=== PATIENT | female | born 1950 | race Native Hawaiian/Other Pacific Islander ===

== ENCOUNTER 2017-08-14 18:45 | Inpatient (IN) | payer MEDICARE, MEDICAID ==
[~2017-08-14] VITALS: Ht 162.6 cm; Wt 75.7 kg
[2017-08-14] MEDS ORDERED: LACTATED RINGERS 1,000 ML IV ONE (19:02)
[2017-08-14] MEDS ORDERED: NS IV 1000 ML 1,000 ML IV ONE ×2 (19:02→20:00)
[2017-08-14] MEDS ORDERED: RT-ALBUTEROL/IPRATROPIUM 3 ML (DUONEB) VIAL ONE (19:04)
[2017-08-14 19:12] LABS: ABG BASE EXCESS -3.1 MMOL/L (-2.5-2.5); ABG OXYGEN SATURATION 57 % (94-100); ABG PCO2 39 MMHG (35-45); ABG PH 7.36 (7.37-7.43)
[2017-08-14 19:13] LABS: ABG PO2 31 MMHG (79-93); ALLENS TEST POSITIVE; BASOPHILS % (AUTO) 0 % (0-10); EOSINOPHILS % (AUTO) 0 % (0-10); HEMATOCRIT 38 % (35-52); HEMOGLOBIN 12.5 G/DL (11.5-16.0); INSPIRED O2 6 L; LYMPHOCYTES # (AUTO) 1.7 X 10^3 (1.0-4.0); LYMPHOCYTES % (AUTO) 32 % (12-44); MEAN CORPUSCULAR HEMOGLOBIN 31 PG (25-34); MEAN CORPUSCULAR HGB CONC 33 G/DL (32-36); MEAN CORPUSCULAR VOLUME 94 FL (80-99); MONOCYTES # (AUTO) 0.8 X 10^3 (0.0-1.0); MONOCYTES % (AUTO) 14 % (0-12); NEUTROPHILS # (AUTO) 2.9 X 10^3 (1.8-7.8); NEUTROPHILS % (AUTO) 53 % (42-75); PATIENT TEMP 96.8; PLATELET COUNT 199 10^3/uL (130-400); RED BLOOD COUNT 4.03 10^6/uL (4.35-5.85); RED CELL DISTRIBUTION WIDTH 12.9 % (10.0-14.5); VENTILATOR NO; WHITE BLOOD COUNT 5.4 10^3/uL (4.3-11.0)
[2017-08-14] MEDS ORDERED: RT-ALBUTEROL/IPRATROPIUM 3 ML (DUONEB) VIAL INH ONE (19:15)
[2017-08-14] MEDS ORDERED: ONDANSETRON 4 MG/2 ML (SDV) Z0FRAN IVP PRN (19:15)
[2017-08-14] MEDS ORDERED: CEFEPIME INJECTION 2,000 MG in D5W 50 ML IVPB SOLUTION 50 ML IV ONE (19:15)
[2017-08-14 19:28] LABS: BILIRUBIN,URINE NEGATIVE (NEGATIVE); CLARITY,URINE CLEAR; COLOR,URINE YELLOW; GLUCOSE, URINE (UA) 2+ (NEGATIVE); KETONES,URINE NEGATIVE (NEGATIVE); LEUKOCYTE ESTERASE ,URINE NEGATIVE (NEGATIVE); NITRITE,URINE NEGATIVE (NEGATIVE); PH,URINE 5 (5-9); PROTEIN,URINE 1+ (NEGATIVE); UROBILINOGEN,URINE NORMAL (NORMAL)
[2017-08-14 19:34] LABS: ALBUMIN 4.3 GM/DL (3.2-4.5); BILIRUBIN,TOTAL 0.3 MG/DL (0.1-1.0); CALCIUM 9.3 MG/DL (8.5-10.1); CREATININE SERUM 2.76 MG/DL (0.60-1.30); MAGNESIUM 2.2 MG/DL (1.8-2.4); POTASSIUM 5.6 MMOL/L (3.6-5.0); TOTAL PROTEIN 8.3 GM/DL (6.4-8.2)
[2017-08-14 19:40] LABS: PROTHROMBIN TIME PATIENT 12.8 SEC (12.2-14.7)
[2017-08-14 19:41] LABS: BACTERIA,URINE NEGATIVE /HPF; SQUAMOUS EPITHELIAL CELL,UR 0-2 /HPF; WBC,URINE RARE /HPF
--- NOTE | 2017-08-14 20:12 | Diagnostic Imaging Report ---
INDICATION: Central line placement. Portable chest 7:53 p.m. FINDINGS: Right jugular central line tip projects over the SVC. Heart size and pulmonary vascularity are normal. Lungs are clear. There are no effusions or pneumothoraces. IMPRESSION: No acute abnormalities in the chest. Dictated by: Dictated on workstation # [id number]
--- NOTE | 2017-08-14 20:46 | ED General ---
General Chief Complaint: Unresponsive Stated Complaint: LETHARIC,AMS Nursing Triage Note: PT ARRIVED PER EMS, MD STATES HAS BEEN LETHARGIC ALL DAY BUT HAS BECOME MORE LETHARGIC PAST HOUR. HAS POOR RESPONSE TO PAINFUL STIMULI. Nursing Sepsis Screen: No Definite Risk Source of Information: Patient, EMS, Intermediate Records History of Present Illness Date Seen by Provider: Aug 14, 2017 Time Seen by Provider: 18:45 Initial Comments Patient presents to ER by EMS with chief complaint that she was at [facility] and rehabilitation nurse reported that she has been unresponsive since about 6:00 this morning. Patient is on Tamiflu day 2 for influenza. Blood pressure per [facility] records was 110 but EMS reports when they got there blood pressure was 106/58. Patient saturations were in the mid 80s on room air and on arrival blood pressure was in the high 90s systolic. Patient unable to give any meaningful history and initial GCS was 8 Allergies and Home Medications Allergies Coded Allergies: No Known Drug Allergies (Unverified , 08/14/17) Constitutional: see HPI (patient unable to give a meaningful review of systems secondary her to her clinical condition and decreased level of consciousness.) Past Tzzzpaq-Auvncx-Gkzrds Hx Patient Social History Alcohol Use: Denies Use Recreational Drug Use: No Smoking Status: Unknown if Ever Smoked Recent Foreign Travel: No Contact w/Someone Who Travel: No Recent Infectious Disease Expo: No Physical Exam-Suspected Sepsis Physical Exam Vital Signs Vital Sign - Last 12Hours 08/14/17 08/14/17 18:45 22:10 Temp 98.6 Pulse 99 Resp 20 B/P (MAP) 71/47 (55) Pulse Ox 74 O2 Delivery OxyMask O2 Flow Rate 5.00 FiO2 40 Capillary Refill : Less Than 3 Seconds Blood Pressure Mean: 55 General Appearance: WD/WN, Moderate Distress Eyes: Bilateral Eye Normal Inspection, Bilateral Eye PERRL (2mm), Bilateral Eye EOMI HEENT: PERRL/EOMI, TMs Normal, Normal ENT Inspection, Pharynx Normal Neck: Full Range of Motion, Normal Inspection, Non Tender, Supple Respiratory: Decreased Breath Sounds, Respiratory Distress (mild), Wheezing Cardiovascular: Regular Rate, Rhythm, No Murmur, Normal Peripheral Pulses Gastrointestinal: Normal Bowel Sounds, Soft Extremity: Normal Capillary Refill, Normal Inspection, No Pedal Edema Neurologic/Psychiatric: Other (GCS 8 initially) Skin: normal color, warm/dry Lymphatic: No Adenopathy Focused Exam Evaluation Lactate Level Laboratory Tests 08/14/17 19:03: Lactic Acid Level 1.60 Time of Focused Exam: 20:56 Respiratory: Chest Non Tender, Lungs Clear, Normal Breath Sounds, No Accessory Muscle Use, No Respiratory Distress, Other (BiPAP in place 11/26) Cardiovascular: Regular Rate, Rhythm, No Edema, Normal Peripheral Pulses, Other (blood pressure is 119/79) Capillary Refill: Less Than 3 Seconds Peripheral Pulses: 2+ Dorsalis Pedis (R), 2+ Left Dors-Pedis (L) Skin: normal color, warm/dry Lactic Acid Level Progress/Results/Core Measures Suspected Sepsis Recent Fever Within 48 Hours: No Infection Criteria Present: None New/Unexplained Altered Menta: No Sepsis Screen: No Definite Risk Sepsis Diagnosis: SIRS Temperature:98.6 Pulse: 99 Respiratory Rate: 20 Laboratory Tests 08/14/17 19:03: White Blood Count 5.4 08/15/17 03:10: White Blood Count 4.4 Blood Pressure 71 /47 Mean: 55 Laboratory Tests 08/14/17 19:03: Lactic Acid Level 1.60 Laboratory Tests 08/14/17 19:03: Creatinine 2.76H, INR Comment 1.0, Platelet Count 199, Total Bilirubin 0.3 08/15/17 03:10: Creatinine 1.46H, Platelet Count 144 Results/Orders Lab Results Laboratory Tests Test 08/14/17 18:54 08/14/17 19:03 08/14/17 19:17 08/14/17 20:28 Range/Units Glucometer 130 H 70-110 MG/DL White Blood Count 5.4 4.3-11.0 10^3/uL Red Blood Count 4.03 L 4.35-5.85 10^6/uL Hemoglobin 12.5 11.5-16.0 G/DL Hematocrit 38 35-52 % Mean Corpuscular Volume 94 80-99 FL Mean Corpuscular Hemoglobin 31 25-34 PG Mean Corpuscular Hemoglobin Concent 33 32-36 G/DL Red Cell Distribution Width 12.9 10.0-14.5 % Platelet Count 199 130-400 10^3/uL Mean Platelet Volume 11.0 H 7.4-10.4 FL Neutrophils (%) (Auto) 53 42-75 % Lymphocytes (%) (Auto) 32 12-44 % Monocytes (%) (Auto) 14 H 0-12 % Eosinophils (%) (Auto) 0 0-10 % Basophils (%) (Auto) 0 0-10 % Neutrophils # (Auto) 2.9 1.8-7.8 X 10^3 Lymphocytes # (Auto) 1.7 1.0-4.0 X 10^3 Monocytes # (Auto) 0.8 0.0-1.0 X 10^3 Eosinophils # (Auto) 0.0 0.0-0.3 10^3/uL Basophils # (Auto) 0.0 0.0-0.1 10^3/uL Prothrombin Time 12.8 12.2-14.7 SEC INR Comment 1.0 0.8-1.4 Activated Partial Thromboplast Time 35 24-35 SEC Blood Gas Puncture Site RIGHT WRIST RIGHT RADIAL Blood Gas Patient Temperature 96.8 97.0 Arterial Blood pH 7.36 L 7.31 *L 7.37-7.43 Arterial Blood Partial Pressure CO2 39 38 35-45 MMHG Arterial Blood Partial Pressure O2 31 *L 166 H 79-93 MMHG Arterial Blood HCO3 22 L 19 L 23-27 MMOL/L Arterial Blood Total CO2 23.0 20.1 L 21.0-31.0 MMOL/L Arterial Blood Oxygen Saturation 57 L 99 94-100 % Arterial Blood Base Excess -3.1 L -6.3 L -2.5-2.5 MMOL/L Darnell Test POSITIVE YES-POS Blood Gas Ventilator Setting NO NO Blood Gas Inspired Oxygen 6 L 60% Sodium Level 141 135-145 MMOL/L Potassium Level 5.6 H 3.6-5.0 MMOL/L Chloride Level 107 98-107 MMOL/L Carbon Dioxide Level 18 L 21-32 MMOL/L Anion Gap 16 H 5-14 MMOL/L Blood Urea Nitrogen 50 H 7-18 MG/DL Creatinine 2.76 H 0.60-1.30 MG/DL Estimat Glomerular Filtration Rate 17 BUN/Creatinine Ratio 18 Glucose Level 134 H 70-105 MG/DL Lactic Acid Level 1.60 0.50-2.00 MMOL/L Calcium Level 9.3 8.5-10.1 MG/DL Phosphorus Level 6.0 H 2.3-4.7 MG/DL Magnesium Level 2.2 1.8-2.4 MG/DL Total Bilirubin 0.3 0.1-1.0 MG/DL Aspartate Amino Transf (AST/SGOT) 44 H 5-34 U/L Alanine Aminotransferase (ALT/SGPT) 47 0-55 U/L Alkaline Phosphatase 87 40-136 U/L Troponin I < 0.30 <0.30 NG/ML Total Protein 8.3 H 6.4-8.2 GM/DL Albumin 4.3 3.2-4.5 GM/DL Urine Color YELLOW Urine Clarity CLEAR Urine pH 5 5-9 Urine Specific Colbert 1.020 1.016-1.022 Urine Protein 1+ H NEGATIVE Urine Glucose (UA) 2+ H NEGATIVE Urine Ketones NEGATIVE NEGATIVE Urine Nitrite NEGATIVE NEGATIVE Urine Bilirubin NEGATIVE NEGATIVE Urine Urobilinogen NORMAL NORMAL MG/DL Urine Leukocyte Esterase NEGATIVE NEGATIVE Urine RBC (Auto) NEGATIVE NEGATIVE Urine RBC NONE /HPF Urine WBC RARE /HPF Urine Squamous Epithelial Cells 0-2 /HPF Urine Crystals NONE /LPF Urine Bacteria NEGATIVE /HPF Urine Casts PRESENT /LPF Urine Hyaline Casts 2-5 H /LPF Urine Mucus SMALL H /LPF Urine Culture Indicated NO Test 08/15/17 03:10 08/15/17 04:35 Range/Units White Blood Count 4.4 4.3-11.0 10^3/uL Red Blood Count 3.10 L 4.35-5.85 10^6/uL Hemoglobin 9.5 #L 11.5-16.0 G/DL Hematocrit 30 L 35-52 % Mean Corpuscular Volume 96 80-99 FL Mean Corpuscular Hemoglobin 31 25-34 PG Mean Corpuscular Hemoglobin Concent 32 32-36 G/DL Red Cell Distribution Width 12.7 10.0-14.5 % Platelet Count 144 130-400 10^3/uL Mean Platelet Volume 10.4 7.4-10.4 FL Neutrophils (%) (Auto) 64 42-75 % Lymphocytes (%) (Auto) 26 12-44 % Monocytes (%) (Auto) 9 0-12 % Eosinophils (%) (Auto) 1 0-10 % Basophils (%) (Auto) 0 0-10 % Neutrophils # (Auto) 2.9 1.8-7.8 X 10^3 Lymphocytes # (Auto) 1.2 1.0-4.0 X 10^3 Monocytes # (Auto) 0.4 0.0-1.0 X 10^3 Eosinophils # (Auto) 0.0 0.0-0.3 10^3/uL Basophils # (Auto) 0.0 0.0-0.1 10^3/uL Sodium Level 140 135-145 MMOL/L Potassium Level 4.5 3.6-5.0 MMOL/L Chloride Level 113 H 98-107 MMOL/L Carbon Dioxide Level 17 L 21-32 MMOL/L Anion Gap 10 5-14 MMOL/L Blood Urea Nitrogen 36 H 7-18 MG/DL Creatinine 1.46 H 0.60-1.30 MG/DL Estimat Glomerular Filtration Rate 36 BUN/Creatinine Ratio 25 Glucose Level 128 H 70-105 MG/DL Calcium Level 7.3 L 8.5-10.1 MG/DL Phosphorus Level 3.1 2.3-4.7 MG/DL Magnesium Level 1.5 L 1.8-2.4 MG/DL Blood Gas Puncture Site LEFT RADIAL Blood Gas Patient Temperature 98.5 Arterial Blood pH 7.31 *L 7.37-7.43 Arterial Blood Partial Pressure CO2 36 35-45 MMHG Arterial Blood Partial Pressure O2 101 H 79-93 MMHG Arterial Blood HCO3 18 L 23-27 MMOL/L Arterial Blood Total CO2 19.0 L 21.0-31.0 MMOL/L Arterial Blood Oxygen Saturation 98 94-100 % Arterial Blood Base Excess -7.2 L -2.5-2.5 MMOL/L Darnell Test YES-POS Blood Gas Ventilator Setting NO Blood Gas Inspired Oxygen 30% Micro Results Microbiology 08/14/17 Influenza Types A,B Antigen (VITA) - Final, Complete My Orders Orders - LOGAN THACKER Albuterol/Ipra Inhalation Soln (Duoneb I (08/14/17 19:04) Troponin I (08/14/17 19:02) Chest 1 View, Ap/Pa Only (08/14/17 19:02) Ekg Tracing (08/14/17 19:02) Saline Lock/Iv-Start (08/14/17 19:02) Monitor-Rhythm Ecg Trace Only (08/14/17 19:02) Albuterol/Ipra Inhalation Soln (Duoneb I (08/14/17 19:15) Rt Request For Service (08/14/17 19:02) Saline Lock/Iv-Start (08/14/17 19:02) Ns Iv 1000 Ml (Sodium Chloride 0.9%) (08/14/17 19:02) Lactated Ringers (Lr 1000 Ml Iv Solution (08/14/17 19:02) Cbc With Automated Diff (08/14/17 19:02) Comprehensive Metabolic Panel (08/14/17 19:02) Lactic Acid Analyzer (08/14/17 19:02) Blood Culture (08/14/17 19:02) Sputum Culture (08/14/17 19:02) Ua Culture If Indicated (08/14/17 19:02) Protime With Inr (08/14/17 19:02) Partial Thromboplastin Time (08/14/17 19:02) O2 (08/14/17 19:02) Ondansetron Injection (Zofran Injectio (08/14/17 19:15) Saline Lock/Iv-Start (08/14/17 19:02) Saline Lock/Iv-Start (08/14/17 19:02) Cefepime Injection (Maxipime Injection) (08/14/17 19:15) Vital Signs Adult Sepsis Patie Q1H (08/14/17 19:02) Remove Rings In Anticipation O (08/14/17 19:02) Influenza A And B Antigens (08/14/17 19:02) Magnesium (08/14/17 19:02) Phosphorus (08/14/17 19:02) Bipap Rt-Rfs (08/14/17 19:02) Svn Sm Volume Nebulizer Rt-Rfs (08/14/17 19:02) Arterial Blood Gas (08/14/17 19:02) Ns Iv 1000 Ml (Sodium Chloride 0.9%) (08/14/17 20:00) Arterial Blood Gas (08/14/17 20:42) Medications Given in ED Current Medications Medications Dose Ordered Sig/Rhoda Route Start Time Stop Time Status Last Admin Dose Admin Albuterol/ Ipratropium 3 ml STK-MED ONCE .ROUTE 08/14/17 19:04 08/14/17 19:06 DC 08/14/17 19:09 3 ML Cefepime HCl 2000 mg/Dextrose/Water 50 ml @ 100 mls/hr ONCE ONCE IV 08/14/17 19:15 08/14/17 19:44 DC 08/14/17 20:09 100 MLS/HR Lactated Ringer's 1,000 ml @ 0 mls/hr Q0M ONCE IV 08/14/17 19:02 08/14/17 19:09 DC 08/14/17 19:05 1,000 MLS/HR Sodium Chloride 1,000 ml @ 0 mls/hr Q0M ONCE IV 08/14/17 19:02 08/14/17 19:09 DC 08/14/17 19:05 1,000 MLS/HR Sodium Chloride 1,000 ml @ 0 mls/hr Q0M ONCE IV 08/14/17 20:00 08/14/17 20:01 DC 08/14/17 20:10 0 MLS/HR Vital Signs/I&O Vital Sign - Last 12Hours 08/14/17 08/14/17 08/14/17 08/14/17 19:09 20:40 21:45 21:50 Temp 98.2 Pulse 99 99 80 Resp 20 22 16 B/P (MAP) 120/61 (80) Pulse Ox 100 99 98 O2 Delivery Nasal Cannula Nasal Cannula O2 Flow Rate 100.00 60.00 3.00 3.00 08/14/17 08/14/17 08/14/17 08/14/17 21:55 22:00 22:05 22:10 Pulse 76 80 85 Resp 13 15 B/P (MAP) 85/53 (64) Pulse Ox 97 97 99 O2 Delivery Nasal Cannula NIV Bilevel O2 Flow Rate 3.00 35.00 40.00 08/14/17 08/14/17 08/14/17 08/15/17 22:10 23:00 23:58 00:00 Temp 98.4 Pulse 85 79 77 Resp 17 15 B/P (MAP) 107/69 (82) Pulse Ox 99 100 100 O2 Delivery NIV Bilevel NIV Bilevel O2 Flow Rate 35.00 35.00 FiO2 40 08/15/17 08/15/17 08/15/17 08/15/17 00:00 01:00 01:00 02:00 Pulse 79 81 80 87 Resp 25 14 11 B/P (MAP) 119/79 (92) 108/92 (97) 104/60 (75) Pulse Ox 95 100 97 O2 Delivery NIV Bilevel NIV Bilevel NIV Bilevel O2 Flow Rate 35.00 35.00 30.00 08/15/17 08/15/17 08/15/17 08/15/17 02:00 03:00 04:00 04:00 Temp 98.4 Pulse 84 79 78 Resp 14 14 11 B/P (MAP) 99/64 (76) 102/65 (77) Pulse Ox 97 96 96 97 O2 Delivery NIV Bilevel NIV Bilevel NIV Bilevel O2 Flow Rate 30.00 30.00 30.00 FiO2 30 08/15/17 08/15/17 08/15/17 08/15/17 04:30 05:00 06:00 06:20 Pulse 79 79 80 75 Resp 15 13 12 15 B/P (MAP) 106/68 (81) 93/60 (71) Pulse Ox 97 98 97 100 O2 Delivery NIV Bilevel NIV Bilevel O2 Flow Rate 30.00 30.00 30.00 30.00 Intake and Output 08/15/17 00:00 Intake Total 2050 ml Balance 2050 ml Capillary Refill : Less Than 3 Seconds Blood Pressure Mean: 55 Progress Note : Time: 20:56 Progress Note Patient spontaneously was opening eyes is restarted doing or examination and interventions and her GCS improved where she may get a few 1 word answers saying she sick and feeling as whether it hurt or not. She's responding well to the oxygen and BiPAP so I don't think she'll need intubated at this time as she is protecting her airway and coughing at times. He started a central line to give her extra fluids and so far her blood pressure has been responsive to this. Spoke with daughter at 2100. Answered all questions. She is going to call the ICU in the morning to get an update. She will call other family members. Critical Care Note Critical Care Start Time: 18:45 Stop Time: 19:45 Total Time (minutes) 60 m Progress Patient's GCS was initially 8 although after some interventions lids she did start to wake up respond one or 2 word answers. She was protecting her airway. Her pupils became 4 mm bilateral reactive to light and accommodation. We initiated BiPAP because her sats were in the mid 80s on room air. We initially put an external jugular IV and 2 small 24-gauge in the hands that all but one hand blue nearly immediately so it was decided to put a central line and because she was hypotensive. Put IJ in the right neck. The patient tolerated procedure well. After 2-1/2 L were and her blood pressure was then above 110 systolic. Pressors were not needed. Departure Communication (Admissions) Time/Spoke to Admitting Phy: 20:[address] Moncada we spoke about the case lab imaging findings she agrees with antibiotics choice and wants the patient in ICU. Impression Impression: Primary Impression: Influenza A Additional Impressions: Septic shock Acute kidney injury Hyperkalemia Acute respiratory distress Disposition: ADMITTED INPATIENT Condition: Critical Admissions Decision to Admit Reason: Admit from ER (General) Decision to Admit/Date: Aug 14, 2017 Time/Decision to Admit Time: 20:43 Departure-Patient Inst. Referrals: LANETTE WILCOX DO (PCP/Family) Primary Care Physician Copy Copies To 1: LANETTE WILCOX TITUS J Aug 14, 2017 20:46
[2017-08-14 20:47] LABS: ABG BASE EXCESS -6.3 MMOL/L (-2.5-2.5); ABG OXYGEN SATURATION 99 % (94-100); ABG PCO2 38 MMHG (35-45); ABG PO2 166 MMHG (79-93); ABG TCO2 20.1 MMOL/L (21.0-31.0)
[2017-08-14 20:48] LABS: ABG PH 7.31 (7.37-7.43); ALLENS TEST YES-POS; INSPIRED O2 60%; VENTILATOR NO
[2017-08-14 21:50] VITALS: BP 120/61
[2017-08-14 22:00] VITALS: BP 85/53
[2017-08-14 22:10] VITALS: BP 85/53
[2017-08-14] MEDS: 1/2 NS IV SOLUTION 1,000 ML IV SCH (22:16)
[2017-08-14] MEDS ORDERED: VASOPRESSIN IV SCH (22:26)
[2017-08-14] MEDS ORDERED: NOREPINEPHRINE 4 MG in NS (IVPB) 250 ML IV SCH (22:26)
[2017-08-14] MEDS ORDERED: D5W IV SCH (22:26)
[2017-08-14] MEDS ORDERED: VANCOMYCIN 2000 MG/NS 500 ML IVPB IV ONE ×2 (22:30)
[2017-08-14] MEDS ORDERED: ONDANSETRON 4 MG/2 ML (SDV) Z0FRAN IV PRN (22:30)
[2017-08-14] MEDS ORDERED: NS IV 1000 ML 2,449.41 ML IV PRN (22:30)
[2017-08-14] MEDS ORDERED: NS (IVPB) 250 ML ONE ×2 (22:49)
[2017-08-14] MEDS ORDERED: VANCOMYCIN 1000 MG/VIAL ONE ×2 (22:49)
[2017-08-14] MEDS: NS IV 1000 ML 1,000 ML IV SCH (22:53)
[2017-08-14 23:00] VITALS: BP 107/69
[2017-08-14] MEDS ORDERED: RT-ALBUTEROL/IPRATROPIUM 3 ML (DUONEB) VIAL INH PRN (23:00)
[2017-08-14 23:58] VITALS: BP 132/68
[2017-08-15] VITALS (16 sets, daily range): BP systolic 93–137; BP diastolic 51–92
[2017-08-15] MEDS: RT-ALBUTEROL/IPRATROPIUM 3 ML (DUONEB) VIAL INH SCH ×6 (01:59→22:00)
[2017-08-15] MEDS: 1/2 NS IV SOLUTION 1,000 ML IV SCH (03:13)
[2017-08-15] MEDS: NS IV 1000 ML 1,000 ML IV SCH ×4 (03:13→18:04)
[2017-08-15 03:21] LABS: BASOPHILS % (AUTO) 0 % (0-10); EOSINOPHILS % (AUTO) 1 % (0-10); HEMATOCRIT 30 % (35-52); HEMOGLOBIN 9.5 G/DL (11.5-16.0); LYMPHOCYTES # (AUTO) 1.2 X 10^3 (1.0-4.0); LYMPHOCYTES % (AUTO) 26 % (12-44); MEAN CORPUSCULAR HEMOGLOBIN 31 PG (25-34); MEAN CORPUSCULAR HGB CONC 32 G/DL (32-36); MEAN CORPUSCULAR VOLUME 96 FL (80-99); MEAN PLATELET VOLUME 10.4 FL (7.4-10.4); MONOCYTES # (AUTO) 0.4 X 10^3 (0.0-1.0); MONOCYTES % (AUTO) 9 % (0-12); NEUTROPHILS # (AUTO) 2.9 X 10^3 (1.8-7.8); NEUTROPHILS % (AUTO) 64 % (42-75); PLATELET COUNT 144 10^3/uL (130-400); RED CELL DISTRIBUTION WIDTH 12.7 % (10.0-14.5); WHITE BLOOD COUNT 4.4 10^3/uL (4.3-11.0)
[2017-08-15 03:39] LABS: CALCIUM 7.3 MG/DL (8.5-10.1); CREATININE SERUM 1.46 MG/DL (0.60-1.30); MAGNESIUM 1.5 MG/DL (1.8-2.4); PHOSPHORUS 3.1 MG/DL (2.3-4.7); POTASSIUM 4.5 MMOL/L (3.6-5.0)
[2017-08-15 04:43] LABS: ABG BASE EXCESS -7.2 MMOL/L (-2.5-2.5); ABG OXYGEN SATURATION 98 % (94-100); ABG PCO2 36 MMHG (35-45); ABG PO2 101 MMHG (79-93)
[2017-08-15 04:47] LABS: ABG PH 7.31 (7.37-7.43); ALLENS TEST YES-POS; INSPIRED O2 30%; PATIENT TEMP 98.5; VENTILATOR NO
[2017-08-15] MEDS ORDERED: MAGNESIUM 1 GM/100 ML IVPB 100 ML IV SCH (06:00)
[2017-08-15] MEDS ORDERED: POTASSIUM CL 10MEQ/50ML IVPB 50 ML IV SCH (06:00)
[2017-08-15] MEDS ORDERED: KCL 20 MEQ TAB (K-DUR) PO SCH (06:00)
--- NOTE | 2017-08-15 06:26 | Pulmonary Consultation ---
History of Present Illness History of Present Illness Date of Consultation 08/15/17 06:19 Time Seen by Provider: 06:19 Date of Admission History of Present Illness 67yo presented to ED via EMS from [facility] secondary to being found unresponsive. Pt has been treated with Tamiflu for the last 2 days for documented influenza. Pt was also found to be hypoxic with Sp02 in the 80's. Pt was admitted to ICU for hypotension and influenza. I am consulted for ICU management. Unable to obtain ROS. Allergies and Home Medications Allergies Coded Allergies: No Known Drug Allergies (Unverified , 08/14/17) Past Qisaqbt-Hbbjju-Wwosab Hx Patient Social History Alcohol Use: Denies Use Recreational Drug Use: No Smoking Status: Unknown if Ever Smoked Recent Foreign Travel: No Contact w/Someone Who Travel: No Recent Infectious Disease Expo: No Recent Hopitalizations: No Immunizations Up To Date PED Vaccines UTD: No Date of Pneumonia Vaccine: Apr 24, 2016 Seasonal Allergies Seasonal Allergies: No Surgeries History of Surgeries: No Respiratory History of Respiratory Disorde: Yes Respiratory Disorders: Sleep Apnea Cardiovascular History of Cardiac Disorders: Yes Neurological History of Neurological Disord: Yes Genitourinary History of Genitourinary Disor: No Gastrointestinal History of Gastrointestinal Di: Yes Gastrointestinal Disorders: Hemorrhoids Musculoskeletal History of Musculoskeletal Dis: Yes Musculoskeletal Disorders: Chronic Back Pain Endocrine History of Endocrine Disorders: No HEENT History of HEENT Disorders: Yes Hearing Impairment: Hard of Hearing Cancer History of Cancer: No Psychosocial History of Psychiatric Problem: Yes (MAJOR DEPRESSIVE DISORDER, DELUSIONS) Behavioral Health Disorders: Personality Disorder, Depression Integumentary History of Skin or Integumenta: No Blood Transfusions History of Blood Disorders: No Review of Systems Time Seen by Provider: 06:45 Exam Exam Vital Signs Date Time Temp Pulse Resp B/P (MAP) Pulse Ox O2 Delivery O2 Flow Rate FiO2 08/15/17 04:30 79 15 97 30.00 08/15/17 04:00 97 NIV Bilevel 30 08/15/17 04:00 98.4 78 11 102/65 (77) 96 NIV Bilevel 30.00 08/15/17 03:00 79 14 99/64 (76) 96 NIV Bilevel 30.00 08/15/17 02:00 84 14 97 30.00 08/15/17 02:00 87 11 104/60 (75) 97 NIV Bilevel 30.00 08/15/17 01:00 80 14 108/92 (97) 100 NIV Bilevel 35.00 08/15/17 01:00 81 08/15/17 00:00 79 25 119/79 (92) 95 NIV Bilevel 35.00 08/15/17 00:00 98.4 NIV Bilevel 08/14/17 23:58 77 15 100 35.00 08/14/17 23:00 79 17 107/69 (82) 100 NIV Bilevel 35.00 08/14/17 22:10 85 99 40 08/14/17 22:10 85 15 99 40.00 08/14/17 22:05 80 08/14/17 22:00 76 13 85/53 (64) 97 NIV Bilevel 35.00 08/14/17 21:55 97 Nasal Cannula 3.00 08/14/17 21:50 98.2 80 16 120/61 (80) 98 Nasal Cannula 3.00 08/14/17 21:45 Nasal Cannula 3.00 08/14/17 20:40 99 22 99 60.00 08/14/17 19:09 99 20 100 100.00 08/14/17 18:45 98.6 99 20 71/47 (55) 74 Room Air 08/14/17 18:45 74 OxyMask 5.00 I & O 08/15/17 07:00 Intake Total 3550 ml Output Total 1075 ml Balance 2475 ml General Appearance: No Apparent Distress HEENT: TMs Normal, Normal ENT Inspection Neck: Supple Respiratory: Chest Non Tender, Lungs Clear, Normal Breath Sounds, No Accessory Muscle Use, No Respiratory Distress, Other (BiPAP in place /10) Cardiovascular: Regular Rate, Rhythm, No Edema, Normal Peripheral Pulses, Other (blood pressure is 119/79) Capillary Refill: Less Than 3 Seconds Peripheral Pulses: 2+ Dorsalis Pedis (R), 2+ Left Dors-Pedis (L) Gastrointestinal: normal bowel sounds, non tender, soft Extremity: Normal Capillary Refill, Normal Inspection Neurologic/Psychiatric: Alert, Oriented x3 Skin: Normal Color, Warm/Dry Lymphatic: No Adenopathy Results Lab Laboratory Tests 08/14/17 19:03 08/15/17 03:10 Assessment/Plan Assessment/Plan Influenza A - without sepsis - No leukocytosis, no fever, HR <90, RR <12 Dehydration with Hypotension -IVF NS at 150 -Pt has had 6 liters ROSIO -IVF Hypomag -replace 255 Clinical Quality Measures DVT/VTE Risk/Contraindication: Risk Factor Score Per Nursin RFS Level Per Nursing on Admit: 4+=Very High ASHLEE ANDREA DO Aug 15, 2017 06:26
[2017-08-15] MEDS ORDERED: FAMOTIDINE 20 MG (PEPCID) TABLET PO PRN (06:45)
[2017-08-15] MEDS: ENOXAPARIN 40 MG/0.4 ML (LOVENOX) SYR SC SCH (06:56)
[2017-08-15] MEDS: MAGNESIUM 1 GM/100 ML IVPB 100 ML IV SCH ×2 (06:56→08:01)
--- NOTE | 2017-08-15 08:14 | Diagnostic Imaging Report ---
INDICATION: Pneumonia COMPARISON: 08/14/2017 FINDINGS: Single view of the chest demonstrates stable minimal basilar atelectasis. The heart is prominent without pulmonary edema. There is no pneumothorax or effusion. The central venous catheter on the right is stable. IMPRESSION: Minimal basilar atelectasis. Dictated by: Dictated on workstation # [id number]
[2017-08-15] MEDS ORDERED: INFLUENZA TRIvalent 2017-2018 0.5 ML/45 MCG SYR IM ONE (08:30)
[2017-08-15] MEDS ORDERED: OSELTAMIVIR 75 MG (TAMIFLU) BOX OF 10 PO SCH (09:00)
[2017-08-15] MEDS: OSELTAMIVIR 30 MG (TAMIFLU) BOX OF 10 PO SCH ×3 (09:30→21:09)
--- NOTE | 2017-08-15 10:57 | History & Physical-Hospitalist ---
HPI History of Present Illness: HPI/Chief Complaint CC: Altered mental status HPI: This is a 67-year-old white female halfway patient of Dr. Miller'elham with history of severe dementia that presented to the ER after found unresponsive. She had documented influenza 2 days prior to admission and she was found to have hypotension due to dehydration without evidence of sepsis. Chest x-ray did not reveal pneumonia. Patient has such severe dementia no history is obtainable. Source: patient Exam Limitations: other (dementia) Date Seen 08/15/17 Time Seen by Provider: 11:00 Attending Physician Patricia Moncada DO PCP Rik Miller DO Referring Physician Date of Admission Aug 14, 2017 at 20:50 Home Medications & Allergies Home Medications Reviewed patient Home Medication Reconciliation Form Allergies Allergies Coded Allergies No Known Drug Allergies (Unverified08/14/17) Past Fmriajf-Nwedko-Fabrye Hx Patient Social History Marrital Status: single Alcohol Use: Denies Use Recreational Drug Use: No Smoking Status: Unknown if Ever Smoked Physical Abuse Screen: No Sexual Abuse: No Recent Foreign Travel: No Contact w/other who traveled: No Recent Hopitalizations: No Recent Infectious Disease Expo: No Immunizations Up To Date Pediatric: No Date of Pneumonia Vaccine: Apr 24, 2016 Seasonal Allergies Seasonal Allergies: No Surgeries No Respiratory Yes Cardiovascular Yes Hypertension Neurological Yes Dementia Genitourinary No Gastrointestinal Yes Hemorrhoids Musculoskeletal Yes Chronic Back Pain Endocrine History of Endocrine Disorders: No HEENT History of HEENT Disorders: Yes Hearing Impairment: Hard of Hearing Cancer No Psychosocial History of Psychiatric Problem: Yes (MAJOR DEPRESSIVE DISORDER, DELUSIONS) Behavioral Health Disorders: Personality Disorder, Depression Integumentary History of Skin or Integumenta: No Blood Transfusions History of Blood Disorders: No Review of Systems ROS-Unable to Obtain: unable to ascertain due to dementia Constitutional: see HPI Physical Exam Physical Exam Vital Signs Vital Sign - Last 12Hours 08/14/17 08/14/17 18:45 22:10 Temp 98.6 Pulse 99 Resp 20 B/P (MAP) 71/47 (55) Pulse Ox 74 O2 Delivery OxyMask O2 Flow Rate 5.00 FiO2 40 Capillary Refill : Less Than 3 Seconds General Appearance: No Apparent Distress, WD/WN, Chronically ill, Obese Eyes: Bilateral Eye Normal Inspection, Bilateral Eye PERRL HEENT: PERRL/EOMI, Normal ENT Inspection, Pharynx Normal Neck: Full Range of Motion, Normal Inspection, Non Tender, Supple, Carotid Bruit Respiratory: Chest Non Tender, Lungs Clear, Normal Breath Sounds, No Accessory Muscle Use, No Respiratory Distress Cardiovascular: Regular Rate, Rhythm, No Edema, No Gallop, No JVD, No Murmur, Normal Peripheral Pulses Gastrointestinal: Normal Bowel Sounds, No Organomegaly, No Pulsatile Mass, Non Tender, Soft Back: Normal Inspection, No CVA Tenderness, No Vertebral Tenderness Extremity: Normal Capillary Refill, Normal Inspection, Normal Range of Motion, Non Tender, No Calf Tenderness, No Pedal Edema Neurologic/Psychiatric: Alert, No Motor/Sensory Deficits, Normal Mood/Affect, Disoriented x3 Skin: Normal Color, Warm/Dry Lymphatic: No Adenopathy Results Results/Procedures Lab Laboratory Tests 08/14/17 19:03 08/15/17 03:10 Assessment/Plan Admission Diagnosis Assessment: Altered mental status Recent diagnosis of influenza Dehydration with hypotension Severe dementia Assessment and Plan Plan: Reconcile home meds when available Transfer to fourth floor Severe dementia precludes any details Clinical Quality Measures DVT/VTE Risk/Contraindication: Risk Factor Score Per Nursin RFS Level Per Nursing on Admit: 4+=Very High PATRICIA MONCADA DO Aug 15, 2017 10:57
[2017-08-15] MEDS ORDERED: ATOR10TA PO (15:25)
[2017-08-15] MEDS ORDERED: OSLT75C PO (15:25)
[2017-08-15] MEDS ORDERED: LISI-552 PO (15:25)
[2017-08-15] MEDS ORDERED: DONE10TA12 PO (15:25)
[2017-08-15] MEDS ORDERED: SENN-140 PO (15:25)
[2017-08-15] MEDS ORDERED: METF500T4 PO (15:25)
[2017-08-15] MEDS ORDERED: MAG30ORA2 PO (15:25)
[2017-08-15] MEDS ORDERED: AMLO10TA4 PO (15:25)
[2017-08-15] MEDS ORDERED: MULT-974 PO (15:25)
[2017-08-15] MEDS ORDERED: LACT10SO PO (15:25)
[2017-08-15] MEDS ORDERED: MEMA10TA2 PO (15:25)
[2017-08-15] MEDS ORDERED: MIRT15TA6 PO (15:25)
[2017-08-15] MEDS ORDERED: GABA-490 PO (15:25)
[2017-08-15] MEDS ORDERED: DULO60CA58 PO (15:25)
[2017-08-15] MEDS ORDERED: DOCU-143 PO (15:25)
[2017-08-15] MEDS ORDERED: TRIA1CAP4 PO (15:25)
[2017-08-15] MEDS ORDERED: DIPH1TAB PO (15:25)
[2017-08-15] MEDS ORDERED: ACET325T49 PO (15:25)
[2017-08-15] MEDS ORDERED: QUET100T PO (15:25)
[2017-08-15] MEDS ORDERED: MUPI15CR TP (15:25)
[2017-08-15] MEDS ORDERED: QUET300T2 PO (15:25)
[2017-08-15] MEDS ORDERED: MOUT240M PO (15:34)
[2017-08-15] MEDS ORDERED: LIDOCAINE GEL 2% TOP (15:34)
[2017-08-15] MEDS ORDERED: CEFEPIME 2 GM/D5W 50 ML IVPB IV SCH ×2 (19:00)
[2017-08-15] MEDS ORDERED: VANCOMYCIN 1250 MG/NS 250 ML IVPB IV SCH ×2 (22:45)
[2017-08-16] MEDS: RT-ALBUTEROL/IPRATROPIUM 3 ML (DUONEB) VIAL INH SCH ×6 (01:53→21:41)
[2017-08-16 02:32] VITALS: BP 149/75
[2017-08-16] MEDS: NS IV 1000 ML 1,000 ML IV SCH ×2 (03:17→08:15)
[2017-08-16 04:35] LABS: BASOPHILS % (AUTO) 0 % (0-10); EOSINOPHILS # (AUTO) 0.1 10^3/uL (0.0-0.3); EOSINOPHILS % (AUTO) 1 % (0-10); HEMATOCRIT 32 % (35-52); HEMOGLOBIN 10.6 G/DL (11.5-16.0); LYMPHOCYTES % (AUTO) 19 % (12-44); MEAN CORPUSCULAR HEMOGLOBIN 31 PG (25-34); MEAN CORPUSCULAR HGB CONC 34 G/DL (32-36); MEAN CORPUSCULAR VOLUME 93 FL (80-99); MONOCYTES # (AUTO) 0.4 X 10^3 (0.0-1.0); MONOCYTES % (AUTO) 8 % (0-12); NEUTROPHILS # (AUTO) 3.7 X 10^3 (1.8-7.8); NEUTROPHILS % (AUTO) 72 % (42-75); PLATELET COUNT 167 10^3/uL (130-400); RED CELL DISTRIBUTION WIDTH 12.2 % (10.0-14.5); WHITE BLOOD COUNT 5.2 10^3/uL (4.3-11.0)
[2017-08-16 04:51] LABS: BUN/CREATININE RATIO 18; CALCIUM 7.8 MG/DL (8.5-10.1); CARBON DIOXIDE 15 MMOL/L (21-32); CHLORIDE 112 MMOL/L (98-107); CREATININE SERUM 0.76 MG/DL (0.60-1.30); GFR ESTIMATED > 60; GLUCOSE 110 MG/DL (70-105); MAGNESIUM 1.7 MG/DL (1.8-2.4); PHOSPHORUS 1.3 MG/DL (2.3-4.7); POTASSIUM 4.3 MMOL/L (3.6-5.0); SODIUM 138 MMOL/L (135-145)
[2017-08-16] MEDS: ENOXAPARIN 40 MG/0.4 ML (LOVENOX) SYR SC SCH (06:02)
[2017-08-16] MEDS: OSELTAMIVIR 30 MG (TAMIFLU) BOX OF 10 PO SCH ×3 (08:16→20:44)
[2017-08-16 08:46] VITALS: BP 150/100
--- NOTE | 2017-08-16 09:21 | Diagnostic Imaging Report ---
CLINICAL INDICATION: Patient with pneumonia. EXAM: Portable chest x-ray upright view. COMPARISON: Portable chest x-ray dated 08/15/2017. FINDINGS: There is interval increase airspace opacification involving the right midlung field and both lung bases concerning for progression of pneumonia and/or superimposed infiltrate. Again seen mild cardiomegaly. There is no significant pulmonary vascular congestion. There is no gross pleural effusion or pneumothorax. The previously seen right IJ central line has been removed. The remainder of this exam shows no significant interval change compared to the prior study of comparison. IMPRESSION: 1: Interval progression of bilateral lung infiltrates and/or atelectasis. 2: There is interval removal of the right IJ central line. There is no pneumothorax. Dictated by: Dictated on workstation # [id number]
--- OUTSIDE RECORDS SUMMARY | 2017-08-16 09:29 | XMS REPORT | Continuity of Care Document ---
Author Author [facility] Organization [facility] Address Unknown Phone Unavailable Allergies There is no data. Medications There is no data. Problems Date Dx Coded Attending Type Code Diagnosis Diagnosed By 02/03/2017 MISHEL HERNANDEZ MD E11.9 Type 2 diabetes mellitus without complications 02/03/2017 MISHEL HERNANDEZ MD F01.50 Vascular dementia without behavioral disturbance 02/03/2017 MISHEL HERNANDEZ MD F33.3 Major depressv disorder, recurrent, severe w psych symptoms 02/03/2017 MISHEL HERNANDEZ MD I10 Essential (primary) hypertension 02/03/2017 MISHEL HERNANDEZ MD K12.0 Recurrent oral aphthae 02/03/2017 MISHEL HERNANDEZ MD K59.00 Constipation, unspecified 02/03/2017 MISHEL HERNANDEZ MD K62.89 Other specified diseases of anus and rectum 02/03/2017 MISHEL HERNANDEZ MD N28.9 Disorder of kidney and ureter, unspecified 02/03/2017 MISHEL HERNANDEZ MD R19.7 Diarrhea, unspecified Procedures There is no data. Results There is no data. Encounters ACCT No. Visit Date/Time Discharge Status Pt. Type Provider Facility Loc./Unit Complaint [id number] 01/09/2017 17:30:00 02/03/2017 19:23:00 DIS Inpatient MISHEL HERNANDEZ MD [facility]
--- OUTSIDE RECORDS SUMMARY | 2017-08-16 09:29 | XMS REPORT ---
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 Problem list No authorized problems tracked for continuity of care are available for this visit. Encounters No authorized problems tracked for encounter diagnoses are available for this visit. Medications No medications recorded for this patient visit Allergies, adverse reactions, alerts No allergy information is available for this patient. Immunizations No immunizations recorded for this patient visit Relevant diagnostic tests and/or laboratory data No authorized results are available for this patient visit History of procedures No procedures recorded for this patient visit. Functional status No functional or cognitive status observations are available for this visit. Vital signs No authorized vital signs are available for this visit. Social history No Social History or smoking status observations were recorded for this visit. ( Unknown if ever smoked.) Treatment Plan No treatment plan text is available for this visit. Hospital discharge instructions No discharge instruction text is available for this visit.
--- OUTSIDE RECORDS SUMMARY | 2017-08-16 09:29 | XMS REPORT ---
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
--- OUTSIDE RECORDS SUMMARY | 2017-08-16 09:32 | XMS REPORT | Continuity of Care Document ---
Author Author [facility] Organization [facility] Address Unknown Phone Unavailable Allergies There [...] Status Pt. Type Provider Facility Loc./Unit Complaint [id number] 01/09/2017 17:30:00 02/03/2017 19:23:00 DIS Inpatient MISHEL HERNANDEZ MD [facility]
--- NOTE | 2017-08-16 11:25 | Progress Note-Hospitalist ---
Progress Note HPI/CC on Admission CC: Altered mental status HPI: This is a 67-year-old white female [facility] patient of Dr. Bloom with history of severe dementia that presented to the ER after found unresponsive. She had documented influenza 2 days prior to admission and she was found to have hypotension due to dehydration without evidence of sepsis. Chest x-ray did not reveal pneumonia. Patient has such severe dementia no history is obtainable. Progress Notes/Assess & Plan Date Seen 08/16/17 Time Seen by Provider: 10:30 Admission Dx/Process Assessment: Altered mental status Recent diagnosis of influenza Dehydration with hypotension Severe dementia Diagonsis/Assessment & Plan Patient unwilling to have exam today she just pushes my hands away Patient not taking her meds either Reconcile all home meds including antihypertensive medicine Will discontinue catheter Overall poor prognosis due to severe dementia No fever, blood pressure more elevated today Patient refused to allow me to examine her heart and lungs Laboratory Tests 08/16/17 04:28 Assessment: Altered mental status w/h/o severe dementia Recent diagnosis of influenza maintained on Tamiflu Dehydration with hypotension resolved now with mild fluid overload will give one dose of Lasix HTN HLP Anemia of acute illness Plan: Reconciled home meds but refusing all pills so will try to encourage her to take the meds NHP tomorrow per PCP Severe dementia precludes any details KORY ARENAS DO Aug 16, 2017 11:25
[2017-08-16] MEDS ORDERED: HALOPERIDOL 5 MG/ML (HALDOL) AMP IM PRN (11:30)
[2017-08-16] MEDS ORDERED: ANTACID SUSP 30 ML UDC (MYLANTA) PO PRN (11:30)
[2017-08-16] MEDS ORDERED: LACTULOSE SYRUP 10GM/15ML (ENULOSE) 30ML UDC PO PRN (11:30)
[2017-08-16] MEDS ORDERED: SENNOSIDES 8.6 MG (SENOKOT) TAB PO PRN (11:30)
[2017-08-16 12:00] VITALS: BP 171/91
[2017-08-16] MEDS ORDERED: FUROSEMIDE 40 MG/4 ML INJ (LASIX) IVP NR (12:21)
[2017-08-16] MEDS: GABAPENTIN 400 MG (NEURONTIN) CAP PO SCH ×2 (13:43→20:43)
[2017-08-16] MEDS: ACETAMINOPHEN 325 MG TABLET/CAPLET (TYLENOL) PO SCH ×2 (13:44→20:44)
[2017-08-16] MEDS: DULoxetine 30 MG (CYMBALTA) CAP PO SCH (13:44)
[2017-08-16 14:16] VITALS: BP 146/69
[2017-08-16 15:55] VITALS: BP 127/86
[2017-08-16 20:00] VITALS: BP 143/87
[2017-08-16] MEDS: MEMANTINE 10 MG (NAMENDA) TABLET PO SCH (20:43)
[2017-08-16] MEDS: CEFDINIR 300 MG (OMNICEF) CAP PO SCH (20:43)
[2017-08-16] MEDS: DOCUSATE SODIUM 100 MG (COLACE) CAP PO SCH (20:43)
[2017-08-16] MEDS: QUEtiapine 100 MG (SEROquel) TAB IMMEDIATE RELEASE PO SCH (20:44)
[2017-08-16] MEDS ORDERED: TROUGH ORDER-PHARMACY XX NR (21:00)
[2017-08-16] MEDS ORDERED: QUEtiapine 200 MG (SEROquel) TAB IMMEDIATE RELEASE PO SCH (21:00)
[2017-08-16] MEDS ORDERED: DONEPEZIL 10 MG (ARICEPT) TAB PO SCH (21:00)
[2017-08-16] MEDS ORDERED: MIRTAZAPINE 15 MG (REMERON) TAB PO SCH (21:00)
[2017-08-17] VITALS: BP 127/65
[2017-08-17] MEDS: RT-ALBUTEROL/IPRATROPIUM 3 ML (DUONEB) VIAL INH SCH ×2 (01:30→11:12)
[2017-08-17] MEDS: ENOXAPARIN 40 MG/0.4 ML (LOVENOX) SYR SC SCH (06:18)
[2017-08-17 06:51] LABS: BASOPHILS % (AUTO) 1 % (0-10); EOSINOPHILS % (AUTO) 0 % (0-10); HEMATOCRIT 34 % (35-52); HEMOGLOBIN 11.5 G/DL (11.5-16.0); LYMPHOCYTES % (AUTO) 16 % (12-44); MEAN CORPUSCULAR HEMOGLOBIN 31 PG (25-34); MEAN CORPUSCULAR HGB CONC 34 G/DL (32-36); MEAN CORPUSCULAR VOLUME 91 FL (80-99); MEAN PLATELET VOLUME 10.6 FL (7.4-10.4); MONOCYTES # (AUTO) 0.6 X 10^3 (0.0-1.0); MONOCYTES % (AUTO) 8 % (0-12); NEUTROPHILS # (AUTO) 4.9 X 10^3 (1.8-7.8); NEUTROPHILS % (AUTO) 75 % (42-75); PLATELET COUNT 191 10^3/uL (130-400); RED BLOOD COUNT 3.71 10^6/uL (4.35-5.85); RED CELL DISTRIBUTION WIDTH 11.9 % (10.0-14.5); WHITE BLOOD COUNT 6.5 10^3/uL (4.3-11.0)
[2017-08-17 07:08] LABS: BUN/CREATININE RATIO 16; CALCIUM 8.5 MG/DL (8.5-10.1); CARBON DIOXIDE 17 MMOL/L (21-32); CHLORIDE 110 MMOL/L (98-107); CREATININE SERUM 0.73 MG/DL (0.60-1.30); GFR ESTIMATED > 60; GLUCOSE 125 MG/DL (70-105); MAGNESIUM 1.6 MG/DL (1.8-2.4); PHOSPHORUS 1.6 MG/DL (2.3-4.7); SODIUM 141 MMOL/L (135-145)
--- NOTE | 2017-08-17 07:14 | Pulmonary Progress Note ---
Subjective Time Seen by Provider: 07:13 Subjective/Events-last exam NO complications noted. Exam Exam Vital Signs Date Time Temp Pulse Resp B/P (MAP) Pulse Ox O2 Delivery O2 Flow Rate FiO2 08/17/17 00:00 97.4 82 22 127/65 (85) 96 Room Air 08/16/17 20:45 Room Air 08/16/17 20:00 98.3 76 24 143/87 (105) 95 Room Air 08/16/17 15:55 96.7 88 24 127/86 (100) 96 Room Air 08/16/17 14:16 96.9 76 20 146/69 (94) 94 Room Air 08/16/17 12:00 96.4 91 18 171/91 (117) 95 Room Air 08/16/17 10:22 92 Room Air 08/16/17 08:46 82 16 150/100 (117) 94 08/16/17 08:22 97.4 Room Air 08/16/17 08:20 Room Air I & O 08/17/17 07:00 Intake Total 0 ml Output Total 750 ml Balance -750 ml General Appearance: No Apparent Distress, WD/WN, Chronically ill, Obese HEENT: PERRL/EOMI, Normal ENT Inspection, Pharynx Normal Neck: Full Range of Motion, Normal Inspection, Non Tender, Supple, Carotid Bruit Respiratory: Chest Non Tender, Lungs Clear, Normal Breath Sounds, No Accessory Muscle Use, No Respiratory Distress Cardiovascular: Regular Rate, Rhythm, No Edema, No Gallop, No JVD, No Murmur, Normal Peripheral Pulses Capillary Refill: Less Than 3 Seconds Peripheral Pulses: 2+ Dorsalis Pedis (R), 2+ Left Dors-Pedis (L) Gastrointestinal: normal bowel sounds, non tender, soft Extremity: Normal Capillary Refill, Normal Inspection, Normal Range of Motion, Non Tender, No Calf Tenderness, No Pedal Edema Neurologic/Psychiatric: Alert, No Motor/Sensory Deficits, Normal Mood/Affect, Disoriented x3 Skin: Normal Color, Warm/Dry Lymphatic: No Adenopathy Results Lab Laboratory Tests 08/16/17 04:28 08/17/17 06:40 Assessment/Plan Assessment/Plan Influenza A - without sepsis - No leukocytosis, no fever, HR <90, RR <12 -D/C abx S/p dehydration - resolved HX of severe MR Pt is doing much better. she is not requiring 02. Pt is ok for discharge from pulmonary standpoint. I am going to sign off please call with any questions. 232 Clinical Quality Measures DVT/VTE Risk/Contraindication: Risk Factor Score Per Nursin RFS Level Per Nursing on Admit: 4+=Very High ASHLEE ANDREA DO Aug 17, 2017 07:14
[2017-08-17 07:15] VITALS: BP 162/74
--- NOTE | 2017-08-17 07:48 | Progress Note (SOAP) ---
Subjective Time Seen by Provider: 07:45 Subjective/Events-last exam patient is alert today. Patient told me to turn off the lights. Patient breathing good. Influenza a. Dehydration with hypotension. Severe dementia. Patient doing as good as can be expected Spoke to pulmonology and okay with him to be discharged today Objective Exam Vital Signs Date Time Temp Pulse Resp B/P (MAP) Pulse Ox O2 Delivery O2 Flow Rate FiO2 08/17/17 07:15 97.1 74 22 162/74 (103) 97 Room Air 08/17/17 00:00 97.4 82 22 127/65 (85) 96 Room Air 08/16/17 20:45 Room Air 08/16/17 20:00 98.3 76 24 143/87 (105) 95 Room Air 08/16/17 15:55 96.7 88 24 127/86 (100) 96 Room Air 08/16/17 14:16 96.9 76 20 146/69 (94) 94 Room Air 08/16/17 12:00 96.4 91 18 171/91 (117) 95 Room Air 08/16/17 10:22 92 Room Air 08/16/17 08:46 82 16 150/100 (117) 94 08/16/17 08:22 97.4 Room Air 08/16/17 08:20 Room Air I & O 08/17/17 07:00 Intake Total 0 ml Output Total 750 ml Balance -750 ml Capillary Refill : Less Than 3 Seconds General Appearance: No Apparent Distress, WD/WN HEENT: Normal ENT Inspection Neck: Full Range of Motion, Normal Inspection Respiratory: Lungs Clear, No Accessory Muscle Use, No Respiratory Distress Cardiovascular: No Murmur Gastrointestinal: non tender, soft Results Lab Laboratory Tests 08/17/17 06:40: White Blood Count 6.5, Red Blood Count 3.71L, Hemoglobin 11.5, Hematocrit 34L, Mean Corpuscular Volume 91, Mean Corpuscular Hemoglobin 31, Mean Corpuscular Hemoglobin Concent 34, Red Cell Distribution Width 11.9, Platelet Count 191, Mean Platelet Volume 10.6H, Neutrophils (%) (Auto) 75, Lymphocytes (%) (Auto) 16 , Monocytes (%) (Auto) 8, Eosinophils (%) (Auto) 0, Basophils (%) (Auto) 1, Neutrophils # (Auto) 4.9, Lymphocytes # (Auto) 1.0, Monocytes # (Auto) 0.6, Eosinophils # (Auto) 0.0, Basophils # (Auto) 0.0, Sodium Level 141, Potassium Level 4.0, Chloride Level 110H, Carbon Dioxide Level 17L, Anion Gap 14, Blood Urea Nitrogen 12, Creatinine 0.73, Estimat Glomerular Filtration Rate > 60, BUN/ Creatinine Ratio 16, Glucose Level 125H, Calcium Level 8.5, Phosphorus Level 1.6L, Magnesium Level 1.6L Microbiology 08/14/17 Blood Culture - Preliminary, Resulted No growth 08/14/17 Influenza Types A,B Antigen (VITA) - Final, Complete Assessment/Plan Assessment/Plan Assess & Plan/Chief Complaint influenza A. Dehydration with hypotension. Severe dementia. Patient alert today and await. He should not taking her medicine and grinding her teeth today Clinical Quality Measures DVT/VTE Risk/Contraindication: Risk Factor Score Per Nursin RFS Level Per Nursing on Admit: 4+=Very High LANETTE WILCOX DO Aug 17, 2017 07:48
--- NOTE | 2017-08-17 08:16 | Diagnostic Imaging Report ---
INDICATION: Cough. COMPARISON: 08/16/2017. FINDINGS: Right perihilar and retrocardiac opacities are unchanged. No pleural effusion or pneumothorax. Stable cardiomegaly. IMPRESSION: No change in right perihilar and left basilar opacities which could relate to pneumonia as per the provided patient history. Dictated by: Dictated on workstation # [id number]
[2017-08-17] MEDS ORDERED: MULTIVIT W/MINERALS TAB (THERAGRAN M) PO SCH (09:00)
[2017-08-17] MEDS ORDERED: amLODIPine 10 MG (NORVASC) TAB PO SCH (09:00)
[2017-08-17] MEDS: DULoxetine 30 MG (CYMBALTA) CAP PO SCH (09:53)
[2017-08-17] MEDS: ACETAMINOPHEN 325 MG TABLET/CAPLET (TYLENOL) PO SCH ×3 (09:54→13:28)
[2017-08-17] MEDS: GABAPENTIN 400 MG (NEURONTIN) CAP PO SCH ×3 (09:54→13:28)
[2017-08-17] MEDS: MEMANTINE 10 MG (NAMENDA) TABLET PO SCH ×2 (09:55→10:07)
[2017-08-17] MEDS: CEFDINIR 300 MG (OMNICEF) CAP PO SCH ×2 (09:55→10:07)
[2017-08-17] MEDS: QUEtiapine 100 MG (SEROquel) TAB IMMEDIATE RELEASE PO SCH ×2 (09:55→10:08)
[2017-08-17] MEDS: OSELTAMIVIR 30 MG (TAMIFLU) BOX OF 10 PO SCH (09:55)
[2017-08-17] MEDS: DOCUSATE SODIUM 100 MG (COLACE) CAP PO SCH (09:55)
[2017-08-17 11:12] VITALS: BP 162/74
[2017-08-17] MEDS ORDERED: CEFD300C3 PO (12:13)
[2017-08-17 16:22] VITALS: BP 155/78
[2017-08-17] MEDS ORDERED: RT-ALBUTEROL/IPRATROPIUM 3 ML (DUONEB) VIAL INH SCH (21:00)
--- NOTE | 2017-08-18 08:23 | Discharge Summary ---
Diagnosis/Chief Complaint Date of Admission Aug 14, 2017 at 20:50 Date of Discharge Aug 17, 2017 at 19:31 Discharge Time: 08:20 Discharge Diagnosis acute mental status change. lethargic Influenza A. Hypotension with dehydration. Dementia. Atelectasis acute kidney failure. Anemia. Hypertension history hyperlipidemia. hypomagnesemia Discharge Summary Consultations pulmonology Discharge Physical Examination Allergies: Coded Allergies: No Known Drug Allergies (Unverified , 08/14/17) Vitals & I&Os Vital Signs Date Time Temp Pulse Resp B/P (MAP) Pulse Ox O2 Delivery O2 Flow Rate FiO2 08/17/17 16:22 97.7 69 20 155/78 (103) 96 Room Air 08/16/17 01:53 4.00 08/15/17 04:00 30 Hospital Course kidney failure resolved. Patient awake. patient response Labs (last 24 hrs) Laboratory Tests 08/14/17 18:54: Glucometer 130H 08/14/17 19:03: White Blood Count 5.4, Red Blood Count 4.03L, Hemoglobin 12.5, Hematocrit 38, Mean Corpuscular Volume 94, Mean Corpuscular Hemoglobin 31, Mean Corpuscular Hemoglobin Concent 33, Red Cell Distribution Width 12.9, Platelet Count 199, Mean Platelet Volume 11.0H, Neutrophils (%) (Auto) 53, Lymphocytes (%) (Auto) 32 , Monocytes (%) (Auto) 14H, Eosinophils (%) (Auto) 0, Basophils (%) (Auto) 0, Neutrophils # (Auto) 2.9, Lymphocytes # (Auto) 1.7, Monocytes # (Auto) 0.8, Eosinophils # (Auto) 0.0, Basophils # (Auto) 0.0, Prothrombin Time 12.8, INR Comment 1.0, Activated Partial Thromboplast Time 35, Blood Gas Puncture Site RIGHT WRIST, Blood Gas Patient Temperature 96.8, Arterial Blood pH 7.36L, Arterial Blood Partial Pressure CO2 39, Arterial Blood Partial Pressure O2 31*L , Arterial Blood HCO3 22L, Arterial Blood Total CO2 23.0, Arterial Blood Oxygen Saturation 57L, Arterial Blood Base Excess -3.1L, Darnell Test POSITIVE, Blood Gas Ventilator Setting NO, Blood Gas Inspired Oxygen 6 L, Sodium Level 141, Potassium Level 5.6H, Chloride Level 107, Carbon Dioxide Level 18L, Anion Gap 16H, Blood Urea Nitrogen 50H, Creatinine 2.76H, Estimat Glomerular Filtration Rate 17, BUN/Creatinine Ratio 18, Glucose Level 134H, Lactic Acid Level 1.60, Calcium Level 9.3, Phosphorus Level 6.0H, Magnesium Level 2.2, Total Bilirubin 0.3, Aspartate Amino Transf (AST/SGOT) 44H, Alanine Aminotransferase (ALT/SGPT) 47, Alkaline Phosphatase 87, Troponin I < 0.30, Total Protein 8.3H, Albumin 4.3 08/14/17 19:17: Urine Color YELLOW, Urine Clarity CLEAR, Urine pH 5, Urine Specific [place] 1.020, Urine Protein 1+H, Urine Glucose (UA) 2+H, Urine Ketones NEGATIVE, Urine Nitrite NEGATIVE, Urine Bilirubin NEGATIVE, Urine Urobilinogen NORMAL, Urine Leukocyte Esterase NEGATIVE, Urine RBC (Auto) NEGATIVE, Urine RBC NONE, Urine WBC RARE, Urine Squamous Epithelial Cells 0-2, Urine Crystals NONE, Urine Bacteria NEGATIVE, Urine Casts PRESENT, Urine Hyaline Casts 2-5H, Urine Mucus SMALLH, Urine Culture Indicated NO 08/14/17 20:28: Blood Gas Puncture Site RIGHT RADIAL, Blood Gas Patient Temperature 97.0, Arterial Blood pH 7.31*L, Arterial Blood Partial Pressure CO2 38, Arterial Blood Partial Pressure O2 166H, Arterial Blood HCO3 19L, Arterial Blood Total CO2 20.1L, Arterial Blood Oxygen Saturation 99, Arterial Blood Base Excess -6.3L , Darnell Test YES-POS, Blood Gas Ventilator Setting NO, Blood Gas Inspired Oxygen 60% 08/15/17 03:10: White Blood Count 4.4, Red Blood Count 3.10L, Hemoglobin 9.5#L, Hematocrit 30L, Mean Corpuscular Volume 96, Mean Corpuscular Hemoglobin 31, Mean Corpuscular Hemoglobin Concent 32, Red Cell Distribution Width 12.7, Platelet Count 144, Mean Platelet Volume 10.4, Neutrophils (%) (Auto) 64, Lymphocytes (%) (Auto) 26 , Monocytes (%) (Auto) 9, Eosinophils (%) (Auto) 1, Basophils (%) (Auto) 0, Neutrophils # (Auto) 2.9, Lymphocytes # (Auto) 1.2, Monocytes # (Auto) 0.4, Eosinophils # (Auto) 0.0, Basophils # (Auto) 0.0, Sodium Level 140, Potassium Level 4.5, Chloride Level 113H, Carbon Dioxide Level 17L, Anion Gap 10, Blood Urea Nitrogen 36H, Creatinine 1.46H, Estimat Glomerular Filtration Rate 36, BUN/ Creatinine Ratio 25, Glucose Level 128H, Calcium Level 7.3L, Phosphorus Level 3.1, Magnesium Level 1.5L 08/15/17 04:35: Blood Gas Puncture Site LEFT RADIAL, Blood Gas Patient Temperature 98.5, Arterial Blood pH 7.31*L, Arterial Blood Partial Pressure CO2 36, Arterial Blood Partial Pressure O2 101H, Arterial Blood HCO3 18L, Arterial Blood Total CO2 19.0L, Arterial Blood Oxygen Saturation 98, Arterial Blood Base Excess -7.2L , Darnell Test YES-POS, Blood Gas Ventilator Setting NO, Blood Gas Inspired Oxygen 30% 08/16/17 04:28: White Blood Count 5.2, Red Blood Count 3.40L, Hemoglobin 10.6L, Hematocrit 32L, Mean Corpuscular Volume 93, Mean Corpuscular Hemoglobin 31, Mean Corpuscular Hemoglobin Concent 34, Red Cell Distribution Width 12.2, Platelet Count 167, Mean Platelet Volume 11.0H, Neutrophils (%) (Auto) 72, Lymphocytes (%) (Auto) 19 , Monocytes (%) (Auto) 8, Eosinophils (%) (Auto) 1, Basophils (%) (Auto) 0, Neutrophils # (Auto) 3.7, Lymphocytes # (Auto) 1.0, Monocytes # (Auto) 0.4, Eosinophils # (Auto) 0.1, Basophils # (Auto) 0.0, Sodium Level 138, Potassium Level 4.3, Chloride Level 112H, Carbon Dioxide Level 15L, Anion Gap 11, Blood Urea Nitrogen 14, Creatinine 0.76, Estimat Glomerular Filtration Rate > 60, BUN/ Creatinine Ratio 18, Glucose Level 110H, Calcium Level 7.8L, Phosphorus Level 1.3L, Magnesium Level 1.7L 08/17/17 06:40: White Blood Count 6.5, Red Blood Count 3.71L, Hemoglobin 11.5, Hematocrit 34L, Mean Corpuscular Volume 91, Mean Corpuscular Hemoglobin 31, Mean Corpuscular Hemoglobin Concent 34, Red Cell Distribution Width 11.9, Platelet Count 191, Mean Platelet Volume 10.6H, Neutrophils (%) (Auto) 75, Lymphocytes (%) (Auto) 16 , Monocytes (%) (Auto) 8, Eosinophils (%) (Auto) 0, Basophils (%) (Auto) 1, Neutrophils # (Auto) 4.9, Lymphocytes # (Auto) 1.0, Monocytes # (Auto) 0.6, Eosinophils # (Auto) 0.0, Basophils # (Auto) 0.0, Sodium Level 141, Potassium Level 4.0, Chloride Level 110H, Carbon Dioxide Level 17L, Anion Gap 14, Blood Urea Nitrogen 12, Creatinine 0.73, Estimat Glomerular Filtration Rate > 60, BUN/ Creatinine Ratio 16, Glucose Level 125H, Calcium Level 8.5, Phosphorus Level 1.6L, Magnesium Level 1.6L Microbiology 08/14/17 Blood Culture - Preliminary, Resulted No growth 08/14/17 Influenza Types A,B Antigen (VITA) - Final, Complete Laboratory Tests 08/14/17 19:03 08/15/17 03:10 08/16/17 04:28 08/17/17 06:40 Pending Labs Microbiology Date/Time Source Procedure Growth Status 08/14/17 19:45 Peripheral Jugular Blood Culture - Preliminary No growth Resulted 08/14/17 19:03 Peripheral Iv/Heplock Blood Culture - Preliminary No growth Resulted 08/14/17 19:05 Nasopharynx Influenza Types A,B Antigen (VITA) - Final Complete Laboratory Tests 08/14/17 18:54: Glucometer 130 08/14/17 19:03: White Blood Count 5.4, Red Blood Count 4.03, Hemoglobin 12.5, Hematocrit 38, Mean Corpuscular Volume 94, Mean Corpuscular Hemoglobin 31, Mean Corpuscular Hemoglobin Concent 33, Red Cell Distribution Width 12.9, Platelet Count 199, Mean Platelet Volume 11.0, Neutrophils (%) (Auto) 53, Lymphocytes (%) (Auto) 32 , Monocytes (%) (Auto) 14, Eosinophils (%) (Auto) 0, Basophils (%) (Auto) 0, Neutrophils # (Auto) 2.9, Lymphocytes # (Auto) 1.7, Monocytes # (Auto) 0.8, Eosinophils # (Auto) 0.0, Basophils # (Auto) 0.0, Prothrombin Time 12.8, INR Comment 1.0, Activated Partial Thromboplast Time 35, Blood Gas Puncture Site RIGHT WRIST, Blood Gas Patient Temperature 96.8, Arterial Blood pH 7.36, Arterial Blood Partial Pressure CO2 39, Arterial Blood Partial Pressure O2 31, Arterial Blood HCO3 22, Arterial Blood Total CO2 23.0, Arterial Blood Oxygen Saturation 57, Arterial Blood Base Excess -3.1, Darnell Test POSITIVE, Blood Gas Ventilator Setting NO, Blood Gas Inspired Oxygen 6 L, Sodium Level 141, Potassium Level 5.6, Chloride Level 107, Carbon Dioxide Level 18, Anion Gap 16, Blood Urea Nitrogen 50, Creatinine 2.76, Estimat Glomerular Filtration Rate 17, BUN/Creatinine Ratio 18, Glucose Level 134, Lactic Acid Level 1.60, Calcium Level 9.3, Phosphorus Level 6.0, Magnesium Level 2.2, Total Bilirubin 0.3, Aspartate Amino Transf (AST/SGOT) 44, Alanine Aminotransferase (ALT/SGPT) 47, Alkaline Phosphatase 87, Troponin I < 0.30, Total Protein 8.3, Albumin 4.3 08/14/17 19:17: Urine Color YELLOW, Urine Clarity CLEAR, Urine pH 5, Urine Specific [place] 1.020, Urine Protein 1+, Urine Glucose (UA) 2+, Urine Ketones NEGATIVE, Urine Nitrite NEGATIVE, Urine Bilirubin NEGATIVE, Urine Urobilinogen NORMAL, Urine Leukocyte Esterase NEGATIVE, Urine RBC (Auto) NEGATIVE, Urine RBC NONE, Urine WBC RARE, Urine Squamous Epithelial Cells 0-2, Urine Crystals NONE, Urine Bacteria NEGATIVE, Urine Casts PRESENT, Urine Hyaline Casts 2-5, Urine Mucus SMALL, Urine Culture Indicated NO 08/14/17 20:28: Blood Gas Puncture Site RIGHT RADIAL, Blood Gas Patient Temperature 97.0, Arterial Blood pH 7.31, Arterial Blood Partial Pressure CO2 38, Arterial Blood Partial Pressure O2 166, Arterial Blood HCO3 19, Arterial Blood Total CO2 20.1, Arterial Blood Oxygen Saturation 99, Arterial Blood Base Excess -6.3, Darnell Test YES-POS, Blood Gas Ventilator Setting NO, Blood Gas Inspired Oxygen 60% 08/15/17 03:10: White Blood Count 4.4, Red Blood Count 3.10, Hemoglobin 9.5, Hematocrit 30, Mean Corpuscular Volume 96, Mean Corpuscular Hemoglobin 31, Mean Corpuscular Hemoglobin Concent 32, Red Cell Distribution Width 12.7, Platelet Count 144, Mean Platelet Volume 10.4, Neutrophils (%) (Auto) 64, Lymphocytes (%) (Auto) 26 , Monocytes (%) (Auto) 9, Eosinophils (%) (Auto) 1, Basophils (%) (Auto) 0, Neutrophils # (Auto) 2.9, Lymphocytes # (Auto) 1.2, Monocytes # (Auto) 0.4, Eosinophils # (Auto) 0.0, Basophils # (Auto) 0.0, Sodium Level 140, Potassium Level 4.5, Chloride Level 113, Carbon Dioxide Level 17, Anion Gap 10, Blood Urea Nitrogen 36, Creatinine 1.46, Estimat Glomerular Filtration Rate 36, BUN/ Creatinine Ratio 25, Glucose Level 128, Calcium Level 7.3, Phosphorus Level 3.1 , Magnesium Level 1.5 08/15/17 04:35: Blood Gas Puncture Site LEFT RADIAL, Blood Gas Patient Temperature 98.5, Arterial Blood pH 7.31, Arterial Blood Partial Pressure CO2 36, Arterial Blood Partial Pressure O2 101, Arterial Blood HCO3 18, Arterial Blood Total CO2 19.0, Arterial Blood Oxygen Saturation 98, Arterial Blood Base Excess -7.2, Darnell Test YES-POS, Blood Gas Ventilator Setting NO, Blood Gas Inspired Oxygen 30% 08/16/17 04:28: White Blood Count 5.2, Red Blood Count 3.40, Hemoglobin 10.6, Hematocrit 32, Mean Corpuscular Volume 93, Mean Corpuscular Hemoglobin 31, Mean Corpuscular Hemoglobin Concent 34, Red Cell Distribution Width 12.2, Platelet Count 167, Mean Platelet Volume 11.0, Neutrophils (%) (Auto) 72, Lymphocytes (%) (Auto) 19 , Monocytes (%) (Auto) 8, Eosinophils (%) (Auto) 1, Basophils (%) (Auto) 0, Neutrophils # (Auto) 3.7, Lymphocytes # (Auto) 1.0, Monocytes # (Auto) 0.4, Eosinophils # (Auto) 0.1, Basophils # (Auto) 0.0, Sodium Level 138, Potassium Level 4.3, Chloride Level 112, Carbon Dioxide Level 15, Anion Gap 11, Blood Urea Nitrogen 14, Creatinine 0.76, Estimat Glomerular Filtration Rate > 60, BUN/ Creatinine Ratio 18, Glucose Level 110, Calcium Level 7.8, Phosphorus Level 1.3 , Magnesium Level 1.7 08/17/17 06:40: White Blood Count 6.5, Red Blood Count 3.71, Hemoglobin 11.5, Hematocrit 34, Mean Corpuscular Volume 91, Mean Corpuscular Hemoglobin 31, Mean Corpuscular Hemoglobin Concent 34, Red Cell Distribution Width 11.9, Platelet Count 191, Mean Platelet Volume 10.6, Neutrophils (%) (Auto) 75, Lymphocytes (%) (Auto) 16 , Monocytes (%) (Auto) 8, Eosinophils (%) (Auto) 0, Basophils (%) (Auto) 1, Neutrophils # (Auto) 4.9, Lymphocytes # (Auto) 1.0, Monocytes # (Auto) 0.6, Eosinophils # (Auto) 0.0, Basophils # (Auto) 0.0, Sodium Level 141, Potassium Level 4.0, Chloride Level 110, Carbon Dioxide Level 17, Anion Gap 14, Blood Urea Nitrogen 12, Creatinine 0.73, Estimat Glomerular Filtration Rate > 60, BUN/ Creatinine Ratio 16, Glucose Level 125, Calcium Level 8.5, Phosphorus Level 1.6 , Magnesium Level 1.6 Radiology Reviewed chest x-ray no acute abnormality. Second chest x-ray minimal bilateral atelectasis. Her chest x-ray bilateral atelectasis versus pneumonia Discharge Home Medications: Active Scripts Active Cefdinir 300 Mg Capsule 300 Mg PO BID 5 Days Reported Mouthwash-Om (Mouthwash Compounding Base 227) 240 Ml Mouthwash 5 Ml PO DAILY PRN [Lidocaine Gel 2%] 1 Applic TOP UD APPLY TO AREA OF PAIN TOPICALLY Q 6 HRS NEEDED FOR PAIN R/T OTHER CHRONIC PAIN Gabapentin 400 Mg Capsule 800 Mg PO TID TAKES 2 (400 MG) TABLETS Duloxetine HCl 60 Mg Capsule.dr 60 Mg PO DAILY Lomotil 2.5-0.025 mg Tablet (Diphenoxylate HCl/Atropine) 1 Each Tablet 2 Tab PO Q6H PRN Colace (Docusate Sodium) 100 Mg Capsule 100 Mg PO BID Bactroban (Mupirocin Calcium) 15 Gm Cream..g. TP BID APPLY TO FEET BLISTERS BID FOR 1 WEEK. STARTED 08/14/17 Aricept (Donepezil HCl) 10 Mg Tablet 10 Mg PO HS Acetaminophen 325 Mg Tablet 650 Mg PO TID TAKES 2 (325 MG) TABLETS Lisinopril 20 Mg Tablet 20 Mg PO DAILY Triamterene-Hctz 37.5-25 mg Cp (Triamterene/Hydrochlorothiazid) 1 Each Capsule 1 Tab PO DAILY HOLD FOR BP <100/60 AND PULSE <60 Seroquel (Quetiapine Fumarate) 300 Mg Tablet 300 Mg PO HS Seroquel (Quetiapine Fumarate) 100 Mg Tablet 100 Mg PO 0900,1400 Senna (Sennosides) 8.6 Mg Tablet 2 Tab PO HS Norvasc (Amlodipine Besylate) 10 Mg Tablet 10 Mg PO DAILY HOLD FOR BP <100/60 AND PULSE < 60 Namenda (Memantine HCl) 10 Mg Tablet 10 Mg PO BID Mylanta Suspension (Al Hydrox/Mg Hydrox/Simethicone) 30 Ml Oral.susp 30 Ml PO Q6H PRN Multi-Vitamin Daily (Multivitamin) 1 Each Tablet 1 Tab PO DAILY Mirtazapine 15 Mg Tablet 30 Mg PO HS TAKES 2 (15 MG) TABLETS Metformin HCl 500 Mg Tablet 1,000 Mg PO BID TAKES 2 (500 MG) TABLETS Lipitor (Atorvastatin Calcium) 10 Mg Tablet 10 Mg PO HS Instructions to patient/family Please see electronic discharge instructions given to patient. Clinical Quality Measures DVT/VTE Risk/Contraindication: Risk Factor Score Per Nursin RFS Level Per Nursing on Admit: 4+=Very High LANETTE WILCOX DO Aug 18, 2017 08:23
[2017-08-18] MEDS ORDERED: FUROSEMIDE 40 MG (LASIX) TAB PO SCH (09:00)
== END 2017-08-17 19:31 | DRG 194 ==
LOC: ER 18:51 → ICU 20:50 → 4TH 08-15 11:15
PROVIDERS: ADMIT Internal Medicine; ATTEND Internal Medicine
PROC: 02HV33Z Insertion of Infusion Device into Superior Vena Cava, Percutaneous Approach (ICD-10-PCS; principal; 2017-08-14)
DX: J10.1 Influenza due to other identified influenza virus with other respiratory manifestations (principal); R06.03 Acute respiratory distress; J10.89 Influenza due to other identified influenza virus with other manifestations; N17.9 Acute kidney failure, unspecified; E86.0 Dehydration; I95.89 Other hypotension; I10 Essential (primary) hypertension; E78.5 Hyperlipidemia, unspecified; E87.5 Hyperkalemia; E87.70 Fluid overload, unspecified; F03.90 Unspecified dementia, unspecified severity, without behavioral disturbance, psychotic disturbance, mood disturbance, and anxiety; D64.9 Anemia, unspecified; G47.30 Sleep apnea, unspecified; M54.9 Dorsalgia, unspecified; E83.42 Hypomagnesemia; F60.9 Personality disorder, unspecified; F32.9 Major depressive disorder, single episode, unspecified; H91.90 Unspecified hearing loss, unspecified ear; E66.9 Obesity, unspecified; Z68.28 Body mass index [BMI] 28.0-28.9, adult
CPT/HCPCS: 36415; 71045; 80048; 80053; 81000; 82805; 82962; 83605; 83735; 84100; 84484; 85025; 85610; 85730; 87040; 87804; 93005; 93041; 94640; 94660; 94760

== ENCOUNTER → 2017-08-21 | Outpatient (CLI) | payer MEDICARE, MEDICAID ==
[~2017-08-21] MED LIST: ACET325T49 PO; AMLO10TA4 PO; ATOR10TA PO; CEFD300C3 PO; DIPH1TAB PO; DOCU-143 PO; DONE10TA12 PO; DULO60CA58 PO; GABA-490 PO; LACT10SO PO; LIDOCAINE GEL 2% TOP; LISI-552 PO; MAG30ORA2 PO; MEMA10TA2 PO; METF500T4 PO; MIRT15TA6 PO; MOUT240M PO; MULT-974 PO; MUPI15CR TP; OSLT75C PO; QUET100T PO; QUET300T2 PO; SENN-140 PO; TRIA1CAP4 PO
--- NOTE | 2017-08-21 12:09 | Diagnostic Imaging Report ---
PROCEDURE: CT head without contrast. TECHNIQUE: Multiple contiguous axial images were obtained through the brain without the use of intravenous contrast. INDICATION: Altered mental status. COMPARISON: No prior studies are available for comparison. FINDINGS: The ventricles and sulci are appropriate for the patient's age. There is moderate periventricular hypodensity noted consistent with chronic microvascular ischemia. No sulcal effacement is identified. There is no midline shift. No acute intra-axial or extra-axial hemorrhage is detected. Cisterns are patent. Visualized paranasal sinuses demonstrate some fluid in the sphenoid sinus. IMPRESSION: 1. Changes of chronic microvascular ischemia. No acute intracranial process is detected. 2. Sphenoid sinus mucosal disease and fluid. Dictated by: Dictated on workstation # [id number]
== END ==
LOC: RAD 11:40
PROVIDERS: ATTEND Family Medicine
DX: I67.82 Cerebral ischemia (principal); J32.3 Chronic sphenoidal sinusitis
CPT/HCPCS: 70450

== ENCOUNTER 2018-05-15 09:37 | Emergency (ER) | payer MEDICARE, MEDICAID ==
[~2018-05-15] VITALS: Ht 162.6 cm; Wt 77.1 kg
[~2018-05-15 09:37] MED LIST changes: +ASPI-983 PO; +METF-397 PO; -METF500T4 PO; +MULT-166 PO
--- OUTSIDE RECORDS SUMMARY | 2018-05-15 09:43 | XMS REPORT | Continuity of Care Document ---
Author Author [facility] Address Unknown Phone Unavailable Allergies Active Description Code Type Severity Reaction Onset Reported/Identified Relationship to Patient Clinical Status Yes NKA NKA Drug Allergy N/A N/A Confirmed or Verified Yes No Known Drug Allergies [id number] Drug Allergy Unknown N/A 08/14/2017 Medications There is no data. Problems Date Dx Coded Attending Type Code Diagnosis Diagnosed By 09/29/2016 Brayan Cohn K62.5 Hemorrhage Of Anus And Rectum 02/03/2017 MISHEL HERNANDEZ MD E11.9 Type 2 [...] 02/03/2017 MISHEL HERNANDEZ MD R19.7 Diarrhea, unspecified 08/17/2017 ARENAS DO, KORY Ot D64.9 ANEMIA, UNSPECIFIED 08/17/2017 ARENAS DO, KORY Ot E66.9 OBESITY, UNSPECIFIED 08/17/2017 ARENAS DO, KORY Ot E78.5 HYPERLIPIDEMIA, UNSPECIFIED 08/17/2017 ARENAS DO, KORY Ot E83.42 HYPOMAGNESEMIA 08/17/2017 ARENAS DO, KORY Ot E86.0 DEHYDRATION 08/17/2017 ARENAS DO, KORY Ot E87.5 HYPERKALEMIA 08/17/2017 ARENAS , KORY Ot E87.70 FLUID OVERLOAD, UNSPECIFIED 08/17/2017 ARENAS DO, KORY Ot F03.90 UNSPECIFIED DEMENTIA WITHOUT BEHAVIORAL 08/17/2017 ARENAS DO KORY Ot F32.9 MAJOR DEPRESSIVE DISORDER, SINGLE EPISOD 08/17/2017 ARENAS , KORY Ot F60.9 PERSONALITY DISORDER, UNSPECIFIED 08/17/2017 ARNEAS DO, KORY Ot G47.30 SLEEP APNEA, UNSPECIFIED 08/17/2017 ARENAS DO, KORY Ot H91.90 UNSPECIFIED HEARING LOSS, UNSPECIFIED EA 08/17/2017 ARENAS DO, KORY Ot I10 ESSENTIAL (PRIMARY) HYPERTENSION 08/17/2017 ARENAS , KORY Ot I95.89 OTHER HYPOTENSION 08/17/2017 ARENASKEY LIANG KORY Ot J10.1 FLU DUE TO OTH IDENT INFLUENZA VIRUS W O 08/17/2017 ARENAS DO, KORY Ot J10.89 INFLUENZA DUE TO OTH IDENT INFLUENZA VIR 08/17/2017 DEEPA LIANG KORY Ot M54.9 DORSALGIA, UNSPECIFIED 08/17/2017 ARENAS DO KORY Ot N17.9 ACUTE KIDNEY FAILURE, UNSPECIFIED 08/17/2017 ARENAS DO, KORY Ot R06.03 ACUTE RESPIRATORY DISTRESS 08/17/2017 ARENAS , KORY Ot Z68.28 BODY MASS INDEX (BMI) 28.0-28.9, ADULT 09/01/2017 GELLENDER DO, LANETTE Johns Ot A41.9 SEPSIS, UNSPECIFIED ORGANISM 09/01/2017 GELLENDER DO, LANETTE Johns Ot D64.9 ANEMIA, UNSPECIFIED 09/01/2017 GELLENDER DO, LANETTE Johns Ot E11.9 TYPE 2 DIABETES MELLITUS WITHOUT COMPLIC 09/01/2017 GELLENDER DO, LANETTE Johns Ot E78.00 PURE HYPERCHOLESTEROLEMIA, UNSPECIFIED 09/01/2017 GELLENDER DO, LANETTE Johns Ot E83.42 HYPOMAGNESEMIA 09/01/2017 GELLENDER DO, LANETTE Johns Ot E87.5 HYPERKALEMIA 09/01/2017 GELLENDER DO, LANETTE Johns Ot F03.90 UNSPECIFIED DEMENTIA WITHOUT BEHAVIORAL 09/01/2017 GELLENDER DO, LANETTE Johns Ot F22 DELUSIONAL DISORDERS 09/01/2017 GELLENDER DO, LANETTE Johns Ot F32.9 MAJOR DEPRESSIVE DISORDER, SINGLE EPISOD 09/01/2017 GELLENDER DO, LANETTE Johns Ot F60.9 PERSONALITY DISORDER, UNSPECIFIED 09/01/2017 GELLENDER DO, LANETTE Johns Ot G47.30 SLEEP APNEA, UNSPECIFIED 09/01/2017 GELLENDER DO, LANETTE Nat Ot H91.90 UNSPECIFIED HEARING LOSS, UNSPECIFIED EA 09/01/2017 GELLENDER DO, LANETTE Johns Ot I10 ESSENTIAL (PRIMARY) HYPERTENSION 09/01/2017 GELLENDER DO, LANETTE Johns Ot K59.09 OTHER CONSTIPATION 09/01/2017 GELLENDER DO, LANETTE Johns Ot K64.9 UNSPECIFIED HEMORRHOIDS 09/01/2017 GELLENDER DO, LANETTE Johns Ot M54.9 DORSALGIA, UNSPECIFIED 09/01/2017 GELLENDER DO, LANETTE Johns Ot N17.9 ACUTE KIDNEY FAILURE, UNSPECIFIED 09/01/2017 GELLENDER DO, LANETTE Johns Ot R65.20 SEVERE SEPSIS WITHOUT SEPTIC SHOCK 09/01/2017 GELLENDER DO, LANETTE Johns Ot 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 09/01/2017 GELLENDER DO, LANETTE Johns Ot Z87.09 PERSONAL HISTORY OF OTHER DISEASES OF TH 09/02/2017 GELLENDER DO, LANETTE Johns Ot A41.9 SEPSIS, UNSPECIFIED ORGANISM 09/02/2017 GELLENDER DO, LANETTE Johns Ot D64.9 ANEMIA, UNSPECIFIED 09/02/2017 GELLENDER DO, LANETTE Johns Ot E11.9 TYPE 2 DIABETES MELLITUS WITHOUT COMPLIC 09/02/2017 GELLENDER DO, LANETTE Johns Ot E78.00 PURE HYPERCHOLESTEROLEMIA, UNSPECIFIED 09/02/2017 GELLENDER DO, LANETTE Johns Ot E83.42 HYPOMAGNESEMIA 09/02/2017 GELLENDER DO, LANETTE Johns Ot E87.5 HYPERKALEMIA 09/02/2017 GELLENDER DO, LANETTE Nat Ot F03.90 UNSPECIFIED DEMENTIA WITHOUT BEHAVIORAL 09/02/2017 GELLENDER DO, LANETTE Johns Ot F22 DELUSIONAL DISORDERS 09/02/2017 GELLENDER DO, LANETTE Johns Ot F32.9 MAJOR DEPRESSIVE DISORDER, SINGLE EPISOD 09/02/2017 GELLENDER DO, LANETTE Johns Ot F60.9 PERSONALITY DISORDER, UNSPECIFIED 09/02/2017 GELLENDER DO, LANETTE Johns Ot G47.30 SLEEP APNEA, UNSPECIFIED 09/02/2017 GELLENDER DO, LANETTE Johns Ot H91.90 UNSPECIFIED HEARING LOSS, UNSPECIFIED EA 09/02/2017 GELLENDER DO, LANETTE Johns Ot I10 ESSENTIAL (PRIMARY) HYPERTENSION 09/02/2017 GELLENDER DO, LANETTE Johns Ot K59.09 OTHER CONSTIPATION 09/02/2017 GELLENDER DO, LANETTE Johns Ot K64.9 UNSPECIFIED HEMORRHOIDS 09/02/2017 GELLENDER DO, LANETTE Johns Ot M54.9 DORSALGIA, UNSPECIFIED 09/02/2017 GELLENDER DO, LANETTE Johns Ot N17.9 ACUTE KIDNEY FAILURE, UNSPECIFIED 09/02/2017 GELLENDER DO, LANETTE Johns Ot R65.20 SEVERE SEPSIS WITHOUT SEPTIC SHOCK 09/02/2017 GELLENDER DO, LANETTE Johns Ot 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 09/02/2017 GELLENDER DO, LANETTE Johns Ot Z87.09 PERSONAL HISTORY OF OTHER DISEASES OF TH 09/02/2017 GELLENDER DO, LANETTE Johns Ot A41.9 SEPSIS, UNSPECIFIED ORGANISM 09/02/2017 GELLENDER DO, LANETTE Johns Ot D64.9 ANEMIA, UNSPECIFIED 09/02/2017 GELLENDER DO, LANETTE Johns Ot E11.9 TYPE 2 DIABETES MELLITUS WITHOUT COMPLIC 09/02/2017 GELLENDER DO, LANETTE Johns Ot E78.00 PURE HYPERCHOLESTEROLEMIA, UNSPECIFIED 09/02/2017 GELLENDER DO, LANETTE Johns Ot E83.42 HYPOMAGNESEMIA 09/02/2017 GELLENDER DO, LANETTE Johns Ot E87.5 HYPERKALEMIA 09/02/2017 GELLENDER DO, LANETTE Johns Ot F03.90 UNSPECIFIED DEMENTIA WITHOUT BEHAVIORAL 09/02/2017 GELLENDER DO, LANETTE Johns Ot F22 DELUSIONAL DISORDERS 09/02/2017 GELLENDER DO, LANETTE Johns Ot F32.9 MAJOR DEPRESSIVE DISORDER, SINGLE EPISOD 09/02/2017 GELLENDER DO, LANETTE Johns Ot F60.9 PERSONALITY DISORDER, UNSPECIFIED 09/02/2017 GELLENDER DO, LANETTE Johns Ot G47.30 SLEEP APNEA, UNSPECIFIED 09/02/2017 GELLENDER DO, LANETTE Johns Ot H91.90 UNSPECIFIED HEARING LOSS, UNSPECIFIED EA 09/02/2017 GELLENDER DO, LANETTE Johns Ot I10 ESSENTIAL (PRIMARY) HYPERTENSION 09/02/2017 GELLENDER DO, LANETTE Johns Ot K59.09 OTHER CONSTIPATION 09/02/2017 TUNDEDER , LANETTE Johns Ot K64.9 UNSPECIFIED HEMORRHOIDS 09/02/2017 MARYLENDER , LANETTE Johns Ot M54.9 DORSALGIA, UNSPECIFIED 09/02/2017 MARYLENDER LANETTE LIANG Ot N17.9 ACUTE KIDNEY FAILURE, UNSPECIFIED 09/02/2017 MARYLENDER LANETTE LIANG Ot R65.20 SEVERE SEPSIS WITHOUT SEPTIC SHOCK 09/02/2017 LANETTE WILCOX DO Ot Z79.84 RETIREMENT (CURRENT) USE OF ORAL HYPOGLYC 09/02/2017 JERI LIANG, LANETTE Johns Ot Z87.09 PERSONAL HISTORY OF OTHER DISEASES OF TH 09/11/2017 LANETTE WILCOX DO Ot I67.82 CEREBRAL ISCHEMIA 09/11/2017 LANETTE WILCOX DO Ot J32.3 CHRONIC SPHENOIDAL SINUSITIS 09/21/2017 LANETTE WILCOX DO Ot I67.82 CEREBRAL ISCHEMIA 09/21/2017 LANETTE WILCOX DO Ot J32.3 CHRONIC SPHENOIDAL SINUSITIS Procedures Code Description Performed By Performed On [id number] INSERTION OF INFUSION DEV INTO SUP VENA 08/14/2017 Results Test Result Range Capillary blood glucose measurement by glucometer (mass/volume) - 08/14/17 18: 54 Capillary blood glucose measurement by glucometer (mass/volume) 130 mg/dL 70-110 Arterial blood gas measurement - 08/14/17 19:03 Blood pCO2 39 mm[Hg] 35-45 Blood pO2 31 mm[Hg] 79-93 Arterial blood bicarbonate measurement (moles/volume) 22 mmol/L 23-27 Arterial blood base excess by calculation -3.1 mmol/L - 2.5-2.5 Arterial blood oxygen saturation measurement 57 % 94-100 * Inhaled oxygen flow rate 6 L NRG Arterial blood pH measurement with patient temperature correction 7.36 7.37-7.43 Arterial blood carbon dioxide, total measurement (moles/volume) 23.0 mmol/L 21.0-31.0 Body site RIGHT WRIST NRG Assessment of wrist artery patency prior to arterial puncture POSITIVE NRG Setting of ventilation mode NO NRG Measurement of body temperature 96.8 NRG Complete blood count (CBC) with automated white blood cell (WBC) differential - 08/14/17 19:03 Blood leukocytes automated count (number/volume) 5.4 10*3/uL 4.3-11.0 Blood erythrocytes automated count (number/volume) 4.03 10*6/uL 4.35-5.85 Venous blood hemoglobin measurement (mass/volume) 12.5 g/dL 11.5-16.0 Blood hematocrit (volume fraction) 38 % 35-52 Automated erythrocyte mean corpuscular volume 94 [foz_us] 80-99 Automated erythrocyte mean corpuscular hemoglobin (mass per erythrocyte) 31 pg 25-34 Automated erythrocyte mean corpuscular hemoglobin concentration measurement ( mass/volume) 33 g/dL 32-36 Automated erythrocyte distribution width ratio 12.9 % 10.0-14.5 Automated blood platelet count (count/volume) 199 10*3/uL 130-400 Automated blood platelet mean volume measurement 11.0 [foz_us] 7.4-10.4 Automated blood neutrophils/100 leukocytes 53 % 42-75 Automated blood lymphocytes/100 leukocytes 32 % 12-44 Blood monocytes/100 leukocytes 14 % 0-12 Automated blood eosinophils/100 leukocytes 0 % 0-10 Automated blood basophils/100 leukocytes 0 % 0-10 Blood neutrophils automated count (number/volume) 2.9 10*3 1.8-7.8 Blood lymphocytes automated count (number/volume) 1.7 10*3 1.0-4.0 Blood monocytes automated count (number/volume) 0.8 10*3 0.0-1.0 Automated eosinophil count 0.0 10*3/uL 0.0-0.3 Automated blood basophil count (count/volume) 0.0 10*3/uL 0.0-0.1 Blood lactic acid measurement (moles/volume) - 08/14/17 19:03 Blood lactic acid measurement (moles/volume) 1.60 mmol/L 0.50-2.00 Comprehensive metabolic panel - 08/14/17 19:03 Serum or plasma sodium measurement (moles/volume) 141 mmol/L 135-145 Serum or plasma potassium measurement (moles/volume) 5.6 mmol/L 3.6-5.0 Serum or plasma chloride measurement (moles/volume) 107 mmol/L 98-107 Carbon dioxide 18 mmol/L 21-32 Serum or plasma anion gap determination (moles/volume) 16 mmol/L 5-14 Serum or plasma urea nitrogen measurement (mass/volume) 50 mg/dL 7-18 Serum or plasma creatinine measurement (mass/volume) 2.76 mg/dL 0.60-1.30 Serum or plasma urea nitrogen/creatinine mass ratio 18 NRG Serum or plasma creatinine measurement with calculation of estimated glomerular filtration rate 17 NRG Serum or plasma glucose measurement (mass/volume) 134 mg/dL 70-105 Serum or plasma calcium measurement (mass/volume) 9.3 mg/dL 8.5-10.1 Serum or plasma total bilirubin measurement (mass/volume) 0.3 mg/dL 0.1-1.0 Serum or plasma alkaline phosphatase measurement (enzymatic activity/volume) 87 U/L 40-136 Serum or plasma aspartate aminotransferase measurement (enzymatic activity/ volume) 44 U/L 5-34 Serum or plasma alanine aminotransferase measurement (enzymatic activity/volume ) 47 U/L 0-55 Serum or plasma protein measurement (mass/volume) 8.3 g/dL 6.4-8.2 Serum or plasma albumin measurement (mass/volume) 4.3 g/dL 3.2-4.5 Serum or plasma phosphate measurement (mass/volume) - 08/14/17 19:03 Serum or plasma phosphate measurement (mass/volume) 6.0 mg/dL 2.3-4.7 Magnesium - 08/14/17 19:03 Magnesium 2.2 mg/dL 1.8-2.4 PT panel in platelet poor plasma by coagulation assay - 08/14/17 19:03 Prothrombin time (PT) in platelet poor plasma by coagulation assay 12.8 s 12.2-14.7 INR in platelet poor plasma or blood by coagulation assay 1.0 0.8-1.4 Activated partial thromboplastin time (aPTT) in platelet poor plasma bycoagulation assay - 08/14/17 19:03 Activated partial thromboplastin time (aPTT) in platelet poor plasma bycoagulation assay 35 s 24-35 Serum or plasma troponin i.cardiac measurement (mass/volume) - 08/14/17 19:03 Serum or plasma troponin i.cardiac measurement (mass/volume) < ng/ mL <0.30 Bacterial blood culture - 08/14/17 19:03 Bacterial blood culture NG [facility] Influenza virus A and B antigen detection - 08/14/17 19:05 CALL POSITIVES (F1 HELP) CALLED TO [facility] IN ED AT [address] [facility] FLU RESULT POSITIVE FOR INFLUENZA A ANTIGEN, NEG FOR B ANTIGEN, BY IA NRG Complete urinalysis with reflex to culture - 08/14/17 19:17 Urine color determination YELLOW NRG Urine clarity determination CLEAR NRG Urine pH measurement by test strip 5 5-9 Specific gravity of urine by test strip 1.020 1.016- 1.022 Urine protein assay by test strip, semi-quantitative 1+ NEGATIVE Urine glucose detection by automated test strip 2+ NEGATIVE Erythrocytes detection in urine sediment by light microscopy NEGATIVE NEGATIVE Urine ketones detection by automated test strip NEGATIVE NEGATIVE Urine nitrite detection by test strip NEGATIVE NEGATIVE Urine total bilirubin detection by test strip NEGATIVE NEGATIVE Urine urobilinogen measurement by automated test strip (mass/volume) NORMAL NORMAL Urine leukocyte esterase detection by dipstick NEGATIVE NEGATIVE Automated urine sediment erythrocyte count by microscopy (number/high power field) NONE NRG Automated urine sediment leukocyte count by microscopy (number/high power field ) RARE NRG Bacteria detection in urine sediment by light microscopy NEGATIVE NRG Squamous epithelial cells detection in urine sediment by light microscopy 0-2 NRG Crystals detection in urine sediment by light microscopy NONE NRG Casts detection in urine sediment by light microscopy PRESENT NRG Mucus detection in urine sediment by light microscopy SMALL NRG Complete urinalysis with reflex to culture NO NRG Hyaline casts detection in urine sediment by light microscopy 2-5 NRG Bacterial blood culture - 08/14/17 19:45 QUANTITY OF GROWTH . NRG Bacterial blood culture SEE COMMEN NRG Arterial blood gas measurement - 08/14/17 20:28 Blood pCO2 38 mm[Hg] 35-45 Blood pO2 166 mm[Hg] 79-93 Arterial blood bicarbonate measurement (moles/volume) 19 mmol/L 23-27 Arterial blood base excess by calculation -6.3 mmol/L - 2.5-2.5 Arterial blood oxygen saturation measurement 99 % 94-100 * Inhaled oxygen flow rate 60% NRG Arterial blood pH measurement with patient temperature correction 7.31 7.37-7.43 Arterial blood carbon dioxide, total measurement (moles/volume) 20.1 mmol/L 21.0-31.0 Body site RIGHT RADIAL NRG Assessment of wrist artery patency prior to arterial puncture YES- POS NRG Setting of ventilation mode NO NRG Measurement of body temperature 97.0 NRG Complete blood count (CBC) with automated white blood cell (WBC) differential - 08/15/17 03:10 Blood leukocytes automated count (number/volume) 4.4 10*3/uL 4.3-11.0 Blood erythrocytes automated count (number/volume) 3.10 10*6/uL 4.35-5.85 Venous blood hemoglobin measurement (mass/volume) 9.5 g/dL 11.5-16.0 Blood hematocrit (volume fraction) 30 % 35-52 Automated erythrocyte mean corpuscular volume 96 [foz_us] 80-99 Automated erythrocyte mean corpuscular hemoglobin (mass per erythrocyte) 31 pg 25-34 Automated erythrocyte mean corpuscular hemoglobin concentration measurement ( mass/volume) 32 g/dL 32-36 Automated erythrocyte distribution width ratio 12.7 % 10.0-14.5 Automated blood platelet count (count/volume) 144 10*3/uL 130-400 Automated blood platelet mean volume measurement 10.4 [foz_us] 7.4-10.4 Automated blood neutrophils/100 leukocytes 64 % 42-75 Automated blood lymphocytes/100 leukocytes 26 % 12-44 Blood monocytes/100 leukocytes 9 % 0-12 Automated blood eosinophils/100 leukocytes 1 % 0-10 Automated blood basophils/100 leukocytes 0 % 0-10 Blood neutrophils automated count (number/volume) 2.9 10*3 1.8-7.8 Blood lymphocytes automated count (number/volume) 1.2 10*3 1.0-4.0 Blood monocytes automated count (number/volume) 0.4 10*3 0.0-1.0 Automated eosinophil count 0.0 10*3/uL 0.0-0.3 Automated blood basophil count (count/volume) 0.0 10*3/uL 0.0-0.1 Whole blood basic metabolic panel - 08/15/17 03:10 Serum or plasma sodium measurement (moles/volume) 140 mmol/L 135-145 Serum or plasma potassium measurement (moles/volume) 4.5 mmol/L 3.6-5.0 Serum or plasma chloride measurement (moles/volume) 113 mmol/L 98-107 Carbon dioxide 17 mmol/L 21-32 Serum or plasma anion gap determination (moles/volume) 10 mmol/L 5-14 Serum or plasma urea nitrogen measurement (mass/volume) 36 mg/dL 7-18 Serum or plasma creatinine measurement (mass/volume) 1.46 mg/dL 0.60-1.30 Serum or plasma urea nitrogen/creatinine mass ratio 25 NRG Serum or plasma creatinine measurement with calculation of estimated glomerular filtration rate 36 NRG Serum or plasma glucose measurement (mass/volume) 128 mg/dL 70-105 Serum or plasma calcium measurement (mass/volume) 7.3 mg/dL 8.5-10.1 Serum or plasma phosphate measurement (mass/volume) - 08/15/17 03:10 Serum or plasma phosphate measurement (mass/volume) 3.1 mg/dL 2.3-4.7 Magnesium - 08/15/17 03:10 Magnesium 1.5 mg/dL 1.8-2.4 Arterial blood gas measurement - 08/15/17 04:35 Blood pCO2 36 mm[Hg] 35-45 Blood pO2 101 mm[Hg] 79-93 Arterial blood bicarbonate measurement (moles/volume) 18 mmol/L 23-27 Arterial blood base excess by calculation -7.2 mmol/L - 2.5-2.5 Arterial blood oxygen saturation measurement 98 % 94-100 * Inhaled oxygen flow rate 30% NRG Arterial blood pH measurement with patient temperature correction 7.31 7.37-7.43 Arterial blood carbon dioxide, total measurement (moles/volume) 19.0 mmol/L 21.0-31.0 Body site LEFT RADIAL NRG Assessment of wrist artery patency prior to arterial puncture YES- POS NRG Setting of ventilation mode NO NRG Measurement of body temperature 98.5 NRG Complete blood count (CBC) with automated white blood cell (WBC) differential - 08/16/17 04:28 Blood leukocytes automated count (number/volume) 5.2 10*3/uL 4.3-11.0 Blood erythrocytes automated count (number/volume) 3.40 10*6/uL 4.35-5.85 Venous blood hemoglobin measurement (mass/volume) 10.6 g/dL 11.5-16.0 Blood hematocrit (volume fraction) 32 % 35-52 Automated erythrocyte mean corpuscular volume 93 [foz_us] 80-99 Automated erythrocyte mean corpuscular hemoglobin (mass per erythrocyte) 31 pg 25-34 Automated erythrocyte mean corpuscular hemoglobin concentration measurement ( mass/volume) 34 g/dL 32-36 Automated erythrocyte distribution width ratio 12.2 % 10.0-14.5 Automated blood platelet count (count/volume) 167 10*3/uL 130-400 Automated blood platelet mean volume measurement 11.0 [foz_us] 7.4-10.4 Automated blood neutrophils/100 leukocytes 72 % 42-75 Automated blood lymphocytes/100 leukocytes 19 % 12-44 Blood monocytes/100 leukocytes 8 % 0-12 Automated blood eosinophils/100 leukocytes 1 % 0-10 Automated blood basophils/100 leukocytes 0 % 0-10 Blood neutrophils automated count (number/volume) 3.7 10*3 1.8-7.8 Blood lymphocytes automated count (number/volume) 1.0 10*3 1.0-4.0 Blood monocytes automated count (number/volume) 0.4 10*3 0.0-1.0 Automated eosinophil count 0.1 10*3/uL 0.0-0.3 Automated blood basophil count (count/volume) 0.0 10*3/uL 0.0-0.1 Whole blood basic metabolic panel - 08/16/17 04:28 Serum or plasma sodium measurement (moles/volume) 138 mmol/L 135-145 Serum or plasma potassium measurement (moles/volume) 4.3 mmol/L 3.6-5.0 Serum or plasma chloride measurement (moles/volume) 112 mmol/L 98-107 Carbon dioxide 15 mmol/L 21-32 Serum or plasma anion gap determination (moles/volume) 11 mmol/L 5-14 Serum or plasma urea nitrogen measurement (mass/volume) 14 mg/dL 7-18 Serum or plasma creatinine measurement (mass/volume) 0.76 mg/dL 0.60-1.30 Serum or plasma urea nitrogen/creatinine mass ratio 18 NRG Serum or plasma creatinine measurement with calculation of estimated glomerular filtration rate > NRG Serum or plasma glucose measurement (mass/volume) 110 mg/dL 70-105 Serum or plasma calcium measurement (mass/volume) 7.8 mg/dL 8.5-10.1 Serum or plasma phosphate measurement (mass/volume) - 08/16/17 04:28 Serum or plasma phosphate measurement (mass/volume) 1.3 mg/dL 2.3-4.7 Magnesium - 08/16/17 04:28 Magnesium 1.7 mg/dL 1.8-2.4 Complete blood count (CBC) with automated white blood cell (WBC) differential - 08/17/17 06:40 Blood leukocytes automated count (number/volume) 6.5 10*3/uL 4.3-11.0 Blood erythrocytes automated count (number/volume) 3.71 10*6/uL 4.35-5.85 Venous blood hemoglobin measurement (mass/volume) 11.5 g/dL 11.5-16.0 Blood hematocrit (volume fraction) 34 % 35-52 Automated erythrocyte mean corpuscular volume 91 [foz_us] 80-99 Automated erythrocyte mean corpuscular hemoglobin (mass per erythrocyte) 31 pg 25-34 Automated erythrocyte mean corpuscular hemoglobin concentration measurement ( mass/volume) 34 g/dL 32-36 Automated erythrocyte distribution width ratio 11.9 % 10.0-14.5 Automated blood platelet count (count/volume) 191 10*3/uL 130-400 Automated blood platelet mean volume measurement 10.6 [foz_us] 7.4-10.4 Automated blood neutrophils/100 leukocytes 75 % 42-75 Automated blood lymphocytes/100 leukocytes 16 % 12-44 Blood monocytes/100 leukocytes 8 % 0-12 Automated blood eosinophils/100 leukocytes 0 % 0-10 Automated blood basophils/100 leukocytes 1 % 0-10 Blood neutrophils automated count (number/volume) 4.9 10*3 1.8-7.8 Blood lymphocytes automated count (number/volume) 1.0 10*3 1.0-4.0 Blood monocytes automated count (number/volume) 0.6 10*3 0.0-1.0 Automated eosinophil count 0.0 10*3/uL 0.0-0.3 Automated blood basophil count (count/volume) 0.0 10*3/uL 0.0-0.1 Whole blood basic metabolic panel - 08/17/17 06:40 Serum or plasma sodium measurement (moles/volume) 141 mmol/L 135-145 Serum or plasma potassium measurement (moles/volume) 4.0 mmol/L 3.6-5.0 Serum or plasma chloride measurement (moles/volume) 110 mmol/L 98-107 Carbon dioxide 17 mmol/L 21-32 Serum or plasma anion gap determination (moles/volume) 14 mmol/L 5-14 Serum or plasma urea nitrogen measurement (mass/volume) 12 mg/dL 7-18 Serum or plasma creatinine measurement (mass/volume) 0.73 mg/dL 0.60-1.30 Serum or plasma urea nitrogen/creatinine mass ratio 16 NRG Serum or plasma creatinine measurement with calculation of estimated glomerular filtration rate > NRG Serum or plasma glucose measurement (mass/volume) 125 mg/dL 70-105 Serum or plasma calcium measurement (mass/volume) 8.5 mg/dL 8.5-10.1 Serum or plasma phosphate measurement (mass/volume) - 08/17/17 06:40 Serum or plasma phosphate measurement (mass/volume) 1.6 mg/dL 2.3-4.7 Magnesium - 08/17/17 06:40 Magnesium 1.6 mg/dL 1.8-2.4 Complete urinalysis with reflex to culture - 08/30/17 20:01 Urine color determination YELLOW NRG Urine clarity determination SLIGHTLY CLOUDY NRG Urine pH measurement by test strip 6 5-9 Specific gravity of urine by test strip 1.015 1.016- 1.022 Urine protein assay by test strip, semi-quantitative 1+ NEGATIVE Urine glucose detection by automated test strip NEGATIVE NEGATIVE Erythrocytes detection in urine sediment by light microscopy NEGATIVE NEGATIVE Urine ketones detection by automated test strip NEGATIVE NEGATIVE Urine nitrite detection by test strip NEGATIVE NEGATIVE Urine total bilirubin detection by test strip NEGATIVE NEGATIVE Urine urobilinogen measurement by automated test strip (mass/volume) NORMAL NORMAL Urine leukocyte esterase detection by dipstick NEGATIVE NEGATIVE Automated urine sediment erythrocyte count by microscopy (number/high power field) RARE NRG Automated urine sediment leukocyte count by microscopy (number/high power field ) RARE NRG Bacteria detection in urine sediment by light microscopy TRACE NRG Squamous epithelial cells detection in urine sediment by light microscopy 5-10 NRG Crystals detection in urine sediment by light microscopy NONE NRG Casts detection in urine sediment by light microscopy NONE NRG Mucus detection in urine sediment by light microscopy NEGATIVE NRG Complete urinalysis with reflex to culture NO NRG Urine drug screening test - 08/30/17 20:01 Urine phencyclidine detection by screening method NEGATIVE NEGATIVE Urine benzodiazepines detection by screening method NEGATIVE NEGATIVE Urine cocaine detection NEGATIVE NEGATIVE Urine amphetamines detection by screening method NEGATIVE NEGATIVE Urine methamphetamine detection by screening method NEGATIVE NEGATIVE Urine cannabinoids detection by screening method NEGATIVE NEGATIVE Urine opiates detection by screening method NEGATIVE NEGATIVE Urine barbiturates detection NEGATIVE NEGATIVE Screening urine tricyclic antidepressants detection POSITIVE NEGATIVE Urine methadone detection by screening method NEGATIVE NEGATIVE Urine oxycodone detection NEGATIVE NEGATIVE Urine propoxyphene detection NEGATIVE NEGATIVE Arterial blood gas measurement - 08/30/17 20:15 Blood pCO2 37 mm[Hg] 35-45 Blood pO2 74 mm[Hg] 79-93 Arterial blood bicarbonate measurement (moles/volume) 19 mmol/L 23-27 Arterial blood base excess by calculation -6.3 mmol/L - 2.5-2.5 Arterial blood oxygen saturation measurement 97 % 94-100 * Inhaled oxygen flow rate 3L NRG Arterial blood pH measurement with patient temperature correction 7.32 7.37-7.43 Arterial blood carbon dioxide, total measurement (moles/volume) 20.1 mmol/L 21.0-31.0 Body site RIGHT RADIAL NRG Assessment of wrist artery patency prior to arterial puncture YES- POS NRG Setting of ventilation mode NO NRG Measurement of body temperature 96.1 NRG Comprehensive metabolic panel - 08/30/17 20:25 Serum or plasma sodium measurement (moles/volume) 135 mmol/L 135-145 Serum or plasma potassium measurement (moles/volume) 5.5 mmol/L 3.6-5.0 Serum or plasma chloride measurement (moles/volume) 104 mmol/L 98-107 Carbon dioxide 17 mmol/L 21-32 Serum or plasma anion gap determination (moles/volume) 14 mmol/L 5-14 Serum or plasma urea nitrogen measurement (mass/volume) 51 mg/dL 7-18 Serum or plasma creatinine measurement (mass/volume) 1.81 mg/dL 0.60-1.30 Serum or plasma urea nitrogen/creatinine mass ratio 28 NRG Serum or plasma creatinine measurement with calculation of estimated glomerular filtration rate 28 NRG Serum or plasma glucose measurement (mass/volume) 161 mg/dL 70-105 Serum or plasma calcium measurement (mass/volume) 8.9 mg/dL 8.5-10.1 Serum or plasma total bilirubin measurement (mass/volume) 0.4 mg/dL 0.1-1.0 Serum or plasma alkaline phosphatase measurement (enzymatic activity/volume) 66 U/L 40-136 Serum or plasma aspartate aminotransferase measurement (enzymatic activity/ volume) 14 U/L 5-34 Serum or plasma alanine aminotransferase measurement (enzymatic activity/volume ) 23 U/L 0-55 Serum or plasma protein measurement (mass/volume) 6.4 g/dL 6.4-8.2 Serum or plasma albumin measurement (mass/volume) 3.5 g/dL 3.2-4.5 Magnesium - 08/30/17 20:25 Magnesium 1.6 mg/dL 1.8-2.4 Blood lactic acid measurement (moles/volume) - 08/30/17 20:25 Blood lactic acid measurement (moles/volume) 3.12 mmol/L 0.50-2.00 Serum or plasma thyroxine (T4) free measurement (mass/volume) - 08/30/17 20:25 Serum or plasma thyroxine (T4) free measurement (mass/volume) 0.87 ng/dL 0.70-1.48 Serum or plasma thyrotropin measurement by detection limit <=0.05 miu/l (units/ volume) - 08/30/17 20:25 Serum or plasma thyrotropin measurement by detection limit <=0.05 miu/l (units/ volume) 0.31 u[iU]/mL 0.35-4.94 Bacterial blood culture - 08/30/17 20:25 Bacterial blood culture [facility] Influenza virus A and B antigen detection - 08/30/17 20:27 FLU RESULT NEGATIVE FOR INFLUENZA A AND B ANTIGENS BY [facility] Complete blood count (CBC) with automated white blood cell (WBC) differential - 08/30/17 20:32 Blood leukocytes automated count (number/volume) 5.8 10*3/uL 4.3-11.0 Blood erythrocytes automated count (number/volume) 3.60 10*6/uL 4.35-5.85 Venous blood hemoglobin measurement (mass/volume) 10.8 g/dL 11.5-16.0 Blood hematocrit (volume fraction) 34 % 35-52 Automated erythrocyte mean corpuscular volume 93 [foz_us] 80-99 Automated erythrocyte mean corpuscular hemoglobin (mass per erythrocyte) 30 pg 25-34 Automated erythrocyte mean corpuscular hemoglobin concentration measurement ( mass/volume) 32 g/dL 32-36 Automated erythrocyte distribution width ratio 12.4 % 10.0-14.5 Automated blood platelet count (count/volume) 227 10*3/uL 130-400 Automated blood platelet mean volume measurement 10.9 [foz_us] 7.4-10.4 Automated blood neutrophils/100 leukocytes 66 % 42-75 Automated blood lymphocytes/100 leukocytes 22 % 12-44 Blood monocytes/100 leukocytes 9 % 0-12 Automated blood eosinophils/100 leukocytes 2 % 0-10 Automated blood basophils/100 leukocytes 1 % 0-10 Blood neutrophils automated count (number/volume) 3.9 10*3 1.8-7.8 Blood lymphocytes automated count (number/volume) 1.3 10*3 1.0-4.0 Blood monocytes automated count (number/volume) 0.5 10*3 0.0-1.0 Automated eosinophil count 0.1 10*3/uL 0.0-0.3 Automated blood basophil count (count/volume) 0.0 10*3/uL 0.0-0.1 Bacterial blood culture - 08/30/17 20:32 Bacterial blood culture NG NRG Methicillin resistant Staphylococcus aureus (MRSA) screening culture - 23:45 Methicillin resistant Staphylococcus aureus (MRSA) screening culture NEG NRG Serum or plasma lactate measurement (moles/volume) - 08/30/17 23:50 Serum or plasma lactate measurement (moles/volume) 4.18 mmol/L 0.50-2.00 Complete blood count (CBC) with automated white blood cell (WBC) differential - 08/31/17 02:00 Blood leukocytes automated count (number/volume) 8.2 10*3/uL 4.3-11.0 Blood erythrocytes automated count (number/volume) 3.42 10*6/uL 4.35-5.85 Venous blood hemoglobin measurement (mass/volume) 10.5 g/dL 11.5-16.0 Blood hematocrit (volume fraction) 32 % 35-52 Automated erythrocyte mean corpuscular volume 93 [foz_us] 80-99 Automated erythrocyte mean corpuscular hemoglobin (mass per erythrocyte) 31 pg 25-34 Automated erythrocyte mean corpuscular hemoglobin concentration measurement ( mass/volume) 33 g/dL 32-36 Automated erythrocyte distribution width ratio 12.5 % 10.0-14.5 Automated blood platelet count (count/volume) 239 10*3/uL 130-400 Automated blood platelet mean volume measurement 11.0 [foz_us] 7.4-10.4 Automated blood neutrophils/100 leukocytes 70 % 42-75 Automated blood lymphocytes/100 leukocytes 19 % 12-44 Blood monocytes/100 leukocytes 10 % 0-12 Automated blood eosinophils/100 leukocytes 1 % 0-10 Automated blood basophils/100 leukocytes 0 % 0-10 Blood neutrophils automated count (number/volume) 5.7 10*3 1.8-7.8 Blood lymphocytes automated count (number/volume) 1.6 10*3 1.0-4.0 Blood monocytes automated count (number/volume) 0.8 10*3 0.0-1.0 Automated eosinophil count 0.1 10*3/uL 0.0-0.3 Automated blood basophil count (count/volume) 0.0 10*3/uL 0.0-0.1 Blood lactic acid measurement (moles/volume) - 08/31/17 02:00 Blood lactic acid measurement (moles/volume) 2.68 mmol/L 0.50-2.00 Comprehensive metabolic panel - 08/31/17 02:00 Serum or plasma sodium measurement (moles/volume) 136 mmol/L 135-145 Serum or plasma potassium measurement (moles/volume) 5.8 mmol/L 3.6-5.0 Serum or plasma chloride measurement (moles/volume) 109 mmol/L 98-107 Carbon dioxide 17 mmol/L 21-32 Serum or plasma anion gap determination (moles/volume) 10 mmol/L 5-14 Serum or plasma urea nitrogen measurement (mass/volume) 41 mg/dL 7-18 Serum or plasma creatinine measurement (mass/volume) 1.56 mg/dL 0.60-1.30 Serum or plasma urea nitrogen/creatinine mass ratio 26 NRG Serum or plasma creatinine measurement with calculation of estimated glomerular filtration rate 33 NRG Serum or plasma glucose measurement (mass/volume) 214 mg/dL 70-105 Serum or plasma calcium measurement (mass/volume) 8.6 mg/dL 8.5-10.1 Serum or plasma total bilirubin measurement (mass/volume) 0.4 mg/dL 0.1-1.0 Serum or plasma alkaline phosphatase measurement (enzymatic activity/volume) 65 U/L 40-136 Serum or plasma aspartate aminotransferase measurement (enzymatic activity/ volume) 14 U/L 5-34 Serum or plasma alanine aminotransferase measurement (enzymatic activity/volume ) 23 U/L 0-55 Serum or plasma protein measurement (mass/volume) 6.2 g/dL 6.4-8.2 Serum or plasma albumin measurement (mass/volume) 3.5 g/dL 3.2-4.5 Serum or plasma lactate measurement (moles/volume) - 08/31/17 04:05 Serum or plasma lactate measurement (moles/volume) 1.89 mmol/L 0.50-2.00 Capillary blood glucose measurement by glucometer (mass/volume) - 02/12/18 05: 05 Capillary blood glucose measurement by glucometer (mass/volume) 211 mg/dL 70-110 Capillary blood glucose measurement by glucometer (mass/volume) - 08/31/17 11: 10 Capillary blood glucose measurement by glucometer (mass/volume) 85 mg/dL 70-110 Capillary blood glucose measurement by glucometer (mass/volume) - 08/31/17 15: 59 Capillary blood glucose measurement by glucometer (mass/volume) 157 mg/dL 70-110 Capillary blood glucose measurement by glucometer (mass/volume) - 08/31/17 21: 17 Capillary blood glucose measurement by glucometer (mass/volume) 128 mg/dL 70-110 Capillary blood glucose measurement by glucometer (mass/volume) - 09/01/17 05: 25 Capillary blood glucose measurement by glucometer (mass/volume) 107 mg/dL 70-110 Complete blood count (CBC) with automated white blood cell (WBC) differential - 09/01/17 05:55 Blood leukocytes automated count (number/volume) 5.2 10*3/uL 4.3-11.0 Blood erythrocytes automated count (number/volume) 3.51 10*6/uL 4.35-5.85 Venous blood hemoglobin measurement (mass/volume) 10.7 g/dL 11.5-16.0 Blood hematocrit (volume fraction) 33 % 35-52 Automated erythrocyte mean corpuscular volume 93 [foz_us] 80-99 Automated erythrocyte mean corpuscular hemoglobin (mass per erythrocyte) 31 pg 25-34 Automated erythrocyte mean corpuscular hemoglobin concentration measurement ( mass/volume) 33 g/dL 32-36 Automated erythrocyte distribution width ratio 12.5 % 10.0-14.5 Automated blood platelet count (count/volume) 211 10*3/uL 130-400 Automated blood platelet mean volume measurement 11.1 [foz_us] 7.4-10.4 Automated blood neutrophils/100 leukocytes 61 % 42-75 Automated blood lymphocytes/100 leukocytes 25 % 12-44 Blood monocytes/100 leukocytes 11 % 0-12 Automated blood eosinophils/100 leukocytes 2 % 0-10 Automated blood basophils/100 leukocytes 1 % 0-10 Blood neutrophils automated count (number/volume) 3.2 10*3 1.8-7.8 Blood lymphocytes automated count (number/volume) 1.3 10*3 1.0-4.0 Blood monocytes automated count (number/volume) 0.6 10*3 0.0-1.0 Automated eosinophil count 0.1 10*3/uL 0.0-0.3 Automated blood basophil count (count/volume) 0.0 10*3/uL 0.0-0.1 Comprehensive metabolic panel - 09/01/17 05:55 Serum or plasma sodium measurement (moles/volume) 141 mmol/L 135-145 Serum or plasma potassium measurement (moles/volume) 4.6 mmol/L 3.6-5.0 Serum or plasma chloride measurement (moles/volume) 114 mmol/L 98-107 Carbon dioxide 17 mmol/L 21-32 Serum or plasma anion gap determination (moles/volume) 10 mmol/L 5-14 Serum or plasma urea nitrogen measurement (mass/volume) 15 mg/dL 7-18 Serum or plasma creatinine measurement (mass/volume) 0.89 mg/dL 0.60-1.30 Serum or plasma urea nitrogen/creatinine mass ratio 17 NRG Serum or plasma creatinine measurement with calculation of estimated glomerular filtration rate > NRG Serum or plasma glucose measurement (mass/volume) 113 mg/dL 70-105 Serum or plasma calcium measurement (mass/volume) 8.3 mg/dL 8.5-10.1 Serum or plasma total bilirubin measurement (mass/volume) 0.4 mg/dL 0.1-1.0 Serum or plasma alkaline phosphatase measurement (enzymatic activity/volume) 66 U/L 40-136 Serum or plasma aspartate aminotransferase measurement (enzymatic activity/ volume) 14 U/L 5-34 Serum or plasma alanine aminotransferase measurement (enzymatic activity/volume ) 19 U/L 0-55 Serum or plasma protein measurement (mass/volume) 6.5 g/dL 6.4-8.2 Serum or plasma albumin measurement (mass/volume) 3.4 g/dL 3.2-4.5 Capillary blood glucose measurement by glucometer (mass/volume) - 09/01/17 10: 44 Capillary blood glucose measurement by glucometer (mass/volume) 114 mg/dL 70-110 Vancomycin trough - 09/01/17 12:14 Vancomycin trough 8.3 ug/mL 10.0-20.0 Capillary blood glucose measurement by glucometer (mass/volume) - 09/01/17 15: 51 Capillary blood glucose measurement by glucometer (mass/volume) 169 mg/dL 70-110 Capillary blood glucose measurement by glucometer (mass/volume) - 09/01/17 20: 30 Capillary blood glucose measurement by glucometer (mass/volume) 152 mg/dL 70-110 Complete blood count (CBC) with automated white blood cell (WBC) differential - 09/02/17 05:55 Blood leukocytes automated count (number/volume) 5.5 10*3/uL 4.3-11.0 Blood erythrocytes automated count (number/volume) 3.36 10*6/uL 4.35-5.85 Venous blood hemoglobin measurement (mass/volume) 10.2 g/dL 11.5-16.0 Blood hematocrit (volume fraction) 31 % 35-52 Automated erythrocyte mean corpuscular volume 93 [foz_us] 80-99 Automated erythrocyte mean corpuscular hemoglobin (mass per erythrocyte) 30 pg 25-34 Automated erythrocyte mean corpuscular hemoglobin concentration measurement ( mass/volume) 33 g/dL 32-36 Automated erythrocyte distribution width ratio 12.5 % 10.0-14.5 Automated blood platelet count (count/volume) 187 10*3/uL 130-400 Automated blood platelet mean volume measurement 11.0 [foz_us] 7.4-10.4 Automated blood neutrophils/100 leukocytes 67 % 42-75 Automated blood lymphocytes/100 leukocytes 22 % 12-44 Blood monocytes/100 leukocytes 9 % 0-12 Automated blood eosinophils/100 leukocytes 2 % 0-10 Automated blood basophils/100 leukocytes 1 % 0-10 Blood neutrophils automated count (number/volume) 3.7 10*3 1.8-7.8 Blood lymphocytes automated count (number/volume) 1.2 10*3 1.0-4.0 Blood monocytes automated count (number/volume) 0.5 10*3 0.0-1.0 Automated eosinophil count 0.1 10*3/uL 0.0-0.3 Automated blood basophil count (count/volume) 0.0 10*3/uL 0.0-0.1 Comprehensive metabolic panel - 09/02/17 05:55 Serum or plasma sodium measurement (moles/volume) 139 mmol/L 135-145 Serum or plasma potassium measurement (moles/volume) 4.4 mmol/L 3.6-5.0 Serum or plasma chloride measurement (moles/volume) 114 mmol/L 98-107 Carbon dioxide 18 mmol/L 21-32 Serum or plasma anion gap determination (moles/volume) 7 mmol/L 5-14 Serum or plasma urea nitrogen measurement (mass/volume) 15 mg/dL 7-18 Serum or plasma creatinine measurement (mass/volume) 0.94 mg/dL 0.60-1.30 Serum or plasma urea nitrogen/creatinine mass ratio 16 NRG Serum or plasma creatinine measurement with calculation of estimated glomerular filtration rate 60 NRG Serum or plasma glucose measurement (mass/volume) 126 mg/dL 70-105 Serum or plasma calcium measurement (mass/volume) 8.6 mg/dL 8.5-10.1 Serum or plasma total bilirubin measurement (mass/volume) 0.3 mg/dL 0.1-1.0 Serum or plasma alkaline phosphatase measurement (enzymatic activity/volume) 59 U/L 40-136 Serum or plasma aspartate aminotransferase measurement (enzymatic activity/ volume) 11 U/L 5-34 Serum or plasma alanine aminotransferase measurement (enzymatic activity/volume ) 17 U/L 0-55 Serum or plasma protein measurement (mass/volume) 6.3 g/dL 6.4-8.2 Serum or plasma albumin measurement (mass/volume) 3.4 g/dL 3.2-4.5 Capillary blood glucose measurement by glucometer (mass/volume) - 09/02/17 06: 02 Capillary blood glucose measurement by glucometer (mass/volume) 129 mg/dL 70-110 Capillary blood glucose measurement by glucometer (mass/volume) - 09/02/17 10: 57 Capillary blood glucose measurement by glucometer (mass/volume) 121 mg/dL 70-110 Encounters ACCT No. Visit Date/Time Discharge Status Pt. Type Provider Facility Loc./Unit Complaint [id number] 01/09/2017 17:30:00 02/03/2017 19:23:00 DIS Inpatient MARY GUIDO, MISHEL Pires [facility] [id number] 09/15/2016 09:49:00 09/15/2016 23:59:00 DIS Outpatient Brayan Cohn [facility] undefined CT [id number] 08/30/2017 22:05:00 09/02/2017 13:15:00 DIS Inpatient LANETTE WILCOX DO [facility] 4TH SEVERE SEPSIS; HYPOTENSION;DEHYDRATION;[facility] [id number] 08/21/2017 11:40:00 08/21/2017 23:59:59 CLS Outpatient LANETTE WILCOX DO [facility] RAD ACUTE MENTAL STATUS CHANGE [id number] 08/14/2017 20:50:00 08/17/2017 19:31:00 DIS Inpatient KORY ARENAS DO [facility] 4TH INFLUENZA PNA,SEPTIC SHOCK,ELEVATED K,ROSIO,RESP DIS
--- NOTE | 2018-05-15 10:06 | ED General ---
General Chief Complaint: General Problems/Pain Stated Complaint: L HIP PAIN Nursing Triage Note: pt brought in by ems from [facility] with complaint of left hip pain. per ems, the [facility] stated that pt was found sitting on floor 05/06. Nursing Sepsis Screen: No Definite Risk Source of Information: Patient, EMS Exam Limitations: Other (dementia) History of Present Illness Date Seen by Provider: May 15, 2018 Time Seen by Provider: 10:05 Initial Comments This 68-year-old female presents to the emergency department from the rehabilitation Center with complaint of left hip pain. There is been no clear history of trauma or fall. The patient complained to the rehabilitation center personnel of left hip pain this morning while she was standing and walking on the left hip. The patient denies any recent injury although she suffers from dementia. The patient denies any other area of pain. Patient is unable to cooperate on exam easily. There is been no associated history of fever, headache or stiff neck, cough, vomiting, diarrhea, or dysuria. Allergies and Home Medications Allergies Coded Allergies: No Known Drug Allergies (Unverified , 08/14/17) Home Medications Acetaminophen 325 Mg Tablet, 650 MG PO TID, (Reported) TAKES 2 (325 MG) TABLETS Amlodipine Besylate 10 Mg Tablet, 10 MG PO DAILY, (Reported) HOLD FOR BP <100/60 AND PULSE < 60 Aspirin 81 Mg Tablet.dr, 81 MG PO DAILY, (Reported) Atorvastatin Calcium 10 Mg Tablet, 10 MG PO HS, (Reported) Cefdinir 300 Mg Capsule, 300 MG PO BID Prescribed by: MARIA A BANEGAS on 09/02/17 0739 Diphenoxylate HCl/Atropine 1 Each Tablet, 2 TAB PO Q6H PRN for DIARRHEA, ( Reported) Docusate Sodium 100 Mg Capsule, 100 MG PO BID, (Reported) Donepezil HCl 10 Mg Tablet, 10 MG PO HS, (Reported) Duloxetine HCl 60 Mg Capsule.dr, 60 MG PO DAILY, (Reported) Gabapentin 400 Mg Capsule, 800 MG PO TID, (Reported) TAKES 2 (400 MG) CAPSULES Lactulose 10 Gm/15 Ml Solution, 30 ML PO Q12H PRN for CONSTIPATION-3RD LINE, ( Reported) Lisinopril 20 Mg Tablet, 20 MG PO DAILY, (Reported) Mag Hydrox/Al Hydrox/Simeth 30 Ml Oral.susp, 30 ML PO Q6H PRN for HEARTBURN, ( Reported) Memantine HCl 10 Mg Tablet, 10 MG PO BID, (Reported) Metformin HCl 500 Mg Tablet, 1,000 MG PO BID, (Reported) TAKES 2 (500 MG) TABLETS Mirtazapine 15 Mg Tablet, 22.5 MG PO HS, (Reported) TAKES 1 & 1/2 (15 MG) TABLETS Multivitamin with Minerals 1 Each Tablet, 1 TAB PO DAILY, (Reported) Quetiapine Fumarate 100 Mg Tablet, 100 MG PO 0900,1400, (Reported) Quetiapine Fumarate 300 Mg Tablet, 300 MG PO HS, (Reported) Sennosides 8.6 Mg Tablet, 17.2 MG PO HS, (Reported) Triamterene/Hydrochlorothiazid 1 Each Capsule, 1 CAP PO DAILY, (Reported) HOLD FOR BP <100/60 AND PULSE <60 [Lidocaine Gel 2%] , TOP Q6H PRN for PAIN, (Reported) APPLY TO AREA OF PAIN TOPICALLY Patient Home Medication List Home Medication List Reviewed: Yes Review of Systems Review of Systems Constitutional: No chills EENTM: No ear pain Respiratory: No cough Cardiovascular: No chest pain Gastrointestinal: No abdominal pain, No nausea, No vomiting Genitourinary: no symptoms reported : No Musculoskeletal: see HPI, joint pain Skin: No change in color (left hip), No rash Psychiatric/Neurological: No Symptoms Reported Hematologic/Lymphatic: No Symptoms Reported Past Oqfyikd-[id number]-Mkllje Hx Past Med/Social Hx: Reviewed Nursing Past Med/Soc Hx Patient Social History Alcohol Use: Denies Use Recreational Drug Use: No Smoking Status: Unknown if Ever Smoked Recent Foreign Travel: No Contact w/Someone Who Travel: No Recent Infectious Disease Expo: No Recent Hopitalizations: Yes Immunizations Up To Date Tetanus Booster (TDap): Unknown PED Vaccines UTD: No Date of Pneumonia Vaccine: Apr 24, 2016 Date of Influenza Vaccine: Apr 30, 2017 Seasonal Allergies Seasonal Allergies: No Past Medical History Surgeries: No (UNKNOWN) Respiratory: Yes Sleep Apnea Cardiac: Yes High Cholesterol, Hypertension Neurological: Yes Dementia Genitourinary: Yes Renal Failure Gastrointestinal: Yes Chronic Constipation, Hemorrhoids Musculoskeletal: Yes Chronic Back Pain Endocrine: Yes Diabetes, Non-Insulin dep HEENT: Yes Hearing Impairment: Hard of Hearing Cancer: No Psychosocial: Yes (MAJOR DEPRESSIVE DISORDER, DELUSIONS) Personality Disorder, Depression Integumentary: No Blood Disorders: No Family Medical History Patient reports no known family medical history. Physical Exam Vital Signs Vital Signs - First Documented 05/15/18 09:38 Temp 98.2 Pulse 91 Resp 11 B/P (MAP) 150/72 (98) Pulse Ox 98 O2 Delivery Room Air Capillary Refill : Less Than 3 Seconds Height, Weight, BMI Height: 5'4.00" Weight: 170lbs. 1.0oz. [id number]; 28.2 BMI Method:Estimated General Appearance: No Apparent Distress Eyes: Bilateral Eye Normal Inspection HEENT: Normal ENT Inspection Neck: Normal Inspection Respiratory: Lungs Clear, Normal Breath Sounds Cardiovascular: Regular Rate, Rhythm Gastrointestinal: Normal Bowel Sounds, Non Tender Back: Normal Inspection Extremity: Non Tender Neurologic/Psychiatric: Alert, No Motor/Sensory Deficits Skin: Normal Color Progress/Results/Core Measures Suspected Sepsis Recent Fever Within 48 Hours: No Infection Criteria Present: None New/Unexplained Altered Menta: No Sepsis Screen: No Definite Risk SIRS Temperature:98.2 Pulse: 91 Respiratory Rate: 11 Laboratory Tests 05/15/18 10:41: White Blood Count 6.9 Blood Pressure 150 /72 Mean: 98 Laboratory Tests 05/15/18 10:41: Creatinine 0.99, Platelet Count 205, Total Bilirubin 0.4 Results/Orders Lab Results Laboratory Tests Test 05/15/18 10:41 05/15/18 11:05 Range/Units White Blood Count 6.9 4.3-11.0 10^3/uL Red Blood Count 4.23 L 4.35-5.85 10^6/uL Hemoglobin 12.4 11.5-16.0 G/DL Hematocrit 39 35-52 % Mean Corpuscular Volume 93 80-99 FL Mean Corpuscular Hemoglobin 29 25-34 PG Mean Corpuscular Hemoglobin Concent 32 32-36 G/DL Red Cell Distribution Width 13.3 10.0-14.5 % Platelet Count 205 130-400 10^3/uL Mean Platelet Volume 11.1 H 7.4-10.4 FL Neutrophils (%) (Auto) 64 42-75 % Lymphocytes (%) (Auto) 21 12-44 % Monocytes (%) (Auto) 8 0-12 % Eosinophils (%) (Auto) 6 0-10 % Basophils (%) (Auto) 1 0-10 % Neutrophils # (Auto) 4.4 1.8-7.8 X 10^3 Lymphocytes # (Auto) 1.5 1.0-4.0 X 10^3 Monocytes # (Auto) 0.6 0.0-1.0 X 10^3 Eosinophils # (Auto) 0.4 H 0.0-0.3 10^3/uL Basophils # (Auto) 0.1 0.0-0.1 10^3/uL Sodium Level 136 135-145 MMOL/L Potassium Level 5.3 H 3.6-5.0 MMOL/L Chloride Level 106 98-107 MMOL/L Carbon Dioxide Level 15 L 21-32 MMOL/L Anion Gap 15 H 5-14 MMOL/L Blood Urea Nitrogen 33 H 7-18 MG/DL Creatinine 0.99 0.60-1.30 MG/DL Estimat Glomerular Filtration Rate 56 BUN/Creatinine Ratio 33 Glucose Level 143 H 70-105 MG/DL Calcium Level 9.9 8.5-10.1 MG/DL Corrected Calcium 8.5-10.1 MG/DL Total Bilirubin 0.4 0.1-1.0 MG/DL Aspartate Amino Transf (AST/SGOT) 38 H 5-34 U/L Alanine Aminotransferase (ALT/SGPT) 55 0-55 U/L Alkaline Phosphatase 94 40-136 U/L Total Protein 8.2 6.4-8.2 GM/DL Albumin 4.6 H 3.2-4.5 GM/DL My Orders Orders - DIGNA ALBARADO MD Cbc With Automated Diff (05/15/18 09:53) Comprehensive Metabolic Panel (05/15/18 09:53) Ua Culture If Indicated (05/15/18 09:53) Pelvis/Bladimir Hips 2 Views (05/15/18 09:53) Vital Signs/I&O 05/15/18 09:38 Temp 98.2 Pulse 91 Resp 11 B/P (MAP) 150/72 (98) Pulse Ox 98 O2 Delivery Room Air Capillary Refill : Less Than 3 Seconds Blood Pressure Mean: 98 Progress Note : Time: 11:15 Progress Note The patient's pelvis including bilateral hips failed to demonstrate evidence of fracture dislocation. The patient's laboratory evaluation was unremarkable. Patient was able to weight-bear in the emergency department with assistance from the staff without evidence of discomfort. ECG Initial ECG Impression Date: May 15, 2018 Departure Impression Primary Impression: General medical exam Disposition: 01 HOME, SELF-CARE Condition: Unchanged Departure-Patient Inst. Decision time for Depature: 11:16 Referrals: LANETTE WILCOX DO (PCP/Family) Primary Care Physician Patient Instructions: Preventing Falls in the Older Adult Add. Discharge Instructions: Return to emergency department if any further problems or questions. Close follow-up with Dr. Wilcox next week. All discharge instructions reviewed with patient and/or family. Voiced understanding. DIGNA ALBARADO MD May 15, 2018 10:06
--- NOTE | 2018-05-15 10:18 | Diagnostic Imaging Report ---
INDICATION: Left hip pain, suspicion for fall FINDINGS: AP pelvis and two-view bilateral hip show no fracture, dislocation or acute appearing articular incongruity. Obturator rings, symphysis and SI joints degenerated but intact. IMPRESSION: No acute appearing abnormality. No fracture demonstrated. Dictated by: Dictated on workstation # [id number]
[2018-05-15 10:48] LABS: BASOPHILS # (AUTO) 0.1 10^3/uL (0.0-0.1); BASOPHILS % (AUTO) 1 % (0-10); EOSINOPHILS # (AUTO) 0.4 10^3/uL (0.0-0.3); EOSINOPHILS % (AUTO) 6 % (0-10); HEMATOCRIT 39 % (35-52); HEMOGLOBIN 12.4 G/DL (11.5-16.0); LYMPHOCYTES # (AUTO) 1.5 X 10^3 (1.0-4.0); LYMPHOCYTES % (AUTO) 21 % (12-44); MEAN CORPUSCULAR HEMOGLOBIN 29 PG (25-34); MEAN CORPUSCULAR HGB CONC 32 G/DL (32-36); MEAN CORPUSCULAR VOLUME 93 FL (80-99); MEAN PLATELET VOLUME 11.1 FL (7.4-10.4); MONOCYTES # (AUTO) 0.6 X 10^3 (0.0-1.0); MONOCYTES % (AUTO) 8 % (0-12); NEUTROPHILS # (AUTO) 4.4 X 10^3 (1.8-7.8); NEUTROPHILS % (AUTO) 64 % (42-75); PLATELET COUNT 205 10^3/uL (130-400); RED BLOOD COUNT 4.23 10^6/uL (4.35-5.85); RED CELL DISTRIBUTION WIDTH 13.3 % (10.0-14.5); WHITE BLOOD COUNT 6.9 10^3/uL (4.3-11.0)
[2018-05-15 11:06] LABS: ALANINE AMINOTRANSFERASE 55 U/L (0-55); ALBUMIN 4.6 GM/DL (3.2-4.5); ALKALINE PHOSPHATASE 94 U/L (40-136); BILIRUBIN,TOTAL 0.4 MG/DL (0.1-1.0); BUN/CREATININE RATIO 33; CALCIUM 9.9 MG/DL (8.5-10.1); CARBON DIOXIDE 15 MMOL/L (21-32); CHLORIDE 106 MMOL/L (98-107); CREATININE SERUM 0.99 MG/DL (0.60-1.30); GFR ESTIMATED 56; GLUCOSE 143 MG/DL (70-105); POTASSIUM 5.3 MMOL/L (3.6-5.0); SODIUM 136 MMOL/L (135-145); TOTAL PROTEIN 8.2 GM/DL (6.4-8.2)
[2018-05-15 11:10] LABS: BILIRUBIN,URINE NEGATIVE (NEGATIVE); CLARITY,URINE CLEAR; COLOR,URINE YELLOW; GLUCOSE, URINE (UA) 2+ (NEGATIVE); KETONES,URINE NEGATIVE (NEGATIVE); LEUKOCYTE ESTERASE ,URINE NEGATIVE (NEGATIVE); NITRITE,URINE NEGATIVE (NEGATIVE); PH,URINE 6 (5-9); PROTEIN,URINE 1+ (NEGATIVE); UROBILINOGEN,URINE NORMAL (NORMAL)
[2018-05-15 11:22] LABS: BACTERIA,URINE NEGATIVE /HPF
[2018-05-15 12:03] VITALS: BP 150/72
[2018-05-15] MEDS ORDERED: HYDROmorphone 2 MG/ML VIAL (DILAUDID) IV ONE (12:15)
== END 2018-05-15 12:03 | disposition home or self-care (01) ==
LOC: EDUNIT# 09:37 → ER 09:38
DX: M25.552 Pain in left hip (principal); F03.90 Unspecified dementia, unspecified severity, without behavioral disturbance, psychotic disturbance, mood disturbance, and anxiety; G47.30 Sleep apnea, unspecified; E78.00 Pure hypercholesterolemia, unspecified; I10 Essential (primary) hypertension; E11.9 Type 2 diabetes mellitus without complications; F32.9 Major depressive disorder, single episode, unspecified; F22 Delusional disorders; Z87.19 Personal history of other diseases of the digestive system; Z79.82 Long term (current) use of aspirin; Z79.84 Long term (current) use of oral hypoglycemic drugs
CPT/HCPCS: 36415; 73521; 80053; 81000; 85025

== ENCOUNTER → 2019-03-16 | Outpatient (CLI) | payer MEDICARE, MEDICAID ==
[~2019-03-16] MED LIST changes: -DULO60CA58 PO; +DULO60CA59 PO; +HOLD METFORMIN - RECEIVED CONTRAST 20 ML VIAL IV SCH; +IOHEXOL 350 MG/ML 100 ML (OMNIPAQUE 350) VIAL IV ONE; +NS 100 ML (IVPB) BAG IV ONE; -SENN-140 PO; +SENN-141 PO
--- NOTE | 2019-03-16 15:33 | Diagnostic Imaging Report ---
PROCEDURE: CT abdomen and pelvis without contrast. TECHNIQUE: Multiple contiguous axial images were obtained through the abdomen and pelvis without the use of intravenous contrast. Auto Exposure Controls were utilized during the CT exam to meet ALARA standards for radiation dose reduction. INDICATION: Left-sided abdominal pain. COMPARISON: No comparison available. FINDINGS: Limited views of the lower thorax show moderate coronary artery calcifications. Liver is normal. No focal liver lesions are seen. Gallbladder is normal. No biliary ductal dilation. Pancreas, spleen and adrenal glands are normal. Kidneys are normal without focal lesions or hydronephrosis. Urinary bladder is normal. Calcified uterine fibroids are present. No adnexal mass. There are no dilated loops of large or small bowel. No bowel obstruction or inflammation. The appendix is normal. No free fluid or air. No abdominal or pelvic lymphadenopathy. Abdominal aorta is normal in caliber without aneurysm. It is extensively calcified. There are no suspicious osseous lesions. IMPRESSION: No acute abnormality in the abdomen or pelvis. Dictated by: Dictated on workstation # [id number]
== END ==
LOC: RAD 14:12
PROVIDERS: ATTEND Family Medicine
DX: R10.32 Left lower quadrant pain (principal)
CPT/HCPCS: 74176

== ENCOUNTER → 2019-04-13 | Outpatient (CLI) | payer MEDICARE, MEDICAID ==
[~2019-04-13] MED LIST changes: -HOLD METFORMIN - RECEIVED CONTRAST 20 ML VIAL IV SCH; -IOHEXOL 350 MG/ML 100 ML (OMNIPAQUE 350) VIAL IV ONE; -NS 100 ML (IVPB) BAG IV ONE
== END ==
LOC: LAB 15:07
PROVIDERS: ATTEND Family Medicine
DX: B86 Scabies (principal)
CPT/HCPCS: 87220

== ENCOUNTER 2019-05-06 23:47 | Inpatient (IN) | payer MEDICARE, MEDICAID ==
[~2019-05-06] VITALS: Ht 152.4 cm; Wt 65.6 kg
[2019-05-06] MEDS ORDERED: methylPREDNISolone 125 MG (Solu-MEDROL) VIAL ONE (23:56)
[2019-05-06] MEDS ORDERED: LORazepam INJ 2 MG/ML (ATIVAN) VIAL ONE (23:57)
[2019-05-06] MEDS ORDERED: methylPREDNISolone 125 MG (Solu-MEDROL) VIAL IV STA (23:59)
[2019-05-06] MEDS ORDERED: RT-ALBUTEROL SULF 2.5 MG/3 ML PRE-MIX VIAL INH STA (23:59)
[2019-05-07] VITALS (24 sets, daily range): BP systolic 106–149; BP diastolic 47–103
[2019-05-07] MEDS ORDERED: RT-ALBUTEROL SULF 2.5 MG/3 ML PRE-MIX VIAL ONE
[2019-05-07] MEDS ORDERED: AZITHROMYCIN INJECTION 500 MG in NS (IVPB) 250 ML IV ONE ×2
[2019-05-07] MEDS ORDERED: DEXAMETHASONE 4 MG/ML SDV (DECADRON) IH ONE
[2019-05-07] MEDS ORDERED: RT-ALBUTEROL/IPRATROPIUM 3 ML (DUONEB) VIAL ONE
[2019-05-07] MEDS ORDERED: RT-ALBUTEROL/IPRATROPIUM 3 ML (DUONEB) VIAL INH ONE
[2019-05-07] MEDS ORDERED: DEXAMETHASONE 4 MG/ML SDV (DECADRON) ONE
[2019-05-07] MEDS ORDERED: cefTRIAXone FOR IV USE 1,000 MG in WATER (STERILE) FOR INJECTION 10 ML IV ONE ×2
[2019-05-07 00:05] LABS: ABG BASE EXCESS -7.8 MMOL/L (-2.5-2.5); ABG OXYGEN SATURATION 95 % (94-100); ABG PCO2 41 MMHG (35-45); ABG PO2 91 MMHG (79-93)
[2019-05-07 00:07] LABS: ABG PH 7.27 (7.37-7.43); ALLENS TEST YES-POS; INSPIRED O2 50%; PATIENT TEMP 37.4; VENTILATOR NO
[2019-05-07] MEDS ORDERED: LORazepam INJ 2 MG/ML (ATIVAN) VIAL IVP ONE (00:15)
[2019-05-07 00:20] LABS: BASOPHILS # (AUTO) 0.1 10^3/uL (0.0-0.1); BASOPHILS % (AUTO) 0 % (0-10); EOSINOPHILS # (AUTO) 0.5 10^3/uL (0.0-0.3); EOSINOPHILS % (AUTO) 3 % (0-10); HEMATOCRIT 47 % (35-52); HEMOGLOBIN 14.6 G/DL (11.5-16.0); LYMPHOCYTES # (AUTO) 2.8 X 10^3 (1.0-4.0); LYMPHOCYTES % (AUTO) 17 % (12-44); MEAN CORPUSCULAR HEMOGLOBIN 28 PG (25-34); MEAN CORPUSCULAR HGB CONC 31 G/DL (32-36); MEAN CORPUSCULAR VOLUME 91 FL (80-99); MEAN PLATELET VOLUME 11.5 FL (7.4-10.4); MONOCYTES # (AUTO) 0.8 X 10^3 (0.0-1.0); MONOCYTES % (AUTO) 5 % (0-12); NEUTROPHILS # (AUTO) 11.7 X 10^3 (1.8-7.8); NEUTROPHILS % (AUTO) 74 % (42-75); PLATELET COUNT 300 10^3/uL (130-400); RED CELL DISTRIBUTION WIDTH 14.9 % (10.0-14.5); WHITE BLOOD COUNT 15.8 10^3/uL (4.3-11.0)
[2019-05-07 00:24] LABS: PROTHROMBIN TIME PATIENT 13.4 SEC (12.2-14.7)
[2019-05-07 00:34] LABS: ALANINE AMINOTRANSFERASE 27 U/L (0-55); ALBUMIN 4.5 GM/DL (3.2-4.5); ALKALINE PHOSPHATASE 142 U/L (40-136); BILIRUBIN,TOTAL 0.5 MG/DL (0.1-1.0); BUN/CREATININE RATIO 15; CALCIUM 9.3 MG/DL (8.5-10.1); CARBON DIOXIDE 15 MMOL/L (21-32); CHLORIDE 107 MMOL/L (98-107); CREATINE KINASE 61 U/L (29-168); CREATININE SERUM 1.22 MG/DL (0.60-1.30); GFR ESTIMATED 44; GLUCOSE 287 MG/DL (70-105); POTASSIUM 4.6 MMOL/L (3.6-5.0); SODIUM 141 MMOL/L (135-145); TOTAL PROTEIN 8.8 GM/DL (6.4-8.2)
[2019-05-07 00:39] LABS: BAND NEUTROPHILS 6 %; LYMPHOCYTES % (MANUAL) 12 %; MONOCYTES % (MANUAL) 8 %; NEUTROPHILS % (MANUAL) 74 %; RBC MORPH NORMAL
[2019-05-07 00:53] LABS: CREATINE KINASE MB 1.5 NG/ML (<6.6); TSH (THYROID ANALYZER) 1.11 UIU/ML (0.35-4.94)
[2019-05-07] MEDS ORDERED: inSUlin (REGULAR) HUMAN 1 UNIT/0.01 ML (CHARGE PER UNIT) IV ONE (01:15)
[2019-05-07] MEDS ORDERED: FUROSEMIDE 40 MG/4 ML INJ (LASIX) IVP ONE (01:15)
[2019-05-07] MEDS ORDERED: NS IV 1000 ML 1,000 ML ONE ×2 (01:21→04:52)
[2019-05-07 01:22] LABS: BILIRUBIN,URINE NEGATIVE (NEGATIVE); CLARITY,URINE SLIGHTLY CLOUDY; COLOR,URINE YELLOW; GLUCOSE, URINE (UA) 4+ (NEGATIVE); KETONES,URINE NEGATIVE (NEGATIVE); LEUKOCYTE ESTERASE ,URINE NEGATIVE (NEGATIVE); NITRITE,URINE NEGATIVE (NEGATIVE); PH,URINE 5 (5-9); PROTEIN,URINE 4+ (NEGATIVE)
[2019-05-07] MEDS ORDERED: NS IV 1000 ML 1,000 ML IV SCH ×2 (01:27→05:29)
[2019-05-07 01:30] LABS: AMORPHOUS SEDIMENT,UR LARGE AMOR URATES /LPF; BACTERIA,URINE TRACE /HPF
[2019-05-07] MEDS ORDERED: ENOXAPARIN 80 MG/0.8 ML (LOVENOX) SYR SC ONE (01:45)
[2019-05-07] MEDS ORDERED: NS IV ONE (05:30)
[2019-05-07] MEDS ORDERED: EPINEPHrine 1 MG INJECTION 2 MG in NS (IVPB) 250 ML IV SCH (05:30)
[2019-05-07] MEDS: NOREPINEPHRINE 4 MG in NS (IVPB) 250 ML IV SCH ×3 (05:36→23:28)
[2019-05-07] MEDS: VASOPRESSIN INJECTION 20 UNIT in NORMAL SALINE 100 ML IV SCH ×3 (05:36→22:19)
[2019-05-07] MEDS: MAGNESIUM 1 GM/100 ML IVPB 100 ML IV SCH (05:43)
[2019-05-07] MEDS: KCL 20 MEQ TAB (K-DUR) PO SCH (05:43)
[2019-05-07] MEDS: POTASSIUM CL 10MEQ/50ML IVPB 50 ML IV SCH (05:43)
[2019-05-07] MEDS: inSUlin ASPART (NovoLOG) 1 UNIT/0.01 ML (CHARGE PER UNIT) SC SCH ×4 (05:56→21:11)
[2019-05-07] MEDS ORDERED: methylPREDNISolone 125 MG (Solu-MEDROL) VIAL IVP SCH (06:00)
[2019-05-07] MEDS ORDERED: FUROSEMIDE 40 MG/4 ML INJ (LASIX) IV ONE (06:00)
--- NOTE | 2019-05-07 07:19 | Diagnostic Imaging Report ---
INDICATION: Respiratory distress. TECHNIQUE: Single view chest 4:51 AM. CORRELATION STUDY: 08/31/2017 FINDINGS: Heart size enlarged, present pulmonary vascular congestion and edema. Findings have adversely changed from prior study. Scattered pulmonary parenchymal densities are noted, may be reflective of infiltrate versus asymmetric edema. IMPRESSION: 1. Findings consistent with congestive heart failure with pulmonary vascular congestion and perihilar edema. Underlying pulmonary edema versus infiltrates. Dictated by: Dictated on workstation # [id number]
--- NOTE | 2019-05-07 08:15 | ED Respiratory ---
General Chief Complaint: Respiratory Problems Stated Complaint: SEPSIS;ACUTE RESP.FAILURE;PNA;CHF;HYPERGLYCEMIA/ Nursing Triage Note: Pt to room #1 via [facility] ems cart from [facility] with c/o hypoxia. Ems advise initial dispatch d/t anxiety and report upon arrival to facility, initial O2 sat of 83% via RA. In transit to facility ems accessed 20g IV to lt hand and adm brtx. Ems report pt speaks minimal kiswahili and is being treated for scabies. Upon arrival pt noted to be anxious, thrashing, and grinding teeth. RT in room and initated BI-PAP. Multiple superficial abrasions in various stages of healing noted to extremities and abd. Source: EMS, residential records (ALL PMH IS FROM RESIDENTIAL RECORD) Exam Limitations: other (PT WITH DEMENTIA AND CANNOT GIVE ANY INFORMATION. THIS IS PT'S NORMAL BASELINE OF CONFUSION, PER STAFF MEMBER ) History of Present Illness Date Seen by Provider: May 06, 2019 Time Seen by Provider: 23:47 Initial Comments PT ARRIVES VIA EMS FROM [facility] EMS WAS CALLED FOR PT "HAVING AN ANXIETY ATTACK" PT WAS NOTED TO BE HYPOXIC WITH SAT OF 83% ON ROOM AIR BY EMS, AND DYSPNEIC EMS WAS TOLD THAT PT SPEAKS MINIMAL FAROESE, IN ADDITION TO HAVING DEMENTIA NO OTHER INFORMATION IS OBTAINABLE AT THIS TIME PT IS FULL CODE PER RESIDENTIAL RECORDS PCP: DR. WILCOX Allergies and Home Medications Allergies Coded Allergies: No Known Drug Allergies (Unverified , 08/14/17) Home Medications Acetaminophen 325 Mg Tablet, 650 MG PO TID, (Reported) TAKES 2 (325 MG) TABLETS Amlodipine Besylate 10 Mg Tablet, 10 MG PO DAILY, (Reported) HOLD FOR BP <100/60 AND PULSE < 60 Aspirin 81 Mg Tablet., 81 MG PO DAILY, (Reported) Atorvastatin Calcium 10 Mg Tablet, 10 MG PO HS, (Reported) Cefdinir 300 Mg Capsule, 300 MG PO BID Prescribed by: MARIA A BANEGAS on 09/02/17 0739 Diphenoxylate HCl/Atropine 1 Each Tablet, 2 TAB PO Q6H PRN for DIARRHEA, (Reported) Docusate Sodium 100 Mg Capsule, 100 MG PO BID, (Reported) Donepezil HCl 10 Mg Tablet, 10 MG PO HS, (Reported) Duloxetine HCl 60 Mg Capsule., 60 MG PO DAILY, (Reported) Gabapentin 400 Mg Capsule, 800 MG PO TID, (Reported) TAKES 2 (400 MG) CAPSULES Lactulose 10 Gm/15 Ml Solution, 30 ML PO Q12H PRN for CONSTIPATION-3RD LINE, (Reported) Lisinopril 20 Mg Tablet, 20 MG PO DAILY, (Reported) Mag Hydrox/Al Hydrox/Simeth 30 Ml Oral.susp, 30 ML PO Q6H PRN for HEARTBURN, ( Reported) Memantine HCl 10 Mg Tablet, 10 MG PO BID, (Reported) Metformin HCl 500 Mg Tablet, 1,000 MG PO BID, (Reported) TAKES 2 (500 MG) TABLETS Mirtazapine 15 Mg Tablet, 22.5 MG PO HS, (Reported) TAKES 1 & 1/2 (15 MG) TABLETS Multivitamin with Minerals 1 Each Tablet, 1 TAB PO DAILY, (Reported) Quetiapine Fumarate 100 Mg Tablet, 100 MG PO 0900,1400, (Reported) Quetiapine Fumarate 300 Mg Tablet, 300 MG PO HS, (Reported) Sennosides 8.6 Mg Tablet, 17.2 MG PO HS, (Reported) Triamterene/Hydrochlorothiazid 1 Each Capsule, 1 CAP PO DAILY, (Reported) HOLD FOR BP <100/60 AND PULSE <60 [Lidocaine Gel 2%] , TOP Q6H PRN for PAIN, (Reported) APPLY TO AREA OF PAIN TOPICALLY Patient Home Medication List Home Medication List Reviewed: Yes Review of Systems Review of Systems Constitutional: fever (99.3 BY EMS), other (PT UNABLE TO ANSWER ANY QUESTIONS) Respiratory: short of breath Skin: other (PT IS CURRENTLY BEING TREATED FOR SCABIES, ARE MULTIPLE OTHER RESIDENTS IN THAT FACILITY) Psychiatric/Neurological: See HPI Past Vigztoc-Btvlyg-Kjdjny Hx Patient Social History Smoking Status: Unknown if Ever Smoked Recent Foreign Travel: No Contact w/Someone Who Travel: No Recent Infectious Disease Expo: No Recent Hopitalizations: Yes Immunizations Up To Date Tetanus Booster (TDap): Unknown PED Vaccines UTD: No Date of Pneumonia Vaccine: Apr 24, 2016 Date of Influenza Vaccine: Apr 30, 2017 Seasonal Allergies Seasonal Allergies: No Past Medical History Surgeries: No (UNKNOWN) Respiratory: Yes Sleep Apnea Cardiac: Yes High Cholesterol, Hypertension Neurological: Yes (DEMENTIA WITH BEHAVIORAL DISTURBANCE) Dementia Genitourinary: Yes Renal Failure Gastrointestinal: Yes Chronic Constipation, Hemorrhoids Musculoskeletal: Yes Chronic Back Pain Endocrine: Yes Diabetes, Non-Insulin dep HEENT: Yes Hearing Impairment: Hard of Hearing Cancer: No Psychosocial: Yes (MAJOR DEPRESSIVE DISORDER, DELUSIONS; DEMENTIA) Personality Disorder, Depression Integumentary: Yes (Scabies ) Recent Skin Changes Blood Disorders: Yes Family Medical History Patient reports no known family medical history. Physical Exam Vital Signs - First Documented 05/06/19 05/07/19 23:47 00:14 Temp 37.4 Pulse 134 Resp 25 B/P (MAP) 178/118 (138) Pulse Ox 95 O2 Delivery NIV Bilevel O2 Flow Rate 60.00 Capillary Refill : Less Than 3 Seconds Height: 5'4.00" Weight: 170lbs. 1.0oz. 77.519412bb; 191.38 BMI Method:Estimated General Appearance: other (PT IS SCREAMING LOUDLY, WAILING, MOANING WIHT EACH BREATH; HYPERVENTILATING; EXTREMELY ANXIOUS; GRIDING TEETH VERY LOUDLY) HEENT: PERRL/EOMI Respiratory: respiratory distress, decreased breath sounds, accessory muscle use, wheezing, expiration, other (DYSPNEIC, HYPERVENTILATING, TACHYPNEIC. EXPIRATORY WHEEZING BILATERALLY. ) Cardiovascular: no JVD, no murmur, tachycardia, irregularly irregular Gastrointestinal: soft Extremities: normal inspection, no pedal edema, normal capillary refill Neurologic/Psychiatric: no motor/sensory deficits (GROSSLY INTACT. PT NOT ABLE TO ANSWER QUESTIONS OR FOLLOW COMMANDS, BUT DOES STATE "TAKE THAT OFF ME" CLEARLY--IN REFERENCE TO O2, MONITORING DEVICES, ETC. AND TRYING TO REMOVE EVERYTHING. ) Skin: normal color, warm/dry, other (PT WITH EXTENSIVE SCRATCH BENTLEY OF VARIOUS AGES ON ARMS, LEGS, TRUNK, DOES APPEAR TO POSSIBLY HAVE AN UNDERLYING ERYTHEMATOUS PAPULAR RASH, BUT DIFFICULT TO DETERMINE DUE TO MACERATION OF SKIN. ) Focused Exam Lactate Level 05/07/19 00:33: Lactic Acid Level 4.31*H Lactic Acid Level Laboratory Tests Test 05/07/19 00:33 Lactic Acid Level 4.31 MMOL/L (0.50-2.00) *H Progress/Results/Core Measures Suspected Sepsis Recent Fever Within 48 Hours: No Infection Criteria Present: Suspected New Infection New/Unexplained Altered Menta: No Sepsis Screen: No Definite Risk SIRS Temperature: Pulse: 92 Respiratory Rate: 14 Laboratory Tests 05/07/19 00:00: White Blood Count 15.8H Blood Pressure 126 /87 Mean: 100 05/07/19 00:33: Lactic Acid Level 4.31*H Laboratory Tests 05/07/19 00:00: Creatinine 1.22, INR Comment 1.0, Platelet Count 300, Total Bilirubin 0.5 Results/Orders Lab Results Laboratory Tests Test 05/07/19 00:00 05/07/19 00:01 05/07/19 00:33 05/07/19 01:04 Range/Units White Blood Count 15.8 H 4.3-11.0 10^3/uL Red Blood Count 5.21 4.35-5.85 10^6/uL Hemoglobin 14.6 11.5-16.0 G/DL Hematocrit 47 35-52 % Mean Corpuscular Volume 91 80-99 FL Mean Corpuscular Hemoglobin 28 25-34 PG Mean Corpuscular Hemoglobin Concent 31 L 32-36 G/DL Red Cell Distribution Width 14.9 H 10.0-14.5 % Platelet Count 300 130-400 10^3/uL Mean Platelet Volume 11.5 H 7.4-10.4 FL Neutrophils (%) (Auto) 74 42-75 % Lymphocytes (%) (Auto) 17 12-44 % Monocytes (%) (Auto) 5 0-12 % Eosinophils (%) (Auto) 3 0-10 % Basophils (%) (Auto) 0 0-10 % Neutrophils # (Auto) 11.7 H 1.8-7.8 X 10^3 Lymphocytes # (Auto) 2.8 1.0-4.0 X 10^3 Monocytes # (Auto) 0.8 0.0-1.0 X 10^3 Eosinophils # (Auto) 0.5 H 0.0-0.3 10^3/uL Basophils # (Auto) 0.1 0.0-0.1 10^3/uL Neutrophils % (Manual) 74 % Lymphocytes % (Manual) 12 % Monocytes % (Manual) 8 % Band Neutrophils 6 % Blood Morphology Comment NORMAL Prothrombin Time 13.4 12.2-14.7 SEC INR Comment 1.0 0.8-1.4 Activated Partial Thromboplast Time 30 24-35 SEC Sodium Level 141 135-145 MMOL/L Potassium Level 4.6 3.6-5.0 MMOL/L Chloride Level 107 98-107 MMOL/L Carbon Dioxide Level 15 L 21-32 MMOL/L Anion Gap 19 H 5-14 MMOL/L Blood Urea Nitrogen 18 7-18 MG/DL Creatinine 1.22 0.60-1.30 MG/DL Estimat Glomerular Filtration Rate 44 BUN/Creatinine Ratio 15 Glucose Level 287 H 70-105 MG/DL Calcium Level 9.3 8.5-10.1 MG/DL Corrected Calcium 8.9 8.5-10.1 MG/DL Magnesium Level 2.0 1.6-2.4 MG/DL Total Bilirubin 0.5 0.1-1.0 MG/DL Aspartate Amino Transf (AST/SGOT) 31 5-34 U/L Alanine Aminotransferase (ALT/SGPT) 27 0-55 U/L Alkaline Phosphatase 142 H 40-136 U/L Total Creatine Kinase 61 29-168 U/L Creatine Kinase MB 1.5 <6.6 NG/ML Myoglobin 51.3 10.0-92.0 NG/ML Troponin I < 0.028 <0.028 NG/ML B-Type Natriuretic Peptide 416.8 H <100.0 PG/ML Total Protein 8.8 H 6.4-8.2 GM/DL Albumin 4.5 3.2-4.5 GM/DL TSH [place] Testing 1.11 0.35-4.94 UIU/ML Blood Gas Puncture Site RIGHT RADIAL Blood Gas Patient Temperature 37.4 Arterial Blood pH 7.27 *L 7.37-7.43 Arterial Blood Partial Pressure CO2 41 35-45 MMHG Arterial Blood Partial Pressure O2 91 79-93 MMHG Arterial Blood HCO3 18 L 23-27 MMOL/L Arterial Blood Total CO2 19.0 L 21.0-31.0 MMOL/L Arterial Blood Oxygen Saturation 95 94-100 % Arterial Blood Base Excess -7.8 L -2.5-2.5 MMOL/L Darnell Test YES-POS Blood Gas Ventilator Setting NO Blood Gas Inspired Oxygen 50% Lactic Acid Level 4.31 *H 0.50-2.00 MMOL/L Urine Color YELLOW Urine Clarity SLIGHTLY CLOUDY Urine pH 5 5-9 Urine Specific [place] 1.020 1.016-1.022 Urine Protein 4+ NEGATIVE Urine Glucose (UA) 4+ H NEGATIVE Urine Ketones NEGATIVE NEGATIVE Urine Nitrite NEGATIVE NEGATIVE Urine Bilirubin NEGATIVE NEGATIVE Urine Urobilinogen NORMAL NORMAL MG/DL Urine Leukocyte Esterase NEGATIVE NEGATIVE Urine RBC (Auto) 1+ H NEGATIVE Urine RBC 2-5 H /HPF Urine WBC NONE /HPF Urine Squamous Epithelial Cells 2-5 /HPF Urine Crystals PRESENT H /LPF Urine Amorphous Sediment LARGE ABHIJIT URATES H /LPF Urine Bacteria TRACE /HPF Urine Casts NONE /LPF Urine Mucus NEGATIVE /LPF Urine Culture Indicated NO Micro Results Microbiology 05/07/19 Influenza Types A,B Antigen (VITA) - Final, Complete My Orders Orders - CONSTANTIN CHILDRESS DO Methylprednisolone Sod Succ (Solu-Medrol (05/06/19 23:56) Lorazepam Injection (Ativan Injection) (05/06/19 23:57) Dexamethasone Injection (Decadron Inject (05/07/19 00:00) Albuterol Pre-Mix Nebs (Rt) (Proventil (05/07/19 00:00) Albuterol/Ipra Inhalation Soln (Duoneb I (05/07/19 00:00) Arterial Blood Gas (05/07/19 00:01) Ed Iv/Invasive Line Start (05/06/19 23:59) Catheter(Urinary) Insert & Ass 03,15 (05/06/19 23:59) O2 (05/06/19 23:59) Monitor-Rhythm Ecg Trace Only (05/06/19 23:59) Arterial Blood Gas (05/06/19 23:59) BNP (05/06/19 23:59) Cbc With Automated Diff (05/06/19 23:59) Comprehensive Metabolic Panel (05/06/19 23:59) Creatine Kinase (05/06/19 23:59) Creatine Kinase Mb (05/06/19 23:59) Lactic Acid Analyzer (05/06/19 23:59) Magnesium (05/06/19 23:59) Protime With Inr (05/06/19 23:59) Partial Thromboplastin Time (05/06/19 23:59) Thyroid Analyzer (05/06/19 23:59) Ua Culture If Indicated (05/06/19 23:59) Blood Culture (05/06/19 23:59) Influenza A And B Antigens (05/06/19 23:59) Myoglobin Serum (05/06/19 23:59) Troponin I (05/06/19 23:59) Albuterol Pre-Mix Nebs (Rt) (Proventil (05/06/19 23:59) Albuterol/Ipra Inhalation Soln (Duoneb I (05/07/19 00:00) Dexamethasone Injection (Decadron Inject (05/07/19 00:00) Rt Request For Service (05/06/19 23:59) Methylprednisolone Sod Succ (Solu-Medrol (05/06/19 23:59) Sputum Culture (05/06/19 23:59) Urine Culture (05/06/19 23:59) Ed Iv/Invasive Line Start (05/06/19 23:59) Ed Iv/Invasive Line Start (05/06/19 23:59) Vital Signs Adult Sepsis Patie Q15M (05/06/19 23:59) O2 (05/06/19 23:59) Remove Rings In Anticipation O (05/06/19 23:59) Ceftriaxone For Iv Use (Rocephin For I (05/07/19 00:00) Azithromycin Injection (Zithromax Inject (05/07/19 00:00) Svn Small Volume Nebulizer (05/06/19 23:59) Svn Small Volume Nebulizer (05/06/19 23:59) Lorazepam Injection (Ativan Injection) (05/07/19 00:15) Chest 1 View, Ap/Pa Only (05/07/19 00:01) Manual Differential (05/07/19 00:00) Furosemide Injection (Lasix Injection) (05/07/19 01:15) Insulin (Regular) Human (Humulin R (Per (05/07/19 01:15) Medications Given in ED Current Medications Medications Dose Ordered Sig/Rhoda Route Start Time Stop Time Status Last Admin Dose Admin Albuterol/ Ipratropium 3 ml ONCE ONCE INH 05/07/19 00:00 05/07/19 00:06 DC 05/07/19 00:13 3 ML Azithromycin 500 mg/Sodium Chloride 250 ml @ 250 mls/hr ONCE ONCE IV 05/07/19 00:00 05/07/19 00:59 DC 05/07/19 01:05 250 MLS/HR Ceftriaxone Sodium 1000 mg/ Sterile Water 10 ml @ 200 mls/hr ONCE ONCE IV 05/07/19 00:00 05/07/19 00:06 DC 05/07/19 00:56 200 MLS/HR Dexamethasone Sodium Phosphate 20 mg ONCE ONCE IH 05/07/19 00:00 05/07/19 00:06 DC 05/07/19 00:13 20 MG Furosemide 40 mg ONCE ONCE IVP 05/07/19 01:15 05/07/19 02:18 DC 05/07/19 02:17 40 MG Insulin Human Regular 15 unit ONCE ONCE IV 05/07/19 01:15 05/07/19 02:18 DC 05/07/19 02:18 15 UNIT Lorazepam 1 mg ONCE ONCE IVP 05/07/19 00:15 05/07/19 00:16 DC 05/07/19 00:03 1 MG Vital Signs/I&O 05/06/19 05/07/19 23:47 00:14 Temp 37.4 Pulse 134 117 Resp 25 28 B/P (MAP) 178/118 (138) Pulse Ox 95 93 O2 Delivery NIV Bilevel O2 Flow Rate 60.00 Capillary Refill : Less Than 3 Seconds Blood Pressure Mean: 100 Progress Note : Progress Note PT PLACED ON BIPAP AND GIVEN ATIVAN, AND PT IS NOW CALM AND COOPERATIVE, AND BREATHING MUCH EASIER, AND NO LONGER TRYING TO PULL OFF MASK OR EQUIPMENT, MON ITORING DEVICES, ETC. O2 SATS UP TO 100%, RESPIRATORY RATE AND HEART RATE COMING DOWN. 0127--PT DID HAVE DROP IN BP INTO 80'S SYSTOLIC, GIVEN A FLUID BOLUS OF 1 LITER, WITH WITH BP UP TO 110'S SYSTOLIC NO FURTHER DETERIORATION IN PT'S CONDITION GIVEN SOLU-MEDROL, LASIX, LOVENOX, NEB TREATMENTS, AND ANTIBIOTICS. ECG Initial ECG Impression Date: May 07, 2019 Initial ECG Impression Time: 01:40 Initial ECG Rate: 103 Initial ECG Rhythm: Normal Sinus (WITH PVC'S/ TRIGEMINY) Initial ECG Impression: Nonspecific Changes EKG : EKG Time: 01:46 Rate: 101 Rhythm: S.Tach (PVC'S) ECG Comparisson: Unchanged Diagnostic Imaging Comments CXR--DIFFUSE BILATERAL INFILTRATES--RIGHT > LEFT, POSSIBLE VASCULAR CONGESTION WELL, PENDING RADIOLOGIST REVIEW Reviewed: Reviewed by Me Departure Communication (Admissions) 0115--SPOKE WITH DR. BANSAL, HOSPITALIST, ACCEPTS PT FOR ADMIT Impression Primary Impression: Acute respiratory failure Additional Impressions: Pneumonia CHF (congestive heart failure) UNCONTROLLED NIDDM HTN (hypertension) Severe sepsis Lactic acidosis Dementia Scabies Disposition: ADMITTED INPATIENT Condition: Improved Admissions Decision to Admit Reason: Admit from ER (General) Decision to Admit/Date: May 07, 2019 Time/Decision to Admit Time: 01:15 Departure-Patient Inst. Referrals: LANETTE WILCOX DO (PCP) Primary Care Physician CONSTANTIN CHILDRESS DO May 07, 2019 08:15
--- NOTE | 2019-05-07 08:45 | NUR ---
RN respond to pt bed alarm at this time. Pt found to be standing naked, out of bed with all monitoring equipment, IVs and gown removed. Staff x 2 assisted pt back to bed at this time and reconnected pt to monitor. Pt is current chewing on O2 saturation monitor cords. Repetitively reoriented pt at bedside. RN currently unable to leave pt room at this time.
[2019-05-07 09:10] LABS: CALCIUM 9.1 MG/DL (8.5-10.1); CREATININE SERUM 1.24 MG/DL (0.60-1.30); MAGNESIUM 1.8 MG/DL (1.6-2.4); POTASSIUM 4.4 MMOL/L (3.6-5.0)
[2019-05-07] MEDS ORDERED: HALOPERIDOL 5 MG/ML (HALDOL) AMP ONE ×2 (09:29→09:59)
[2019-05-07] MEDS: HALOPERIDOL 5 MG/ML (HALDOL) AMP IM PRN ×5 (09:30→22:08)
[2019-05-07] MEDS: AZITHROMYCIN 250 MG TAB (ZITHROMAX) PO SCH (10:20)
[2019-05-07] MEDS: NS IV 1000 ML 1,000 ML IV SCH ×4 (10:21→21:33)
[2019-05-07] MEDS: QUEtiapine 100 MG (SEROquel) TAB IMMEDIATE RELEASE PO SCH ×2 (11:09→20:06)
--- NOTE | 2019-05-07 21:39 | History & Physical-Hospitalist ---
History of Present Illness HPI/Chief Complaint Venita Stein is a 69-year-old female with past medical history of dementia who presented with hypoxia. Due to her underlying dementia, obtaining a history is not possible. Upon her arrival she was tachycardic and tachypnea. Further evaluation found a pneumonia on x-ray. She was started on the sepsis protocol and with a significantly elevated lactic acid was deemed to have severe sepsis. Source: patient Exam Limitations: no limitations Date Seen 05/07/19 Time Seen by a Provider: 08:45 Attending Physician Aris Bansal MD PCP Rki Miller DO Referring Physician Date of Admission May 07, 2019 at 01:15 Home Medications & Allergies Home Medications Reviewed patient Home Medication Reconciliation performed by pharmacy medication reconciliations wildlife technician and/or nursing. Patients Allergies have been reviewed. Allergies Allergies Coded Allergies No Known Drug Allergies (Unverified08/14/17) Past Ehlafpm-Mlxica-Xcsqlc Hx Past Med/Social Hx: Reviewed Nursing Past Med/Soc Hx Patient Social History Smoking Status: Unknown if Ever Smoked Recent Foreign Travel: No Contact w/other who traveled: No Recent Hopitalizations: Yes Recent Infectious Disease Expo: No Immunizations Up To Date Tetanus Booster (TDap): Unknown Pediatric: No Date of Pneumonia Vaccine: Apr 24, 2016 Date of Influenza Vaccine: Apr 30, 2017 Seasonal Allergies Seasonal Allergies: No Past Medical History Cardiac: High Cholesterol, Hypertension Neurological: Dementia Genitourinary: Renal Failure Gastrointestinal: Chronic Constipation, Hemorrhoids Musculoskeletal: Chronic Back Pain Endocrine: Diabetes, Non-Insulin dep Hearing Impairment: Hard of Hearing Psychosocial: Personality Disorder, Depression Skin/Integumentary: Recent Skin Changes History of Blood Disorders: Yes Family History Patient reports no known family medical history. Review of Systems Constitutional: see HPI Physical Exam Physical Exam Vital Signs Vital Signs - First Documented 05/06/19 05/07/19 05/07/19 23:47 00:14 05:27 Temp 37.4 Pulse 134 Resp 25 B/P (MAP) 178/118 (138) Pulse Ox 95 O2 Delivery NIV Bilevel O2 Flow Rate 60.00 FiO2 60 Capillary Refill : Less Than 3 Seconds Height, Weight, BMI Height: 5'4.00" Weight: 170lbs. 1.0oz. 77.905991sb; 191.38 BMI Method:Estimated General Appearance: WD/WN, Anxious (grinding teeth) HEENT: Moist Mucous Membranes, Other (abnormal dentition) Neck: Normal Inspection, Supple Respiratory: Decreased Breath Sounds, Respiratory Distress (tachypnea) Cardiovascular: Tachycardia (regular rhythm) Gastrointestinal: Normal Bowel Sounds, Non Tender, Soft Extremity: Normal Inspection, Non Tender, No Pedal Edema Neurologic/Psychiatric: Alert, Disoriented, Other (uncooperative) Skin: Other (diffuse abrasions and scratch fermin) Lymphatic: No Adenopathy Results Results/Procedures Labs Laboratory Tests 05/07/19 00:00 05/07/19 08:44 Patient resulted labs reviewed. Imaging: Reviewed Imaging Films, Reviewed Imaging Report Assessment/Plan Admission Diagnosis Severe sepsis due to pneumonia Admission Status: Inpatient Order (span 2 midnights) Reason for Inpatient Admission: severe sepsis due to pneumonia with underlying dementia requiring aggressive fluid resuscitation, IV antibiotics, and intensive nursing care Assessment and Plan Severe sepsis due to pneumonia Acute respiratory failure with hypoxia SIRS+ with tachycardia and tachypnea X-ray revealed pneumonia Blood cultures drawn Started on ceftriaxone and azithromycin Started on IV fluids Also given IV Lasix, discontinue Lactic acidosis High anion gap metabolic acidosis Lactic acid greater than 4 on admission Improved with IV fluid resuscitation Worsened with IV Lasix Discontinue Lasix Continue IV fluid resuscitation Dementia with behavioral disturbance Haldol as needed Continue Seroquel Scabies Permethrin DVT prophylaxis: Lovenox Diagnosis/Problems Diagnosis/Problems (1) Severe sepsis Status: Acute (2) Pneumonia Status: Acute (3) Dementia Status: Chronic Qualifiers: Dementia behavioral disturbance: with behavioral disturbance (4) Scabies Status: Acute (5) Lactic acidosis Status: Acute (6) Acute respiratory failure Status: Acute Qualifiers: Respiratory failure complication: hypoxia Qualified Codes: J96.01 - Acute respiratory failure with hypoxia Clinical Quality Measures DVT/VTE Risk/Contraindication: Risk Factor Score Per Nursin RFS Level Per Nursing on Admit: 4+=Very High ARIS BANSAL MD May 07, 2019 21:39
[2019-05-07] MEDS ORDERED: ENOXAPARIN 40 MG/0.4 ML (LOVENOX) SYR SC SCH (21:45)
[2019-05-07] MEDS ORDERED: PERMETHRIN (ELIMITE) 5% CR 60 GM TUBE TOP ONE (22:00)
[2019-05-07] MEDS ORDERED: ENOXAPARIN 30 MG/0.3 ML (LOVENOX) SYR SC SCH (23:00)
[2019-05-07] MEDS: ENOXAPARIN 40 MG/0.4 ML (LOVENOX) SYR SC SCH (23:28)
[2019-05-07] MEDS: cefTRIAXone FOR IV USE 1,000 MG in WATER (STERILE) FOR INJECTION 10 ML IV SCH (23:34)
[2019-05-08] VITALS (24 sets, daily range): BP systolic 12–157; BP diastolic 42–103
[2019-05-08] MEDS ORDERED: AZITHROMYCIN INJECTION 500 MG in NS (IVPB) 250 ML IV SCH ×2
[2019-05-08] MEDS: NS IV 1000 ML 1,000 ML IV SCH ×6 (00:31→21:41)
[2019-05-08] MEDS: HALOPERIDOL 5 MG/ML (HALDOL) AMP IM PRN ×2 (00:46→17:39)
[2019-05-08] MEDS ORDERED: NS (IVPB) 50 ML ONE (02:24)
[2019-05-08] MEDS ORDERED: DEXMEDETOMIDINE INJECTION 200 MCG in NS (IVPB) 50 ML IV SCH (02:45)
[2019-05-08] MEDS: POTASSIUM CL 10MEQ/50ML IVPB 50 ML IV SCH (05:55)
[2019-05-08] MEDS: MAGNESIUM 1 GM/100 ML IVPB 100 ML IV SCH (05:55)
[2019-05-08] MEDS: KCL 20 MEQ TAB (K-DUR) PO SCH (05:56)
[2019-05-08] MEDS: inSUlin ASPART (NovoLOG) 1 UNIT/0.01 ML (CHARGE PER UNIT) SC SCH ×4 (06:14→21:37)
[2019-05-08] MEDS: VASOPRESSIN INJECTION 20 UNIT in NORMAL SALINE 100 ML IV SCH ×3 (06:32→23:33)
[2019-05-08] MEDS: DEXMEDETOMIDINE 1,000 MCG/NS 250 ML IV SCH ×4 (07:23→23:00)
[2019-05-08] MEDS: NOREPINEPHRINE 4 MG in NS (IVPB) 250 ML IV SCH ×2 (07:29→16:39)
[2019-05-08] MEDS ORDERED: ZIPRASIDONE 20 MG INJ (GEODON) VIAL IM ONE ×2 (09:45→09:57)
[2019-05-08] MEDS: QUEtiapine 100 MG (SEROquel) TAB IMMEDIATE RELEASE PO SCH ×2 (10:00→21:37)
[2019-05-08] MEDS: AZITHROMYCIN 250 MG TAB (ZITHROMAX) PO SCH (10:00)
[2019-05-08 11:36] LABS: BASOPHILS % (AUTO) 0 % (0-10); EOSINOPHILS % (AUTO) 0 % (0-10); HEMATOCRIT 39 % (35-52); HEMOGLOBIN 12.2 G/DL (11.5-16.0); LYMPHOCYTES # (AUTO) 1.3 X 10^3 (1.0-4.0); LYMPHOCYTES % (AUTO) 9 % (12-44); MEAN CORPUSCULAR HEMOGLOBIN 28 PG (25-34); MEAN CORPUSCULAR HGB CONC 31 G/DL (32-36); MEAN CORPUSCULAR VOLUME 90 FL (80-99); MEAN PLATELET VOLUME 10.8 FL (7.4-10.4); MONOCYTES # (AUTO) 0.7 X 10^3 (0.0-1.0); MONOCYTES % (AUTO) 5 % (0-12); NEUTROPHILS # (AUTO) 13.4 X 10^3 (1.8-7.8); NEUTROPHILS % (AUTO) 87 % (42-75); PLATELET COUNT 232 10^3/uL (130-400); RED CELL DISTRIBUTION WIDTH 14.9 % (10.0-14.5); WHITE BLOOD COUNT 15.5 10^3/uL (4.3-11.0)
[2019-05-08 11:56] LABS: ALANINE AMINOTRANSFERASE 66 U/L (0-55); ALBUMIN 3.6 GM/DL (3.2-4.5); ALKALINE PHOSPHATASE 109 U/L (40-136); BILIRUBIN,TOTAL 0.6 MG/DL (0.1-1.0); BUN/CREATININE RATIO 20; CALCIUM 7.8 MG/DL (8.5-10.1); CARBON DIOXIDE 17 MMOL/L (21-32); CHLORIDE 109 MMOL/L (98-107); CREATININE SERUM 0.85 MG/DL (0.60-1.30); GFR ESTIMATED > 60; GLUCOSE 242 MG/DL (70-105); POTASSIUM 3.6 MMOL/L (3.6-5.0); SODIUM 139 MMOL/L (135-145); TOTAL PROTEIN 6.6 GM/DL (6.4-8.2)
--- NOTE | 2019-05-08 15:40 | Progress Note - Hospitalist ---
Subjective HPI/CC On Admission Date Seen by Provider: May 08, 2019 Time Seen by Provider: 09:15 hypoxia Subjective/Events-last exam She is much more awake and alert today. She is able answer some questions. She denies being in any pain. She says she is not having trouble breathing. Focused Exam Lactate Level 05/07/19 11:20: Lactic Acid Level 2.57*H 05/08/19 11:25: Lactic Acid Level 2.45*H 05/08/19 13:30: Lactic Acid Level 1.66 Lactic Acid Level Laboratory Tests Test 05/08/19 13:30 Lactic Acid Level 1.66 MMOL/L (0.50-2.00) Objective Exam Vital Signs Vital Signs Date Time Temp Pulse Resp B/P (MAP) Pulse Ox O2 Delivery O2 Flow Rate FiO2 05/08/19 15:00 36.1 60 21 120/81 (94) 97 Nasal Cannula 3.00 05/07/19 05:27 60 Capillary Refill : Less Than 3 Seconds General Appearance: No Apparent Distress, WD/WN, Anxious HEENT: PERRL/EOMI, Pharynx Normal Neck: Normal Inspection, Supple Respiratory: Lungs Clear, Normal Breath Sounds, No Respiratory Distress Cardiovascular: Regular Rate, Rhythm, No Edema, No Murmur Gastrointestinal: Normal Bowel Sounds, Non Tender, Soft Extremity: Normal Inspection, Non Tender, No Pedal Edema Neurologic/Psychiatric: Alert, Disoriented Skin: Other (Diffuse abrasions and scratches) Results/Procedures Lab Laboratory Tests 05/08/19 11:25 Patient resulted labs reviewed. Assessment/Plan Assessment and Plan Assess & Plan/Chief Complaint Severe sepsis due to pneumonia Acute respiratory failure with hypoxia Continue ceftriaxone and azithromycin Continue IV fluids at decreased rate Lactic acidosis, resolved High anion gap metabolic acidosis, resolved Lactic acid greater than 4 on admission Resolved today with IV fluid resuscitation Dementia with behavioral disturbance Started on Precedex overnight Giving a dose of Geodon so IV access can be reestablished Scabies Permethrin DVT prophylaxis: Lovenox Diagnosis/Problems Diagnosis/Problems (1) Severe sepsis Status: Acute (2) Pneumonia Status: Acute (3) Dementia Status: Chronic Qualifiers: Dementia behavioral disturbance: with behavioral disturbance (4) Scabies Status: Acute (5) Lactic acidosis Status: Resolved Resolution Date/Time: 05/08/19 @ 15:43 (6) Acute respiratory failure Status: Acute Qualifiers: Respiratory failure complication: hypoxia Qualified Codes: J96.01 - Acute respiratory failure with hypoxia Clinical Quality Measures DVT/VTE Risk/Contraindication: Risk Factor Score Per Nursin RFS Level Per Nursing on Admit: 4+=Very High ARIS BANSAL MD May 08, 2019 15:40
[2019-05-08] MEDS: ACETAMINOPHEN 500 MG TAB (TYLENOL) PO PRN (16:41)
[2019-05-08] MEDS: RT-ALBUTEROL SULF 2.5 MG/3 ML PRE-MIX VIAL INH SCH (19:03)
[2019-05-08] MEDS: ENOXAPARIN 40 MG/0.4 ML (LOVENOX) SYR SC SCH (23:33)
[2019-05-09] VITALS (25 sets, daily range): BP systolic 66–191; BP diastolic 57–129
[2019-05-09] MEDS: cefTRIAXone FOR IV USE 1,000 MG in WATER (STERILE) FOR INJECTION 10 ML IV SCH (00:15)
[2019-05-09] MEDS: HALOPERIDOL 5 MG/ML (HALDOL) AMP IM PRN ×4 (00:19→15:51)
[2019-05-09] MEDS: RT-ALBUTEROL SULF 2.5 MG/3 ML PRE-MIX VIAL INH PRN (00:34)
[2019-05-09] MEDS: NOREPINEPHRINE 4 MG in NS (IVPB) 250 ML IV SCH ×3 (00:56→18:26)
[2019-05-09 03:22] LABS: BASOPHILS % (AUTO) 0 % (0-10); EOSINOPHILS % (AUTO) 0 % (0-10); HEMATOCRIT 41 % (35-52); HEMOGLOBIN 12.8 G/DL (11.5-16.0); LYMPHOCYTES # (AUTO) 2.3 X 10^3 (1.0-4.0); LYMPHOCYTES % (AUTO) 24 % (12-44); MEAN CORPUSCULAR HEMOGLOBIN 29 PG (25-34); MEAN CORPUSCULAR HGB CONC 31 G/DL (32-36); MEAN CORPUSCULAR VOLUME 91 FL (80-99); MEAN PLATELET VOLUME 11.5 FL (7.4-10.4); MONOCYTES # (AUTO) 0.7 X 10^3 (0.0-1.0); MONOCYTES % (AUTO) 7 % (0-12); NEUTROPHILS # (AUTO) 6.6 X 10^3 (1.8-7.8); NEUTROPHILS % (AUTO) 69 % (42-75); PLATELET COUNT 209 10^3/uL (130-400); RED CELL DISTRIBUTION WIDTH 15.1 % (10.0-14.5); WHITE BLOOD COUNT 9.7 10^3/uL (4.3-11.0)
[2019-05-09] MEDS: NS IV 1000 ML 1,000 ML IV SCH ×5 (03:41→21:45)
[2019-05-09 03:46] LABS: BUN/CREATININE RATIO 21; CALCIUM 7.8 MG/DL (8.5-10.1); CREATININE SERUM 0.85 MG/DL (0.60-1.30); GFR ESTIMATED > 60; GLUCOSE 158 MG/DL (70-105); MAGNESIUM 2.1 MG/DL (1.6-2.4); PHOSPHORUS 3.3 MG/DL (2.3-4.7); SODIUM 137 MMOL/L (135-145)
[2019-05-09 04:14] LABS: CARBON DIOXIDE 14 MMOL/L (21-32); CHLORIDE 111 MMOL/L (98-107); POTASSIUM 4.6 MMOL/L (3.6-5.0)
[2019-05-09] MEDS: KCL 20 MEQ TAB (K-DUR) PO SCH (04:32)
[2019-05-09] MEDS: POTASSIUM CL 10MEQ/50ML IVPB 50 ML IV SCH (04:32)
[2019-05-09] MEDS: MAGNESIUM 1 GM/100 ML IVPB 100 ML IV SCH (04:32)
[2019-05-09] MEDS: inSUlin ASPART (NovoLOG) 1 UNIT/0.01 ML (CHARGE PER UNIT) SC SCH ×4 (06:06→20:21)
[2019-05-09] MEDS: RT-ALBUTEROL SULF 2.5 MG/3 ML PRE-MIX VIAL INH SCH ×4 (07:27→19:40)
--- NOTE | 2019-05-09 08:01 | Progress Note ---
Subjective Time Seen by a Provider: 07:58 Subjective/Events-last exam Patient resting not communicating. Patient has dementia. Kidney function better. Lactic acid better. Chest x-ray ordered today. Patient not eating much Focused Exam Lactate Level 05/07/19 11:20: Lactic Acid Level 2.57*H 05/08/19 11:25: Lactic Acid Level 2.45*H 05/08/19 13:30: Lactic Acid Level 1.66 Objective Exam Vital Signs Date Time Temp Pulse Resp B/P (MAP) Pulse Ox O2 Delivery O2 Flow Rate FiO2 05/09/19 07:36 Nasal Cannula 1.50 05/09/19 07:27 97 Nasal Cannula 3.00 05/09/19 07:00 84 22 115/88 (97) 96 Nasal Cannula 1.50 05/09/19 06:00 86 24 93/84 (87) 100 Room Air 05/09/19 05:00 66 29 106/75 (85) 100 Room Air 05/09/19 04:00 55 24 115/77 (90) 96 Room Air 05/09/19 04:00 95 High Flow N/C 2.00 05/09/19 03:00 82 17 107/75 (86) 98 Room Air 05/09/19 02:05 84 12 109/88 (95) 90 Room Air 05/09/19 01:00 61 23 119/78 (92) 97 Room Air 05/09/19 01:00 61 05/09/19 00:34 95 High Flow N/C 3.00 05/09/19 00:23 121 32 149/116 (127) 98 Room Air 05/09/19 00:00 95 High Flow N/C 2.00 05/08/19 23:10 36.0 87 32 142/103 (116) 91 Room Air 05/08/19 22:00 36.0 87 17 143/84 (103) 90 Room Air 05/08/19 21:00 36.0 93 16 122/95 (104) 94 Room Air 05/08/19 20:00 95 High Flow N/C 2.00 05/08/19 20:00 35.8 88 32 120/92 (101) 97 Room Air 05/08/19 19:03 97 Room Air 05/08/19 19:00 35.9 101 23 115/89 (98) 96 Nasal Cannula 3.00 05/08/19 19:00 95 05/08/19 18:00 36.2 92 22 119/76 (90) 91 Nasal Cannula 3.00 05/08/19 17:00 36.6 124 32 157/42 (80) 94 Room Air 05/08/19 16:00 36.0 89 16 12/92 (66) 96 Nasal Cannula 3.00 05/08/19 16:00 95 High Flow N/C 2.00 05/08/19 15:00 36.1 60 21 120/81 (94) 97 Nasal Cannula 3.00 05/08/19 14:00 36.2 83 21 135/103 (114) 91 Room Air 05/08/19 13:00 36.3 84 20 128/78 (95) 95 Room Air 05/08/19 12:50 101 05/08/19 12:00 95 High Flow N/C 2.00 05/08/19 12:00 36.2 87 22 115/73 (87) 94 Nasal Cannula 3.00 05/08/19 11:00 36.4 101 23 120/87 (98) 94 Nasal Cannula 3.00 05/08/19 10:00 35.4 134 25 104/87 (93) 100 Nasal Cannula 3.00 05/08/19 09:00 70 134/88 (103) 95 Room Air 05/08/19 08:54 36.3 88 134/88 (103) 92 Room Air 05/08/19 08:00 36.3 81 122/87 (99) 94 Room Air I & O 05/09/19 07:00 Intake Total 2927 ml Output Total 1870 ml Balance 1057 ml Capillary Refill : Less Than 3 Seconds General Appearance: No Apparent Distress, WD/WN HEENT: Normal ENT Inspection Neck: Normal Inspection, Non Tender Respiratory: No Respiratory Distress, Decreased Breath Sounds Cardiovascular: Regular Rate, Rhythm, No Murmur Gastrointestinal: non tender, soft Results Lab Laboratory Tests 05/08/19 11:25 05/09/19 03:05 Laboratory Tests 05/08/19 11:25: White Blood Count 15.5H, Red Blood Count 4.38, Hemoglobin 12.2, Hematocrit 39, Mean Corpuscular Volume 90, Mean Corpuscular Hemoglobin 28, Mean Corpuscular Hemoglobin Concent 31L, Red Cell Distribution Width 14.9H, Platelet Count 232, Mean Platelet Volume 10.8H, Neutrophils (%) (Auto) 87H, Lymphocytes (%) (Auto) 9L, Monocytes (%) (Auto) 5, Eosinophils (%) (Auto) 0, Basophils (%) (Auto) 0, Neutrophils # (Auto) 13.4H, Lymphocytes # (Auto) 1.3, Monocytes # (Auto) 0.7, Eosinophils # (Auto) 0.0, Basophils # (Auto) 0.0, Sodium Level 139, Potassium Level 3.6, Chloride Level 109H, Carbon Dioxide Level 17L, Anion Gap 13, Blood Urea Nitrogen 17, Creatinine 0.85, Estimat Glomerular Filtration Rate > 60, BUN/Creatinine Ratio 20, Glucose Level 242H, Lactic Acid Level 2.45*H, Calcium Level 7.8L, Corrected Calcium 8.1L, Total Bilirubin 0.6, Aspartate Amino Transf (AST/SGOT) 57H, Alanine Aminotransferase (ALT/SGPT) 66H, Alkaline Phosphatase 109, Total Protein 6.6, Albumin 3.6 05/08/19 13:30: Lactic Acid Level 1.66 05/09/19 03:05: White Blood Count 9.7, Red Blood Count 4.47, Hemoglobin 12.8, Hematocrit 41, Mean Corpuscular Volume 91, Mean Corpuscular Hemoglobin 29, Mean Corpuscular Hemoglobin Concent 31L, Red Cell Distribution Width 15.1H, Platelet Count 209, Mean Platelet Volume 11.5H, Neutrophils (%) (Auto) 69, Lymphocytes (%) (Auto) 24, Monocytes (%) (Auto) 7, Eosinophils (%) (Auto) 0, Basophils (%) (Auto) 0, Neutrophils # (Auto) 6.6, Lymphocytes # (Auto) 2.3, Monocytes # (Auto) 0.7, Eosinophils # (Auto) 0.0, Basophils # (Auto) 0.0, Sodium Level 137, Potassium Level 4.6, Chloride Level 111H, Carbon Dioxide Level 14L, Anion Gap 11, Blood Urea Nitrogen 18, Creatinine 0.85, Estimat Glomerular Filtration Rate > 60, BUN/Creatinine Ratio 21, Glucose Level 158H, Calcium Level 7.8L, Phosphorus Level 3.3, Magnesium Level 2.1 Microbiology 05/07/19 Blood Culture - Preliminary, Resulted No growth 05/07/19 Influenza Types A,B Antigen (VITA) - Final, Complete 05/07/19 Urine Culture - Final, Complete NO GROWTH Assessment/Plan Assessment/Plan Assess & Plan/Chief Complaint Sepsis. Acute respiratory failure. Pneumonia. Congestive heart failure. Dementia. History of scabies. Clinical Quality Measures DVT/VTE Risk/Contraindication: Risk Factor Score Per Nursin RFS Level Per Nursing on Admit: 4+=Very High LANETTE WILCOX DO May 09, 2019 08:01
[2019-05-09] MEDS: QUEtiapine 100 MG (SEROquel) TAB IMMEDIATE RELEASE PO SCH ×2 (08:24→20:20)
[2019-05-09] MEDS: AZITHROMYCIN 250 MG TAB (ZITHROMAX) PO SCH (08:24)
[2019-05-09] MEDS: VASOPRESSIN INJECTION 20 UNIT in NORMAL SALINE 100 ML IV SCH ×2 (08:25→15:52)
--- NOTE | 2019-05-09 10:22 | NUR ---
CM/SS responded to consult for SS. Spoke with patient's Daughter (Prema, ) and Son (Adolph) they expressed concerns of care for the patient at her current SNF [facility]. They discussed that she was moved there from a facility in [facility] as she needed a locked facility due to wandering tendencies. Family would like the patient to return to the facility in [place]. This write then spoke with [facility] in [facility] (ph:[phone]) with Michelle in SS, she stated that the patient has not been in their facility for two years, discharged from there in 2017 to [facility] for the locked facility. The two facilities are sister facilities. Michelle had not spoken to the patient's family in sometime about moving back to there. [facility] will speak with the patient's family and have a team meeting in regards to the patient and if they can meet her needs.
--- NOTE | 2019-05-09 11:00 | NUR ---
Pastoral care visit, pt asleep, sitter by bed
[2019-05-09] MEDS ORDERED: IVER3TAB2 PO (12:02)
[2019-05-09] MEDS ORDERED: POLY17PO6 PO (12:02)
[2019-05-09] MEDS ORDERED: METF-399 PO (12:02)
[2019-05-09] MEDS ORDERED: BISA10SU8 RC (12:02)
[2019-05-09] MEDS ORDERED: EMPA25TA PO (12:02)
[2019-05-09] MEDS ORDERED: DULO30CA49 PO (12:02)
[2019-05-09] MEDS ORDERED: QUET100T69 PO (12:02)
[2019-05-09] MEDS ORDERED: LACT10SO33 PO (12:02)
--- NOTE | 2019-05-09 12:06 | NUR ---
UPDATED MED REC WITH ORDER SUMMARY REPORT FROM [facility].
[2019-05-09] MEDS: DEXMEDETOMIDINE 1,000 MCG/NS 250 ML IV SCH ×2 (13:28)
[2019-05-09] MEDS ORDERED: FUROSEMIDE 40 MG/4 ML INJ (LASIX) IVP SCH (15:00)
--- NOTE | 2019-05-09 15:00 | Diagnostic Imaging Report ---
Indication: Congestive heart failure Portable chest 2:30 PM There is cardiomegaly with vascular congestion. There is a small right-sided pleural effusion. IMPRESSION: Congestive heart failure. There is slightly less pulmonary vascular congestion compared to 05/07/2019. Dictated by: Dictated on workstation # [id number]
--- NOTE | 2019-05-09 16:22 | NUR ---
"RD ASSESSMENT PMHx: Dementia; DM; renal failure; HTN; hypercholesterolemia; chronic constipation PT INTERACTION: Note pt has dementia, per chart review. Per sitter, pt has been eating poorly. Note 25% of meals consumed, per chart review. Note unable to determine recent wt hx, per chart review. ABNORMAL NUTRITION-RELATED LAB VALUES: Cl 111 (H); glu 158 (H); Ca 7.8 (L) Est. kcal needs: 5210-1477 kcal (20-25 kcal/kg) Est. Pro needs: 69-83 g Pro (1.0-1.2 g Pro/kg) PES STATEMENT: Inadequate oral intake (NI-2.1) related to altered mental status | loss of appetite as evidenced by 25% of meals consumed INTERVENTION: Continue with current diet order of CHO 45g/m 1snack diet. Add Ensure HP (vary) to meals BID. Provides 160 kcal and 16 g Pro per serving. MONITOR/EVALUATE: PO Intake; Supplement Tolerance; Plan of Care; Hydration Status; Weight Status; Lab Values Evens Lino, MS, RD, LD Ext. 133"
[2019-05-10] VITALS (26 sets, daily range): BP systolic 81–169; BP diastolic 55–127
[2019-05-10] MEDS: ENOXAPARIN 40 MG/0.4 ML (LOVENOX) SYR SC SCH ×2 (00:07→23:33)
[2019-05-10] MEDS: VASOPRESSIN INJECTION 20 UNIT in NORMAL SALINE 100 ML IV SCH ×3 (00:07→17:21)
[2019-05-10] MEDS: cefTRIAXone FOR IV USE 1,000 MG in WATER (STERILE) FOR INJECTION 10 ML IV SCH ×2 (00:07→23:32)
[2019-05-10 03:43] LABS: BASOPHILS % (AUTO) 0 % (0-10); EOSINOPHILS # (AUTO) 0.1 10^3/uL (0.0-0.3); EOSINOPHILS % (AUTO) 1 % (0-10); HEMATOCRIT 42 % (35-52); HEMOGLOBIN 13.4 G/DL (11.5-16.0); LYMPHOCYTES # (AUTO) 2.5 X 10^3 (1.0-4.0); LYMPHOCYTES % (AUTO) 26 % (12-44); MEAN CORPUSCULAR HEMOGLOBIN 28 PG (25-34); MEAN CORPUSCULAR HGB CONC 32 G/DL (32-36); MEAN CORPUSCULAR VOLUME 88 FL (80-99); MONOCYTES # (AUTO) 0.8 X 10^3 (0.0-1.0); MONOCYTES % (AUTO) 8 % (0-12); NEUTROPHILS # (AUTO) 6.3 X 10^3 (1.8-7.8); NEUTROPHILS % (AUTO) 65 % (42-75); PLATELET COUNT 254 10^3/uL (130-400); RED CELL DISTRIBUTION WIDTH 15.1 % (10.0-14.5); WHITE BLOOD COUNT 9.8 10^3/uL (4.3-11.0)
[2019-05-10 03:59] LABS: BUN/CREATININE RATIO 21; CALCIUM 8.5 MG/DL (8.5-10.1); CARBON DIOXIDE 17 MMOL/L (21-32); CHLORIDE 110 MMOL/L (98-107); GFR ESTIMATED > 60; GLUCOSE 121 MG/DL (70-105); MAGNESIUM 1.8 MG/DL (1.6-2.4); PHOSPHORUS 2.6 MG/DL (2.3-4.7); SODIUM 142 MMOL/L (135-145)
[2019-05-10] MEDS: NOREPINEPHRINE 4 MG in NS (IVPB) 250 ML IV SCH ×4 (04:15→18:17)
[2019-05-10] MEDS: KCL 20 MEQ TAB (K-DUR) PO SCH (04:35)
[2019-05-10] MEDS: MAGNESIUM 1 GM/100 ML IVPB 100 ML IV SCH ×3 (04:35→16:51)
[2019-05-10] MEDS: inSUlin ASPART (NovoLOG) 1 UNIT/0.01 ML (CHARGE PER UNIT) SC SCH ×4 (04:35→23:33)
[2019-05-10] MEDS: POTASSIUM CL 10MEQ/50ML IVPB 50 ML IV SCH ×5 (04:35→09:55)
[2019-05-10] MEDS: HALOPERIDOL 5 MG/ML (HALDOL) AMP IM PRN (04:54)
[2019-05-10] MEDS ORDERED: POTASSIUM CL 10MEQ/50ML IVPB 50 ML IV ONE (06:00)
--- NOTE | 2019-05-10 07:44 | Progress Note ---
Subjective Time Seen by a Provider: 07:42 Subjective/Events-last exam Patient doing better this morning. Patient open her eyes. BNP elevated to 1400. Consult cardiology. Dementia. Pneumonia. Sepsis Focused Exam Lactate Level 05/07/19 11:20: Lactic Acid Level 2.57*H 05/08/19 11:25: Lactic Acid Level 2.45*H 05/08/19 13:30: Lactic Acid Level 1.66 Objective Exam Vital Signs Date Time Temp Pulse Resp B/P (MAP) Pulse Ox O2 Delivery O2 Flow Rate FiO2 05/10/19 06:00 78 135/104 (114) Nasal Cannula 1.00 05/10/19 05:00 63 145/90 (108) Nasal Cannula 1.00 05/10/19 04:00 95 Nasal Cannula 2.00 05/10/19 04:00 79 121/80 (94) 94 Nasal Cannula 1.00 05/10/19 03:00 60 100/85 (90) Nasal Cannula 1.00 05/10/19 02:00 66 130/104 (113) 100 Nasal Cannula 1.00 05/10/19 01:00 92 05/10/19 01:00 92 32 136/100 (112) 95 Nasal Cannula 1.00 05/10/19 00:47 82 24 98 Nasal Cannula 1.00 05/10/19 00:00 49 31 126/91 (103) 97 Nasal Cannula 2.00 05/10/19 00:00 100 Nasal Cannula 2.00 05/09/19 23:00 57 9 139/112 (121) 98 Nasal Cannula 2.00 05/09/19 22:03 64 22 120/106 (111) 92 Nasal Cannula 2.00 05/09/19 21:00 69 128/101 (110) 95 Nasal Cannula 2.00 05/09/19 20:00 67 15 141/110 (120) 97 Nasal Cannula 2.00 05/09/19 20:00 Room Air 05/09/19 19:40 97 Room Air 05/09/19 19:00 98 05/09/19 19:00 98 21 120/98 (105) 93 Nasal Cannula 2.00 05/09/19 18:00 48 11 124/91 (102) 96 Nasal Cannula 2.00 05/09/19 17:00 77 27 110/81 (91) 97 Nasal Cannula 2.00 05/09/19 16:01 Nasal Cannula 2.00 05/09/19 16:00 110 25 131/111 (118) 90 Room Air 05/09/19 16:00 92 Nasal Cannula 2.00 05/09/19 15:00 58 18 66/57 (60) 92 Room Air 05/09/19 14:21 Room Air 05/09/19 14:14 98 Nasal Cannula 1.50 05/09/19 14:00 92 30 115/98 (104) 96 Nasal Cannula 1.50 05/09/19 13:04 80 05/09/19 13:00 77 19 107/73 (84) 95 Nasal Cannula 1.50 05/09/19 12:00 36.7 05/09/19 12:00 95 High Flow N/C 2.00 05/09/19 12:00 94 12 109/80 (90) 96 Nasal Cannula 1.50 05/09/19 11:00 82 17 114/70 (85) 92 Nasal Cannula 1.50 05/09/19 10:38 95 Nasal Cannula 1.50 05/09/19 10:00 110 24 127/92 (104) 95 Nasal Cannula 1.50 05/09/19 09:00 85 21 123/92 (102) 98 Nasal Cannula 1.50 05/09/19 08:00 77 22 121/83 (96) 97 Nasal Cannula 1.50 05/09/19 08:00 95 High Flow N/C 2.00 05/09/19 08:00 36.5 I & O 05/10/19 06:59 Intake Total 2665 ml Output Total 6400 ml Balance -3735 ml Capillary Refill : Less Than 3 Seconds General Appearance: No Apparent Distress, WD/WN HEENT: Normal ENT Inspection Neck: Normal Inspection Respiratory: No Accessory Muscle Use, No Respiratory Distress, Decreased Breath Sounds Cardiovascular: Regular Rate, Rhythm Gastrointestinal: non tender, soft Results Lab Laboratory Tests 05/10/19 03:08 Laboratory Tests 05/09/19 15:54: Glucometer 215H 05/09/19 19:54: Glucometer 137H 05/10/19 03:08: White Blood Count 9.8, Red Blood Count 4.83, Hemoglobin 13.4, Hematocrit 42, Mean Corpuscular Volume 88, Mean Corpuscular Hemoglobin 28, Mean Corpuscular Hemoglobin Concent 32, Red Cell Distribution Width 15.1H, Platelet Count 254, Mean Platelet Volume 11.0H, Neutrophils (%) (Auto) 65, Lymphocytes (%) (Auto) 26, Monocytes (%) (Auto) 8, Eosinophils (%) (Auto) 1, Basophils (%) (Auto) 0, Neutrophils # (Auto) 6.3, Lymphocytes # (Auto) 2.5, Monocytes # (Auto) 0.8, Eosinophils # (Auto) 0.1, Basophils # (Auto) 0.0, Sodium Level 142, Potassium Level 3.0L, Chloride Level 110H, Carbon Dioxide Level 17L, Anion Gap 15H, Blood Urea Nitrogen 17, Creatinine 0.80, Estimat Glomerular Filtration Rate > 60, BUN/Creatinine Ratio 21, Glucose Level 121H, Calcium Level 8.5, Phosphorus Level 2.6, Magnesium Level 1.8, B-Type Natriuretic Peptide 1447.2H Microbiology 05/07/19 Blood Culture - Preliminary, Resulted No growth 05/07/19 Influenza Types A,B Antigen (VITA) - Final, Complete 05/07/19 Urine Culture - Final, Complete NO GROWTH Assessment/Plan Assessment/Plan Assess & Plan/Chief Complaint Sepsis. Acute respiratory failure. Pneumonia. Congestive heart failure. Dementia. History of scabies.. . 05/10/19. Sepsis better. Acute respiratory failure better. Pneumonia. Congestive heart failure BNP elevated morning. Dementia. History of scabies. Consult with cardiology Clinical Quality Measures DVT/VTE Risk/Contraindication: Risk Factor Score Per Nursin RFS Level Per Nursing on Admit: 4+=Very High LANETTE WILCOX DO May 10, 2019 07:44
[2019-05-10] MEDS: RT-ALBUTEROL SULF 2.5 MG/3 ML PRE-MIX VIAL INH SCH ×4 (08:02→18:40)
--- NOTE | 2019-05-10 08:21 | Consultation-Cardiology ---
HPI-Cardiology Cardiology Consultation Date of Consultation 05/10/19 Date of Admission Time Seen by Provider: 08:16 Indication: Congestive heart failure HPI 69-year-old lady with history of dementia, unable to provide any history, history was obtained by reviewing her records, it appear that she started to have increasing shortness of breath, admitted with acute respiratory failure and hypotensive shock, was treated for sepsis and respiratory failure, currently she is awake, not following commands, not responding appropriately Home Medications & Allergies Allergies: Coded Allergies: No Known Drug Allergies (Unverified , 08/14/17) Home Medication List Reviewed: Yes [id number] Hx Patient Social History Employed/Student: retired Smoking Status: Unknown if Ever Smoked Recent Foreign Travel: No Recent Infectious Disease Expo: No Recent Hopitalizations: Yes Immunizations Up To Date Tetanus Booster (TDap): Unknown Date of Pneumonia Vaccine: Apr 24, 2016 Date of Influenza Vaccine: May 05, 2019 Past Medical History Discussed below Family Medical History Family Medical Hx Noncontributory Family History: Patient reports no known family medical history. Review of Systems-General Review of Systems Constitutional: see HPI, other (Unable to provide review of system due to current condition) Respiratory: short of breath Skin: other (PT IS CURRENTLY BEING TREATED FOR SCABIES, ARE MULTIPLE OTHER RESIDENTS IN THAT FACILITY) Psychiatric/Neurological: See HPI Reviewed Test Results Reviewed Test Results Lab Laboratory Tests Test 05/09/19 15:54 05/09/19 19:54 05/10/19 03:08 Range/Units Glucometer 215 H 137 H 70-110 MG/DL White Blood Count 9.8 4.3-11.0 10^3/uL Red Blood Count 4.83 4.35-5.85 10^6/uL Hemoglobin 13.4 11.5-16.0 G/DL Hematocrit 42 35-52 % Mean Corpuscular Volume 88 80-99 FL Mean Corpuscular Hemoglobin 28 25-34 PG Mean Corpuscular Hemoglobin Concent 32 32-36 G/DL Red Cell Distribution Width 15.1 H 10.0-14.5 % Platelet Count 254 130-400 10^3/uL Mean Platelet Volume 11.0 H 7.4-10.4 FL Neutrophils (%) (Auto) 65 42-75 % Lymphocytes (%) (Auto) 26 12-44 % Monocytes (%) (Auto) 8 0-12 % Eosinophils (%) (Auto) 1 0-10 % Basophils (%) (Auto) 0 0-10 % Neutrophils # (Auto) 6.3 1.8-7.8 X 10^3 Lymphocytes # (Auto) 2.5 1.0-4.0 X 10^3 Monocytes # (Auto) 0.8 0.0-1.0 X 10^3 Eosinophils # (Auto) 0.1 0.0-0.3 10^3/uL Basophils # (Auto) 0.0 0.0-0.1 10^3/uL Sodium Level 142 135-145 MMOL/L Potassium Level 3.0 L 3.6-5.0 MMOL/L Chloride Level 110 H 98-107 MMOL/L Carbon Dioxide Level 17 L 21-32 MMOL/L Anion Gap 15 H 5-14 MMOL/L Blood Urea Nitrogen 17 7-18 MG/DL Creatinine 0.80 0.60-1.30 MG/DL Estimat Glomerular Filtration Rate > 60 BUN/Creatinine Ratio 21 Glucose Level 121 H 70-105 MG/DL Calcium Level 8.5 8.5-10.1 MG/DL Phosphorus Level 2.6 2.3-4.7 MG/DL Magnesium Level 1.8 1.6-2.4 MG/DL B-Type Natriuretic Peptide 1447.2 H <100.0 PG/ML ECG Impression ECG Initial ECG Rhythm: Normal Sinus Physical Exam Physical Exam Vital Signs Vital Signs - First Documented 05/06/19 05/07/19 05/07/19 23:47 00:14 05:27 Temp 37.4 Pulse 134 Resp 25 B/P (MAP) 178/118 (138) Pulse Ox 95 O2 Delivery NIV Bilevel O2 Flow Rate 60.00 FiO2 60 Capillary Refill : Less Than 3 Seconds Height, Weight, BMI Height: 5'4.00" Weight: 170lbs. 1.0oz. 77.198073pa; 29.66 BMI Method:Estimated General Appearance: No Apparent Distress, WD/WN HEENT: Normal ENT Inspection Neck: Normal Inspection, Non Tender Respiratory: No Accessory Muscle Use, No Respiratory Distress, Decreased Breath Sounds Cardiovascular: Regular Rate, Rhythm, No Gallop, No Murmur, Systolic Murmur Gastrointestinal: Normal Bowel Sounds, Non Tender, Soft Extremity: Normal Inspection, Non Tender, No Pedal Edema Neurologic/Psychiatric: Alert, Disoriented Skin: Other (Diffuse abrasions and scratches) Lymphatic: No Adenopathy A/P-Cardiology Admission Diagnosis Sepsis Congestive heart failure, acute left ventricular systolic dysfunction Hypotension Metabolic acidosis Assessment/Plan Congestive heart failure, acute left ventricular systolic dysfunction, unknown etiology, troponin is negative, EKG did not show any acute changes, probably nonischemic cardiomyopathy, underlying coronary artery disease cannot be entirely excluded. Cannot tolerate beta blockers and or EDITA inhibitor due to hypotension. I will try low dose at this time and evaluate tolerance and response. Hypertensive shock, maintained on pressor, secondary to sepsis, improving. C ontinue to monitor blood pressure Acute respiratory failure, better at this time. Responded to antibiotic and diuretics. Metabolic acidosis, lactic acidosis, improving slowly, still acidotic at this time. Dementia, questionable history of CVA. CT of the head in the past reported microvascular ischemia and atrophy, recommend evaluating MRI if possible History of scabies, treated twice in the past. Maintained in isolation Clinical Quality Measures DVT/VTE Risk/Contraindication: Risk Factor Score Per Nursin RFS Level Per Nursing on Admit: 4+=Very High VANE SMITH MD May 10, 2019 08:21
--- NOTE | 2019-05-10 08:24 | Diagnostic Imaging Report ---
INDICATION: Elevated BNP value. TECHNIQUE: Single view chest 3:34 AM. CORRELATION STUDY: 05/09/2019 FINDINGS: Heart size is stable. There is presence of pulmonary vascular congestion and perihilar edema. However, it has improved and is less severe from one day earlier. Prominent interstitial markings do persist but overall improved as well. Some tenting of the right diaphragm. Likely small effusions. IMPRESSION: 1. Congestive heart failure does persist but overall is improved from one day earlier. Dictated by: Dictated on workstation # [id number]
[2019-05-10] MEDS: QUEtiapine 100 MG (SEROquel) TAB IMMEDIATE RELEASE PO SCH ×2 (08:51→21:15)
[2019-05-10] MEDS: meTOprolol TARTRATE 25 MG (LOPRESSOR) TABLET PO SCH ×2 (08:51→21:15)
[2019-05-10] MEDS: AZITHROMYCIN 250 MG TAB (ZITHROMAX) PO SCH (08:51)
[2019-05-10] MEDS: FUROSEMIDE 40 MG/4 ML INJ (LASIX) IVP SCH ×2 (08:51→18:00)
[2019-05-10] MEDS: ENALAPRIL 2.5 MG (VASOTEC) TAB PO SCH (08:52)
[2019-05-10] MEDS: DEXMEDETOMIDINE 1,000 MCG/NS 250 ML IV SCH ×2 (10:00)
--- NOTE | 2019-05-10 12:24 | NUR ---
CM/SS spoke with patient's daughter and son again this day. They had not yet spoken to the facility in [place], [place] where the patient had transitioned from 2yrs ago, they are still wanting to see about her transfer back there. Discussed with them that the facility in [place] is not a secure unit and he was moved from there to [facility] for the secured unit. They are continuing to explore options for secured units in this area until they are able to move her out to [place].
[2019-05-10 13:30] LABS: BUN/CREATININE RATIO 20; CARBON DIOXIDE 18 MMOL/L (21-32); CHLORIDE 107 MMOL/L (98-107); CREATININE SERUM 0.76 MG/DL (0.60-1.30); GFR ESTIMATED > 60; GLUCOSE 118 MG/DL (70-105); POTASSIUM 3.3 MMOL/L (3.6-5.0); SODIUM 143 MMOL/L (135-145)
--- NOTE | 2019-05-10 13:35 | NUR ---
Responded to code blue, no family present.
[2019-05-10] MEDS: PROPOFOL DRIP (ICU) 100 ML IV SCH ×2 (13:40→18:18)
[2019-05-10] MEDS ORDERED: PROPOFOL DRIP (ICU) 100 ML IV ONE (13:52)
[2019-05-10 13:57] LABS: ABG BASE EXCESS -4.5 MMOL/L (-2.5-2.5); ABG OXYGEN SATURATION 99 % (94-100); ABG PCO2 35 MMHG (35-45); ABG PH 7.37 (7.37-7.43); ABG PO2 203 MMHG (79-93); ABG TCO2 21.2 MMOL/L (21.0-31.0)
[2019-05-10 13:58] LABS: ALLENS TEST YES-POS; INSPIRED O2 100 L; VENTILATOR NO
[2019-05-10 14:00] LABS: MAGNESIUM 1.7 MG/DL (1.6-2.4); PHOSPHORUS 2.5 MG/DL (2.3-4.7)
--- NOTE | 2019-05-10 14:00 | Anesthesia-Procedure Note ---
Procedures/Interventions Procedure Start/Stop/Diagnosis Date of Procedure: May 10, 2019 Start Time: 13:40 Brief History Called to ICU re: active code blue overhead. Pt unresponsive on our arrival to room, code blue personnel at bedside. RT providing supplemental oxygen, pt spontaneously breathing but shallow. Sp02 99%. Proceed with intubation. No response to sternal rub. Precedex gtt infusing. Succinylcholine 100mg IV given. DL x 1, Ett placed with ease. + C02, bilateral breath sounds equal. Resulting Sp02 100%. Rt at bedside to connect to ventilator. Report off to code team. Stop Time: 13:45 Intubation RSI: Yes 100% pre-Ox, [id number]: Yes Intubation Method: orotracheal Buckley (size used 0-4): 2 Videoscope used: No Medications: Succinylcholine Mask Ventilation: positive Positive End Tide CO2: Yes Breath Sounds after Intubation: bilateral-equal ETT Securred @ (cm): 21 (7.5) Intubated with ease: Yes Intubation Complications: no complications DOUGIE IVEY CRNA May 10, 2019 14:00
--- NOTE | 2019-05-10 14:01 | Code Blue Response-Hospitalist ---
General Date Seen/Responded 05/10/19 Exam Limitations: clinical condition History of Present Illness Time seen by provider: 13:35 Initial Comments Presented to room due to overhead CODE BLUE called. On arrival to room high quality chest compressions in place and patient resisting CPR. When CPR paused she remained pulseless and was unresponsive so CPR resumed and attempt to place her on defibrillator. When she was moved for rhythm check and backboard placement she had regained ROSC. She remain unresponsive to sternal rub and a nesthesia was at the bedside to intubate. I called and updated Dr Hinojosa and Dr Miller regarding case. Reportedly prior to code she had a run on telemetry that resembled Torsades. I reviewed labs and Mag 1.7 so I will replace it. CXR and repeat labs are pending. Initial vent setting ordered at this time. Dr Miller reports he will return to see her this evening. Timing/Duration: just prior to arrival Severity: severe Allergies and Home Medications Allergies Coded Allergies: No Known Drug Allergies (Unverified , 08/14/17) Home Medications Acetaminophen 325 Mg Tablet, 650 MG PO TID, (Reported) TAKES 2 (325 MG) TABLETS Amlodipine Besylate 10 Mg Tablet, 10 MG PO DAILY, (Reported) HOLD FOR BP <100/60 AND PULSE < 60 Aspirin 81 Mg Tablet.dr, 81 MG PO DAILY, (Reported) Atorvastatin Calcium 10 Mg Tablet, 10 MG PO HS, (Reported) Bisacodyl 10 Mg Supp.rect, 10 MG RC DAILY PRN for CONSTIPATION-4TH LINE, (Reported) Docusate Sodium 100 Mg Capsule, 100 MG PO BID, (Reported) Donepezil HCl 10 Mg Tablet, 10 MG PO HS, (Reported) Duloxetine HCl 30 Mg Capsule.dr, 30 MG PO DAILY, (Reported) Empagliflozin 25 Mg Tablet, 25 MG PO DAILY, (Reported) Gabapentin 400 Mg Capsule, 400 MG PO TID, (Reported) Ivermectin 3 Mg Tablet, 15 MG PO UD, (Reported) GIVE 5 (3MG) TABLETS ONE TIME ONLY ON 05-13-19 Lactulose 10 Gm/15 Ml Solution, 30 ML PO Q12H PRN for CONSTIPATION-3RD LINE, (Reported) Mag Hydrox/Al Hydrox/Simeth 30 Ml Oral.susp, 30 ML PO Q6H PRN for HEARTBURN, (Reported) Memantine HCl 10 Mg Tablet, 10 MG PO BID, (Reported) Metformin HCl 1,000 Mg Tablet, 1,000 MG PO BID, (Reported) Multivitamin with Minerals 1 Each Tablet, 1 TAB PO DAILY, (Reported) Polyethylene Glycol 3350 17 Gm Powd.pack, 17 GM PO DAILY, (Reported) Quetiapine Fumarate 100 Mg Tablet, 100 MG PO 0900,1400, (Reported) Quetiapine Fumarate 100 Mg Tablet, 150 MG PO HS, (Reported) Sennosides 8.6 Mg Tablet, 17.2 MG PO HS, (Reported) TAKES 2 (8.6MG) TABLETS Patient Home Medication List Home Medication List Reviewed: No Physical Exam Vital Signs Vital Signs - First Documented 05/06/19 05/07/19 05/07/19 23:47 00:14 05:27 Temp 37.4 Pulse 134 Resp 25 B/P (MAP) 178/118 (138) Pulse Ox 95 O2 Delivery NIV Bilevel O2 Flow Rate 60.00 FiO2 60 Capillary Refill : Less Than 3 Seconds Height, Weight, BMI Height: 5'4.00" Weight: 170lbs. 1.0oz. [id number]; 29.66 BMI Method:Estimated General Appearance: severe distress Respiratory: other (being bagged) Critical Care Note Critical Care Total Time (minutes) 35 Progress/Results/Core Measures Results/Orders Lab Results Laboratory Tests Test 05/07/19 00:00 05/07/19 00:01 05/07/19 00:33 05/07/19 01:04 Range/Units White Blood Count 15.8 H 4.3-11.0 10^3/uL Red Blood Count 5.21 4.35-5.85 10^6/uL Hemoglobin 14.6 11.5-16.0 G/DL Hematocrit 47 35-52 % Mean Corpuscular Volume 91 80-99 FL Mean Corpuscular Hemoglobin 28 25-34 PG Mean Corpuscular Hemoglobin Concent 31 L 32-36 G/DL Red Cell Distribution Width 14.9 H 10.0-14.5 % Platelet Count 300 130-400 10^3/uL Mean Platelet Volume 11.5 H 7.4-10.4 FL Neutrophils (%) (Auto) 74 42-75 % Lymphocytes (%) (Auto) 17 12-44 % Monocytes (%) (Auto) 5 0-12 % Eosinophils (%) (Auto) 3 0-10 % Basophils (%) (Auto) 0 0-10 % Neutrophils # (Auto) 11.7 H 1.8-7.8 X 10^3 Lymphocytes # (Auto) 2.8 1.0-4.0 X 10^3 Monocytes # (Auto) 0.8 0.0-1.0 X 10^3 Eosinophils # (Auto) 0.5 H 0.0-0.3 10^3/uL Basophils # (Auto) 0.1 0.0-0.1 10^3/uL Neutrophils % (Manual) 74 % Lymphocytes % (Manual) 12 % Monocytes % (Manual) 8 % Band Neutrophils 6 % Blood Morphology Comment NORMAL Prothrombin Time 13.4 12.2-14.7 SEC INR Comment 1.0 0.8-1.4 Activated Partial Thromboplast Time 30 24-35 SEC Sodium Level 141 135-145 MMOL/L Potassium Level 4.6 3.6-5.0 MMOL/L Chloride Level 107 98-107 MMOL/L Carbon Dioxide Level 15 L 21-32 MMOL/L Anion Gap 19 H 5-14 MMOL/L Blood Urea Nitrogen 18 7-18 MG/DL Creatinine 1.22 0.60-1.30 MG/DL Estimat Glomerular Filtration Rate 44 BUN/Creatinine Ratio 15 Glucose Level 287 H 70-105 MG/DL Calcium Level 9.3 8.5-10.1 MG/DL Corrected Calcium 8.9 8.5-10.1 MG/DL Magnesium Level 2.0 1.6-2.4 MG/DL Total Bilirubin 0.5 0.1-1.0 MG/DL Aspartate Amino Transf (AST/SGOT) 31 5-34 U/L Alanine Aminotransferase (ALT/SGPT) 27 0-55 U/L Alkaline Phosphatase 142 H 40-136 U/L Total Creatine Kinase 61 29-168 U/L Creatine Kinase MB 1.5 <6.6 NG/ML Myoglobin 51.3 10.0-92.0 NG/ML Troponin I < 0.028 <0.028 NG/ML B-Type Natriuretic Peptide 416.8 H <100.0 PG/ML Total Protein 8.8 H 6.4-8.2 GM/DL Albumin 4.5 3.2-4.5 GM/DL TSH [place] Testing 1.11 0.35-4.94 UIU/ML Blood Gas Puncture Site RIGHT RADIAL Blood Gas Patient Temperature 37.4 Arterial Blood pH 7.27 *L 7.37-7.43 Arterial Blood Partial Pressure CO2 41 35-45 MMHG Arterial Blood Partial Pressure O2 91 79-93 MMHG Arterial Blood HCO3 18 L 23-27 MMOL/L Arterial Blood Total CO2 19.0 L 21.0-31.0 MMOL/L Arterial Blood Oxygen Saturation 95 94-100 % Arterial Blood Base Excess -7.8 L -2.5-2.5 MMOL/L Darnell Test YES-POS Blood Gas Ventilator Setting NO Blood Gas Inspired Oxygen 50% Lactic Acid Level 4.31 *H 0.50-2.00 MMOL/L Urine Color YELLOW Urine Clarity SLIGHTLY CLOUDY Urine pH 5 5-9 Urine Specific [place] 1.020 1.016-1.022 Urine Protein 4+ NEGATIVE Urine Glucose (UA) 4+ H NEGATIVE Urine Ketones NEGATIVE NEGATIVE Urine Nitrite NEGATIVE NEGATIVE Urine Bilirubin NEGATIVE NEGATIVE Urine Urobilinogen NORMAL NORMAL MG/DL Urine Leukocyte Esterase NEGATIVE NEGATIVE Urine RBC (Auto) 1+ H NEGATIVE Urine RBC 2-5 H /HPF Urine WBC NONE /HPF Urine Squamous Epithelial Cells 2-5 /HPF Urine Crystals PRESENT H /LPF Urine Amorphous Sediment LARGE ABHIJIT URATES H /LPF Urine Bacteria TRACE /HPF Urine Casts NONE /LPF Urine Mucus NEGATIVE /LPF Urine Culture Indicated NO Test 05/07/19 02:35 05/07/19 08:44 05/07/19 11:20 05/08/19 11:25 Range/Units Lactic Acid Level 3.30 *H 4.68 *H 2.57 *H 2.45 *H 0.50-2.00 MMOL/L Sodium Level 139 139 135-145 MMOL/L Potassium Level 4.4 3.6 3.6-5.0 MMOL/L Chloride Level 101 109 H 98-107 MMOL/L Carbon Dioxide Level 18 L 17 L 21-32 MMOL/L Anion Gap 20 H 13 5-14 MMOL/L Blood Urea Nitrogen 20 H 17 7-18 MG/DL Creatinine 1.24 0.85 0.60-1.30 MG/DL Estimat Glomerular Filtration Rate 43 > 60 BUN/Creatinine Ratio 16 20 Glucose Level 300 H 242 H 70-105 MG/DL Calcium Level 9.1 7.8 L 8.5-10.1 MG/DL Magnesium Level 1.8 1.6-2.4 MG/DL White Blood Count 15.5 H 4.3-11.0 10^3/uL Red Blood Count 4.38 4.35-5.85 10^6/uL Hemoglobin 12.2 11.5-16.0 G/DL Hematocrit 39 35-52 % Mean Corpuscular Volume 90 80-99 FL Mean Corpuscular Hemoglobin 28 25-34 PG Mean Corpuscular Hemoglobin Concent 31 L 32-36 G/DL Red Cell Distribution Width 14.9 H 10.0-14.5 % Platelet Count 232 130-400 10^3/uL Mean Platelet Volume 10.8 H 7.4-10.4 FL Neutrophils (%) (Auto) 87 H 42-75 % Lymphocytes (%) (Auto) 9 L 12-44 % Monocytes (%) (Auto) 5 0-12 % Eosinophils (%) (Auto) 0 0-10 % Basophils (%) (Auto) 0 0-10 % Neutrophils # (Auto) 13.4 H 1.8-7.8 X 10^3 Lymphocytes # (Auto) 1.3 1.0-4.0 X 10^3 Monocytes # (Auto) 0.7 0.0-1.0 X 10^3 Eosinophils # (Auto) 0.0 0.0-0.3 10^3/uL Basophils # (Auto) 0.0 0.0-0.1 10^3/uL Corrected Calcium 8.1 L 8.5-10.1 MG/DL Total Bilirubin 0.6 0.1-1.0 MG/DL Aspartate Amino Transf (AST/SGOT) 57 H 5-34 U/L Alanine Aminotransferase (ALT/SGPT) 66 H 0-55 U/L Alkaline Phosphatase 109 40-136 U/L Total Protein 6.6 6.4-8.2 GM/DL Albumin 3.6 3.2-4.5 GM/DL Test 05/08/19 13:30 05/08/19 16:26 05/08/19 21:17 05/09/19 03:05 Range/Units Lactic Acid Level 1.66 0.50-2.00 MMOL/L Glucometer 133 H 168 H 70-110 MG/DL White Blood Count 9.7 4.3-11.0 10^3/uL Red Blood Count 4.47 4.35-5.85 10^6/uL Hemoglobin 12.8 11.5-16.0 G/DL Hematocrit 41 35-52 % Mean Corpuscular Volume 91 80-99 FL Mean Corpuscular Hemoglobin 29 25-34 PG Mean Corpuscular Hemoglobin Concent 31 L 32-36 G/DL Red Cell Distribution Width 15.1 H 10.0-14.5 % Platelet Count 209 130-400 10^3/uL Mean Platelet Volume 11.5 H 7.4-10.4 FL Neutrophils (%) (Auto) 69 42-75 % Lymphocytes (%) (Auto) 24 12-44 % Monocytes (%) (Auto) 7 0-12 % Eosinophils (%) (Auto) 0 0-10 % Basophils (%) (Auto) 0 0-10 % Neutrophils # (Auto) 6.6 1.8-7.8 X 10^3 Lymphocytes # (Auto) 2.3 1.0-4.0 X 10^3 Monocytes # (Auto) 0.7 0.0-1.0 X 10^3 Eosinophils # (Auto) 0.0 0.0-0.3 10^3/uL Basophils # (Auto) 0.0 0.0-0.1 10^3/uL Sodium Level 137 135-145 MMOL/L Potassium Level 4.6 3.6-5.0 MMOL/L Chloride Level 111 H 98-107 MMOL/L Carbon Dioxide Level 14 L 21-32 MMOL/L Anion Gap 11 5-14 MMOL/L Blood Urea Nitrogen 18 7-18 MG/DL Creatinine 0.85 0.60-1.30 MG/DL Estimat Glomerular Filtration Rate > 60 BUN/Creatinine Ratio 21 Glucose Level 158 H 70-105 MG/DL Calcium Level 7.8 L 8.5-10.1 MG/DL Phosphorus Level 3.3 2.3-4.7 MG/DL Magnesium Level 2.1 1.6-2.4 MG/DL B-Type Natriuretic Peptide 943.5 H <100.0 PG/ML Test 05/09/19 15:54 05/09/19 19:54 05/10/19 03:08 05/10/19 13:05 Range/Units Glucometer 215 H 137 H 70-110 MG/DL White Blood Count 9.8 4.3-11.0 10^3/uL Red Blood Count 4.83 4.35-5.85 10^6/uL Hemoglobin 13.4 11.5-16.0 G/DL Hematocrit 42 35-52 % Mean Corpuscular Volume 88 80-99 FL Mean Corpuscular Hemoglobin 28 25-34 PG Mean Corpuscular Hemoglobin Concent 32 32-36 G/DL Red Cell Distribution Width 15.1 H 10.0-14.5 % Platelet Count 254 130-400 10^3/uL Mean Platelet Volume 11.0 H 7.4-10.4 FL Neutrophils (%) (Auto) 65 42-75 % Lymphocytes (%) (Auto) 26 12-44 % Monocytes (%) (Auto) 8 0-12 % Eosinophils (%) (Auto) 1 0-10 % Basophils (%) (Auto) 0 0-10 % Neutrophils # (Auto) 6.3 1.8-7.8 X 10^3 Lymphocytes # (Auto) 2.5 1.0-4.0 X 10^3 Monocytes # (Auto) 0.8 0.0-1.0 X 10^3 Eosinophils # (Auto) 0.1 0.0-0.3 10^3/uL Basophils # (Auto) 0.0 0.0-0.1 10^3/uL Sodium Level 142 143 135-145 MMOL/L Potassium Level 3.0 L 3.3 L 3.6-5.0 MMOL/L Chloride Level 110 H 107 98-107 MMOL/L Carbon Dioxide Level 17 L 18 L 21-32 MMOL/L Anion Gap 15 H 18 H 5-14 MMOL/L Blood Urea Nitrogen 17 15 7-18 MG/DL Creatinine 0.80 0.76 0.60-1.30 MG/DL Estimat Glomerular Filtration Rate > 60 > 60 BUN/Creatinine Ratio 21 20 Glucose Level 121 H 118 H 70-105 MG/DL Calcium Level 8.5 9.0 8.5-10.1 MG/DL Phosphorus Level 2.6 2.5 2.3-4.7 MG/DL Magnesium Level 1.8 1.7 1.6-2.4 MG/DL B-Type Natriuretic Peptide 1447.2 H <100.0 PG/ML Troponin I < 0.028 <0.028 NG/ML Test 05/10/19 13:49 05/10/19 13:55 Range/Units Blood Gas Puncture Site LT RAD Blood Gas Patient Temperature 36.0 Arterial Blood pH 7.37 7.37-7.43 Arterial Blood Partial Pressure CO2 35 35-45 MMHG Arterial Blood Partial Pressure O2 203 H 79-93 MMHG Arterial Blood HCO3 20 L 23-27 MMOL/L Arterial Blood Total CO2 21.2 21.0-31.0 MMOL/L Arterial Blood Oxygen Saturation 99 94-100 % Arterial Blood Base Excess -4.5 L -2.5-2.5 MMOL/L Darnell Test YES-POS Blood Gas Ventilator Setting NO Blood Gas Inspired Oxygen 100 L White Blood Count 12.7 H 4.3-11.0 10^3/uL Red Blood Count 5.34 4.35-5.85 10^6/uL Hemoglobin 14.9 11.5-16.0 G/DL Hematocrit 47 35-52 % Mean Corpuscular Volume 88 80-99 FL Mean Corpuscular Hemoglobin 28 25-34 PG Mean Corpuscular Hemoglobin Concent 32 32-36 G/DL Red Cell Distribution Width 15.1 H 10.0-14.5 % Platelet Count 298 130-400 10^3/uL Mean Platelet Volume 10.7 H 7.4-10.4 FL Neutrophils (%) (Auto) 64 42-75 % Lymphocytes (%) (Auto) 27 12-44 % Monocytes (%) (Auto) 7 0-12 % Eosinophils (%) (Auto) 2 0-10 % Basophils (%) (Auto) 0 0-10 % Neutrophils # (Auto) 8.1 H 1.8-7.8 X 10^3 Lymphocytes # (Auto) 3.5 1.0-4.0 X 10^3 Monocytes # (Auto) 0.9 0.0-1.0 X 10^3 Eosinophils # (Auto) 0.2 0.0-0.3 10^3/uL Basophils # (Auto) 0.1 0.0-0.1 10^3/uL Prothrombin Time 13.9 12.2-14.7 SEC INR Comment 1.0 0.8-1.4 Micro Results Microbiology 05/07/19 Blood Culture - Preliminary, Resulted No growth 05/07/19 Blood Culture - Preliminary, Resulted No growth 05/07/19 Influenza Types A,B Antigen (VITA) - Final, Complete 05/07/19 Urine Culture - Final, Complete NO GROWTH My Orders Orders - JANIE MALDONADO MD Magnesium (05/10/19 13:40) Phosphorus (05/10/19 13:40) Troponin I (05/10/19 13:40) Chest 1 View, Ap/Pa Only (05/10/19 13:48) Arterial Blood Gas (05/10/19 13:49) Arterial Blood Draw (05/10/19 13:49) Cbc With Automated Diff (05/10/19 13:54) Comprehensive Metabolic Panel (05/10/19 13:54) Protime With Inr (05/10/19 13:54) Echo W Doppler/Color Flow (05/10/19 13:54) Lactic Acid Analyzer (05/10/19 13:54) Ekg Tracing (05/10/19 13:59) Ekg Tracing (05/10/19 13:59) Magnesium 1 Gm/100 Ml Ivpb (Magnesium Giron (05/10/19 14:15) Arterial Blood Draw (05/10/19 13:49) Consult General Surgery (05/10/19 14:05) Anesthesia Consult (05/10/19 14:05) Medications Given in ED Current Medications Medications Dose Ordered Sig/Rhoda Route Start Time Stop Time Status Last Admin Dose Admin Potassium Chloride 50 ml @ 50 mls/hr ONCE ONCE IV 05/10/19 06:00 05/10/19 06:59 DC 05/10/19 06:30 50 MLS/HR Vital Signs/I&O 05/06/19 05/07/19 05/07/19 05/07/19 23:47 00:14 04:30 04:49 Temp 37.4 37.0 Pulse 134 117 89 96 Resp 25 28 22 B/P (MAP) 178/118 (138) 114/80 (138) Pulse Ox 95 93 98 O2 Delivery NIV Bilevel NIV Bilevel O2 Flow Rate 60.00 05/07/19 05/07/19 05/07/19 05/07/19 04:50 05:00 05:15 05:27 Temp 36.0 Pulse 90 89 88 Resp 26 20 14 B/P (MAP) 132/88 (103) 112/83 (93) Pulse Ox 95 100 99 100 O2 Delivery NIV Bilevel NIV Bilevel NIV Bilevel O2 Flow Rate 60.00 60.00 60.00 FiO2 60 05/07/19 05/07/19 05/07/19 05/07/19 05:30 05:45 06:00 06:40 Temp 36.0 Pulse 95 92 92 104 Resp 15 13 14 B/P (MAP) 116/87 (97) 112/80 (91) 126/87 (100) Pulse Ox 99 98 100 97 O2 Delivery NIV Bilevel NIV Bilevel NIV Bilevel O2 Flow Rate 60.00 60.00 60.00 05/07/19 05/07/19 05/07/19 05/07/19 06:40 07:00 07:00 08:00 Temp 37.1 Pulse 105 108 B/P (MAP) 145/99 (114) Pulse Ox 97 96 O2 Delivery Nasal Cannula High Flow N/C O2 Flow Rate 2.00 2.00 05/07/19 05/07/19 05/07/19 05/07/19 08:00 08:00 09:00 10:00 Pulse 76 111 73 B/P (MAP) 124/47 (72) 140/93 (109) 148/85 (106) Pulse Ox 98 97 98 100 O2 Delivery High Flow N/C High Flow N/C High Flow N/C High Flow N/C O2 Flow Rate 2.00 2.00 2.00 2.00 05/07/19 05/07/19 05/07/19 05/07/19 11:00 12:00 12:00 12:20 Temp 36.6 Pulse 101 94 B/P (MAP) 137/92 (107) 124/80 (95) Pulse Ox 100 99 100 O2 Delivery High Flow N/C High Flow N/C High Flow N/C O2 Flow Rate 2.00 2.00 2.00 05/07/19 05/07/19 05/07/19 05/07/19 13:00 13:00 14:00 15:00 Pulse 95 80 83 87 B/P (MAP) 114/76 (89) 116/72 (87) 109/73 (85) Pulse Ox 80 100 99 O2 Delivery High Flow N/C High Flow N/C High Flow N/C O2 Flow Rate 2.00 2.00 2.00 05/07/19 05/07/19 05/07/19 05/07/19 16:00 16:00 16:02 17:00 Temp 36.7 Pulse 90 82 B/P (MAP) 119/72 (88) 117/71 (86) Pulse Ox 99 100 100 O2 Delivery High Flow N/C High Flow N/C High Flow N/C O2 Flow Rate 2.00 2.00 2.00 05/07/19 05/07/19 05/07/19 05/07/19 18:00 19:00 19:00 20:00 Temp 36.6 Pulse 105 105 105 Resp 16 16 B/P (MAP) 139/94 (109) 129/103 (112) Pulse Ox 99 99 O2 Delivery High Flow N/C Room Air O2 Flow Rate 2.00 05/07/19 05/07/19 05/07/19 05/07/19 20:00 20:00 21:00 22:00 Pulse 94 105 109 Resp 15 12 B/P (MAP) 147/94 (111) 146/83 (104) Pulse Ox 100 100 94 100 O2 Delivery Room Air Room Air Room Air Room Air 05/07/19 05/07/19 05/08/19 05/08/19 23:00 23:46 00:00 01:00 Temp 36.4 Pulse 98 98 108 Resp 15 15 B/P (MAP) 149/91 (110) 149/91 (110) 146/97 (113) Pulse Ox 96 96 100 91 O2 Delivery Room Air Room Air Room Air Room Air 05/08/19 05/08/19 05/08/19 05/08/19 01:00 02:00 03:00 04:00 Pulse 108 108 93 B/P (MAP) 143/87 (105) 139/87 (104) Pulse Ox 94 94 100 O2 Delivery Room Air Room Air Room Air 05/08/19 05/08/19 05/08/19 05/08/19 04:00 05:00 06:00 07:00 Temp 36.4 Pulse 82 90 79 83 B/P (MAP) 114/65 (81) 111/87 (95) 120/74 (89) 130/46 (74) Pulse Ox 90 93 92 94 O2 Delivery Room Air Room Air Room Air Room Air 05/08/19 05/08/19 05/08/19 05/08/19 07:00 07:00 07:24 08:00 Temp 36.3 Pulse 79 90 81 B/P (MAP) 130/46 (74) 122/87 (99) Pulse Ox 92 95 94 O2 Delivery Room Air Room Air Room Air 05/08/19 05/08/19 05/08/19 05/08/19 08:54 09:00 10:00 11:00 Temp 36.3 35.4 36.4 Pulse 88 70 134 101 Resp 25 23 B/P (MAP) 134/88 (103) 134/88 (103) 104/87 (93) 120/87 (98) Pulse Ox 92 95 100 94 O2 Delivery Room Air Room Air Nasal Cannula Nasal Cannula O2 Flow Rate 3.00 3.00 05/08/19 05/08/19 05/08/19 05/08/19 12:00 12:00 12:50 13:00 Temp 36.2 36.3 Pulse 87 101 84 Resp 22 20 B/P (MAP) 115/73 (87) 128/78 (95) Pulse Ox 94 95 95 O2 Delivery Nasal Cannula High Flow N/C Room Air O2 Flow Rate 3.00 2.00 05/08/19 05/08/19 05/08/19 05/08/19 14:00 15:00 16:00 16:00 Temp 36.2 36.1 36.0 Pulse 83 60 89 Resp 21 21 16 B/P (MAP) 135/103 (114) 120/81 (94) 12/92 (66) Pulse Ox 91 97 95 96 O2 Delivery Room Air Nasal Cannula High Flow N/C Nasal Cannula O2 Flow Rate 3.00 2.00 3.00 05/08/19 05/08/19 05/08/19 05/08/19 17:00 18:00 19:00 19:00 Temp 36.6 36.2 35.9 Pulse 124 92 95 101 Resp 32 22 23 B/P (MAP) 157/42 (80) 119/76 (90) 115/89 (98) Pulse Ox 94 91 96 O2 Delivery Room Air Nasal Cannula Nasal Cannula O2 Flow Rate 3.00 3.00 05/08/19 05/08/19 05/08/19 05/08/19 19:03 20:00 20:00 21:00 Temp 35.8 36.0 Pulse 88 93 Resp 32 16 B/P (MAP) 120/92 (101) 122/95 (104) Pulse Ox 97 97 95 94 O2 Delivery Room Air Room Air High Flow N/C Room Air O2 Flow Rate 2.00 10/2005/08/19 05/09/19 05/09/19 22:00 23:10 00:00 00:23 Temp 36.0 36.0 Pulse 87 87 121 Resp 17 32 32 B/P (MAP) 143/84 (103) 142/103 (116) 149/116 (127) Pulse Ox 90 91 95 98 O2 Delivery Room Air Room Air High Flow N/C Room Air O2 Flow Rate 2.00 05/09/19 05/09/19 05/09/19 05/09/19 00:34 01:00 01:00 02:05 Pulse 61 61 84 Resp 23 12 B/P (MAP) 119/78 (92) 109/88 (95) Pulse Ox 95 97 90 O2 Delivery High Flow N/C Room Air Room Air O2 Flow Rate 3.00 05/09/19 05/09/19 05/09/19 05/09/19 03:00 04:00 04:00 05:00 Pulse 82 55 66 Resp 17 24 29 B/P (MAP) 107/75 (86) 115/77 (90) 106/75 (85) Pulse Ox 98 95 96 100 O2 Delivery Room Air High Flow N/C Room Air Room Air O2 Flow Rate 2.00 05/09/19 05/09/19 05/09/19 05/09/19 06:00 07:00 07:03 07:27 Pulse 86 84 88 Resp 24 22 B/P (MAP) 93/84 (87) 115/88 (97) Pulse Ox 100 96 97 O2 Delivery Room Air Nasal Cannula Nasal Cannula O2 Flow Rate 1.50 3.00 05/09/19 05/09/19 05/09/19 05/09/19 07:36 08:00 08:00 08:00 Temp 36.5 Pulse 77 Resp 22 B/P (MAP) 121/83 (96) Pulse Ox 95 97 O2 Delivery Nasal Cannula High Flow N/C Nasal Cannula O2 Flow Rate 1.50 2.00 1.50 05/09/19 05/09/19 05/09/19 05/09/19 09:00 10:00 10:38 11:00 Pulse 85 110 82 Resp 21 24 17 B/P (MAP) 123/92 (102) 127/92 (104) 114/70 (85) Pulse Ox 98 95 95 92 O2 Delivery Nasal Cannula Nasal Cannula Nasal Cannula Nasal Cannula O2 Flow Rate 1.50 1.50 1.50 1.50 05/09/19 05/09/19 05/09/19 05/09/19 12:00 12:00 12:00 13:00 Temp 36.7 Pulse 94 77 Resp 12 19 B/P (MAP) 109/80 (90) 107/73 (84) Pulse Ox 96 95 95 O2 Delivery Nasal Cannula High Flow N/C Nasal Cannula O2 Flow Rate 1.50 2.00 1.50 05/09/19 05/09/19 05/09/19 05/09/19 13:04 14:00 14:14 14:21 Pulse 80 92 Resp 30 B/P (MAP) 115/98 (104) Pulse Ox 96 98 O2 Delivery Nasal Cannula Nasal Cannula Room Air O2 Flow Rate 1.50 1.50 05/09/19 05/09/19 05/09/19 05/09/19 15:00 16:00 16:00 16:01 Pulse 58 110 Resp 18 25 B/P (MAP) 66/57 (60) 131/111 (118) Pulse Ox 92 92 90 O2 Delivery Room Air Nasal Cannula Room Air Nasal Cannula O2 Flow Rate 2.00 2.00 05/09/19 05/09/19 05/09/19 05/09/19 17:00 18:00 19:00 19:00 Pulse 77 48 98 98 Resp 27 11 21 B/P (MAP) 110/81 (91) 124/91 (102) 120/98 (105) Pulse Ox 97 96 93 O2 Delivery Nasal Cannula Nasal Cannula Nasal Cannula O2 Flow Rate 2.00 2.00 2.00 05/09/19 05/09/19 05/09/19 05/09/19 19:40 20:00 20:00 21:00 Pulse 67 69 Resp 15 B/P (MAP) 141/110 (120) 128/101 (110) Pulse Ox 97 97 95 O2 Delivery Room Air Room Air Nasal Cannula Nasal Cannula O2 Flow Rate 2.00 2.00 05/09/19 05/09/19 05/10/19 05/10/19 22:03 23:00 00:00 00:00 Pulse 64 57 49 Resp 22 9 31 B/P (MAP) 120/106 (111) 139/112 (121) 126/91 (103) Pulse Ox 92 98 100 97 O2 Delivery Nasal Cannula Nasal Cannula Nasal Cannula Nasal Cannula O2 Flow Rate 2.00 2.00 2.00 2.00 05/10/19 05/10/19 05/10/19 05/10/19 00:47 01:00 01:00 02:00 Pulse 82 92 92 66 Resp 24 32 B/P (MAP) 136/100 (112) 130/104 (113) Pulse Ox 98 95 100 O2 Delivery Nasal Cannula Nasal Cannula Nasal Cannula O2 Flow Rate 1.00 1.00 1.00 05/10/19 05/10/19 05/10/19 05/10/19 03:00 04:00 04:00 05:00 Pulse 60 79 63 B/P (MAP) 100/85 (90) 121/80 (94) 145/90 (108) Pulse Ox 94 95 O2 Delivery Nasal Cannula Nasal Cannula Nasal Cannula Nasal Cannula O2 Flow Rate 1.00 1.00 2.00 1.00 05/10/19 05/10/19 05/10/19 05/10/19 06:00 07:00 07:00 08:00 Pulse 78 94 110 72 B/P (MAP) 135/104 (114) 155/127 (136) 96/74 (81) Pulse Ox 94 O2 Delivery Nasal Cannula Nasal Cannula Nasal Cannula O2 Flow Rate 1.00 1.00 1.00 05/10/19 05/10/19 05/10/19 05/10/19 08:00 08:03 09:00 10:00 Pulse 98 78 B/P (MAP) 155/124 (134) 101/73 (82) Pulse Ox 97 93 O2 Delivery Room Air Room Air Nasal Cannula Nasal Cannula O2 Flow Rate 1.00 1.00 05/10/19 05/10/19 05/10/19 05/10/19 10:09 10:55 11:00 12:00 Temp 36.5 Pulse 66 58 Resp 22 B/P (MAP) 132/97 (109) 119/69 (86) Pulse Ox 94 100 93 O2 Delivery Vapotherm Nasal Cannula Room Air O2 Flow Rate 1.00 05/10/19 05/10/19 05/10/19 12:00 12:00 13:00 Pulse 57 56 B/P (MAP) 119/69 (86) Pulse Ox 97 100 O2 Delivery Room Air Nasal Cannula O2 Flow Rate 1.00 05/10/19 00:00 Intake Total 1390 ml Output Total 4400 ml Balance -3010 ml Blood Pressure Mean: 86 FSBG Bedside Testing Finger Stick Blood Glucose: 108 Blood Glucose Action Taken: wnl Diagnostic Imaging Reviewed: Reviewed by Me Clinical Quality Measures DVT/VTE Risk/Contraindication: Risk Factor Score Per Nursin RFS Level Per Nursing on Admit: 4+=Very High JANIE MALDONADO MD May 10, 2019 14:00
[2019-05-10 14:08] LABS: BASOPHILS # (AUTO) 0.1 10^3/uL (0.0-0.1); BASOPHILS % (AUTO) 0 % (0-10); EOSINOPHILS # (AUTO) 0.2 10^3/uL (0.0-0.3); EOSINOPHILS % (AUTO) 2 % (0-10); HEMATOCRIT 47 % (35-52); HEMOGLOBIN 14.9 G/DL (11.5-16.0); LYMPHOCYTES # (AUTO) 3.5 X 10^3 (1.0-4.0); LYMPHOCYTES % (AUTO) 27 % (12-44); MEAN CORPUSCULAR HEMOGLOBIN 28 PG (25-34); MEAN CORPUSCULAR HGB CONC 32 G/DL (32-36); MEAN CORPUSCULAR VOLUME 88 FL (80-99); MEAN PLATELET VOLUME 10.7 FL (7.4-10.4); MONOCYTES # (AUTO) 0.9 X 10^3 (0.0-1.0); MONOCYTES % (AUTO) 7 % (0-12); NEUTROPHILS # (AUTO) 8.1 X 10^3 (1.8-7.8); NEUTROPHILS % (AUTO) 64 % (42-75); PLATELET COUNT 298 10^3/uL (130-400); RED CELL DISTRIBUTION WIDTH 15.1 % (10.0-14.5); WHITE BLOOD COUNT 12.7 10^3/uL (4.3-11.0)
[2019-05-10 14:25] LABS: PROTHROMBIN TIME PATIENT 13.9 SEC (12.2-14.7)
--- NOTE | 2019-05-10 14:25 | NUR ---
THIS RN WAS CALLED TO PT ROOM REGARDING CODE BLUE. SEE CODE BLUE RECORD IN PT CHART.
--- NOTE | 2019-05-10 14:30 | NUR ---
THIS RN REACHED OUT TO TO PT FAMILY REGARDING CODE BLUE EVENT. NO ANSWER ON NUMBERS IN CHART. THIS RN LEFT MESSAGE. WILL ATTEMPT TO CONTACT AGAIN.
[2019-05-10 14:31] LABS: ALANINE AMINOTRANSFERASE 99 U/L (0-55); ALBUMIN 4.3 GM/DL (3.2-4.5); ALKALINE PHOSPHATASE 138 U/L (40-136); BILIRUBIN,TOTAL 0.8 MG/DL (0.1-1.0); BUN/CREATININE RATIO 18; CALCIUM 9.3 MG/DL (8.5-10.1); CARBON DIOXIDE 18 MMOL/L (21-32); CHLORIDE 106 MMOL/L (98-107); CREATININE SERUM 0.83 MG/DL (0.60-1.30); GFR ESTIMATED > 60; GLUCOSE 140 MG/DL (70-105); POTASSIUM 3.6 MMOL/L (3.6-5.0); SODIUM 141 MMOL/L (135-145); TOTAL PROTEIN 8.1 GM/DL (6.4-8.2)
--- NOTE | 2019-05-10 14:40 | Diagnostic Imaging Report ---
Patient History: Intubation. Post CODE BLUE. Technique: Single frontal view of the chest Comparison: Chest radiograph performed earlier the same day. FINDINGS: There has been interval intubation and placement of an enteric tube. These appear well-positioned and appropriate in configuration. There is redemonstration of cardiomegaly with central pulmonary vascular congestion and interstitial edema. No large pleural effusion or pneumothorax is seen. No focal consolidation. The osseous structures are unremarkable. IMPRESSION: 1. Cardiomegaly with central pulmonary vascular congestion and interstitial edema. This is similar to the prior exam. 2. Interval intubation and placement of an enteric tube. Dictated by: Dictated on workstation # [id number]
--- NOTE | 2019-05-10 15:20 | NUR ---
THIS RN ATTEMPTED AGAIN TO REACH PT FAMILY REGARDING CODE BLUE EVENT. NO ANSWER ON NUMBERS IN CHART. THIS RN LEFT MESSAGE. WILL ATTEMPT TO CONTACT AGAIN.
--- NOTE | 2019-05-10 15:45 | Anesthesia-Procedure Note ---
Procedures/Interventions Procedure Start/Stop/Diagnosis Date of Procedure: May 10, 2019 Start Time: 15:00 Brief History s/p cardiac arrest Stop Time: 15:35 Arterial Line Arterial Line Catheter: 20G (ultrasound guided) Type: Radial Location: Right Procedure: prepped, draped in sterile fashion, good wave-form was obtained, patient tolerated procedure well, no immediate complications, post procedure area cleaned, post procedure dressing applied DOUGIE IVEY CRNA May 10, 2019 15:45
[2019-05-10] MEDS ORDERED: MIDAZOLAM 5 MG/5 ML (VERSED) VIAL INJ ONE (16:13)
[2019-05-10] MEDS ORDERED: SUCCINYLCHOLINE INJ 100 MG/5 ML SYR INJ ONE (16:13)
--- NOTE | 2019-05-10 16:40 | Progress Note-Post Operative ---
Post-Operative Progess Note Surgeon (s)/Knife Operator (s) Surgeon KALPESH PAREDES DO Knife Operator: none Pre-Operative Diagnosis Venous Insufficiency, Hypotension Post-Operative Diagnosis Same Procedure & Operative Findings Date of Procedure 05/10/19 Procedure Performed/Findings Insertion triple lumen catheter, right IJ with US guidance Anesthesia Type local lidocaine Estimated Blood Loss Estimated blood loss (mL): scant Specimens/Packing Specimens Removed none KALPESH PAREDES DO May 10, 2019 16:40
--- NOTE | 2019-05-10 16:44 | Consultation - Surgery ---
History of Present Illness History of Present Illness Patient Consulted On(ena/time) 05/10/19 16:40 Time Seen by Provider: 14:58 Reason for Visit: Congestive heart failure History of Present Illness Surgery asked to consult regarding Venous Insufficiency, Hypotension and need for Vasopressors. HPI per IM: Venita Stein is a 69-year-old female with past medical history of dementia who presented with hypoxia. Due to her underlying dementia, obtaining a history is not possible. Upon her arrival she was tachycardic and tachypnea. Further evaluation found a pneumonia on x-ray. She was started on the sepsis protocol and with a significantly elevated lactic acid was deemed to have severe sepsis. When I saw pt she was already intubated and sedated, having just gone through code blue Allergies and Home Medications Allergies Coded Allergies: No Known Drug Allergies (Unverified , 08/14/17) Home Medications Acetaminophen 325 Mg Tablet, 650 MG PO TID, (Reported) TAKES 2 (325 MG) TABLETS Amlodipine Besylate 10 Mg Tablet, 10 MG PO DAILY, (Reported) HOLD FOR BP <100/60 AND PULSE < 60 Aspirin 81 Mg Tablet.dr, 81 MG PO DAILY, (Reported) Atorvastatin Calcium 10 Mg Tablet, 10 MG PO HS, (Reported) Bisacodyl 10 Mg Supp.rect, 10 MG RC DAILY PRN for CONSTIPATION-4TH LINE, (Reported) Docusate Sodium 100 Mg Capsule, 100 MG PO BID, (Reported) Donepezil HCl 10 Mg Tablet, 10 MG PO HS, (Reported) Duloxetine HCl 30 Mg Capsule.dr, 30 MG PO DAILY, (Reported) Empagliflozin 25 Mg Tablet, 25 MG PO DAILY, (Reported) Gabapentin 400 Mg Capsule, 400 MG PO TID, (Reported) Ivermectin 3 Mg Tablet, 15 MG PO UD, (Reported) GIVE 5 (3MG) TABLETS ONE TIME ONLY ON 05-13-19 Lactulose 10 Gm/15 Ml Solution, 30 ML PO Q12H PRN for CONSTIPATION-3RD LINE, (Reported) Mag Hydrox/Al Hydrox/Simeth 30 Ml Oral.susp, 30 ML PO Q6H PRN for HEARTBURN, (Reported) Memantine HCl 10 Mg Tablet, 10 MG PO BID, (Reported) Metformin HCl 1,000 Mg Tablet, 1,000 MG PO BID, (Reported) Multivitamin with Minerals 1 Each Tablet, 1 TAB PO DAILY, (Reported) Polyethylene Glycol 3350 17 Gm Powd.pack, 17 GM PO DAILY, (Reported) Quetiapine Fumarate 100 Mg Tablet, 100 MG PO 0900,1400, (Reported) Quetiapine Fumarate 100 Mg Tablet, 150 MG PO HS, (Reported) Sennosides 8.6 Mg Tablet, 17.2 MG PO HS, (Reported) TAKES 2 (8.6MG) TABLETS Patient Home Medication List Home Medication List Reviewed: Yes Past Xsqhjcx-Fowias-Fokand Hx Patient Social History Smoking Status: Unknown if Ever Smoked Recent Foreign Travel: No Contact w/Someone Who Travel: No Recent Infectious Disease Expo: No Recent Hopitalizations: Yes Immunizations Up To Date Tetanus Booster (TDap): Unknown PED Vaccines UTD: No Date of Pneumonia Vaccine: Apr 24, 2016 Date of Influenza Vaccine: May 05, 2019 Seasonal Allergies Seasonal Allergies: No Surgeries History of Surgeries: No (UNKNOWN) Respiratory History of Respiratory Disorde: Yes Respiratory Disorders: Sleep Apnea Cardiovascular History of Cardiac Disorders: Yes Cardiac Disorders: High Cholesterol, Hypertension Neurological History of Neurological Disord: Yes (DEMENTIA WITH BEHAVIORAL DISTURBANCE) Neurological Disorders: Dementia Genitourinary History of Genitourinary Disor: Yes Genitourinary Disorders: Renal Failure Gastrointestinal History of Gastrointestinal Di: Yes Gastrointestinal Disorders: Chronic Constipation, Hemorrhoids Musculoskeletal History of Musculoskeletal Dis: Yes Musculoskeletal Disorders: Chronic Back Pain Endocrine History of Endocrine Disorders: Yes Endocrine Disorders: Diabetes, Non-Insulin dep HEENT History of HEENT Disorders: Yes Hearing Impairment: Hard of Hearing Cancer History of Cancer: No Psychosocial History of Psychiatric Problem: Yes (MAJOR DEPRESSIVE DISORDER, DELUSIONS; DEMENTIA) Behavioral Health Disorders: Personality Disorder, Depression Integumentary History of Skin or Integumenta: Yes (Scabies ) Skin/Integumentary Disorders: Recent Skin Changes Blood Transfusions History of Blood Disorders: Yes Family Medical History Significant Family History: Other Conditions/Hx (Unable to ask further pt intubated.) Family Medial History: Patient reports no known family medical history. Review of Systems-General ROS-Unable to Obtain: Pt intubated and sedated, I did go over ROS from chart notes. Physical Exam-General Problems Physical Exam Vital Signs Vital Signs - First Documented 05/06/19 05/07/19 05/07/19 23:47 00:14 05:27 Temp 37.4 Pulse 134 Resp 25 B/P (MAP) 178/118 (138) Pulse Ox 95 O2 Delivery NIV Bilevel O2 Flow Rate 60.00 FiO2 60 Capillary Refill : Less Than 3 Seconds General Appearance: other (Intubated and sedated) Eyes: Bilateral Eye PERRL HEENT: pharynx normal; No scleral icterus (R), No scleral icterus (L), No pale conjunctivae (R), No pale conjunctivae (L) Neck: supple; No thyromegaly Respiratory: decreased breath sounds, accessory muscle use, crackles Cardiovascular: no murmur, tachycardia Gastrointestinal: normal bowel sounds, soft, no organomegaly, no pulsatile mass Back: other (unable to assess) Extremities: no pedal edema, normal capillary refill Neurologic/Psychiatric: other (unable to asses) Skin: normal color, cool Lymphatic: no adenopathy (neck, axilla or groin) Data Review Labs Laboratory Tests 05/09/19 19:54: Glucometer 137H 05/10/19 03:08: White Blood Count 9.8, Red Blood Count 4.83, Hemoglobin 13.4, Hematocrit 42, Mean Corpuscular Volume 88, Mean Corpuscular Hemoglobin 28, Mean Corpuscular Hemoglobin Concent 32, Red Cell Distribution Width 15.1H, Platelet Count 254, Mean Platelet Volume 11.0H, Neutrophils (%) (Auto) 65, Lymphocytes (%) (Auto) 26, Monocytes (%) (Auto) 8, Eosinophils (%) (Auto) 1, Basophils (%) (Auto) 0, Neutrophils # (Auto) 6.3, Lymphocytes # (Auto) 2.5, Monocytes # (Auto) 0.8, Eosinophils # (Auto) 0.1, Basophils # (Auto) 0.0, Sodium Level 142, Potassium Level 3.0L, Chloride Level 110H, Carbon Dioxide Level 17L, Anion Gap 15H, Blood Urea Nitrogen 17, Creatinine 0.80, Estimat Glomerular Filtration Rate > 60, BUN/Creatinine Ratio 21, Glucose Level 121H, Calcium Level 8.5, Phosphorus Level 2.6, Magnesium Level 1.8, B-Type Natriuretic Peptide 1447.2H 05/10/19 13:05: Sodium Level 143, Potassium Level 3.3L, Chloride Level 107, Carbon Dioxide Level 18L, Anion Gap 18H, Blood Urea Nitrogen 15, Creatinine 0.76, Estimat Glomerular Filtration Rate > 60, BUN/Creatinine Ratio 20, Glucose Level 118H, Calcium Level 9.0, Phosphorus Level 2.5, Magnesium Level 1.7, Troponin I < 0.028 05/10/19 13:49: Blood Gas Puncture Site LT RAD, Blood Gas Patient Temperature 36.0, Arterial Blood pH 7.37, Arterial Blood Partial Pressure CO2 35, Arterial Blood Partial Pressure O2 203H, Arterial Blood HCO3 20L, Arterial Blood Total CO2 21.2, Arterial Blood Oxygen Saturation 99, Arterial Blood Base Excess -4.5L, Darnell Test YES-POS, Blood Gas Ventilator Setting NO, Blood Gas Inspired Oxygen 100 L 05/10/19 13:55: White Blood Count 12.7H, Red Blood Count 5.34, Hemoglobin 14.9, Hematocrit 47, Mean Corpuscular Volume 88, Mean Corpuscular Hemoglobin 28, Mean Corpuscular Hemoglobin Concent 32, Red Cell Distribution Width 15.1H, Platelet Count 298, Mean Platelet Volume 10.7H, Neutrophils (%) (Auto) 64, Lymphocytes (%) (Auto) 27, Monocytes (%) (Auto) 7, Eosinophils (%) (Auto) 2, Basophils (%) (Auto) 0, Neutrophils # (Auto) 8.1H, Lymphocytes # (Auto) 3.5, Monocytes # (Auto) 0.9, Eosinophils # (Auto) 0.2, Basophils # (Auto) 0.1, Prothrombin Time 13.9, INR Comment 1.0, Sodium Level 141, Potassium Level 3.6, Chloride Level 106, Carbon Dioxide Level 18L, Anion Gap 17H, Blood Urea Nitrogen 15, Creatinine 0.83, Estimat Glomerular Filtration Rate > 60, BUN/Creatinine Ratio 18, Glucose Level 140H, Lactic Acid Level 2.16*H, Calcium Level 9.3, Corrected Calcium 9.1, Total Bilirubin 0.8, Aspartate Amino Transf (AST/SGOT) 67H, Alanine Aminotransferase (ALT/SGPT) 99H, Alkaline Phosphatase 138H, Total Protein 8.1, Albumin 4.3, Triglycerides Level 199H 05/10/19 16:00: Lactic Acid Level 1.35 Microbiology 05/07/19 Blood Culture - Preliminary, Resulted No growth 05/08/19 MRSA Screen - Final, Complete MRSA not isolated 05/07/19 Urine Culture - Final, Complete NO GROWTH Assessment/Plan Assessment/Plan Assessment/Plan Venous Insufficiency Sepsis/Hypotension Acute respiratory failure secondary to Pneumonia CHF, Dementia. Plan central line placement for Vasopressor support and IVF. This consult was necessary to assess pt, we had to then do 2 Doctor consent for procedure; deeming it a necessary emergency. Clinical Quality Measures DVT/VTE Risk/Contraindication: Risk Factor Score Per Nursin RFS Level Per Nursing on Admit: 4+=Very High KALPESH PAREDES DO May 10, 2019 16:44
--- NOTE | 2019-05-10 17:50 | NUR ---
WAS ABLE TO REACH PT SON REGARDING CODE BLUE THIS DAY. EXPLAINED TO PT SON EVENTS THAT OCCURRED AND CARE THAT HAS BEEN GIVEN SINCE EVENT. THIS RN SPOKE WITH PT SON REGARDING PT CODE STATUS. PT SON STATED HE WOULD SPEAK WITH HIS SISTER AND CALL BACK.
--- NOTE | 2019-05-10 18:53 | NUR ---
PT FAMILY CALLED AND REQUESTED MORE INFORMATION ABOUT PT CONDITION. EDUCATED FAMILY. FAMILY VERBALIZED UNDERSTANDING OF SITUATION. PT TO REMAIN FULL CODE AT THIS TIME.
[2019-05-10] MEDS: DOXYCYCLINE INJECTION 100 MG in NS (IVPB) 100 ML IV SCH (21:15)
[2019-05-10] MEDS: NS IV 1000 ML 1,000 ML IV SCH (23:32)
[2019-05-11] VITALS (28 sets, daily range): BP systolic 94–177; BP diastolic 37–125
[2019-05-11] MEDS: PROPOFOL DRIP (ICU) 100 ML IV SCH ×2 (01:35→07:48)
[2019-05-11] MEDS: VASOPRESSIN INJECTION 20 UNIT in NORMAL SALINE 100 ML IV SCH ×3 (01:55→17:40)
[2019-05-11 03:49] LABS: ABG BASE EXCESS -9.5 MMOL/L (-2.5-2.5); ABG OXYGEN SATURATION 93 % (94-100); ABG PCO2 25 MMHG (35-45); ABG PH 7.38 (7.37-7.43); ABG PO2 69 MMHG (79-93); ABG TCO2 15.5 MMOL/L (21.0-31.0); BASOPHILS % (AUTO) 0 % (0-10); EOSINOPHILS # (AUTO) 0.1 10^3/uL (0.0-0.3); EOSINOPHILS % (AUTO) 1 % (0-10); HEMATOCRIT 41 % (35-52); HEMOGLOBIN 13.2 G/DL (11.5-16.0); LYMPHOCYTES # (AUTO) 1.5 X 10^3 (1.0-4.0); LYMPHOCYTES % (AUTO) 13 % (12-44); MEAN CORPUSCULAR HEMOGLOBIN 28 PG (25-34); MEAN CORPUSCULAR HGB CONC 32 G/DL (32-36); MEAN CORPUSCULAR VOLUME 88 FL (80-99); MEAN PLATELET VOLUME 10.5 FL (7.4-10.4); MONOCYTES % (AUTO) 8 % (0-12); NEUTROPHILS # (AUTO) 9.3 X 10^3 (1.8-7.8); NEUTROPHILS % (AUTO) 78 % (42-75); PLATELET COUNT 284 10^3/uL (130-400); RED CELL DISTRIBUTION WIDTH 14.9 % (10.0-14.5); WHITE BLOOD COUNT 11.9 10^3/uL (4.3-11.0)
[2019-05-11 04:03] LABS: ALLENS TEST YES-POS; INSPIRED O2 22%; PATIENT TEMP 36.1; VENTILATOR YES
[2019-05-11 04:28] LABS: CALCIUM 8.4 MG/DL (8.5-10.1); CREATININE SERUM 1.05 MG/DL (0.60-1.30)
[2019-05-11] MEDS: POTASSIUM CL 10MEQ/50ML IVPB 50 ML IV SCH ×8 (05:13→12:54)
[2019-05-11] MEDS: KCL 20 MEQ TAB (K-DUR) PO SCH ×2 (05:14→09:49)
[2019-05-11] MEDS: MAGNESIUM 1 GM/100 ML IVPB 100 ML IV SCH (05:14)
[2019-05-11] MEDS: inSUlin ASPART (NovoLOG) 1 UNIT/0.01 ML (CHARGE PER UNIT) SC SCH ×3 (05:15→18:17)
--- NOTE | 2019-05-11 06:02 | OPERATIVE REPORT ---
DATE OF SERVICE: PREOPERATIVE DIAGNOSES: 1. Venous insufficiency. 2. Sepsis and hypotension. 3. Acute respiratory failure. 4. History of congestive heart failure and dementia. POSTOPERATIVE DIAGNOSES: 1. Venous insufficiency. 2. Sepsis and hypotension. 3. Acute respiratory failure. 4. History of congestive heart failure and dementia. PROCEDURE: Insertion of triple lumen catheter, right IJ with ultrasound guidance. SURGEON: Markell Harden DO. ORTHODONTIST ASSISTANT: None. ANESTHESIA: Local lidocaine. BLOOD LOSS: Scant. FLUIDS: None. POSTOPERATIVE CONDITION: Stable. INDICATION FOR PROCEDURE: The patient is a 69-year-old female, who unfortunately had a code blue secondary to her acute respiratory failure. She was septic, hypotensive, had venous insufficiency. They need to start some vasopressor through a central line. FINDINGS: The patient had a central line placed right internal jugular vein with ultrasound guidance. PROCEDURE NOTE: The patient had just gone through a code and we did two-doctor consent for emergency procedure in her ICU bed, she was sterilely prepped and draped in normal fashion. Local lidocaine was used to infiltrate the right neck and then with ultrasound guidance, advanced the 18-gauge fine needle under negative inspiration, watched the needle go right into the jugular vein, good flash of blood, removed the syringe, then placed a guidewire down the needle using Seldinger technique, removed the needle and then made a stab incision with #11 blade and then over the guidewire placed a dilator using Seldinger technique. It went in easily, removed the dilator and then over the guidewire placed a triple lumen catheter, went in easily, removed the guidewire and then got placed locking ports on all 3 ports, then easily aspirated, got a good flash of blood and then flushed in all 3 ports. Looked with ultrasound, could see the guidewire was in the middle of the IJ, then sutured the triple lumen catheter in place with a 3-0 silk suture. Area was then cleaned and dried. A Biopatch was placed and the nurse then placed a sterile dressing. The patient tolerated the procedure. Job ID: [id number] DocumentID: [id number] Dictated Date: 05/10/2019 23:38:07 Bark Press Operator Date: 05/11/2019 06:01:54 Dictated By: MARKELL HARDEN DO
[2019-05-11] MEDS: FUROSEMIDE 40 MG/4 ML INJ (LASIX) IVP SCH ×2 (06:07→17:16)
[2019-05-11] MEDS: RT-ALBUTEROL SULF 2.5 MG/3 ML PRE-MIX VIAL INH SCH ×4 (06:42→19:10)
--- NOTE | 2019-05-11 07:39 | Progress Note ---
Subjective Time Seen by a Provider: 07:36 Subjective/Events-last exam Patient coded yesterday. Patient on vent now. Patient has severe dementia. Patient has sepsis, acute respiratory failure, pneumonia, and congestive heart failure.. We'll speak to daughter today who is at the [facility] who lives in [place] Focused Exam Lactate Level 05/08/19 13:30: Lactic Acid Level 1.66 05/10/19 13:55: Lactic Acid Level 2.16*H 05/10/19 16:00: Lactic Acid Level 1.35 Objective Exam Vital Signs Date Time Temp Pulse Resp B/P (MAP) Pulse Ox O2 Delivery O2 Flow Rate FiO2 05/11/19 06:42 78 25 99 25 05/11/19 06:00 81 24 114/46 (68) 100 Mechanical Ventilator 25.00 05/11/19 05:00 76 10 94/53 (67) 99 Mechanical Ventilator 25.00 05/11/19 04:00 75 25 112/47 (68) 99 Mechanical Ventilator 25.00 05/11/19 04:00 Mechanical Ventilator 25 05/11/19 03:31 36.1 Mechanical Ventilator 25.00 05/11/19 03:00 73 24 114/59 (77) 99 Mechanical Ventilator 25.00 05/11/19 02:37 Mechanical Ventilator 30.00 05/11/19 02:30 74 26 100 25 05/11/19 02:00 77 22 108/59 (75) 100 Mechanical Ventilator 40.00 05/11/19 01:35 111/62 05/11/19 01:00 77 05/11/19 01:00 77 24 106/58 (74) 100 Mechanical Ventilator 40.00 05/11/19 00:45 Mechanical Ventilator 40.00 05/11/19 00:00 Mechanical Ventilator 50 05/11/19 00:00 78 24 109/58 (75) 100 Mechanical Ventilator 50.00 05/10/19 23:00 80 24 101/55 (70) 100 Mechanical Ventilator 50.00 05/10/19 22:38 86 28 100 50 05/10/19 22:38 Mechanical Ventilator 50.00 05/10/19 22:00 75 21 100/56 (71) 100 Mechanical Ventilator 60.00 05/10/19 21:00 93 27 125/66 (85) 100 Mechanical Ventilator 60.00 10/22/19 20:00 100 Mechanical Ventilator 60 05/10/19 20:00 81 16 104/59 (74) 100 Mechanical Ventilator 60.00 05/10/19 19:43 35.7 05/10/19 19:00 72 22 115/62 (79) 100 Mechanical Ventilator 60.00 05/10/19 19:00 72 05/10/19 18:40 65 32 100 60 05/10/19 18:18 65 123/63 100 05/10/19 18:00 67 20 138/67 (90) 100 Mechanical Ventilator 65.00 05/10/19 17:00 81 21 130/57 (81) 100 Mechanical Ventilator 65.00 05/10/19 16:00 98 Mechanical Ventilator 65 05/10/19 16:00 36.2 05/10/19 16:00 92 12 169/77 (107) 100 Mechanical Ventilator 65.00 05/10/19 15:00 67 81/56 (64) 98 Mechanical Ventilator 65.00 05/10/19 14:57 66 18 97 65 05/10/19 14:11 94 33 100 80 05/10/19 14:00 131 30 157/113 (128) 96 Mechanical Ventilator 65.00 05/10/19 13:40 68 98/70 05/10/19 13:00 65 99/83 (88) 100 Room Air 05/10/19 13:00 56 05/10/19 12:00 57 119/69 (86) 100 Nasal Cannula 1.00 05/10/19 12:00 97 Room Air 05/10/19 12:00 58 22 119/69 (86) 93 Room Air 05/10/19 11:00 66 132/97 (109) 100 Nasal Cannula 1.00 05/10/19 10:55 94 Vapotherm 05/10/19 10:09 36.5 05/10/19 10:00 78 101/73 (82) 93 Nasal Cannula 1.00 05/10/19 09:00 98 155/124 (134) Nasal Cannula 1.00 05/10/19 08:03 Room Air 05/10/19 08:00 97 Room Air 05/10/19 08:00 72 96/74 (81) 94 Nasal Cannula 1.00 I & O 05/11/19 07:00 Intake Total 2754 ml Output Total 4675 ml Balance -1921 ml Capillary Refill : Less Than 3 Seconds General Appearance: No Apparent Distress, Other (On ventilator) HEENT: Normal ENT Inspection Neck: Normal Inspection Respiratory: No Accessory Muscle Use, No Respiratory Distress, Decreased Breath Sounds Cardiovascular: Regular Rate, Rhythm Gastrointestinal: non tender, soft Results Lab Laboratory Tests 05/10/19 13:05 05/10/19 13:55 05/11/19 03:40 Laboratory Tests 05/10/19 11:01: Glucometer 108 05/10/19 13:05: Sodium Level 143, Potassium Level 3.3L, Chloride Level 107, Carbon Dioxide Level 18L, Anion Gap 18H, Blood Urea Nitrogen 15, Creatinine 0.76, Estimat Glomerular Filtration Rate > 60, BUN/Creatinine Ratio 20, Glucose Level 118H, Calcium Level 9.0, Phosphorus Level 2.5, Magnesium Level 1.7, Troponin I < 0.028 05/10/19 13:49: Blood Gas Puncture Site LT RAD, Blood Gas Patient Temperature 36.0, Arterial Blood pH 7.37, Arterial Blood Partial Pressure CO2 35, Arterial Blood Partial Pressure O2 203H, Arterial Blood HCO3 20L, Arterial Blood Total CO2 21.2, Arterial Blood Oxygen Saturation 99, Arterial Blood Base Excess -4.5L, Darnell Test YES-POS, Blood Gas Ventilator Setting NO, Blood Gas Inspired Oxygen 100 L 05/10/19 13:55: Sodium Level 141, Potassium Level 3.6, Chloride Level 106, Carbon Dioxide Level 18L, Anion Gap 17H, Blood Urea Nitrogen 15, Creatinine 0.83, Estimat Glomerular Filtration Rate > 60, BUN/Creatinine Ratio 18, Glucose Level 140H, Calcium Level 9.3, White Blood Count 12.7H, Red Blood Count 5.34, Hemoglobin 14.9, Hematocrit 47, Mean Corpuscular Volume 88, Mean Corpuscular Hemoglobin 28, Mean Corpuscular Hemoglobin Concent 32, Red Cell Distribution Width 15.1H, Platelet Count 298, Mean Platelet Volume 10.7H, Neutrophils (%) (Auto) 64, Lymphocytes (%) (Auto) 27, Monocytes (%) (Auto) 7, Eosinophils (%) (Auto) 2, Basophils (%) (Auto) 0, Neutrophils # (Auto) 8.1H, Lymphocytes # (Auto) 3.5, Monocytes # (Auto) 0.9, Eosinophils # (Auto) 0.2, Basophils # (Auto) 0.1, Prothrombin Time 13.9, INR Comment 1.0, Lactic Acid Level 2.16*H, Corrected Calcium 9.1, Total Bilirubin 0.8, Aspartate Amino Transf (AST/SGOT) 67H, Alanine Aminotransferase (ALT/SGPT) 99H, Alkaline Phosphatase 138H, Total Protein 8.1, Albumin 4.3, Triglycerides Level 199H 05/10/19 16:00: Lactic Acid Level 1.35 05/10/19 16:55: Glucometer 166H 05/11/19 03:40: White Blood Count 11.9H, Red Blood Count 4.64, Hemoglobin 13.2, Hematocrit 41, Mean Corpuscular Volume 88, Mean Corpuscular Hemoglobin 28, Mean Corpuscular Hemoglobin Concent 32, Red Cell Distribution Width 14.9H, Platelet Count 284, Mean Platelet Volume 10.5H, Neutrophils (%) (Auto) 78H, Lymphocytes (%) (Auto) 13, Monocytes (%) (Auto) 8, Eosinophils (%) (Auto) 1, Basophils (%) (Auto) 0, Neutrophils # (Auto) 9.3H, Lymphocytes # (Auto) 1.5, Monocytes # (Auto) 1.0, Eosinophils # (Auto) 0.1, Basophils # (Auto) 0.0, Blood Gas Puncture Site RT RADIAL, Blood Gas Patient Temperature 36.1, Arterial Blood pH 7.38, Arterial Blood Partial Pressure CO2 25L, Arterial Blood Partial Pressure O2 69L, Arterial Blood HCO3 15*L, Arterial Blood Total CO2 15.5L, Arterial Blood Oxygen Saturation 93L, Arterial Blood Base Excess -9.5L, Darnell Test YES-POS, Blood Gas Ventilator Setting YES, Blood Gas Inspired Oxygen 22%, Sodium Level 143, Potassium Level 3.0L, Chloride Level 108H, Carbon Dioxide Level 12L, Anion Gap 23H, Blood Urea Nitrogen 17, Creatinine 1.05, Estimat Glomerular Filtration Rate 52, BUN/Creatinine Ratio 16, Glucose Level 180H, Calcium Level 8.4L, Phosphorus Level 4.0, Magnesium Level 2.0, B-Type Natriuretic Peptide 888.9H Microbiology 05/07/19 Blood Culture - Preliminary, Resulted No growth 05/08/19 MRSA Screen - Final, Complete MRSA not isolated 05/07/19 Urine Culture - Final, Complete NO GROWTH Assessment/Plan Assessment/Plan Assess & Plan/Chief Complaint Sepsis. Acute respiratory failure. Pneumonia. Congestive heart failure. Dementia. History of scabies.. . 05/10/19. Sepsis better. Acute respiratory failure better. Pneumonia. Congestive heart failure BNP elevated morning. Dementia. History of scabies. Consult with cardiology. . 05/11/19. Patient coded yesterday. Patient on ventilator. Patient has severe dementia. We'll get in touch with daughter today who lives in [place] to find out what she wants us to do. Sepsis. Acute respiratory failure. Pneumonia. Congestive heart failure. Severe dementia History of scabies Clinical Quality Measures DVT/VTE Risk/Contraindication: Risk Factor Score Per Nursin RFS Level Per Nursing on Admit: 4+=Very High LANETTE WILCOX DO May 11, 2019 07:39
--- NOTE | 2019-05-11 08:32 | Diagnostic Imaging Report ---
INDICATION: Elevated BNP. Time of exam: 2:17 AM Correlation is made with prior chest from earlier the same day. Various support lines and catheters remain in place. A right IJ line has been placed and has tip near the SVC right atrial junction. Right hemidiaphragm is mildly elevated. There appears to be some aneurysmal dilatation of the thoracic aorta. Right lung appears fairly clear. There may be some subsegmental atelectasis in the left base. No effusion or pneumothorax is seen. IMPRESSION: Overall stable appearance to the chest when compared with examination one day earlier. Dictated by: Dictated on workstation # [id number]
[2019-05-11] MEDS: PANTOPRAZOLE 40 MG (PROTONIX) VIAL IV SCH (09:48)
[2019-05-11] MEDS: QUEtiapine 100 MG (SEROquel) TAB IMMEDIATE RELEASE PO SCH ×2 (09:48→20:19)
[2019-05-11] MEDS: meTOprolol TARTRATE 25 MG (LOPRESSOR) TABLET PO SCH ×2 (09:49→20:20)
[2019-05-11] MEDS: DOXYCYCLINE INJECTION 100 MG in NS (IVPB) 100 ML IV SCH ×2 (09:49→20:19)
[2019-05-11] MEDS: ENALAPRIL 2.5 MG (VASOTEC) TAB PO SCH (09:49)
--- NOTE | 2019-05-11 10:04 | Physical Therapy Progress Note ---
Therapy Progress Note Patient had a code blue yesterday and is currently on the vent. Will monitor patient condition. ERIN WINTER PT May 11, 2019 10:04
--- NOTE | 2019-05-11 10:23 | Cardiology Progress Note ---
Subjective Date Seen by Provider: May 11, 2019 Time Seen by Provider: 10:20 Subjective/Events-last exam patient is sedated and intubated Had percent applying yesterday and was coded and intubated. Review of Systems General: Other (sedated and intubated, unable to provide review of systems) Focused Exam Sepsis Stage: Ruled Out Lactate Level 05/08/19 13:30: Lactic Acid Level 1.66 05/10/19 13:55: Lactic Acid Level 2.16*H 05/10/19 16:00: Lactic Acid Level 1.35 Respiratory: Chest Non Tender, Decreased Breath Sounds, Inspiration Cardiovascular: Regular Rate, Rhythm, No Edema, Systolic Murmur Capillary Refill: Less Than 3 Seconds Skin: warm/dry Objective-Cardiology Exam Last Set of Vital Signs Vital Signs 05/11/19 05/11/19 05/11/19 03:31 06:42 09:00 Temp 36.1 Pulse 72 Resp 22 B/P (MAP) 106/60 (75) Pulse Ox 100 O2 Delivery Mechanical Ventilator O2 Flow Rate 30.00 FiO2 25 Capillary Refill : Less Than 3 Seconds I&O Intake and Output 05/11/19 00:00 Intake Total 2579 ml Output Total 5925 ml Balance -3346 ml Intake Oral 415 ml IV Total 2164 ml Output Urine Total 5925 ml General: Other (sedated and intubated) HEENT: Atraumatic, PERRLA Neck: Supple, No JVD Lungs: Other (bilateral rhonchi) Heart: Regular Rate, Normal S1, Normal S2 Abdomen: Normal Bowel Sounds Extremities: No Clubbing, No Cyanosis Skin: No Rashes Neuro: Other (sedated and intubated) Psych/Mental Status: Other (sedated and intubated) Results Lab Laboratory Tests 05/10/19 13:05 05/10/19 13:55 05/11/19 03:40 A/P-Cardiology Admission Diagnosis Sepsis Congestive heart failure, acute left ventricular systolic dysfunction Hypotension Metabolic acidosis Assessment/Plan acute respiratory failure status post CODE BLUE, sedated and intubated, I will start weaning trial at this point. Ventricular fibrillation, torsades de pointes, probably secondary to severe cardiomyopathy, if family decided on aggressive management track patient would need cardiac catheterization and possible ICD implant Congestive heart failure, acute left ventricular systolic dysfunction, unknown etiology, troponin is negative, EKG did not show any acute changes, probably nonischemic cardiomyopathy, underlying coronary artery disease cannot be entirely excluded. Cannot tolerate beta blockers and or EDITA inhibitor due to hypotension. monitor blood pressure at this time Hypertensive shock, maintained on pressor, secondary to sepsis, improving. Continue to monitor blood pressure Metabolic acidosis, lactic acidosis, improving slowly, still acidotic at this time. Dementia, questionable history of CVA. CT of the head in the past reported microvascular ischemia and atrophy, recommend evaluating MRI if possible History of scabies, treated twice in the past. Maintained in isolation Difficult and complex management, patient has underlying dementia, discussed in length the management plan with Dr. Miller. We will try weaning trial and try to extubate today. Clinical Quality Measures DVT/VTE Risk/Contraindication: Risk Factor Score Per Nursin RFS Level Per Nursing on Admit: 4+=Very High VANE SMITH MD May 11, 2019 10:23
[2019-05-11] MEDS: DEXMEDETOMIDINE 1,000 MCG/NS 250 ML IV SCH ×2 (10:40)
[2019-05-11 10:54] LABS: CREATININE SERUM 1.08 MG/DL (0.60-1.30); POTASSIUM 3.5 MMOL/L (3.6-5.0)
[2019-05-11 10:55] LABS: CALCIUM 8.4 MG/DL (8.5-10.1)
[2019-05-11] MEDS ORDERED: FUROSEMIDE 40 MG/4 ML INJ (LASIX) IVP NR (11:24)
[2019-05-11] MEDS: NOREPINEPHRINE 4 MG in NS (IVPB) 250 ML IV SCH (13:08)
--- NOTE | 2019-05-11 13:15 | Occ Therapy Progress Note ---
Therapy Progress Note Order received for OT eval and treat. Chart review completed. Pt currently on ventilator. Will hold therapy at this time. Will continue to monitor and initiate therapy as appropriate. JESSICA MCMULLEN OT May 11, 2019 13:15
--- NOTE | 2019-05-11 16:28 | NUR ---
Chaplain Méndez requested on behalf of the family that I contact the [facility] for anointing. I contacted Fr. Barnes with [facility] who told me that he and the other priests were in [place]. Fr. Barnes is contacting Fr. Bal Alonzo, retired inspector grain [employer], to inquire if he may visit the family.
[2019-05-11 16:29] LABS: CALCIUM 8.6 MG/DL (8.5-10.1); CREATININE SERUM 1.22 MG/DL (0.60-1.30); POTASSIUM 3.2 MMOL/L (3.6-5.0)
--- NOTE | 2019-05-11 16:35 | NUR ---
Pastoral care visit, responded to page as family had arrived from out of state. family is son, daughter and dil, pt is intubated and sedated. Plan appears to be to allow pt to awaken for possible communication with adult children. They disclosed that pt is Denominational and possibly would want to be anointed. I requested Dairy Technician Marcella contact local [place]. I also conveyed to family our availability and conveyed to nurse evening Chaplains availability.
--- NOTE | 2019-05-11 16:57 | NUR ---
Joined Fr. Selby and family in Sacrament of the Sick and prayer. Family present from out of town at bedside. Pt appears calm and palliated. Family expressing love for her at bedside.
[2019-05-11] MEDS: DOBUTamine DRIP 250 ML IV SCH (17:39)
[2019-05-11] MEDS: ACETAMINOPHEN 500 MG TAB (TYLENOL) PO PRN (20:20)
[2019-05-11] MEDS: NS IV 1000 ML 1,000 ML IV SCH (20:33)
[2019-05-11] MEDS ORDERED: LABETALOL HCL 20 MG/4 ML VIAL IV PRN (21:45)
[2019-05-12] VITALS (22 sets, daily range): BP systolic 99–170; BP diastolic 11–119
[2019-05-12] MEDS: NOREPINEPHRINE 4 MG in NS (IVPB) 250 ML IV SCH ×3 (00:53→15:06)
[2019-05-12] MEDS: inSUlin ASPART (NovoLOG) 1 UNIT/0.01 ML (CHARGE PER UNIT) SC SCH ×5 (00:53→22:25)
[2019-05-12] MEDS: ENOXAPARIN 40 MG/0.4 ML (LOVENOX) SYR SC SCH (01:01)
[2019-05-12] MEDS: cefTRIAXone FOR IV USE 1,000 MG in WATER (STERILE) FOR INJECTION 10 ML IV SCH (01:01)
[2019-05-12] MEDS: VASOPRESSIN INJECTION 20 UNIT in NORMAL SALINE 100 ML IV SCH ×3 (01:02→18:14)
[2019-05-12 04:07] LABS: BASOPHILS % (AUTO) 0 % (0-10); EOSINOPHILS # (AUTO) 0.1 10^3/uL (0.0-0.3); EOSINOPHILS % (AUTO) 1 % (0-10); HEMATOCRIT 41 % (35-52); HEMOGLOBIN 13.1 G/DL (11.5-16.0); LYMPHOCYTES # (AUTO) 1.3 X 10^3 (1.0-4.0); LYMPHOCYTES % (AUTO) 8 % (12-44); MEAN CORPUSCULAR HEMOGLOBIN 28 PG (25-34); MEAN CORPUSCULAR HGB CONC 32 G/DL (32-36); MEAN CORPUSCULAR VOLUME 88 FL (80-99); MEAN PLATELET VOLUME 10.4 FL (7.4-10.4); MONOCYTES # (AUTO) 1.2 X 10^3 (0.0-1.0); MONOCYTES % (AUTO) 8 % (0-12); NEUTROPHILS # (AUTO) 13.1 X 10^3 (1.8-7.8); NEUTROPHILS % (AUTO) 84 % (42-75); PLATELET COUNT 277 10^3/uL (130-400); RED CELL DISTRIBUTION WIDTH 15.2 % (10.0-14.5); WHITE BLOOD COUNT 15.7 10^3/uL (4.3-11.0)
[2019-05-12 04:35] LABS: LYMPHOCYTES % (MANUAL) 9 %; MONOCYTES % (MANUAL) 8 %; NEUTROPHILS % (MANUAL) 83 %
[2019-05-12 04:36] LABS: RBC MORPH NORMAL
[2019-05-12 04:50] LABS: CALCIUM 9.4 MG/DL (8.5-10.1); CREATININE SERUM 1.1 MG/DL (0.60-1.30); MAGNESIUM 1.7 MG/DL (1.6-2.4); PHOSPHORUS 2.9 MG/DL (2.3-4.7); POTASSIUM 3.1 MMOL/L (3.6-5.0)
[2019-05-12] MEDS: KCL 20 MEQ TAB (K-DUR) PO SCH ×2 (04:58→08:10)
[2019-05-12] MEDS: MAGNESIUM 1 GM/100 ML IVPB 100 ML IV SCH ×3 (04:58→06:34)
[2019-05-12] MEDS: POTASSIUM CL 10MEQ/50ML IVPB 50 ML IV SCH ×5 (04:58→16:39)
[2019-05-12] MEDS: DEXMEDETOMIDINE 1,000 MCG/NS 250 ML IV SCH ×2 (05:52)
[2019-05-12] MEDS: FUROSEMIDE 40 MG/4 ML INJ (LASIX) IVP SCH (05:58)
--- NOTE | 2019-05-12 06:12 | Diagnostic Imaging Report ---
INDICATION: Congestive heart failure. Portable chest 5:14 AM FINDINGS: Right IJ central line tip projects over the cavoatrial junction. Heart size and pulmonary vascularity are normal. Lungs are clear. There are no effusions or pneumothoraces. IMPRESSION: No acute abnormalities in the chest. Dictated by: Dictated on workstation # [id number]
[2019-05-12] MEDS: RT-ALBUTEROL SULF 2.5 MG/3 ML PRE-MIX VIAL INH SCH ×4 (07:22→20:55)
--- NOTE | 2019-05-12 07:52 | Progress Note ---
Subjective Time Seen by a Provider: 07:48 Subjective/Events-last exam Patient has been extubated. Patient awake. Patient's family here in [place]. Patient doing much better. Focused Exam Lactate Level 05/10/19 13:55: Lactic Acid Level 2.16*H 05/10/19 16:00: Lactic Acid Level 1.35 Objective Exam Vital Signs Date Time Temp Pulse Resp B/P (MAP) Pulse Ox O2 Delivery O2 Flow Rate FiO2 05/12/19 07:22 95 Room Air 05/12/19 07:00 101 05/12/19 06:00 100 24 129/11 (50) Room Air 05/12/19 05:00 103 29 144/93 (110) Room Air 05/12/19 04:00 Room Air 05/12/19 04:00 100 28 123/62 (82) 82 Room Air 05/12/19 03:00 94 26 118/84 (95) 89 Room Air 05/12/19 02:00 98 57 107/49 (68) 92 Room Air 05/12/19 01:03 104 05/12/19 01:00 105 40 109/61 (77) 94 Room Air 05/12/19 00:00 Room Air 05/12/19 00:00 100 36 115/67 (83) 93 Room Air 05/11/19 23:00 105 37 125/69 (87) 97 Room Air 05/11/19 22:00 118 46 145/89 (107) 90 Room Air 05/11/19 21:00 138 38 147/97 (114) 93 Room Air 05/11/19 20:00 Room Air 05/11/19 20:00 37.9 05/11/19 20:00 142 177/99 (125) 95 Room Air 05/11/19 19:10 97 Room Air 05/11/19 19:05 130 05/11/19 19:00 131 42 153/112 (126) 98 Room Air 05/11/19 18:00 116 27 156/125 (135) 97 Room Air 05/11/19 17:39 150/93 05/11/19 17:00 95 24 145/113 (124) 100 Room Air 05/11/19 16:31 100 Nasal Cannula 4.00 05/11/19 16:31 Room Air 05/11/19 16:00 98 26 125/75 (92) 98 Mechanical Ventilator 30.00 05/11/19 16:00 Mechanical Ventilator 25 05/11/19 15:00 109 33 146/88 (107) 99 Mechanical Ventilator 30.00 05/11/19 14:46 113 18 100 30 05/11/19 14:00 79 24 131/74 (93) 100 Mechanical Ventilator 30.00 05/11/19 13:00 80 05/11/19 13:00 80 25 130/72 (91) 100 Mechanical Ventilator 30.00 05/11/19 12:00 92 27 112/37 (62) 99 Mechanical Ventilator 30.00 05/11/19 12:00 Mechanical Ventilator 25 05/11/19 12:00 36.0 05/11/19 11:00 94 12 105/55 (72) 100 Mechanical Ventilator 30.00 05/11/19 10:27 78 24 100 30 05/11/19 10:00 72 18 123/72 (89) 100 Mechanical Ventilator 30.00 05/11/19 09:00 72 22 106/60 (75) 100 Mechanical Ventilator 30.00 05/11/19 08:00 Mechanical Ventilator 25 05/11/19 08:00 80 28 113/55 (74) 100 Mechanical Ventilator 30.00 05/11/19 07:50 Mechanical Ventilator 30.00 I & O 05/12/19 07:00 Intake Total 1320 ml Output Total 3600 ml Balance -2280 ml Capillary Refill : Less Than 3 Seconds General Appearance: No Apparent Distress, WD/WN HEENT: Normal ENT Inspection Neck: Full Range of Motion, Normal Inspection Respiratory: No Accessory Muscle Use, No Respiratory Distress, Decreased Breath Sounds Cardiovascular: Regular Rate, Rhythm, No Murmur Gastrointestinal: non tender, soft Results Lab Laboratory Tests 05/11/19 10:30 05/11/19 15:30 05/12/19 03:50 05/12/19 03:55 Laboratory Tests 05/11/19 10:30: Sodium Level 143, Potassium Level 3.5L, Chloride Level 111H, Carbon Dioxide Level 16L, Anion Gap 16H, Blood Urea Nitrogen 15, Creatinine 1.08, Estimat Glomerular Filtration Rate 51, BUN/Creatinine Ratio 14, Glucose Level 171H, Calcium Level 8.4L 05/11/19 15:30: Sodium Level 143, Potassium Level 3.2L, Chloride Level 108H, Carbon Dioxide Level 17L, Anion Gap 18H, Blood Urea Nitrogen 14, Creatinine 1.22, Estimat Glomerular Filtration Rate 44, BUN/Creatinine Ratio 11, Glucose Level 214H, Calcium Level 8.6 05/12/19 03:50: Sodium Level 147H, Potassium Level 3.1L, Chloride Level 111H, Carbon Dioxide Level 18L, Anion Gap 18H, Blood Urea Nitrogen 13, Creatinine 1.10, Estimat Glomerular Filtration Rate 50, BUN/Creatinine Ratio 12, Glucose Level 132H, Calcium Level 9.4, Phosphorus Level 2.9, Magnesium Level 1.7 05/12/19 03:55: White Blood Count 15.7H, Red Blood Count 4.70, Hemoglobin 13.1, Hematocrit 41, Mean Corpuscular Volume 88, Mean Corpuscular Hemoglobin 28, Mean Corpuscular Hemoglobin Concent 32, Red Cell Distribution Width 15.2H, Platelet Count 277, Mean Platelet Volume 10.4, Neutrophils (%) (Auto) 84H, Lymphocytes (%) (Auto) 8L , Monocytes (%) (Auto) 8, Eosinophils (%) (Auto) 1, Basophils (%) (Auto) 0, Neutrophils # (Auto) 13.1H, Lymphocytes # (Auto) 1.3, Monocytes # (Auto) 1.2H, Eosinophils # (Auto) 0.1, Basophils # (Auto) 0.0, Neutrophils % (Manual) 83, Lymphocytes % (Manual) 9, Monocytes % (Manual) 8, Blood Morphology Comment NORMAL Microbiology 05/07/19 Blood Culture - Preliminary, Resulted No growth 05/10/19 Gram Stain - Final, Resulted 05/10/19 Sputum Culture - Preliminary, Resulted Usual upper respiratory cande 05/07/19 Urine Culture - Final, Complete NO GROWTH Assessment/Plan Assessment/Plan Assess & Plan/Chief Complaint Sepsis. Acute respiratory failure. Pneumonia. Congestive heart failure. Dementia. History of scabies.. . 05/10/19. Sepsis better. Acute respiratory failure better. Pneumonia. Congestive heart failure BNP elevated morning. Dementia. History of scabies. Consult with cardiology. . 05/11/19. Patient coded yesterday. Patient on ventilator. Patient has severe dementia. We'll get in touch with daughter today who lives in [place] to find out what she wants us to do. Sepsis. Acute respiratory failure. Pneumonia. Congestive heart failure. Severe dementia History of scabies . 05/12/19. Patient extubated off ventilator. Sepsis. Ventricular fibrillation. CHF. Acute left ventricle systolic dysfunction. Dementia Clinical Quality Measures DVT/VTE Risk/Contraindication: Risk Factor Score Per Nursin RFS Level Per Nursing on Admit: 4+=Very High LANETTE WILCOX DO May 12, 2019 07:52
--- NOTE | 2019-05-12 08:09 | Cardiology Progress Note ---
Subjective Date Seen by Provider: May 12, 2019 Time Seen by Provider: 08:07 Subjective/Events-last exam Patient is laying down in bed, mild shortness of breath, still not responding appropriately Review of Systems General: Other (Unable to provide review of systems) Focused Exam Lactate Level 05/10/19 13:55: Lactic Acid Level 2.16*H 05/10/19 16:00: Lactic Acid Level 1.35 Objective-Cardiology Exam Last Set of Vital Signs Vital Signs 05/11/19 05/12/19 05/12/19 16:00 07:22 08:00 Pulse 107 Resp 35 B/P (MAP) 121/92 (102) Pulse Ox 95 O2 Delivery Room Air FiO2 25 Capillary Refill : Less Than 3 Seconds I&O Intake and Output 05/12/19 00:00 Intake Total 1570 ml Output Total 3900 ml Balance -2330 ml Intake Oral 120 ml IV Total 1450 ml Output Urine Total 3900 ml General: Alert, Mild Distress HEENT: Atraumatic, PERRLA Neck: Supple, No JVD Lungs: Other (bilateral rhonchi) Heart: Regular Rate, Normal S1, Normal S2 Abdomen: Normal Bowel Sounds Extremities: No Clubbing, No Cyanosis Skin: No Rashes Neuro: Other (Awake and not following commands) Psych/Mental Status: Other (Awake, not responding appropriately) Results Lab Laboratory Tests 05/11/19 10:30 05/11/19 15:30 05/12/19 03:50 05/12/19 03:55 A/P-Cardiology Admission Diagnosis Sepsis Congestive heart failure, acute left ventricular systolic dysfunction Hypotension Metabolic acidosis Assessment/Plan Status post acute respiratory failure post CODE BLUE, currently extubated, doing better. Hypokalemia, persistent, starting oral potassium in addition to the IV and monitor electrolytes closely Status post ventricular fibrillation, torsades de pointes, prolonged QT interval. Severe cardiomyopathy, acute on chronic left ventricular systolic dysfunction, unknown etiology, cardiac enzymes negative, we'll discuss with the family her prognosis and the possibility of stress test and possibility of ICD implant Status post hypotensive shock, blood pressure is better, I'll start low-dose beta blockers and evaluate tolerance and response Metabolic acidosis, lactic acidosis, improving slowly, still acidotic at this time. Dementia, questionable history of CVA. CT of the head in the past reported microvascular ischemia and atrophy, recommend evaluating MRI if possible History of scabies, treated twice in the past. Maintained in isolation Clinical Quality Measures DVT/VTE Risk/Contraindication: Risk Factor Score Per Nursin RFS Level Per Nursing on Admit: 4+=Very High VANE SMITH MD May 12, 2019 08:09
[2019-05-12] MEDS: PANTOPRAZOLE 40 MG (PROTONIX) VIAL IV SCH (08:10)
[2019-05-12] MEDS: QUEtiapine 100 MG (SEROquel) TAB IMMEDIATE RELEASE PO SCH ×2 (08:10→20:21)
[2019-05-12] MEDS: ENALAPRIL 2.5 MG (VASOTEC) TAB PO SCH (08:10)
[2019-05-12] MEDS: meTOprolol TARTRATE 25 MG (LOPRESSOR) TABLET PO SCH ×2 (08:10→20:21)
[2019-05-12] MEDS: DOXYCYCLINE INJECTION 100 MG in NS (IVPB) 100 ML IV SCH ×2 (08:10→20:21)
[2019-05-12] MEDS: PROPOFOL DRIP (ICU) 100 ML IV SCH (09:06)
[2019-05-12] MEDS: CARVEDILOL 3.125 MG (COREG) TABLET PO SCH ×2 (09:07→20:21)
[2019-05-12] MEDS: LOSARTAN 25 MG (COZAAR) TAB PO SCH (09:07)
[2019-05-12] MEDS: FUROSEMIDE 20 MG (LASIX) TAB PO SCH (09:08)
--- NOTE | 2019-05-12 09:44 | ST Dysphagia Evaluation ---
Speech Evaluation-General Medical Diagnosis Severe sepsis, pneumonia Onset Date: May 07, 2019 Therapy Diagnosis Therapy Diagnosis: Oropharyngeal Dysphagia Precautions Precautions: Aspiration Precautions/Isolations: Aspiration Referral Referring Physician: Dr. Miller Reason for Referral: Evaluation/Treatment Medical History Pertinent Medical History: Dementia Social History Current Living Status: Speech PLF/Current-Dysphagia Prior Level of Function Patient is reported to have dementia. She is also non Green[place]ic speaking. Her prior level of function is unknown. Subjective Patient was compliant with Bedside Dysphagia Evaluation. Cognitive Status Patient Orientation: Person, Confused Patient has dementia. Oral Motor Skills Dentition: Natural, Tumbled, Stained Patient was NPO pending Bedside Dysphagia Evaluation. Oral Expression Ability: Unable Face Facial Symmetry: Symmetrical Oral-Facial Assessment Oral-Facial Dentition: Normal Labial Seal Description: Normal Unable to understand the direction to complete. Lingual Protrusion: Normal Lingual ROM: Normal Lingual Strength: Normal Pharynx Velopharyngeal Move.: Normal Volitional Dry Swallow: Yes Productive Cough: No Productive Throat Clear: No Dysphagia Evaluation Consistencies Presented: Regular, Thin Liquid, Mechanical Soft, Pureed Oral stage is within normal function for all textures. Pharyngeal stage is within normal function for all textures. Dietary Recommendations: Regular Liquid Recommendations: Thin Swallowing Precautions: Alternate Liquids/Solids, Liquids from Straw, Small Bi lina and Sips, Sitting Upright 90 Degrees, Sitting 90 Degrees 30 Post Intake Dysphagia Evaluation Summary Patient was admitted to the hospital on 05/07/19. She was intubated with extubation on 05/11/19. Patient completed the Bedside Dysphagia Evaluation with the following consistencies: Thin 1/2 tsp x2 and small sips x2 without difficulty. Puree, mechanical soft and regular at 1/2 tsp bite size without s/s of aspiration. Patient will be on a regular with thin. This information was provided to her nurse and written on the white board in her room. Barriers to Learning Patient has dementia. Speech-Plan Patient/Family Goals Patient/Family Goals: Patient's plans are unknown due to inability to communicate. Treatment Plan Speech Therapy Treatment Plan: Discontinue ST Patient does not require further ST services at this time. Treatment Duration: May 12, 2019 Frequency: 1 time per week Estimated Hrs Per Day: .25 hour per day Rehab Potential: Fair Barriers to Learning: Patient has dementia Pt/Family Agrees to Plan: Yes Safety Risks/Education Teaching Recipient: Patient Teaching Methods: Discussion Response to Teaching: Unable to Comprehend, Reinforcement Needed Education Topics Provided: Safety of oral intake and diet level Time Speech Therapy Time In: 08:45 Speech Therapy Time Out: 09:00 Total Billed Time: 15 Billed Treatment Time 1RAYNA B[address] ST May 12, 2019 09:44
--- NOTE | 2019-05-12 11:34 | NUR ---
Pastoral care visit, pt extubated and resting as children sat at bedside speaking with her. Family coping well.
--- NOTE | 2019-05-12 12:07 | NUR ---
CM/SS spoke with patient's family at the bedside (son/daughter/daughter in law) they expressed they would prefer her to not return to [facility] where the patient has resided for the last two years in the locked unit due to wandering / elopement risk. Discussed that was the only locked unit facility available in the area. They requested information be sent to [facility] to see if they would consider accepting. The daughter stated that she does just want to be outside and that if a facility would just let her sit outside it would keep her mother happy, discussed that imagined any facility would try to get them outside as much as able but with and wandering and elopement risk would likely require one to one staff. They discussed that they would like to move her to either [place] (daughter) or [place] (son). They stated that they had been trying to work towards this for last couple of years. Discussed patient stability to travel as well as how they felt she would do with that, they were unsure but thought they would travel by plane when/if they found a facility closer to them. Referral sent to [facility] for consideration at the family's request.
--- NOTE | 2019-05-12 12:26 | Physical Therapy Evaluation ---
PT Evaluation-General Medical Diagnosis Admission Date May 07, 2019 at 01:15 Medical Diagnosis: Severe sepsis, pneumonia Onset Date: May 07, 2019 Therapy Diagnosis Therapy Diagnosis: generalized weakness/debility Height/Weight Height (Feet): 5 Height (Inches): 4.00 Weight (Pounds): 170 Weight (Ounces): 1.0 Precautions Precautions/Isolations: Aspiration Referral Physician: Rosana Reason for Referral: Evaluation/Treatment Medical History Pertinent Medical History: DM, Dementia Current History EMS from [place] change in condition Reviewed History: Yes Social History Home: Group Home Current Living Status: Prior Prior Level of Function SCALE: Activities may be completed with or without assistive devices. 5-Rbqhpecmis-yxgeier completes the activity by him/herself with no assistance from a helper. 5-Set-up or Clean-up Assistance-helper sets up or cleans up; patient completes activity. [place] assists only prior to or following the activity. 4-Supervision or Touching Assistance-helper provides verbal cues and/or touching/steadying and/or contact guard assistance as patient completes activity. Assistance may be provided throughout the activity or intermittently. 3-Partial/Moderate Assistance-helper does LESS THAN HALF the effort. [place] lifts, holds or supports trunk or limbs, but provides less than half the effort. 2-Substantial/Maximal Assistance-helper does MORE THAN HALF the effort. [place] lifts or holds trunk or limbs and provides more than half the effort. 5-Ddkirrkqc-ynjnam does ALL the effort. Patient does none of the effort to compl ete the activity. Or, the assistance of 2 or more helpers is required for the patient to complete the activity. If activity was not attempted, code reason: 7-Patient Refused. 9-Not Applicable-not attempted and the patient did not perform the activity before the current illness, exacerbation or injury. 10-Not Attempted due to Environmental Limitations-(lack of equipment, weather restraints, etc.). 88-Not Attempted due to Medical Conditions or Safety Concerns. Bed Mobility: 5 Transfers (B,C,W/C): 5 Gait: 5 Indoor Mobility (Ambulation): Independent in Locked down portion of NH PT Evaluation-Current Subjective Family present and agrees to PT. Objective Patient Orientation: Confused Problem Solving: Poor Attachments: Zapien Catheter, IV ROM/Strength ROM Lower Extremities bilateral LE WFL Strength Lower Extremities 3/5 grossly bilateral LE Integumentary/Posture Integumentary refer to nursing notes Bladder Incontinence: Zapien Cath Posture WFL Neuromuscular (Tone, Coordination, Reflexes) diminished coordination due to decreased activity Sensory Vision: Functional Hearing: Impaired Sensation Right Lower Extremit: Impaired Sensation Left Lower Extremity: Impaired Transfers Roll Left to Right (QC): 3 Sit to Lying (QC): 3 Lying to Sitting/Side of Bed(Q: 3 Sit to Stand (QC): 3 Chair/Inq-cu-Pwicc Xfer(QC): 3 Gait Does the Patient Walk?: Yes Mode of Locomotion: Walk Anticipated Mode of Locomotion: Walk Distance (FIM): 2=675-27 ft Walk 10 feet (QC): 3 Walk 50 ft with 2 Turns(QC): 3 Walk 150 ft (QC): 88 Distance: 50' Gait Assistive Device: FWW Comments/Gait Description unsteady with FWW Balance Sitting Static: Fair Sitting Dynamic: Fair Standing Static: Fair Standing Dynamic: Fair Assessment/Needs 69 y.o. female, will benefit from skilled PT to address functional strength and mobility to improve current LOF to safely return to [place] at maximum LOF. Rehab Potential: Fair PT Snf Goals Snf Goals PT Operations Controller Goals Time Frame: May 27, 2019 Sit to Lying (QC): 5 Lying-Sitting on Side/Bed(QC): 5 Sit to Stand (QC): 5 Roll Left to Right (QC): 5 Chair/Flv-jk-Imdcf Xfer(QC): 5 Does the Patient Walk: Yes Distance: 200' Walk 10 feet (QC): 5 Walk 10ft-Uneven Surface(QC): 5 Walk 50ft with 2 Turns (QC): 5 Walk 150 ft (QC): 5 Gait Assistive Device: None, FWW PT Plan Problem List Problem List: Activity Tolerance, Functional Strength, Safety, Balance, Gait, Transfer, Bed Mobility Treatment/Plan Treatment Plan: Continue Plan of Care Treatment Plan: Bed Mobility, Education, Functional Activity [place], Functional Strength, Gait, Safety, Therapeutic Exercise Treatment Duration: May 27, 2019 Frequency: 6 times per week Estimated Hrs Per Day: .25 hour per day Patient and/or Family Agrees t: Yes Discharge Recommendations Therapy Discharge Recommendati: Other, See Comments ([place]) Time/GCodes Time In: 1132 Time Out: 1145 Total Billed Treatment Time: 13 Total Billed Treatment 1 visit EVMod 13 min FLACO ALAMO PT May 12, 2019 12:26
--- NOTE | 2019-05-12 15:06 | Occupational Therapy Eval ---
OT Evaluation-General/PLF Medical Diagnosis Admission Date May 07, 2019 at 01:15 Medical Diagnosis: Severe sepsis, pneumonia Onset Date: May 07, 2019 Therapy Diagnosis Therapy Diagnosis: Weakness Height/Weight Height (Feet): 5 Height (Inches): 4.00 Weight (Pounds): 170 Weight (Ounces): 1.0 Precautions Precautions/Isolations: Aspiration, Contact/Enteric Isolation Safety Interventions: Bed Exit Alarm Comments Pt. has been diagnosed with scabies but has been treated. Pt. has sitter in room. Referral Physician: Rosana Referral Reason: Activity Tolerance, Self Care, Evaluation/Treatment, Strengthening/ROM Medical History Pertinent Medical History: DM, Dementia, HTN Additional Medical History Renal failure, chronic back pain, personality disorder, depression, CHF. Current History Pt. from [place]. Is on closed unit due to dementia. Pt. is unable to give information but smiles at therapist. Nursing notified OT that Luxembourgish is a second language for pt. Reviewed History: Yes Social History Home: Retirement Current Living Status: Entry Into Home: Level Entry ADL-Prior Level of Function SCALE: Activities may be completed with or without assistive devices. 3-Xqfcfqotfz-movteyn completes the activity by him/herself with no assistance from a helper. 5-Set-up or Clean-up Assistance-helper sets up or cleans up; patient completes activity. [place] assists only prior to or following the activity. 4-Supervision or Touching Assistance-helper provides verbal cues and/or touching/steadying and/or contact guard assistance as patient completes activity. Assistance may be provided throughout the activity or intermittently. 3-Partial/Moderate Assistance-helper does LESS THAN HALF the effort. [place] lifts, holds or supports trunk or limbs, but provides less than half the effort. 2-Substantial/Maximal Assistance-helper does MORE THAN HALF the effort. [place] lifts or holds trunk or limbs and provides more than half the effort. 2-Rxrmhtiti-wzovui does ALL the effort. Patient does none of the effort to complete the activity. Or, the assistance of 2 or more helpers is required for the patient to complete the activity. If activity was not attempted, code reason: 7-Patient Refused. 9-Not Applicable-not attempted and the patient did not perform the activity before the current illness, exacerbation or injury. 10-Not Attempted due to Environmental Limitations-(lack of equipment, weather restraints, etc.). 88-Not Attempted due to Medical Conditions or Safety Concerns. ADL PLOF Comments It is unknown at this time what pt. is able to do for self. Pt. is unable to communicate this and family is not present at time of evaluation. Self Care: Unknown Functional Cognition: Unknown OT Current Status Subjective Pt. looked at OT and would smile at times. Would also yell out at times when OT assisted pt. with moving. Appearance Pt. in reclining chair when OT entered room. Mental Status/Objective Patient Orientation: Confused Attachments: Zapien Catheter, IV Current Pt. will not raise arms with visual or verbal demonstration to participate in UE assessment. OT did provided gentle PROM and pt. able to flex bilateral shoulders to approximately 90 degrees. ADL-Treatment Eating (QC): 1 (Nursing notified this therapist that pt. required full assistance to eat this date.) Oral Hygiene (QC): 1 (Pt. given toothbrush with toothpaste on it. Pt. put in mouth but began biting brush. OT gently re-directed pt., but pt. continued to do this so OT brushed pt.'s teeth for her. Pt. able to take a sip of water but unable to follow cue of spitting water out.) Shower/Bathe Self (QC): 1 (While in chair, pt. able to "dab" at upper chest wit h instruction with washcloth. Unable to wash any other part and OT did this for her. Stood with mod assist while another person completed frankie care.) Lower Body Dressing (QC): 1 (To doff/don slipper socks.) On/Off Footwear (QC): 1 Toileting Hygiene (QC): 1 (Pt. has catheter and required full assistance for frankie care during bath.) Other Treatments Pt. in reclining position when OT entered room. OT encouraged pt. to sit in more of an upright position but pt. would only smile. With cues and mod assist, pt. able to sit upright to participate in ADL activities. Pt. handed brush for hair but began to put it in her mouth. OT washed and brushed hair, assisted with sponge bath, and assisted pt. in stance for frankie care. Pt. able to make eye contact and smile at times, but would also yell out when standing. All needs met after ADLs and nursing sitter notified that pt. was done. Education OT Patient Education: Correct positioning, Exercise program, Modified ADL techniques, Progress toward Goal/Update tx plan, Purpose of tx/functional activities, Reviewed precautions, Rehab process, Safety issues, Transfer techniques Teaching Recipient: Patient Teaching Methods: Demonstration, Discussion Response to Teaching: Unable to Return Demonstration, Unable to Comprehend OT Short Term Goals Short Term Goals Time Frame: May 19, 2019 Eating(FIM): 2 Grooming(FIM): 2 Toileting(FIM): 2 Transfers (B,C,W/C) (FIM): 3 Toilet/Commode Transfer(FIM): 3 Additional Short Term Goals: 3-ImproveStrength/Isamar 1=Demonstrate adherence to instructed precautions during ADL tasks. 2=Patient will verbalize/demonstrate understanding of assistive devices/modifications for ADL. 3=Patient will improve strength/tolerance for activity to enable patient to perform ADL's. OT Furniture And Bedding Inspector Goals [facility] Goals Time Frame: May 26, 2019 Eating (QC): 4 Oral Hygiene (QC): 3 Toileting Hygiene (QC): 3 Toilet/Commode Transfer (QC): 4 Additional Goals: 1-Demonstrate ADL Tasks, 3-ImproveStrength/Isamar 1=Demonstrate adherence to instructed precautions during ADL tasks. 2=Patient will verbalize/demonstrate understanding of assistive devices/modifications for ADL. 3=Patient will improve strength/tolerance for activity to enable patient to perform ADL's. OT Education/Plan Problem List/Assessment Assessment: Decreased Activ Tolerance, Decreased Safety Aware, Decreased UE Strength, Dependent Transfers, Impaired Bed Mobility, Impaired Cognition, Impaired Coordination, Impaired Funct Balance, Impaired I ADL's, Impaired Self-Care Skills, Restricted Funct UE ROM Discharge Recommendations Plan/Recommendations: Continue POC Therapy Discharge Recommendati: 24 Hour Supervision Barriers to Progress Cognition and language barrier Treatment Plan/Plan of Care Treatment,Training & Education: Yes Patient would benefit from OT for education, treatment and training to promote independence in ADL's, mobility, safety and/or upper extremity function for ADL's. Plan of Care: ADL Retraining, Functional Mobility, UE Funct Exercise/Act Treatment Duration: May 26, 2019 Frequency: 5 times per week Estimated Hrs Per Day: .25 hour per day Agreement: Yes Rehab Potential: Guarded Time/GCodes Start Time: 13:20 Stop Time: 13:53 Total Time Billed (hr/min): 33 Billed Treatment Time 1, EVH x 15minutes, ADL x 18minutes DICKSON GUERRERO OT May 12, 2019 15:06
[2019-05-12] MEDS: NS IV 1000 ML 1,000 ML IV SCH (15:16)
[2019-05-12 15:42] LABS: CALCIUM 9.3 MG/DL (8.5-10.1); CREATININE SERUM 1.03 MG/DL (0.60-1.30); POTASSIUM 3.5 MMOL/L (3.6-5.0)
[2019-05-12] MEDS: DOBUTamine DRIP 250 ML IV SCH (15:54)
[2019-05-13] VITALS (23 sets, daily range): BP systolic 73–156; BP diastolic 23–108
[2019-05-13] MEDS: NOREPINEPHRINE 4 MG in NS (IVPB) 250 ML IV SCH ×3 (00:15→16:05)
[2019-05-13] MEDS ORDERED: RT-ALBUTEROL SULF 2.5 MG/3 ML PRE-MIX VIAL INH PRN (01:00)
[2019-05-13 03:08] LABS: BASOPHILS % (AUTO) 0 % (0-10); EOSINOPHILS # (AUTO) 0.3 10^3/uL (0.0-0.3); EOSINOPHILS % (AUTO) 2 % (0-10); HEMATOCRIT 42 % (35-52); HEMOGLOBIN 13.5 G/DL (11.5-16.0); LYMPHOCYTES # (AUTO) 1.6 X 10^3 (1.0-4.0); LYMPHOCYTES % (AUTO) 10 % (12-44); MEAN CORPUSCULAR HEMOGLOBIN 28 PG (25-34); MEAN CORPUSCULAR HGB CONC 32 G/DL (32-36); MEAN CORPUSCULAR VOLUME 88 FL (80-99); MEAN PLATELET VOLUME 10.5 FL (7.4-10.4); MONOCYTES # (AUTO) 1.4 X 10^3 (0.0-1.0); MONOCYTES % (AUTO) 9 % (0-12); NEUTROPHILS # (AUTO) 11.7 X 10^3 (1.8-7.8); NEUTROPHILS % (AUTO) 79 % (42-75); PLATELET COUNT 288 10^3/uL (130-400); RED CELL DISTRIBUTION WIDTH 15.5 % (10.0-14.5); WHITE BLOOD COUNT 14.9 10^3/uL (4.3-11.0)
[2019-05-13 03:27] LABS: ALANINE AMINOTRANSFERASE 40 U/L (0-55); ALBUMIN 3.7 GM/DL (3.2-4.5); ALKALINE PHOSPHATASE 127 U/L (40-136); BILIRUBIN,TOTAL 1.3 MG/DL (0.1-1.0); BUN/CREATININE RATIO 22; CALCIUM 9.1 MG/DL (8.5-10.1); CARBON DIOXIDE 18 MMOL/L (21-32); CHLORIDE 108 MMOL/L (98-107); CREATININE SERUM 0.77 MG/DL (0.60-1.30); GFR ESTIMATED > 60; GLUCOSE 178 MG/DL (70-105); PHOSPHORUS 2.6 MG/DL (2.3-4.7); POTASSIUM 3.7 MMOL/L (3.6-5.0); SODIUM 139 MMOL/L (135-145); TOTAL PROTEIN 7.1 GM/DL (6.4-8.2)
[2019-05-13] MEDS: VASOPRESSIN INJECTION 20 UNIT in NORMAL SALINE 100 ML IV SCH ×3 (03:45→20:35)
[2019-05-13] MEDS: POTASSIUM CL 10MEQ/50ML IVPB 50 ML IV SCH (05:39)
[2019-05-13] MEDS: inSUlin ASPART (NovoLOG) 1 UNIT/0.01 ML (CHARGE PER UNIT) SC SCH ×4 (05:40→20:35)
[2019-05-13] MEDS: KCL 20 MEQ TAB (K-DUR) PO SCH ×2 (05:40→07:55)
[2019-05-13] MEDS: MAGNESIUM 1 GM/100 ML IVPB 100 ML IV SCH (05:40)
[2019-05-13] MEDS: DEXMEDETOMIDINE 1,000 MCG/NS 250 ML IV SCH ×2 (06:26)
--- NOTE | 2019-05-13 07:43 | Progress Note ---
Subjective Time Seen by a Provider: 07:40 Subjective/Events-last exam Patient hypotensive last night for short period of time Patient not a candidate for angiography since she won't listen. Patient would not stay still to have the procedure done Focused Exam Lactate Level 05/10/19 13:55: Lactic Acid Level 2.16*H 05/10/19 16:00: Lactic Acid Level 1.35 Objective Exam Vital Signs Date Time Temp Pulse Resp B/P (MAP) Pulse Ox O2 Delivery O2 Flow Rate FiO2 05/13/19 06:00 97 20 138/103 (115) 94 Room Air 05/13/19 05:00 97 17 127/90 (102) 88 Room Air 05/13/19 04:00 98 Room Air 05/13/19 04:00 98 21 134/104 (114) 96 Room Air 05/13/19 03:00 100 23 125/60 (81) 96 Room Air 05/13/19 02:00 105 11 130/89 (103) Room Air 05/13/19 01:00 110 38 145/84 (104) 96 Room Air 05/13/19 00:53 112 05/13/19 00:00 36.2 05/13/19 00:00 98 Room Air 05/13/19 00:00 111 35 139/91 (107) Room Air 05/12/19 23:00 115 28 130/93 (105) 97 Room Air 05/12/19 22:00 116 32 147/82 (103) 96 Room Air 05/12/19 21:00 114 43 170/119 (136) 97 Room Air 05/12/19 20:00 118 31 148/78 (101) 90 Room Air 05/12/19 20:00 98 Room Air 05/12/19 20:00 36.0 Room Air 05/12/19 19:00 108 41 144/78 (100) 99 Room Air 05/12/19 18:56 112 05/12/19 17:00 101 20 144/78 (100) 95 Room Air 05/12/19 16:00 112 37 156/103 (120) Room Air 05/12/19 15:56 98 Room Air 05/12/19 15:06 91 Room Air 05/12/19 15:00 105 30 142/98 (113) Room Air 05/12/19 14:00 98 120/66 (84) Room Air 05/12/19 13:00 96 99/55 (70) Room Air 05/12/19 12:37 99 05/12/19 12:00 98 Room Air 05/12/19 11:00 93 24 109/85 (93) Room Air 05/12/19 10:00 79 18 110/68 (82) Room Air 05/12/19 09:00 92 17 121/86 (98) Room Air 05/12/19 08:00 107 35 121/92 (102) Room Air 05/12/19 08:00 98 Room Air I & O 05/13/19 07:00 Intake Total 4040 ml Output Total 2605 ml Balance 1435 ml Capillary Refill : Less Than 3 Seconds General Appearance: No Apparent Distress, Thin HEENT: Normal ENT Inspection Neck: Full Range of Motion, Normal Inspection Respiratory: No Accessory Muscle Use, No Respiratory Distress, Decreased Breath Sounds Cardiovascular: Regular Rate, Rhythm Gastrointestinal: non tender, soft Results Lab Laboratory Tests 05/12/19 15:20 05/13/19 03:00 Laboratory Tests 05/12/19 15:20: Sodium Level 142, Potassium Level 3.5L, Chloride Level 108H, Carbon Dioxide Level 19L, Anion Gap 15H, Blood Urea Nitrogen 15, Creatinine 1.03, Estimat Glomerular Filtration Rate 53, BUN/Creatinine Ratio 15, Glucose Level 166H, Calcium Level 9.3, Magnesium Level 2.1 05/13/19 03:00: Sodium Level 139, Potassium Level 3.7, Chloride Level 108H, Carbon Dioxide Level 18L, Anion Gap 13, Blood Urea Nitrogen 17, Creatinine 0.77, Estimat Glomerular Filtration Rate > 60, BUN/Creatinine Ratio 22, Glucose Level 178H, Calcium Level 9.1, Magnesium Level 2.0, White Blood Count 14.9H, Red Blood Count 4.79, Hemoglobin 13.5, Hematocrit 42, Mean Corpuscular Volume 88, Mean Corpuscular Hemoglobin 28, Mean Corpuscular Hemoglobin Concent 32, Red Cell Distribution Width 15.5H, Platelet Count 288, Mean Platelet Volume 10.5H, Neutrophils (%) (Auto) 79H, Lymphocytes (%) (Auto) 10L, Monocytes (%) (Auto) 9, Eosinophils (%) (Auto) 2, Basophils (%) (Auto) 0, Neutrophils # (Auto) 11.7H, Lymphocytes # (Auto) 1.6, Monocytes # (Auto) 1.4H, Eosinophils # (Auto) 0.3, Basophils # (Auto) 0.0, Corrected Calcium 9.3, Phosphorus Level 2.6, Total Bilirubin 1.3H, Aspartate Amino Transf (AST/SGOT) 16, Alanine Aminotransferase (ALT/SGPT) 40, Alkaline Phosphatase 127, Total Protein 7.1, Albumin 3.7 Microbiology 05/07/19 Blood Culture - Final, Complete No growth 05/10/19 Gram Stain - Final, Complete 05/10/19 Sputum Culture - Final, Complete Usual upper respiratory cande 05/07/19 Urine Culture - Final, Complete NO GROWTH Assessment/Plan Assessment/Plan Assess & Plan/Chief Complaint Sepsis. Acute respiratory failure. Pneumonia. Congestive heart failure. Dementia. History of scabies.. . 05/10/19. Sepsis better. Acute respiratory failure better. Pneumonia. Congestive heart failure BNP elevated morning. Dementia. History of scabies. Consult with cardiology. . 05/11/19. Patient coded yesterday. Patient on ventilator. Patient has severe dementia. We'll get in touch with daughter today who lives in [place] to find out what she wants us to do. Sepsis. Acute respiratory failure. Pneumonia. Congestive heart failure. Severe dementia History of scabies . 05/12/19. Patient extubated off ventilator. Sepsis. Ventricular fibrillation. CHF. Acute left ventricle systolic dysfunction. Dementia. . 05/13/19. Sepsis. Ventricular fibrillation. CHF. Dementia. Patient does not follow orders and difficult to take care of Clinical Quality Measures DVT/VTE Risk/Contraindication: Risk Factor Score Per Nursin RFS Level Per Nursing on Admit: 4+=Very High LANETTE WILCOX DO May 13, 2019 07:43
[2019-05-13] MEDS ORDERED: ALPRAZolam 0.5 MG (XANAX) TAB PO PRN (07:45)
[2019-05-13] MEDS: DOXYCYCLINE INJECTION 100 MG in NS (IVPB) 100 ML IV SCH ×2 (07:54→21:11)
[2019-05-13] MEDS: PANTOPRAZOLE 40 MG (PROTONIX) VIAL IV SCH (07:54)
[2019-05-13] MEDS: FUROSEMIDE 20 MG (LASIX) TAB PO SCH (07:55)
[2019-05-13] MEDS: meTOprolol TARTRATE 25 MG (LOPRESSOR) TABLET PO SCH ×3 (07:55→20:36)
[2019-05-13] MEDS: LOSARTAN 25 MG (COZAAR) TAB PO SCH (07:55)
[2019-05-13] MEDS: AZITHROMYCIN 250 MG TAB (ZITHROMAX) PO SCH (07:55)
[2019-05-13] MEDS: CARVEDILOL 3.125 MG (COREG) TABLET PO SCH ×3 (07:55→20:36)
[2019-05-13] MEDS: QUEtiapine 100 MG (SEROquel) TAB IMMEDIATE RELEASE PO SCH ×2 (08:01→20:36)
[2019-05-13] MEDS ORDERED: NS IV 1000 ML 1,000 ML ONE (08:15)
--- NOTE | 2019-05-13 08:22 | Diagnostic Imaging Report ---
INDICATION: Elevated BNP. COMPARISON: 05/12/2019 FINDINGS: Single frontal radiograph view of the chest was obtained and demonstrates mild cardiomegaly. Pulmonary vasculature is within normal limits. Lungs are otherwise clear. There is no large effusion, pneumothorax, or focal consolidation. Right internal jugular central venous catheter seen with tip in right atrium. Osseous structures show no acute abnormalities. IMPRESSION: 1. Mild cardiomegaly, but no evidence of failure or focal infiltrate. Dictated by: Dictated on workstation # [id number]
[2019-05-13] MEDS ORDERED: NS 100 ML (IVPB) BAG IV ONE (08:30)
[2019-05-13] MEDS ORDERED: NS IV 500 ML 500 ML IV SCH (08:30)
--- NOTE | 2019-05-13 08:56 | Cardiology Progress Note ---
Subjective Date Seen by Provider: May 13, 2019 Time Seen by Provider: 08:54 Subjective/Events-last exam patient is laying down in bed, no new complaint, not verbal, smiling Mild shortness of breath Had an episode of hypotension responded to fluid challenge with 400 mL of saline Review of Systems General: No Chills, No Night Sweats; Fatigue, Malaise; No Appetite, No Other HEENT: No Head Aches, No Visual Changes, No Eye Pain, No Ear Pain, No Dysphasia, No Sinus Congestion, No Post Nasal Drip, No Sore Throat, No Other Pulmonary: Dyspnea; No Cough, No Pleuritic Chest Pain, No Other Cardiovascular: No: Chest Pain, Palpitations, Orthopnea, Paroxysmal Noc. Dyspnea, Edema, Lt Headedness, Other Focused Exam Lactate Level 05/10/19 13:55: Lactic Acid Level 2.16*H 05/10/19 16:00: Lactic Acid Level 1.35 Objective-Cardiology Exam Last Set of Vital Signs Vital Signs 05/11/19 05/13/19 05/13/19 16:00 07:00 08:00 Temp 36.8 Pulse 89 Resp 35 B/P (MAP) 88/58 (68) Pulse Ox 98 O2 Delivery Room Air FiO2 25 Capillary Refill : Less Than 3 Seconds I&O Intake and Output 05/13/19 00:00 Intake Total 3030 ml Output Total 2475 ml Balance 555 ml Intake Oral 1430 ml IV Total 1600 ml Output Urine Total 2475 ml General: Alert, Mild Distress HEENT: Atraumatic, PERRLA Neck: Supple, No JVD Lungs: Other (bilateral rhonchi) Heart: Regular Rate, Normal S1, Normal S2 Abdomen: Normal Bowel Sounds Extremities: No Clubbing, No Cyanosis Skin: No Rashes Neuro: Other (Awake and not following commands) Psych/Mental Status: Other (Awake, not responding appropriately) Results Lab Laboratory Tests 05/12/19 15:20 05/13/19 03:00 A/P-Cardiology Admission Diagnosis Sepsis Congestive heart failure, acute left ventricular systolic dysfunction Hypotension Metabolic acidosis Assessment/Plan Status post acute respiratory failure post CODE BLUE, currently extubated, doing better. Status post ventricular fibrillation, torsades de pointes, prolonged QT interval, heart rate is better still having occasional PVCs Severe cardiomyopathy, acute on chronic left ventricular systolic dysfunction, unknown etiology, cardiac enzymes negative, had a long discussion with the family regarding the management plan, I recommended conservative management. Unable to tolerate aggressive treatment with beta blockers and/or EDITA inhibitor due to episodes of hypotension Status post hypotensive shock, had transient hypotension this morning responded to IV fluid challenge Metabolic acidosis, lactic acidosis, improving slowly, continue to monitor Dementia, questionable history of CVA. CT of the head in the past reported micr ovascular ischemia and atrophy, recommend evaluating MRI if possible History of scabies, treated twice in the past. Maintained in isolation Overall prognosis is guarded, had a long discussion with the daughter and son regarding her prognosis. Clinical Quality Measures DVT/VTE Risk/Contraindication: Risk Factor Score Per Nursin RFS Level Per Nursing on Admit: 4+=Very High VANE SMITH MD May 13, 2019 08:56
--- NOTE | 2019-05-13 11:05 | Occupational Ther Daily Note ---
OT Current Status-Daily Note Subjective Spoke with RN who reports pt is okay to participate in therapy at this time. Pt in bed with sitter present. Pt smiles and nods, but does not answer questions. Mental Status/Objective Attachments: Zapien Catheter, Telemetry ADL-Treatment Pt supine to sit with assist for trunk. Pt sit to stand with min assist. Pt has decreased standing balance and difficulty following commands for transfer. Pt has decreased safety awareness.Once seated in chair, pt required assist to scoot back and reposition. Family arrived at end of session. Pt in chair with needs met, sitter and family present. Therapy Code Descriptions/Definitions Functional [place] Measure: 0=Not Assessed/NA 4=Minimal Assistance 1=Total Assistance 5=Supervision or Setup 2=Maximal Assistance 6=Modified [place] 3=Moderate Assistance 7=Complete IndependenceSCALE: Activities may be completed with or without assistive devices. 4-Zeymglqqqv-aqpglmu completes the activity by him/herself with no assistance from a helper. 5-Set-up or Clean-up Assistance-helper sets up or cleans up; patient completes activity. [place] assists only prior to or following the activity. 4-Supervision or Touching Assistance-helper provides verbal cues and/or touching/steadying and/or contact guard assistance as patient completes activity. Assistance may be provided throughout the activity or intermittently. 3-Partial/Moderate Assistance-helper does LESS THAN HALF the effort. [place] lifts, holds or supports trunk or limbs, but provides less than half the effort. 2-Substantial/Maximal Assistance-helper does MORE THAN HALF the effort. [place] lifts or holds trunk or limbs and provides more than half the effort. 8-Aygfdsnof-tmlpiq does ALL the effort. Patient does none of the effort to complete the activity. Or, the assistance of 2 or more helpers is required for the patient to complete the activity. If activity was not attempted, code reason: 7-Patient Refused. 9-Not Applicable-not attempted and the patient did not perform the activity before the current illness, exacerbation or injury. 10-Not Attempted due to Environmental Limitations-(lack of equipment, weather restraints, etc.). 88-Not Attempted due to Medical Conditions or Safety Concerns. OT Short Term Goals Short Term Goals Time Frame: May 19, 2019 Eating(FIM): 2 Grooming(FIM): 2 Toileting(FIM): 2 Transfers (B,C,W/C) (FIM): 3 Toilet/Commode Transfer(FIM): 3 Additional Short Term Goals: 3-ImproveStrength/Isamar 1=Demonstrate adherence to instructed precautions during ADL tasks. 2=Patient will verbalize/demonstrate understanding of assistive devices/modifications for ADL. 3=Patient will improve strength/tolerance for activity to enable patient to perform ADL's. OT Train Electronic Technician Goals Senior Living Goals Time Frame: May 26, 2019 Eating (QC): 4 Oral Hygiene (QC): 3 Toileting Hygiene (QC): 3 Toilet/Commode Transfer (QC): 4 Additional Goals: 1-Demonstrate ADL Tasks, 3-ImproveStrength/Isamar 1=Demonstrate adherence to instructed precautions during ADL tasks. 2=Patient will verbalize/demonstrate understanding of assistive devices/modifications for ADL. 3=Patient will improve strength/tolerance for activity to enable patient to perform ADL's. OT Education/Plan Discharge Recommendations Plan/Recommendations: Continue POC Treatment Plan/Plan of Care Patient would benefit from OT for education, treatment and training to promote independence in ADL's, mobility, safety and/or upper extremity function for ADL's. Plan of Care: ADL Retraining, Functional Mobility, UE Funct Exercise/Act Treatment Duration: May 26, 2019 Frequency: 5 times per week Estimated Hrs Per Day: .25 hour per day Agreement: Yes Rehab Potential: Guarded Time/GCodes Start Time: 10:03 Stop Time: 10:13 Total Time Billed (hr/min): 10 Billed Treatment Time 1 visit, FA(10minutes) JESSICA MCMULLEN OT May 13, 2019 11:05
--- NOTE | 2019-05-13 11:41 | Physical Therapy Daily Note ---
PT Daily Note-Current Subjective Patient has to remain attached to telemetry per RN. No portables available. Family agrees to PT. Mental Status Patient Orientation: Confused Attachments: Zapien Catheter Transfers SCALE: Activities may be completed with or without assistive devices. 8-Kswbgzmkml-kvymuhj completes the activity by him/herself with no assistance from a helper. 5-Set-up or Clean-up Assistance-helper sets up or cleans up; patient completes activity. [place] assists only prior to or following the activity. 4-Supervision or Touching Assistance-helper provides verbal cues and/or touching/steadying and/or contact guard assistance as patient completes activity. Assistance may be provided throughout the activity or intermittently. 3-Partial/Moderate Assistance-helper does LESS THAN HALF the effort. [place] lifts, holds or supports trunk or limbs, but provides less than half the effort. 2-Substantial/Maximal Assistance-helper does MORE THAN HALF the effort. [place] lifts or holds trunk or limbs and provides more than half the effort. 1-Bdidjuewe-dkjqkp does ALL the effort. Patient does none of the effort to complete the activity. Or, the assistance of 2 or more helpers is required for the patient to complete the activity. If activity was not attempted, code reason: 7-Patient Refused. 9-Not Applicable-not attempted and the patient did not perform the activity before the current illness, exacerbation or injury. 10-Not Attempted due to Environmental Limitations-(lack of equipment, weather restraints, etc.). 88-Not Attempted due to Medical Conditions or Safety Concerns. Transfers (B, C, W/C): 3 Sit to Stand (QC): 3 Gait Training Does the Patient Walk?: Yes Distance: 10' Walk 10 feet (QC): 3 Gait Assistive Device: None unsteady Assessment Patient continues to have difficulty with following simple direction. PT to increase activity as patient tolerates. Family is very attentive. PT Usp Goals Usp Goals PT Retail Salesperson Goals Time Frame: May 27, 2019 Sit to Lying (QC): 5 Lying-Sitting on Side/Bed(QC): 5 Sit to Stand (QC): 5 Roll Left to Right (QC): 5 Chair/Dov-it-Zekhi Xfer(QC): 5 Does the Patient Walk: Yes Distance: 200' Walk 10 feet (QC): 5 Walk 10ft-Uneven Surface(QC): 5 Walk 50ft with 2 Turns (QC): 5 Walk 150 ft (QC): 5 Gait Assistive Device: None, FWW PT Plan Treatment/Plan Treatment Plan: Continue Plan of Care Treatment Plan: Bed Mobility, Education, Functional Activity [place], Functional Strength, Gait, Safety, Therapeutic Exercise Treatment Duration: May 27, 2019 Frequency: 6 times per week Estimated Hrs Per Day: .25 hour per day Patient and/or Family Agrees t: Yes Time/GCodes Time In: 1050 Time Out: 1100 Total Billed Treatment Time: 10 Total Billed Treatment 1 visit FA 10 min FLACO ALAMO PT May 13, 2019 11:41
[2019-05-13] MEDS: RT-ALBUTEROL SULF 2.5 MG/3 ML PRE-MIX VIAL INH PRN (11:58)
--- NOTE | 2019-05-13 12:21 | Electrophysiology Consultation ---
HPI-Cardiology Cardiology Consultation: Date of Consultation 05/13/19 Date of Admission Attending Physician Alma West MD Admitting Physician Rik Miller DO Consulting Physician Salty SHEPPARD MD HPI: Time Seen by a Provider: 12:20 Chief Complaint: Polymorphic VT This is a 69-year-old lady with history of advanced dementia. History was obtained by reviewing records, speaking to the physicians and nurses. In talking to the family. She had presented with acute respiratory failure, congestive heart failure and hypotensive shock. She was treated for sepsis and acute respiratory failure. She was noted to have severe hypokalemia and QTC prolonged duration. She developed polymorphic VT and was defibrillated. Echocardiogram done on 05/09/2019 showed an EF of 25-30 percent. Review of Systems-Cardiology Review of Systems Constitutional: As described under HPI; No As described under HPI, No no symptoms reported, No chills, No fever, No lightheadedness Eyes: No As described under HPI, No no symptoms reported, No blindness, No blurred vision, No contact lenses, No drainage, No decreased acuity, No foreign body sensation, No pain, No vision change Ears/Nose/Throat: No As described under HPI, No no symptoms reported, No chronic hearing loss, No ear discharge, No ear pain, No nasal drainage, No ulcerations Respiratory: No no symptoms reported; As described under HPI; No As described under HPI, No cough, No orthopnea, No shortness of breath, No SOB with excertion Cardiovascular: No no symptoms reported; As described under HPI; No As described under HPI, No chest pain, No edema, No irregular heart rate, No lightheadedness, No palpitations Gastrointestinal: No no symptoms reported, No As described under HPI, No abdomen distended, No abdominal pain, No blood streaked bowels, No constipation, No diarrhea, No nausea, No vomiting, No stool coloration changes Genitourinary: No As described under HPI, No burning, No dysuria, No discharge, No frequency, No flank pain, No hematuria, No urgency : Yes : No Skin: No rash, No skin related problems, No ulcerations Psychiatric/Neurological: No anxiety, No depression, No seizure, No focal weakness, No syncope Hematologic: No bleeding abnormalities [id number] Hx Patient Social History Employed/Student: retired Smoking Status: Unknown if Ever Smoked Recent Foreign Travel: No Recent Infectious Disease Expo: No Hospitalization with Isolation: Denies Immunizations Up To Date Tetanus Booster (TDap): Unknown Date of Pneumonia Vaccine: Apr 24, 2016 Date of Influenza Vaccine: May 05, 2019 Past Medical History PMH As described under Assessment. Family Medical History Family History: Patient reports no known family medical history. Allergies and Home Medications Allergies Coded Allergies: No Known Drug Allergies (Unverified , 08/14/17) Home Medications Acetaminophen 325 Mg Tablet, 650 MG PO TID, (Reported) TAKES 2 (325 MG) TABLETS Amlodipine Besylate 10 Mg Tablet, 10 MG PO DAILY, (Reported) HOLD FOR BP <100/60 AND PULSE < 60 Aspirin 81 Mg Tablet.dr, 81 MG PO DAILY, (Reported) Atorvastatin Calcium 10 Mg Tablet, 10 MG PO HS, (Reported) Bisacodyl 10 Mg Supp.rect, 10 MG RC DAILY PRN for CONSTIPATION-4TH LINE, (Reported) Docusate Sodium 100 Mg Capsule, 100 MG PO BID, (Reported) Donepezil HCl 10 Mg Tablet, 10 MG PO HS, (Reported) Duloxetine HCl 30 Mg Capsule.dr, 30 MG PO DAILY, (Reported) Empagliflozin 25 Mg Tablet, 25 MG PO DAILY, (Reported) Gabapentin 400 Mg Capsule, 400 MG PO TID, (Reported) Ivermectin 3 Mg Tablet, 15 MG PO UD, (Reported) GIVE 5 (3MG) TABLETS ONE TIME ONLY ON 05-13-19 Lactulose 10 Gm/15 Ml Solution, 30 ML PO Q12H PRN for CONSTIPATION-3RD LINE, (Reported) Mag Hydrox/Al Hydrox/Simeth 30 Ml Oral.susp, 30 ML PO Q6H PRN for HEARTBURN, (Re ported) Memantine HCl 10 Mg Tablet, 10 MG PO BID, (Reported) Metformin HCl 1,000 Mg Tablet, 1,000 MG PO BID, (Reported) Multivitamin with Minerals 1 Each Tablet, 1 TAB PO DAILY, (Reported) Polyethylene Glycol 3350 17 Gm Powd.pack, 17 GM PO DAILY, (Reported) Quetiapine Fumarate 100 Mg Tablet, 100 MG PO 0900,1400, (Reported) Quetiapine Fumarate 100 Mg Tablet, 150 MG PO HS, (Reported) Sennosides 8.6 Mg Tablet, 17.2 MG PO HS, (Reported) TAKES 2 (8.6MG) TABLETS Patient Home Medication List Home Medication List Reviewed: Yes Physical Exam-Cardiology Physical Exam Vital Signs/I&O 05/17/19 05/17/19 08:00 08:05 Pulse 115 B/P (MAP) 177/92 (120) O2 Delivery Room Air 05/17/19 00:00 Intake Total 1160 ml Balance 1160 ml Capillary Refill : Less Than 3 Seconds Constitutional: appears stated age; No apparent distress; well-developed, well- nourished HEENT: PERRL; No discharge; hearing is well preserved, oral hygience is good; No ulceration, No xanthelasmas are seen Neck: No carotid bruit; carotid pulses are 2 + bilaterally Respiratory: chest is bilaterally symmetric, lungs clear to auscultation Cardiovascular: regular rate-rhythm, S1 and S2 Gastrointestinal: soft, audible bowel sounds; No spleenomegaly Rectal: deferred Extremities: normal range of motion, non-tender, normal inspection; No clubbing, No cyanosis; no lower extremity edema bilateral; No significant edema Neurologic/Psychiatric: no motor/sensory deficits, alert, normal mood/affect, power is 5/5 both on sides Skin: normal color, warm/dry Lymphatic: no adenopathy (neck, axilla or groin) Data Review Labs Microbiology 05/07/19 Blood Culture - Final, Complete No growth 05/10/19 Gram Stain - Final, Complete 05/10/19 Sputum Culture - Final, Complete Usual upper respiratory cande 05/07/19 Urine Culture - Final, Complete NO GROWTH A/P-Cardiology Assessment/Admission Diagnosis Polymorphic VT, requiring defibrillation, Hypokalemia, Prolonged QT interval, Severe cardiomyopathy, Acute congestive systolic heart failure. Plan The patient has polymorphic VT requiring defibrillation. Very likely due to sev ere hypokalemia and prolonged QT interval. Aggressive potassium repletion was done. Also psychotropic medications that could have resulted in prolonged QTc interval were discontinued. However the patient is also found to have an EF of 25-30 percent. The other major issue is advanced dementia and the patient does not follow any commands. I discussed at length with Dr. Hinojosa, the RNs taking care of the patient and the family including her daughter, a son and [id number]. I discussed with them that the polymorphic VT is likely due to severe hypokalemia and prolonged QTc interval. However if the patient stays full code, coronary angiography will need to be done to rule out obstructive CAD. The next issue is that of prevention of sudden cardiac . Since this is a new onset cardiomyopathy, goal-directed medical therapy will need to be initiated. I'll defer that to Dr. Hinojosa. An ICD is not recommended by the guidelines since the cause of polymorphic VT is reversible i.e. hypokalemia and prolonged QTc interval. However the patient still has an EF of 25-30 percent and will qualify for primary prevention criteria. She will have to be on goal- directed medical therapy for at least 3 months before an ICD can be considered. The other option is to do a LifeVest for primary prevention. However after discussing at length with the family, the decision was not to proceed with the L ifeVest or ICD in the near future due to advanced dementia. However I did discuss with the family that if they change their mind, they should let Dr. Hinojosa and myself know. For now I will sign off and Dr. Hinojosa will continue to follow for cardiology. Thank you for your consultation. Please call me if you have any questions. Gabriel Sheppard MD, FACP, FACC, FSCAI, FHRS, CCDS Interventional Cardiology Cardiac Electrophysiology Vascular Medicine and Endovascular Interventions Clinical Quality Measures DVT/VTE Risk/Contraindication: Risk Factor Score Per Nursin RFS Level Per Nursing on Admit: 4+=Very High Salty SHEPPARD MD May 13, 2019 12:21 POS
--- NOTE | 2019-05-13 12:29 | NUR ---
PALLIATIVE CARE RN in to see patient and speak with son and daughter/DPOA. Noted prior to my arrival that the patient was made DNR. We discussed this and I empathized with this difficult decision. They had several things that they wanted to discuss. Firstly was SNF related. They were questioning the care given at [facility] noting the patient had come in contact with scabies and developed a UTI that was undetected. I tried to explain the difficulties of community living with people coming and going and the possibility of contact with communicable things. They were also upset that she had developed the UTI and severe sepsis as a result. Again tried to explain how easy it is for woman to get UTIs and the reasoning and sometimes even with the best hygiene practices they occur. But most importantly they were concerned about the lack of communication from [facility] on the above occurrences. They are interested in seeking a different placement for her at discharge possibly. I took the opportunity to talk to them about hospice, especially given the conversation and hearing of her declining state of dementia even pre acute illness. I have explained the benefits to them. Ultimate goal for the family is to have patient move to [place] where her daughter and DPOA lives. However, they do understand that she will need to attain a certain level of recovery prior to the travel. Determining the best mode of transport will be a factor as well., to fly she will need a cardiology clearance and a current ID and they will need assistance with this. Flying would be the quickest mode...she will likely need to go by private ground vehicle with short day drives and rest stops. I will continue to follow and offer assistance where able.
[2019-05-13] MEDS: DOBUTamine DRIP 250 ML IV SCH (16:05)
--- NOTE | 2019-05-13 18:12 | NUR ---
Pastoral care visit.
--- NOTE | 2019-05-13 23:26 | NUR ---
This RN called EICU to report hypotension with SBP in 50's, pt pulled out central line, we have one peripheral IV access site. New order received at this time.
[2019-05-13] MEDS ORDERED: LACTATED RINGERS 250 ML IV ONE (23:45)
[2019-05-13] MEDS ORDERED: LACTATED RINGERS 1,000 ML IV ONE (23:47)
[2019-05-14] VITALS (14 sets, daily range): BP systolic 101–143; BP diastolic 54–99
[2019-05-14] MEDS: VASOPRESSIN INJECTION 20 UNIT in NORMAL SALINE 100 ML IV SCH (01:26)
[2019-05-14] MEDS: NOREPINEPHRINE 4 MG in NS (IVPB) 250 ML IV SCH (01:26)
[2019-05-14 03:10] LABS: BASOPHILS % (AUTO) 0 % (0-10); EOSINOPHILS # (AUTO) 0.4 10^3/uL (0.0-0.3); EOSINOPHILS % (AUTO) 4 % (0-10); HEMATOCRIT 43 % (35-52); HEMOGLOBIN 13.8 G/DL (11.5-16.0); LYMPHOCYTES % (AUTO) 19 % (12-44); MEAN CORPUSCULAR HEMOGLOBIN 28 PG (25-34); MEAN CORPUSCULAR HGB CONC 32 G/DL (32-36); MEAN CORPUSCULAR VOLUME 89 FL (80-99); MEAN PLATELET VOLUME 11.2 FL (7.4-10.4); MONOCYTES # (AUTO) 1.1 X 10^3 (0.0-1.0); MONOCYTES % (AUTO) 10 % (0-12); NEUTROPHILS # (AUTO) 7.2 X 10^3 (1.8-7.8); NEUTROPHILS % (AUTO) 67 % (42-75); PLATELET COUNT 240 10^3/uL (130-400); RED CELL DISTRIBUTION WIDTH 15.8 % (10.0-14.5); WHITE BLOOD COUNT 10.7 10^3/uL (4.3-11.0)
[2019-05-14 03:34] LABS: BUN/CREATININE RATIO 30; CALCIUM 8.8 MG/DL (8.5-10.1); CARBON DIOXIDE 15 MMOL/L (21-32); CHLORIDE 108 MMOL/L (98-107); CREATININE SERUM 0.89 MG/DL (0.60-1.30); GFR ESTIMATED > 60; GLUCOSE 173 MG/DL (70-105); MAGNESIUM 1.9 MG/DL (1.6-2.4); PHOSPHORUS 4.4 MG/DL (2.3-4.7); POTASSIUM 4.4 MMOL/L (3.6-5.0); SODIUM 138 MMOL/L (135-145)
[2019-05-14] MEDS: POTASSIUM CL 10MEQ/50ML IVPB 50 ML IV SCH (04:03)
[2019-05-14] MEDS: KCL 20 MEQ TAB (K-DUR) PO SCH ×2 (04:03→08:23)
[2019-05-14] MEDS: MAGNESIUM 1 GM/100 ML IVPB 100 ML IV SCH (04:03)
[2019-05-14] MEDS: inSUlin ASPART (NovoLOG) 1 UNIT/0.01 ML (CHARGE PER UNIT) SC SCH ×3 (05:24→16:00)
--- NOTE | 2019-05-14 06:33 | Diagnostic Imaging Report ---
Portable erect AP chest at 426 hours. INDICATION: Respiratory distress, elevated BNP. FINDINGS: In the interval since the prior exam of 05/13/2019, central venous catheter on the right has been removed. The cardiomegaly noted previously is again evident and the central pulmonary vascularity may be somewhat more prominent than on the prior exam but overall there has been no significant change. There is no evidence for overt failure. There is a small patchy area of increased density in left retrocardiac region, however. This may represent mild pneumonia/atelectasis. The mediastinum is prominent. The osseous structures are intact. IMPRESSION: Aside from removal of central venous catheter on the right, there has been no significant change. However, there is a question of mild pneumonia/atelectasis in the left retrocardiac region. A follow-up exam would be recommended for continued evaluation. Dictated by: Dictated on workstation # [id number]
[2019-05-14] MEDS: AZITHROMYCIN 250 MG TAB (ZITHROMAX) PO SCH (08:22)
[2019-05-14] MEDS: QUEtiapine 100 MG (SEROquel) TAB IMMEDIATE RELEASE PO SCH ×3 (08:22→22:16)
[2019-05-14] MEDS: FUROSEMIDE 20 MG (LASIX) TAB PO SCH (08:22)
[2019-05-14] MEDS: meTOprolol TARTRATE 25 MG (LOPRESSOR) TABLET PO SCH ×2 (08:22→22:11)
[2019-05-14] MEDS: PANTOPRAZOLE 40 MG (PROTONIX) VIAL IV SCH (08:23)
[2019-05-14] MEDS: LOSARTAN 25 MG (COZAAR) TAB PO SCH (08:23)
[2019-05-14] MEDS: DOXYCYCLINE INJECTION 100 MG in NS (IVPB) 100 ML IV SCH (08:23)
--- NOTE | 2019-05-14 09:00 | Physical Therapy Progress Note ---
Therapy Progress Note Nursing addressing patient needs due to patient pulled out IV. Per RN, patient has been more agitated on this date. PT will resume on Thursday. 1 visit no treatment rendered FLACO ALAMO PT May 14, 2019 09:00
--- NOTE | 2019-05-14 09:02 | Cardiology Progress Note ---
Subjective Date Seen by Provider: May 14, 2019 Time Seen by Provider: 09:00 Subjective/Events-last exam Patient is awake, smiling, not following commands or answering any questions Review of Systems General: Other (Unable to provide review of systems) Objective-Cardiology Exam Last Set of Vital Signs Vital Signs 05/11/19 05/14/19 05/14/19 16:00 07:00 08:00 Temp 37.6 Pulse 100 Resp 20 B/P (MAP) 143/95 (111) Pulse Ox 98 O2 Delivery Room Air FiO2 25 Capillary Refill : Less Than 3 Seconds I&O Intake and Output 05/14/19 00:00 Intake Total 3530 ml Output Total 1880 ml Balance 1650 ml Intake Oral 2170 ml IV Total 1360 ml Output Urine Total 1880 ml General: Alert, No Acute Distress HEENT: Atraumatic Neck: Supple, No JVD Lungs: Clear to Auscultation, Normal Air Movement Heart: Regular Rate, Normal S1, Normal S2 Abdomen: Normal Bowel Sounds Extremities: No Clubbing, No Cyanosis Skin: No Rashes Neuro: Other (Awake and not following commands) Psych/Mental Status: Other (Awake, not responding appropriately) Results Lab Laboratory Tests 05/14/19 02:50 A/P-Cardiology Admission Diagnosis Sepsis Congestive heart failure, acute left ventricular systolic dysfunction Hypotension Metabolic acidosis Assessment/Plan Status post acute respiratory failure post CODE BLUE, currently extubated, doing better. Status post ventricular fibrillation, torsades de pointes, prolonged QT interval, heart rate is better still having occasional PVCs Severe cardiomyopathy, acute on chronic left ventricular systolic dysfunction, unknown etiology, cardiac enzymes negative, had a long discussion with the family regarding the management plan, I recommended conservative management. Unable to tolerate aggressive treatment with beta blockers and/or EDITA inhibitor due to episodes of hypotension Status post hypotensive shock, blood pressure is better at this time. Continue to monitor Dementia, questionable history of CVA. CT of the head in the past reported microvascular ischemia and atrophy, recommend evaluating MRI if possible History of scabies, treated twice in the past. Maintained in isolation Overall prognosis is guarded Clinical Quality Measures DVT/VTE Risk/Contraindication: Risk Factor Score Per Nursin RFS Level Per Nursing on Admit: 4+=Very High VANE SMITH MD May 14, 2019 09:02
--- NOTE | 2019-05-14 09:29 | Progress Note - Hospitalist ---
Subjective HPI/CC On Admission Date Seen by Provider: May 14, 2019 Time Seen by Provider: 09:23 hypoxia Subjective/Events-last exam Pt is alert but does not speak. Reportedly this is her baseline. Aide attempting to give meds but she is refusing to swallow. Pulled out IV. Objective Exam Vital Signs Vital Signs Date Time Temp Pulse Resp B/P (MAP) Pulse Ox O2 Delivery O2 Flow Rate FiO2 05/14/19 08:00 98 Room Air 05/14/19 07:00 37.6 100 20 143/95 (111) 05/11/19 18:00 05/11/19 16:00 25 Capillary Refill : Less Than 3 Seconds General Appearance: No Apparent Distress, WD/WN Respiratory: Lungs Clear, No Respiratory Distress Cardiovascular: Regular Rate, Rhythm, No Murmur Neurologic/Psychiatric: Alert, Other (nonverbal) Results/Procedures Lab Laboratory Tests 05/14/19 02:50 Patient resulted labs reviewed. Assessment/Plan Assessment and Plan Assess & Plan/Chief Complaint Sepsis- resolved Pneumonia Continue on Doxycycline and Azithro On room air MAT protocol Congestive systolic heart failure Post cardiac arrest on 05/10/19 Cardiology consulted EF 20% of echo Not a candidate for angiography as is uncooperative Dementia Reportedly as her baseline Very mobile and elopement risk, need a sitter History of scabies Has been treated Discharge planning: Family would like her to not return to [facility] network services project manager consulted for placement Needs locked unit due to mobility Diagnosis/Problems Diagnosis/Problems (1) Cardiac arrest Status: Acute (2) CHF (congestive heart failure) Status: Acute Qualifiers: Heart failure type: systolic Heart failure chronicity: unspecified Qualified Codes: I50.20 - Unspecified systolic (congestive) heart failure (3) Pneumonia Status: Acute Qualifiers: Pneumonia type: due to unspecified organism Laterality: unspecified laterality Lung location: unspecified part of lung Qualified Codes: J18.9 - Pneumonia, unspecified organism (4) HTN (hypertension) Status: Acute Qualifiers: Hypertension type: essential hypertension Qualified Codes: I10 - Essential (primary) hypertension (5) Dementia Status: Chronic Qualifiers: Dementia type: unspecified type Dementia behavioral disturbance: with behavioral disturbance Qualified Codes: F03.91 - Unspecified dementia with behavioral disturbance (6) Scabies Status: Chronic Clinical Quality Measures DVT/VTE Risk/Contraindication: Risk Factor Score Per Nursin RFS Level Per Nursing on Admit: 4+=Very High JANIE MALDONADO MD May 14, 2019 09:29
[2019-05-14] MEDS ORDERED: BISACODYL 10 MG SUPP (DULCOLAX) RC PRN (09:45)
[2019-05-14] MEDS ORDERED: ANTACID SUSP 30 ML UDC (MYLANTA) PO PRN (09:45)
--- NOTE | 2019-05-14 10:00 | NUR ---
updated about patient removing her own IV. New IV access attempted. Medications changed to PO and stated that it was fine for patient to not have IV access.
--- NOTE | 2019-05-14 10:28 | NUR ---
This nurse called SBAR report to Bianca SALEEM on med surg at 1028.
--- NOTE | 2019-05-14 10:43 | NUR ---
Patient transferred to room 412 via chair with nurse tech.
--- NOTE | 2019-05-14 11:00 | NUR ---
Patient transfered to room 412 from ICU. Assumed care at this time. I agree with previous RN's assessment.
[2019-05-14] MEDS: GABAPENTIN 400 MG (NEURONTIN) CAP PO SCH ×2 (13:51→22:15)
--- NOTE | 2019-05-14 16:54 | NUR ---
Dr. Wayne notified due to patient pulse running low 40s. Advised to call Dr. Hinojosa. Dr. Hinojosa notified at 1650, stat EKG ordered.
[2019-05-14] MEDS: RT-ALBUTEROL SULF 2.5 MG/3 ML PRE-MIX VIAL INH PRN (16:56)
--- NOTE | 2019-05-14 17:00 | NUR ---
EKG sent to Dr. Hinojosa, no new orders at this time.
[2019-05-14] MEDS: ACETAMINOPHEN 500 MG TAB (TYLENOL) PO PRN (17:18)
--- NOTE | 2019-05-14 21:37 | NUR ---
RN ALERTED THAT PT'S TEMP AT 35.0 AT 1999. UNABLE TO PALPATE RADIAL PULSE AND PT ALSO HAS PROLONGED APNEA. THIS RN TRIED TO WAKE HER UP WITH STERNAL RUB UNSUCCESSFULLY. FAMILY AT BEDSIDE AT THIS TIME. THIS RN HAD DIGITAL MARKETING ASSISTANT ASSESS PT WELL AND CONTACTED DR MALDONADO WHO WANTED TO VERIFY THAT THE FAMILY WANTED TO PRECEED W/ DNR OR IF THEY WANTED TO BE AGGRESSIVE WITH CARE. FAMILY, SON AND DAUGHTER, DECIDED TO CONTINUE W/ DNR AND DID NOT WANT PT TO BE SENT BACK TO ICU WHERE SHE COULD BE VENTILATED AGAIN. THEY AGREED TO COMFORT CARE ORDERS. DR MALDONADO NOTIFIED AND ENTERED COMFORT CARE ORDERS. PT CONTINUES TO REST W/ FAMILY AT BEDSIDE. SHE DOES CONTINUE WITH PERIODS OF APNEA LASTING 15-30 SECONDS. NO S/S OF PAIN AT THIS TIME.
[2019-05-14] MEDS ORDERED: ONDANSETRON 4 MG/2 ML (SDV) Z0FRAN IVP PRN (22:00)
[2019-05-14] MEDS ORDERED: SALIVA STIMULANT MOUTH SPRAY (BIOTENE) 1.5 OZ MM PRN (22:00)
[2019-05-14] MEDS ORDERED: PROMETHAZINE INJ 25 MG/ML (PHENERGAN) AMP IVP PRN (22:00)
[2019-05-14] MEDS ORDERED: ARTIFICAL TEARS 0.4 ML UNIT DOSE (REFRESH PLUS) OU PRN (22:00)
[2019-05-14] MEDS ORDERED: morphine INJ 4 MG/ML 1 ML (VIAL/SYRINGE) IV PRN (22:00)
[2019-05-14] MEDS ORDERED: ATROPINE 1% OPHTHALMIC SOLN 2 ML SL PRN (22:00)
[2019-05-14] MEDS ORDERED: GLYCOPYRROLATE 0.2 MG/ML (ROBINUL) 2 ML VIAL IV PRN (22:00)
[2019-05-14] MEDS ORDERED: RT-ALBUTEROL/IPRATROPIUM 3 ML (DUONEB) VIAL INH PRN (22:00)
[2019-05-14] MEDS ORDERED: LORazepam INJ 2 MG/ML (ATIVAN) VIAL IVP PRN (22:00)
[2019-05-14] MEDS: POLYETHYLENE GLYCOL 17 GM (MIRALAX) PACK PO SCH (22:12)
[2019-05-14] MEDS: SENNOSIDES 8.6 MG (SENOKOT) TAB PO SCH (22:15)
[2019-05-14] MEDS: SCOPOLAMINE 1.5 MG (TRANSDERM-SCOP) PATCH TOP SCH (23:09)
[2019-05-15] MEDS: morphine (ROXINOL) 10 MG/0.5 ML oral conc 0.5 ML PO PRN ×3 (04:31→22:25)
[2019-05-15] MEDS: FUROSEMIDE 20 MG (LASIX) TAB PO SCH (08:01)
[2019-05-15] MEDS: meTOprolol TARTRATE 25 MG (LOPRESSOR) TABLET PO SCH ×2 (08:02→20:36)
[2019-05-15] MEDS: DULoxetine 30 MG (CYMBALTA) CAP PO SCH (08:04)
[2019-05-15] MEDS: QUEtiapine 100 MG (SEROquel) TAB IMMEDIATE RELEASE PO SCH ×3 (08:04→20:50)
[2019-05-15] MEDS: GABAPENTIN 400 MG (NEURONTIN) CAP PO SCH ×3 (08:04→20:37)
--- NOTE | 2019-05-15 09:30 | NUR ---
GAVE PT. DULCOLAX SUPP. LARRY. WELL. HAD MOD AMT HARD BROWN FORMED BM INC. CLEANED AND RE-POSITIONED. TAKING FLUIDS WELL.
--- NOTE | 2019-05-15 10:30 | Cardiology Progress Note ---
Subjective Date Seen by Provider: May 15, 2019 Time Seen by Provider: 10:29 Subjective/Events-last exam Patient is laying down in bed Complaining to her family from abdominal pain and constipation Not responding to my questions or following commands Review of Systems General: Other (Unable to provide review of systems) Objective-Cardiology Exam Last Set of Vital Signs Vital Signs 05/11/19 05/14/19 05/15/19 16:00 19:52 07:41 Temp 35.4 Pulse 92 Resp 20 B/P (MAP) 102/62 (75) Pulse Ox 99 O2 Delivery Room Air FiO2 25 Capillary Refill : Less Than 3 Seconds I&O Intake and Output 05/15/19 00:00 Intake Total 1580 ml Output Total 490 ml Balance 1090 ml Intake Oral 1330 ml IV Total 250 ml Output Urine Total 490 ml # Voids 2 General: Alert, No Acute Distress, Other (Not following commands) HEENT: Atraumatic Neck: Supple, No JVD Lungs: Clear to Auscultation, Normal Air Movement Heart: Regular Rate, Normal S1, Normal S2 Abdomen: Normal Bowel Sounds Extremities: No Clubbing, No Cyanosis Skin: No Rashes Neuro: Other (Awake and not following commands) Psych/Mental Status: Other (Awake, not responding appropriately) A/P-Cardiology Admission Diagnosis Sepsis Congestive heart failure, acute left ventricular systolic dysfunction Hypotension Metabolic acidosis Assessment/Plan Status post acute respiratory failure post CODE BLUE, currently extubated, doing better. Status post ventricular fibrillation, torsades de pointes, prolonged QT interval, heart rate is better still having occasional PVCs Severe cardiomyopathy, acute on chronic left ventricular systolic dysfunction, unknown etiology, cardiac enzymes negative, had a long discussion with the family regarding the management plan, I recommended conservative management. Unable to tolerate aggressive treatment with beta blockers and/or EDITA inhibitor due to episodes of hypotension Status post hypotensive shock, blood pressure is better at this time. Continue to monitor Dementia, questionable history of CVA. CT of the head in the past reported microvascular ischemia and atrophy, recommend evaluating MRI if possible History of scabies, treated twice in the past. Maintained in isolation Overall prognosis is guarded I had a long discussion with the family, they have decided to proceed with comfort care and continue with conservative management. Clinical Quality Measures DVT/VTE Risk/Contraindication: Risk Factor Score Per Nursin RFS Level Per Nursing on Admit: 4+=Very High VANE SMITH MD May 15, 2019 10:30
--- NOTE | 2019-05-15 11:29 | Progress Note - Hospitalist ---
Subjective HPI/CC On Admission Date Seen by Provider: May 15, 2019 Time Seen by Provider: 11:27 hypoxia Subjective/Events-last exam Laying in bed. Nonverbal. Per aide- appears comfortable Objective Exam Vital Signs Vital Signs Date Time Temp Pulse Resp B/P (MAP) Pulse Ox O2 Delivery O2 Flow Rate FiO2 05/15/19 07:41 Room Air 05/14/19 19:52 35.4 92 20 102/62 (75) 99 05/11/19 18:00 05/11/19 16:00 25 Capillary Refill : Less Than 3 Seconds General Appearance: No Apparent Distress, WD/WN Respiratory: Lungs Clear, No Accessory Muscle Use, No Respiratory Distress Cardiovascular: Regular Rate, Rhythm, No Murmur Results/Procedures Lab Patient resulted labs reviewed. Assessment/Plan Assessment and Plan Assess & Plan/Chief Complaint Congestive systolic heart failure Post cardiac arrest on 05/10/19 Cardiology consulted EF 20% of echo FAMILY HAS ELECTED COMFORT MEASURES ONLY Comfort Care orderset place Dementia Reportedly as her baseline Very mobile and elopement risk, need a sitter Sepsis- resolved Pneumonia Completed abx Had 30 second long episodes of apnea and bracycardia in the 30s last night Family elected comfort care History of scabies Has been treated Discharge planning: Family would like her to not return to [facility] director of volunteer services consulted for placement Needs locked unit due to mobility Diagnosis/Problems Diagnosis/Problems (1) Cardiac arrest Status: Acute (2) CHF (congestive heart failure) Status: Acute Qualifiers: Heart failure type: systolic Heart failure chronicity: unspecified Qualified Codes: I50.20 - Unspecified systolic (congestive) heart failure (3) Pneumonia Status: Acute Qualifiers: Pneumonia type: due to unspecified organism Laterality: unspecified laterality Lung location: unspecified part of lung Qualified Codes: J18.9 - Pneumonia, unspecified organism (4) HTN (hypertension) Status: Acute Qualifiers: Hypertension type: essential hypertension Qualified Codes: I10 - Essential (primary) hypertension (5) Dementia Status: Chronic Qualifiers: Dementia type: unspecified type Dementia behavioral disturbance: with behavioral disturbance Qualified Codes: F03.91 - Unspecified dementia with behavioral disturbance (6) Scabies Status: Chronic Clinical Quality Measures DVT/VTE Risk/Contraindication: Risk Factor Score Per Nursin RFS Level Per Nursing on Admit: 4+=Very High JANIE MALDONADO MD May 15, 2019 11:29
[2019-05-15] MEDS: POLYETHYLENE GLYCOL 17 GM (MIRALAX) PACK PO SCH (20:37)
[2019-05-15] MEDS: SENNOSIDES 8.6 MG (SENOKOT) TAB PO SCH (20:37)
[2019-05-15] MEDS: ACETAMINOPHEN 500 MG TAB (TYLENOL) PO PRN (20:47)
[2019-05-15] MEDS: LORazepam ORAL CONCENTRATE 2 MG/ML 30 ML (ATIVAN) PO PRN ×2 (20:57→23:51)
--- NOTE | 2019-05-16 08:06 | Progress Note ---
Subjective Time Seen by a Provider: 08:04 Subjective/Events-last exam Patient is comfort care. Patient DO NOT RESUSCITATE. Patient not communicating. Patient needing comfortably this morning. Patient has some wheezing in chest Objective Exam Vital Signs Date Time Temp Pulse Resp B/P (MAP) Pulse Ox O2 Delivery O2 Flow Rate FiO2 05/15/19 18:39 Room Air I & O 05/16/19 07:00 Intake Total 1450 ml Balance 1450 ml Capillary Refill : Less Than 3 Seconds General Appearance: No Apparent Distress HEENT: Normal ENT Inspection Respiratory: No Accessory Muscle Use, No Respiratory Distress Cardiovascular: Regular Rate, Rhythm Gastrointestinal: non tender, soft Results Lab Microbiology 05/07/19 Blood Culture - Final, Complete No growth 05/10/19 Gram Stain - Final, Complete 05/10/19 Sputum Culture - Final, Complete Usual upper respiratory cande 05/07/19 Urine Culture - Final, Complete NO GROWTH Assessment/Plan Assessment/Plan Assess & Plan/Chief Complaint Sepsis. Acute respiratory failure. Pneumonia. Congestive heart failure. Dementia. History of scabies.. . 05/10/19. Sepsis better. Acute respiratory failure better. Pneumonia. Congestive heart failure BNP elevated morning. Dementia. History of scabies. Consult with cardiology. . 05/11/19. Patient coded yesterday. Patient on ventilator. Patient has severe dementia. We'll get in touch with daughter today who lives in [place] to find out what she wants us to do. Sepsis. Acute respiratory failure. Pneumonia. Congestive heart failure. Severe dementia History of scabies . 05/12/19. Patient extubated off ventilator. Sepsis. Ventricular fibrillation. CHF. Acute left ventricle systolic dysfunction. Dementia. . 05/13/19. Sepsis. Ventricular fibrillation. CHF. Dementia. Patient does not follow orders and difficult to take care of. . 05/16/19. Cardiac arrest. Sepsis. Ventricular fibrillation. CHF Dementia. Patient comfort care. Waiting for social science instructor for placement Clinical Quality Measures DVT/VTE Risk/Contraindication: Risk Factor Score Per Nursin RFS Level Per Nursing on Admit: 4+=Very High LANETTE WILCOX DO May 16, 2019 08:06
--- NOTE | 2019-05-16 09:59 | Cardiology Progress Note ---
Subjective Date Seen by Provider: May 16, 2019 Time Seen by Provider: 09:58 Subjective/Events-last exam patient is laying down in bed, sleeping Had breakfast this morning Review of Systems General: Other (Unable to provide review of systems) Objective-Cardiology Exam Last Set of Vital Signs Vital Signs 05/11/19 05/14/19 05/15/19 16:00 19:52 18:39 Temp 35.4 Pulse 92 Resp 20 B/P (MAP) 102/62 (75) Pulse Ox 99 O2 Delivery Room Air FiO2 25 Capillary Refill : Less Than 3 Seconds I&O Intake and Output 05/16/19 00:00 Intake Total 1750 ml Balance 1750 ml Intake Oral 1750 ml # Voids 9 # Bowel Movements 1 General: Alert, No Acute Distress, Other (Not following commands) HEENT: Atraumatic Neck: Supple, No JVD Lungs: Clear to Auscultation, Normal Air Movement Heart: Regular Rate, Normal S1, Normal S2 Abdomen: Normal Bowel Sounds Extremities: No Clubbing, No Cyanosis Skin: No Rashes Neuro: Other (Awake and not following commands) Psych/Mental Status: Other (Awake, not responding appropriately) A/P-Cardiology Admission Diagnosis Sepsis Congestive heart failure, acute left ventricular systolic dysfunction Hypotension Metabolic acidosis Assessment/Plan Status post acute respiratory failure post CODE BLUE, currently extubated, doing better. Status post ventricular fibrillation, torsades de pointes, prolonged QT interval, heart rate is better still having occasional PVCs Severe cardiomyopathy, acute on chronic left ventricular systolic dysfunction, unknown etiology, cardiac enzymes negative, had a long discussion with the family regarding the management plan, I recommended conservative management. Unable to tolerate aggressive treatment with beta blockers and/or EDITA inhibitor due to episodes of hypotension Status post hypotensive shock, blood pressure is better at this time. Continue to monitor Dementia, questionable history of CVA. CT of the head in the past reported microvascular ischemia and atrophy, recommend evaluating MRI if possible History of scabies, treated twice in the past. Maintained in isolation Overall prognosis is guarded, family decided to proceed with comfort measures. Clinical Quality Measures DVT/VTE Risk/Contraindication: Risk Factor Score Per Nursin RFS Level Per Nursing on Admit: 4+=Very High VANE SMITH MD May 16, 2019 09:59
--- NOTE | 2019-05-16 10:19 | NUR ---
CM/SS spoke with [facility] and they have denied placement, do not feel could meet her needs as she maxed on some meds and then when son was not by patient she was screaming. There is another facility in [facility] with a locked unit. Referral was sent to [facility] in [facility].
[2019-05-16] MEDS: GABAPENTIN 400 MG (NEURONTIN) CAP PO SCH ×3 (10:45→20:39)
[2019-05-16] MEDS: meTOprolol TARTRATE 25 MG (LOPRESSOR) TABLET PO SCH ×2 (10:45→20:40)
[2019-05-16] MEDS: DULoxetine 30 MG (CYMBALTA) CAP PO SCH (10:45)
[2019-05-16] MEDS: QUEtiapine 100 MG (SEROquel) TAB IMMEDIATE RELEASE PO SCH ×3 (10:45→20:41)
[2019-05-16] MEDS: FUROSEMIDE 20 MG (LASIX) TAB PO SCH (10:45)
--- NOTE | 2019-05-16 11:58 | NUR ---
CM/SS [facility] has an open bed but not on their more secure unit. At family's request referral sent to [facility].
--- NOTE | 2019-05-16 13:40 | NUR ---
Attempted to see pt for nutrition follow-up. Note pt is currently on comfort care measures and not appropriate for interventions at this time. If pt status changes, will reassess as needed. Evens Lino MS, RD, LD O: Ext 133 C: [phone]
--- NOTE | 2019-05-16 13:40 | NUR ---
Pastoral care visit.
--- NOTE | 2019-05-16 15:02 | Physical Therapy Progress Note ---
Therapy Progress Note New PT orders received post cancellation orders received over the weekend. Pt resting when PT entered room. Will attempt PT eval on 05/17/19. DENVER BRADSHAW PT May 16, 2019 15:02 POS
--- NOTE | 2019-05-16 15:06 | Occ Therapy Progress Note ---
Therapy Progress Note OT orders received. Chart reviewed. Will assess pt. in a.m. due to waxing/waning of medical status this date. [id number] DICKSON GUERRERO OT May 16, 2019 15:06 POS
--- NOTE | 2019-05-16 15:19 | NUR ---
CM/SS spoke with [facility] in [place], [place] ([phone]). They stated they have a bed available. CM/SS sent over referral information ( ). Will continue to follow.
--- NOTE | 2019-05-16 15:38 | NUR ---
Patient daughter/DPOA call me this Rn to set up discussion time when they arrive. Finally able to talk with the family and they are still concerned about going back to [facility] due to lack of quality care. We have sent referral to [facility] for their review and are awaiting their determination of acceptance. I had long discussion regarding Hospices and given them their options. They would like to talk to [facility] initially. They have been her to talk with the family would like to sign on with [facility] at discharge expected tomorrow.
--- NOTE | 2019-05-16 16:03 | NUR ---
This RN received phone call from Prema/daughter regarding a Detention in [facility] that they would like a referral sent to. I have attempted to call and speak to a Dejah in Admissions and have left a message. There are a couple different referrals pending at this time, one at [facility] and on at [facility] in [facility]. Due to no Admission rep available at this time and other pendings out I have opted to hold this referral until someone is in the office tomorrow.
[2019-05-16] MEDS: SENNOSIDES 8.6 MG (SENOKOT) TAB PO SCH (20:40)
[2019-05-16] MEDS: POLYETHYLENE GLYCOL 17 GM (MIRALAX) PACK PO SCH (20:42)
[2019-05-17] MEDS: morphine (ROXINOL) 10 MG/0.5 ML oral conc 0.5 ML PO PRN ×2 (04:18→21:00)
--- NOTE | 2019-05-17 07:28 | Cardiology Progress Note ---
Subjective Date Seen by Provider: May 17, 2019 Time Seen by Provider: 07:26 Subjective/Events-last exam Patient is in bed, awake, no new complaint, breathing is better Review of Systems General: Other (Unable to provide review of systems) Objective-Cardiology Exam Last Set of Vital Signs Vital Signs 05/11/19 05/14/19 05/16/19 16:00 19:52 10:50 Temp 35.4 Pulse 92 Resp 20 B/P (MAP) 102/62 (75) Pulse Ox 99 O2 Delivery Room Air FiO2 25 Capillary Refill : Less Than 3 Seconds I&O Intake and Output 05/16/19 23:59 Intake Total 1460 ml Balance 1460 ml Intake Oral 1460 ml # Voids 5 # Urine Diapers 1 General: Alert, No Acute Distress, Other (Not following commands) HEENT: Atraumatic Neck: Supple, No JVD Lungs: Clear to Auscultation, Normal Air Movement Heart: Regular Rate, Normal S1, Normal S2 Abdomen: Normal Bowel Sounds Extremities: No Clubbing, No Cyanosis Skin: No Rashes Neuro: Other (Awake and not following commands) Psych/Mental Status: Other (Awake, not responding appropriately) A/P-Cardiology Admission Diagnosis Sepsis Congestive heart failure, acute left ventricular systolic dysfunction Hypotension Metabolic acidosis Assessment/Plan Status post acute respiratory failure post CODE BLUE, extubated and doing better. Not using oxygen, refusing to use nasal cannula. Status post ventricular fibrillation, torsades de pointes, prolonged QT interval, heart rate is better still having occasional PVCs Severe cardiomyopathy, acute on chronic left ventricular systolic dysfunction, unknown etiology, cardiac enzymes negative, had a long discussion with the family regarding the management plan, I recommended conservative management. Unable to tolerate aggressive treatment with beta blockers and/or EDITA inhibitor due to episodes of hypotension Status post hypotensive shock, blood pressure is better at this time. Continue to monitor Dementia, questionable history of CVA. CT of the head in the past reported microvascular ischemia and atrophy, recommend evaluating MRI if possible History of scabies, treated twice in the past. Maintained in isolation Overall prognosis is guarded, family decided to proceed with comfort measures. Okay for discharge from cardiology standpoint Clinical Quality Measures DVT/VTE Risk/Contraindication: Risk Factor Score Per Nursin RFS Level Per Nursing on Admit: 4+=Very High VANE SMITH MD May 17, 2019 07:28 POS
--- NOTE | 2019-05-17 07:44 | Progress Note ---
Subjective Time Seen by a Provider: 07:39 Subjective/Events-last exam Patient in bed happy and smiling. Plan to discharge today to a residential. Patient comfort care. Objective Exam Vital Signs Date Time Temp Pulse Resp B/P (MAP) Pulse Ox O2 Delivery O2 Flow Rate FiO2 05/16/19 10:50 Room Air I & O 05/17/19 07:00 Intake Total 1360 ml Balance 1360 ml Capillary Refill : Less Than 3 Seconds General Appearance: No Apparent Distress, Thin HEENT: Normal ENT Inspection Neck: Full Range of Motion, Normal Inspection Respiratory: Lungs Clear Cardiovascular: Regular Rate, Rhythm, No Murmur Gastrointestinal: non tender, soft Results Lab Microbiology 05/07/19 Blood Culture - Final, Complete No growth 05/10/19 Gram Stain - Final, Complete 05/10/19 Sputum Culture - Final, Complete Usual upper respiratory cande 05/07/19 Urine Culture - Final, Complete NO GROWTH Assessment/Plan Assessment/Plan Assess & Plan/Chief Complaint Sepsis. Acute respiratory failure. Pneumonia. Congestive heart failure. Dementia. History of scabies.. . 05/10/19. Sepsis better. Acute respiratory failure better. Pneumonia. Congestive heart failure BNP elevated morning. Dementia. History of scabies. Consult with cardiology. . 05/11/19. Patient coded yesterday. Patient on ventilator. Patient has severe dementia. We'll get in touch with daughter today who lives in [place] to find out what she wants us to do. Sepsis. Acute respiratory failure. Pneumonia. Congestive heart failure. Severe dementia History of scabies . 05/12/19. Patient extubated off ventilator. Sepsis. Ventricular fibrillation. CHF. Acute left ventricle systolic dysfunction. Dementia. . 05/13/19. Sepsis. Ventricular fibrillation. CHF. Dementia. Patient does not follow orders and difficult to take care of. . 05/16/19. Cardiac arrest. Sepsis. Ventricular fibrillation. CHF Dementia. Patient comfort care. Waiting for foster care social worker for placement. . 05/17/19. Family deciding whether to take patient back home with a live or leave in [place]. Patient is comfort care. Patient looks good today Clinical Quality Measures DVT/VTE Risk/Contraindication: Risk Factor Score Per Nursin RFS Level Per Nursing on Admit: 4+=Very High LANETTE WILCOX DO May 17, 2019 07:44 POS
[2019-05-17 08:05] VITALS: BP 177/92
[2019-05-17] MEDS: meTOprolol TARTRATE 25 MG (LOPRESSOR) TABLET PO SCH ×2 (08:10→20:04)
[2019-05-17] MEDS: FUROSEMIDE 20 MG (LASIX) TAB PO SCH (08:10)
[2019-05-17] MEDS: GABAPENTIN 400 MG (NEURONTIN) CAP PO SCH ×3 (08:10→20:03)
[2019-05-17] MEDS: DULoxetine 30 MG (CYMBALTA) CAP PO SCH (08:10)
[2019-05-17] MEDS: QUEtiapine 100 MG (SEROquel) TAB IMMEDIATE RELEASE PO SCH ×3 (08:10→20:02)
--- NOTE | 2019-05-17 09:10 | NUR ---
DISCHARGE PLANNING: This RN has called [facility] in [facility] to see if they had the opportunity to review the referral packet and make a determination. I spoke with their Rn , Ruchi. She is unsure if she would be able to come and assess her today, but will call around and call me back.
--- NOTE | 2019-05-17 11:15 | NUR ---
DISCHARGE PLANNING: This RN met with patient family earlier today. We discussed what steps had been taken to secure an appropriate placement for the patient post discharge. The family is unhappy with the care at & and we have been attempting to find as accepting facility that can provide the secure dementia care that she would need. [facility] in [place] has a secure unit but cannot send someone to assess her until tomorrow. [facility] --denied due to inability to meet needs. [facility]- denied due to inability to meet needs but [facility] [place]- has referral and are reviewing. At this time there is not an acceptable discharge plan. Addendum: 05/17/19 at 1421 by EMILY RAIN RN [facility] still anticipate vist to evaluate appropriateness for admission tomorrow. [facility]--has no female beds at this time. Malik/Naz Alvarez will come to evaluate this afternoon.
--- NOTE | 2019-05-17 14:43 | Physical Therapy Evaluation ---
PT Evaluation-General Medical Diagnosis Admission Date May 07, 2019 at 01:15 Medical Diagnosis: Severe sepsis, pneumonia Onset Date: May 07, 2019 Therapy Diagnosis Therapy Diagnosis: generalized weakness/debility Height/Weight Height (Feet): 5 Height (Inches): 4.00 Weight (Pounds): 170 Weight (Ounces): 1.0 Precautions Precautions/Isolations: Fall Prevention Weight Bear Status Right Lower Extremity: Right Weight Bearing/Tolerated Left Lower Extremity: Left Weight Bearing/Tolerated Referral Physician: Rosana Reason for Referral: Evaluation/Treatment Medical History Pertinent Medical History: DM, Dementia, HTN Reviewed History: Yes Social History Home: [facility] Current Living Status: Entry Into Home: Level Entry Prior Prior Level of Function SCALE: Activities may be completed with or without assistive devices. 3-Eegucwfrel-okbpbkc completes the activity by him/herself with no assistance from a helper. 5-Set-up or Clean-up Assistance-helper sets up or cleans up; patient completes activity. [place] assists only prior to or following the activity. 4-Supervision or Touching Assistance-helper provides verbal cues and/or touching/steadying and/or contact guard assistance as patient completes activity. Assistance may be provided throughout the activity or intermittently. 3-Partial/Moderate Assistance-helper does LESS THAN HALF the effort. [place] lifts, holds or supports trunk or limbs, but provides less than half the effort. 2-Substantial/Maximal Assistance-helper does MORE THAN HALF the effort. [place] lifts or holds trunk or limbs and provides more than half the effort. 4-Hymjvsejt-mvbfsk does ALL the effort. Patient does none of the effort to complete the activity. Or, the assistance of 2 or more helpers is required for the patient to complete the activity. If activity was not attempted, code reason: 7-Patient Refused. 9-Not Applicable-not attempted and the patient did not perform the activity before the current illness, exacerbation or injury. 10-Not Attempted due to Environmental Limitations-(lack of equipment, weather restraints, etc.). 88-Not Attempted due to Medical Conditions or Safety Concerns. Bed Mobility: 5 Transfers (B,C,W/C): 5 Gait: 5 Stairs: 5 Indoor Mobility (Ambulation): Independent PT Evaluation-Current Subjective Patient is in bed with family present. Patient agrees to PT at this time. Objective Patient Orientation: Confused Problem Solving: Poor ROM/Strength ROM Lower Extremities WFL Strength Lower Extremities grossly 3/5 Integumentary/Posture Integumentary See nursing notes Bowel Incontinence: No Bladder Incontinence: Yes Posture WFL Neuromuscular (Tone, Coordination, Reflexes) grossly intact Sensory Vision: Functional Hearing: Impaired Sensation Right Lower Extremit: Impaired Sensation Left Lower Extremity: Impaired Transfers Roll Left to Right (QC): 3 Lying to Sitting/Side of Bed(Q: 3 Sit to Stand (QC): 4 Gait Does the Patient Walk?: Yes Mode of Locomotion: Walk Anticipated Mode of Locomotion: Walk Distance: 1=446-09 ft Walk 10 feet (QC): 3 Walk 50 ft with 2 Turns(QC): 3 Distance: 100' Gait Assistive Device: None Comments/Gait Description Ambulation with assist of 2, often falters to the side. Balance Sitting Static: Normal Sitting Dynamic: Normal Standing Static: Normal Standing Dynamic: Normal Assessment/Needs Patient reluctant to sit to EOB and get up for treatment and required assistance to complete bed mobility and stand. Patient is unable to follow instructions. Patient ambulated with assistance of two and often lists to the side. Due to patient's inability to follow directions and learn skilled techniques, patient does not qualify for skilled physical therapy treatment at this time. Nursing and family to ambulate with patient during stay. Rehab Potential: Fair PT Recoating Machine Operator Goals Recoating Machine Operator Goals PT Recoating Machine Operator Goals Time Frame: May 27, 2019 Sit to Lying (QC): 5 Lying-Sitting on Side/Bed(QC): 5 Sit to Stand (QC): 5 Roll Left to Right (QC): 5 Chair/Zlj-mc-Tpomi Xfer(QC): 5 Does the Patient Walk: Yes Distance: 200' Walk 10 feet (QC): 5 Walk 10ft-Uneven Surface(QC): 5 Walk 50ft with 2 Turns (QC): 5 Walk 150 ft (QC): 5 Gait Assistive Device: None, FWW PT Plan Treatment/Plan Treatment Plan: Discontinue PT Treatment Plan: Bed Mobility, Education, Functional Activity [place], Functional Strength, Gait, Safety, Therapeutic Exercise Treatment Duration: May 27, 2019 Frequency: 6 times per week Estimated Hrs Per Day: .25 hour per day Patient and/or Family Agrees t: Yes Time/GCodes Time In: 1344 Time Out: 1358 Total Billed Treatment Time: 14 Total Billed Treatment 1 visit EVModC 14min CALLY,FLACO PT May 17, 2019 14:43 POS
--- NOTE | 2019-05-17 14:46 | Occupational Therapy Eval ---
OT Evaluation-General/PLF Medical Diagnosis Admission Date May 07, 2019 at 01:15 Medical Diagnosis: Severe sepsis, pneumonia Onset Date: May 07, 2019 Therapy Diagnosis Therapy Diagnosis: debility Height/Weight Height (Feet): 5 Height (Inches): 4.00 Weight (Pounds): 170 Weight (Ounces): 1.0 Precautions Precautions/Isolations: Fall Prevention Safety Interventions: Reorient-Attempt, Reorient-PRN Referral Physician: aPul Vega Reason: Activity Tolerance, Self Care, Evaluation/Treatment, Strengthening/ROM Medical History Pertinent Medical History: DM, Dementia, HTN Additional Medical History renal failure, chronic back pain, personality disorder, depression, CHF Reviewed History: Yes Social History Home: [facility] Current Living Status: Entry Into Home: Level Entry ADL-Prior Level of Function SCALE: Activities may be completed with or without assistive devices. 3-Dixwjsbecv-ypmturo completes the activity by him/herself with no assistance from a helper. 5-Set-up or Clean-up Assistance-helper sets up or cleans up; patient completes activity. [place] assists only prior to or following the activity. 4-Supervision or Touching Assistance-helper provides verbal cues and/or touching/steadying and/or contact guard assistance as patient completes activity. Assistance may be provided throughout the activity or intermittently. 3-Partial/Moderate Assistance-helper does LESS THAN HALF the effort. [place] lifts, holds or supports trunk or limbs, but provides less than half the effort. 2-Substantial/Maximal Assistance-helper does MORE THAN HALF the effort. [place] lifts or holds trunk or limbs and provides more than half the effort. 0-Ulgtycnsd-efxajb does ALL the effort. Patient does none of the effort to complete the activity. Or, the assistance of 2 or more helpers is required for the patient to complete the activity. If activity was not attempted, code reason: 7-Patient Refused. 9-Not Applicable-not attempted and the patient did not perform the activity before the current illness, exacerbation or injury. 10-Not Attempted due to Environmental Limitations-(lack of equipment, weather restraints, etc.). 88-Not Attempted due to Medical Conditions or Safety Concerns. Self Care: Unknown Functional Cognition: Unknown OT Current Status Subjective Pt resting in bed with family present. Mental Status/Objective Patient Orientation: Unable to Assess Current Upper Extremity ROM Pt moves bilateral UE spontaneously. Unable to complete formal UE assessment secondary to inability to follow commands. ADL-Treatment ADL-Current Pt reluctantly completed supine to sit with tactile cues and assist. Gait to restroom with assist x2. Pt has decreased balance and requires assist for posture and safety. Transfer to toilet. Pt required total assist for toileting hygiene and to change Depends. Pt performed gait in hallway with assist x2 and impaired balance. Pt does not follow commands for mobility or safety. Pt returned to room and transferred to chair with guidance. Pt sitting in chair with needs met, family and RN present after session. Upper Body Dressing (QC): 1 (Nurse aide present and assisted pt to change gown) Toileting Hygiene (QC): 1 OT Short Term Goals Short Term Goals 1=Demonstrate adherence to instructed precautions during ADL tasks. 2=Patient will verbalize/demonstrate understanding of assistive devices/modifications for ADL. 3=Patient will improve strength/tolerance for activity to enable patient to perform ADL's. OT Food Photographer Goals Food Photographer Goals 1=Demonstrate adherence to instructed precautions during ADL tasks. 2=Patient will verbalize/demonstrate understanding of assistive devices/modifications for ADL. 3=Patient will improve strength/tolerance for activity to enable patient to perform ADL's. OT Education/Plan Problem List/Assessment Assessment: No Skilled OT Needs ID'd OT evaluation completed. Pt requires assist for mobility and ADL tasks. Pt is unable to follow commands for functional task completion. Pt does not require skilled OT intervention at this time as pt is unable to follow commands or learn new techniques. Per chart, plan is for pt to d/c once appropriate arrangements are made. D/c OT at this time. Discharge Recommendations Plan/Recommendations: Discontinue OT Treatment Plan/Plan of Care Treatment,Training & Education: No Treatment Duration: May 17, 2019 Frequency: 1 time per week (evaluation only) Estimated Hrs Per Day: Other (evaluation only) Rehab Potential: Guarded Time/GCodes Start Time: 13:45 Stop Time: 14:00 Total Time Billed (hr/min): 15 Billed Treatment Time 1 visit, MARY(15minutes) JESSICA MCMULLEN OT May 17, 2019 14:46 POS
[2019-05-17] MEDS: LORazepam ORAL CONCENTRATE 2 MG/ML 30 ML (ATIVAN) PO PRN (20:00)
[2019-05-17] MEDS: SENNOSIDES 8.6 MG (SENOKOT) TAB PO SCH (20:04)
[2019-05-17] MEDS: SCOPOLAMINE 1.5 MG (TRANSDERM-SCOP) PATCH TOP SCH (20:05)
[2019-05-17] MEDS: POLYETHYLENE GLYCOL 17 GM (MIRALAX) PACK PO SCH (20:05)
[2019-05-18] MEDS: LORazepam ORAL CONCENTRATE 2 MG/ML 30 ML (ATIVAN) PO PRN (04:51)
[2019-05-18] MEDS: morphine (ROXINOL) 10 MG/0.5 ML oral conc 0.5 ML PO PRN ×2 (04:51→11:28)
--- NOTE | 2019-05-18 08:07 | Progress Note ---
Subjective Time Seen by a Provider: 08:04 Subjective/Events-last exam Patient doing well. Patient comfortable this morning. Patient needing by herself good. event services manager trying to get placement for patient. So far not successful. Area Patient comfort care. Dementia Objective Exam Vital Signs Date Time Temp Pulse Resp B/P (MAP) Pulse Ox O2 Delivery O2 Flow Rate FiO2 05/17/19 21:00 Nasal Cannula 4.00 05/17/19 21:00 99 Room Air 4.00 05/17/19 08:05 115 177/92 (120) I & O 05/18/19 07:00 Intake Total 1400 ml Balance 1400 ml Capillary Refill : Less Than 3 Seconds General Appearance: No Apparent Distress, Thin HEENT: Normal ENT Inspection Neck: Full Range of Motion, Normal Inspection Respiratory: Lungs Clear, No Accessory Muscle Use, No Respiratory Distress Cardiovascular: Regular Rate, Rhythm, No Murmur Gastrointestinal: non tender, soft Results Lab Microbiology 05/07/19 Blood Culture - Final, Complete No growth 05/10/19 Gram Stain - Final, Complete 05/10/19 Sputum Culture - Final, Complete Usual upper respiratory cande 05/07/19 Urine Culture - Final, Complete NO GROWTH Assessment/Plan Assessment/Plan Assess & Plan/Chief Complaint Sepsis. Acute respiratory failure. Pneumonia. Congestive heart failure. Dementia. History of scabies.. . 05/10/19. Sepsis better. Acute respiratory failure better. Pneumonia. Congestive heart failure BNP elevated morning. Dementia. History of scabies. Consult with cardiology. . 05/11/19. Patient coded yesterday. Patient on ventilator. Patient has severe dementia. We'll get in touch with daughter today who lives in [place] to find out what she wants us to do. Sepsis. Acute respiratory failure. Pneumonia. Congestive heart failure. Severe dementia History of scabies . 05/12/19. Patient extubated off ventilator. Sepsis. Ventricular fibrillation. CHF. Acute left ventricle systolic dysfunction. Dementia. . 05/13/19. Sepsis. Ventricular fibrillation. CHF. Dementia. Patient does not follow orders and difficult to take care of. . 05/16/19. Cardiac arrest. Sepsis. Ventricular fibrillation. CHF Dementia. Patient comfort care. Waiting for psychosocial rehabilitation counselor for placement. . 05/17/19. Family deciding whether to take patient back home with a live or leave in [place]. Patient is comfort care. Patient looks good today. . 05/18/19. Patient doing better. Dementia. Cardiac arrest. Ventricular fibrillation. Patient comfort care. event services manager working on placement Clinical Quality Measures DVT/VTE Risk/Contraindication: Risk Factor Score Per Nursin RFS Level Per Nursing on Admit: 4+=Very High LANETTE WILCOX DO May 18, 2019 08:07 POS
[2019-05-18] MEDS: DULoxetine 30 MG (CYMBALTA) CAP PO SCH (08:40)
[2019-05-18] MEDS: GABAPENTIN 400 MG (NEURONTIN) CAP PO SCH (08:40)
[2019-05-18] MEDS: FUROSEMIDE 20 MG (LASIX) TAB PO SCH (08:41)
[2019-05-18] MEDS: meTOprolol TARTRATE 25 MG (LOPRESSOR) TABLET PO SCH (08:41)
[2019-05-18] MEDS: QUEtiapine 100 MG (SEROquel) TAB IMMEDIATE RELEASE PO SCH (08:44)
--- NOTE | 2019-05-18 10:45 | NUR ---
DISCHARGE PLANNING/PALLIATIVE CARE [facility] family has toured with them and would like for them to be the caregivers. I have notified Dr. Miller and gotten telephone orders for [place] which have been [place] [facility] [place] [facility] Family just arrived to hospital and are informed of the pick-up time of 1130 for the patient. No other needs at this time.
--- NOTE | 2019-05-18 11:30 | NUR ---
CONSTANTIN ( NURSE ) FROM [facility] demonstrates understanding of discharge instructions and accurately returns instructions upon questioning. Copy of Post-Discharge Instructions given to [facility] . LUIS FELIPE OSMAN is able to manage continuing needs after discharge. Patients belongings returned to FAMILY. Patient discharged from [facility] on 05/18/19 at 1130. LUIS FELIPE OSMAN left floor via W/C, accompanied by STAFF AND FAMILY PER VAN.
--- NOTE | 2019-05-19 07:45 | Discharge Summary ---
Diagnosis/Chief Complaint Date of Admission May 07, 2019 at 01:15 Date of Discharge May 18, 2019 at 11:30 Discharge Time: 07:41 Discharge Diagnosis Unit respiratory failure. Coded. Dementia. Congestive heart failure. Major depressive disorder. Ventricular fibrillation. Pneumonia. Scabies history. Sepsis. Diabetes. HEENT respiratory failure. Hypotension. Acute renal failure. Patient intubated. Congestive heart failure. Elevated lactic acid. DO NOT RESUSCITATE. Comfort care Discharge Summary Procedures Coded. Intubated Consultations Cardiology Discharge Physical Examination Allergies: Coded Allergies: No Known Drug Allergies (Unverified , 08/14/17) Vitals & I&Os Vital Signs Date Time Temp Pulse Resp B/P (MAP) Pulse Ox O2 Delivery O2 Flow Rate FiO2 05/18/19 09:00 Room Air 05/17/19 21:00 4.00 05/17/19 21:00 99 05/17/19 08:05 115 177/92 (120) 05/14/19 19:52 35.4 20 Hospital Course Patient in hospital did improve. Patient discharged to [facility] in [place]. Took a while to find a prison Labs (last 24 hrs) Laboratory Tests 05/07/19 00:00: White Blood Count 15.8H, Red Blood Count 5.21, Hemoglobin 14.6, Hematocrit 47, Mean Corpuscular Volume 91, Mean Corpuscular Hemoglobin 28, Mean Corpuscular Hemoglobin Concent 31L, Red Cell Distribution Width 14.9H, Platelet Count 300, Mean Platelet Volume 11.5H, Neutrophils (%) (Auto) 74, Lymphocytes (%) (Auto) 17, Monocytes (%) (Auto) 5, Eosinophils (%) (Auto) 3, Basophils (%) (Auto) 0, Neutrophils # (Auto) 11.7H, Lymphocytes # (Auto) 2.8, Monocytes # (Auto) 0.8, Eosinophils # (Auto) 0.5H, Basophils # (Auto) 0.1, Neutrophils % (Manual) 74, Lymphocytes % (Manual) 12, Monocytes % (Manual) 8, Band Neutrophils 6, Blood Morphology Comment NORMAL, Prothrombin Time 13.4, INR Comment 1.0, Activated Partial Thromboplast Time 30, Sodium Level 141, Potassium Level 4.6, Chloride Level 107, Carbon Dioxide Level 15L, Anion Gap 19H, Blood Urea Nitrogen 18, Creatinine 1.22, Estimat Glomerular Filtration Rate 44, BUN/Creatinine Ratio 15, Glucose Level 287H, Calcium Level 9.3, Corrected Calcium 8.9, Magnesium Level 2.0, Total Bilirubin 0.5, Aspartate Amino Transf (AST/SGOT) 31, Alanine Aminotransferase (ALT/SGPT) 27, Alkaline Phosphatase 142H, Total Creatine Kinase 61, Creatine Kinase MB 1.5, Myoglobin 51.3, Troponin I < 0.028, B-Type Natriuretic Peptide 416.8H, Total Protein 8.8H, Albumin 4.5, TSH [place] Testing 1.11 05/07/19 00:01: Blood Gas Puncture Site RIGHT RADIAL, Blood Gas Patient Temperature 37.4, Arterial Blood pH 7.27*L, Arterial Blood Partial Pressure CO2 41, Arterial Blood Partial Pressure O2 91, Arterial Blood HCO3 18L, Arterial Blood Total CO2 19.0L, Arterial Blood Oxygen Saturation 95, Arterial Blood Base Excess -7.8L, Darnell Test YES-POS, Blood Gas Ventilator Setting NO, Blood Gas Inspired Oxygen 50% 05/07/19 00:33: Lactic Acid Level 4.31*H 05/07/19 01:04: Urine Color YELLOW, Urine Clarity SLIGHTLY CLOUDY, Urine pH 5, Urine Specific [place] 1.020, Urine Protein 4+, Urine Glucose (UA) 4+H, Urine Ketones NEGATIVE, Urine Nitrite NEGATIVE, Urine Bilirubin NEGATIVE, Urine Urobilinogen NORMAL, Urine Leukocyte Esterase NEGATIVE, Urine RBC (Auto) 1+H, Urine RBC 2-5H, Urine WBC NONE, Urine Squamous Epithelial Cells 2-5, Urine Crystals PRESENTH, Urine Am orphous Sediment LARGE ABHIJIT URATESH, Urine Bacteria TRACE, Urine Casts NONE, Urine Mucus NEGATIVE, Urine Culture Indicated NO 05/07/19 01:15: Lab Scanned Report Referred Lab Report 05/07/19 02:35: Lactic Acid Level 3.30*H 05/07/19 05:55: Glucometer 204H 05/07/19 08:44: Lactic Acid Level 4.68*H, Sodium Level 139, Potassium Level 4.4, Chloride Level 101, Carbon Dioxide Level 18L, Anion Gap 20H, Blood Urea Nitrogen 20H, Creatinine 1.24, Estimat Glomerular Filtration Rate 43, BUN/Creatinine Ratio 16, Glucose Level 300H, Calcium Level 9.1, Magnesium Level 1.8 05/07/19 11:06: Glucometer 199H 05/07/19 11:20: Lactic Acid Level 2.57*H 05/07/19 15:59: Glucometer 147H 05/07/19 20:55: Glucometer 177H 05/08/19 06:07: Glucometer 182H 05/08/19 11:09: Glucometer 243H 05/08/19 11:25: White Blood Count 15.5H, Red Blood Count 4.38, Hemoglobin 12.2, Hematocrit 39, Mean Corpuscular Volume 90, Mean Corpuscular Hemoglobin 28, Mean Corpuscular Hemoglobin Concent 31L, Red Cell Distribution Width 14.9H, Platelet Count 232, Mean Platelet Volume 10.8H, Neutrophils (%) (Auto) 87H, Lymphocytes (%) (Auto) 9L, Monocytes (%) (Auto) 5, Eosinophils (%) (Auto) 0, Basophils (%) (Auto) 0, Neutrophils # (Auto) 13.4H, Lymphocytes # (Auto) 1.3, Monocytes # (Auto) 0.7, Eosinophils # (Auto) 0.0, Basophils # (Auto) 0.0, Sodium Level 139, Potassium Level 3.6, Chloride Level 109H, Carbon Dioxide Level 17L, Anion Gap 13, Blood Urea Nitrogen 17, Creatinine 0.85, Estimat Glomerular Filtration Rate > 60, BUN/Creatinine Ratio 20, Glucose Level 242H, Lactic Acid Level 2.45*H, Calcium Level 7.8L, Corrected Calcium 8.1L, Total Bilirubin 0.6, Aspartate Amino Transf (AST/SGOT) 57H, Alanine Aminotransferase (ALT/SGPT) 66H, Alkaline Phosphatase 109, Total Protein 6.6, Albumin 3.6 05/08/19 13:30: Lactic Acid Level 1.66 05/08/19 16:26: Glucometer 133H 05/08/19 21:17: Glucometer 168H 05/09/19 03:05: White Blood Count 9.7, Red Blood Count 4.47, Hemoglobin 12.8, Hematocrit 41, Mean Corpuscular Volume 91, Mean Corpuscular Hemoglobin 29, Mean Corpuscular Hemoglobin Concent 31L, Red Cell Distribution Width 15.1H, Platelet Count 209, Mean Platelet Volume 11.5H, Neutrophils (%) (Auto) 69, Lymphocytes (%) (Auto) 24, Monocytes (%) (Auto) 7, Eosinophils (%) (Auto) 0, Basophils (%) (Auto) 0, Neutrophils # (Auto) 6.6, Lymphocytes # (Auto) 2.3, Monocytes # (Auto) 0.7, Eosi nophils # (Auto) 0.0, Basophils # (Auto) 0.0, Sodium Level 137, Potassium Level 4.6, Chloride Level 111H, Carbon Dioxide Level 14L, Anion Gap 11, Blood Urea N itrogen 18, Creatinine 0.85, Estimat Glomerular Filtration Rate > 60, BUN/Creatinine Ratio 21, Glucose Level 158H, Calcium Level 7.8L, Phosphorus Level 3.3, Magnesium Level 2.1, B-Type Natriuretic Peptide 943.5H 05/09/19 15:54: Glucometer 215H 05/09/19 19:54: Glucometer 137H 05/10/19 03:08: White Blood Count 9.8, Red Blood Count 4.83, Hemoglobin 13.4, Hematocrit 42, Mean Corpuscular Volume 88, Mean Corpuscular Hemoglobin 28, Mean Corpuscular Hemoglobin Concent 32, Red Cell Distribution Width 15.1H, Platelet Count 254, Mean Platelet Volume 11.0H, Neutrophils (%) (Auto) 65, Lymphocytes (%) (Auto) 26, Monocytes (%) (Auto) 8, Eosinophils (%) (Auto) 1, Basophils (%) (Auto) 0, Neutrophils # (Auto) 6.3, Lymphocytes # (Auto) 2.5, Monocytes # (Auto) 0.8, Eosinophils # (Auto) 0.1, Basophils # (Auto) 0.0, Sodium Level 142, Potassium Level 3.0L, Chloride Level 110H, Carbon Dioxide Level 17L, Anion Gap 15H, Blood Urea Nitrogen 17, Creatinine 0.80, Estimat Glomerular Filtration Rate > 60, BUN/Creatinine Ratio 21, Glucose Level 121H, Calcium Level 8.5, Phosphorus Level 2.6, Magnesium Level 1.8, B-Type Natriuretic Peptide 1447.2H 05/10/19 11:01: Glucometer 108 05/10/19 13:05: Sodium Level 143, Potassium Level 3.3L, Chloride Level 107, Carbon Dioxide Level 18L, Anion Gap 18H, Blood Urea Nitrogen 15, Creatinine 0.76, Estimat Glomerular Filtration Rate > 60, BUN/Creatinine Ratio 20, Glucose Level 118H, Calcium Level 9.0, Phosphorus Level 2.5, Magnesium Level 1.7, Troponin I < 0.028 05/10/19 13:49: Blood Gas Puncture Site LT RAD, Blood Gas Patient Temperature 36.0, Arterial Blood pH 7.37, Arterial Blood Partial Pressure CO2 35, Arterial Blood Partial Pressure O2 203H, Arterial Blood HCO3 20L, Arterial Blood Total CO2 21.2, Arterial Blood Oxygen Saturation 99, Arterial Blood Base Excess -4.5L, Darnell Test YES-POS, Blood Gas Ventilator Setting NO, Blood Gas Inspired Oxygen 100 L 05/10/19 13:55: White Blood Count 12.7H, Red Blood Count 5.34, Hemoglobin 14.9, Hematocrit 47, Mean Corpuscular Volume 88, Mean Corpuscular Hemoglobin 28, Mean Corpuscular Hemoglobin Concent 32, Red Cell Distribution Width 15.1H, Platelet Count 298, Mean Platelet Volume 10.7H, Neutrophils (%) (Auto) 64, Lymphocytes (%) (Auto) 27, Monocytes (%) (Auto) 7, Eosinophils (%) (Auto) 2, Basophils (%) (Auto) 0, Neutrophils # (Auto) 8.1H, Lymphocytes # (Auto) 3.5, Monocytes # (Auto) 0.9, Eosinophils # (Auto) 0.2, Basophils # (Auto) 0.1, Prothrombin Time 13.9, INR Comment 1.0, Sodium Level 141, Potassium Level 3.6, Chloride Level 106, Carbon Dioxide Level 18L, Anion Gap 17H, Blood Urea Nitrogen 15, Creatinine 0.83, Estimat Glomerular Filtration Rate > 60, BUN/Creatinine Ratio 18, Glucose Level 140H, Lactic Acid Level 2.16*H, Calcium Level 9.3, Corrected Calcium 9.1, Total Bilirubin 0.8, Aspartate Amino Transf (AST/SGOT) 67H, Alanine Aminotransferase (ALT/SGPT) 99H, Alkaline Phosphatase 138H, Total Protein 8.1, Albumin 4.3, Triglycerides Level 199H 05/10/19 16:00: Lactic Acid Level 1.35 05/10/19 16:55: Glucometer 166H 05/10/19 23:31: Glucometer 199H 05/11/19 03:40: White Blood Count 11.9H, Red Blood Count 4.64, Hemoglobin 13.2, Hematocrit 41, Mean Corpuscular Volume 88, Mean Corpuscular Hemoglobin 28, Mean Corpuscular Hemoglobin Concent 32, Red Cell Distribution Width 14.9H, Platelet Count 284, Mean Platelet Volume 10.5H, Neutrophils (%) (Auto) 78H, Lymphocytes (%) (Auto) 13, Monocytes (%) (Auto) 8, Eosinophils (%) (Auto) 1, Basophils (%) (Auto) 0, Neutrophils # (Auto) 9.3H, Lymphocytes # (Auto) 1.5, Monocytes # (Auto) 1.0, Eosinophils # (Auto) 0.1, Basophils # (Auto) 0.0, Blood Gas Puncture Site RT RADIAL, Blood Gas Patient Temperature 36.1, Arterial Blood pH 7.38, Arterial Blood Partial Pressure CO2 25L, Arterial Blood Partial Pressure O2 69L, Arterial Blood HCO3 15*L, Arterial Blood Total CO2 15.5L, Arterial Blood Oxygen Saturation 93L, Arterial Blood Base Excess -9.5L, Darnell Test YES-POS, Blood Gas Ventilator Setting YES, Blood Gas Inspired Oxygen 22%, Sodium Level 143, Potassium Level 3.0L, Chloride Level 108H, Carbon Dioxide Level 12L, Anion Gap 23H, Blood Urea Nitrogen 17, Creatinine 1.05, Estimat Glomerular Filtration Rate 52, BUN/Creatinine Ratio 16, Glucose Level 180H, Calcium Level 8.4L, Phosphorus Level 4.0, Magnesium Level 2.0, B-Type Natriuretic Peptide 888.9H 05/11/19 10:30: Sodium Level 143, Potassium Level 3.5L, Chloride Level 111H, Carbon Dioxide Level 16L, Anion Gap 16H, Blood Urea Nitrogen 15, Creatinine 1.08, Estimat Glomerular Filtration Rate 51, BUN/Creatinine Ratio 14, Glucose Level 171H, Calcium Level 8.4L 05/11/19 11:39: Glucometer 190H 05/11/19 15:30: Sodium Level 143, Potassium Level 3.2L, Chloride Level 108H, Carbon Dioxide Level 17L, Anion Gap 18H, Blood Urea Nitrogen 14, Creatinine 1.22, Estimat Glomerular Filtration Rate 44, BUN/Creatinine Ratio 11, Glucose Level 214H, Calcium Level 8.6 05/11/19 18:13: Glucometer 196H 05/11/19 23:16: Glucometer 134H 05/12/19 03:50: Sodium Level 147H, Potassium Level 3.1L, Chloride Level 111H, Carbon Dioxide Level 18L, Anion Gap 18H, Blood Urea Nitrogen 13, Creatinine 1.10, Estimat Glomerular Filtration Rate 50, BUN/Creatinine Ratio 12, Glucose Level 132H, Calcium Level 9.4, Phosphorus Level 2.9, Magnesium Level 1.7 05/12/19 03:55: White Blood Count 15.7H, Red Blood Count 4.70, Hemoglobin 13.1, Hematocrit 41, Mean Corpuscular Volume 88, Mean Corpuscular Hemoglobin 28, Mean Corpuscular Hemoglobin Concent 32, Red Cell Distribution Width 15.2H, Platelet Count 277, Mean Platelet Volume 10.4, Neutrophils (%) (Auto) 84H, Lymphocytes (%) (Auto) 8L , Monocytes (%) (Auto) 8, Eosinophils (%) (Auto) 1, Basophils (%) (Auto) 0, Neutrophils # (Auto) 13.1H, Lymphocytes # (Auto) 1.3, Monocytes # (Auto) 1.2H, Eosinophils # (Auto) 0.1, Basophils # (Auto) 0.0, Neutrophils % (Manual) 83, Lymphocytes % (Manual) 9, Monocytes % (Manual) 8, Blood Morphology Comment [facility] 05/12/19 10:29: Glucometer 196H 05/12/19 15:20: Glucometer 151H, Sodium Level 142, Potassium Level 3.5L, Chloride Level 108H, Carbon Dioxide Level 19L, Anion Gap 15H, Blood Urea Nitrogen 15, Creatinine 1.03, Estimat Glomerular Filtration Rate 53, BUN/Creatinine Ratio 15, Glucose Level 166H, Calcium Level 9.3, Magnesium Level 2.1 05/12/19 18:46: Glucometer 177H 05/12/19 20:20: Glucometer 207H 05/13/19 03:00: White Blood Count 14.9H, Red Blood Count 4.79, Hemoglobin 13.5, Hematocrit 42, Mean Corpuscular Volume 88, Mean Corpuscular Hemoglobin 28, Mean Corpuscular Hemoglobin Concent 32, Red Cell Distribution Width 15.5H, Platelet Count 288, Mean Platelet Volume 10.5H, Neutrophils (%) (Auto) 79H, Lymphocytes (%) (Auto) 10L, Monocytes (%) (Auto) 9, Eosinophils (%) (Auto) 2, Basophils (%) (Auto) 0, Neutrophils # (Auto) 11.7H, Lymphocytes # (Auto) 1.6, Monocytes # (Auto) 1.4H, Eosinophils # (Auto) 0.3, Basophils # (Auto) 0.0, Sodium Level 139, Potassium Level 3.7, Chloride Level 108H, Carbon Dioxide Level 18L, Anion Gap 13, Blood Urea Nitrogen 17, Creatinine 0.77, Estimat Glomerular Filtration Rate > 60, BUN/Creatinine Ratio 22, Glucose Level 178H, Calcium Level 9.1, Corrected Calcium 9.3, Phosphorus Level 2.6, Magnesium Level 2.0, Total Bilirubin 1.3H, Aspartate Amino Transf (AST/SGOT) 16, Alanine Aminotransferase (ALT/SGPT) 40, Alkaline Phosphatase 127, Total Protein 7.1, Albumin 3.7 05/13/19 10:32: Glucometer 182H 05/13/19 16:09: Glucometer 232H 05/13/19 20:17: Glucometer 156H 05/14/19 02:50: White Blood Count 10.7, Red Blood Count 4.87, Hemoglobin 13.8, Hematocrit 43, Mean Corpuscular Volume 89, Mean Corpuscular Hemoglobin 28, Mean Corpuscular Hemoglobin Concent 32, Red Cell Distribution Width 15.8H, Platelet Count 240, Mean Platelet Volume 11.2H, Neutrophils (%) (Auto) 67, Lymphocytes (%) (Auto) 19, Monocytes (%) (Auto) 10, Eosinophils (%) (Auto) 4, Basophils (%) (Auto) 0, Neutrophils # (Auto) 7.2, Lymphocytes # (Auto) 2.0, Monocytes # (Auto) 1.1H, Eosinophils # (Auto) 0.4H, Basophils # (Auto) 0.0, Sodium Level 138, Potassium Level 4.4, Chloride Level 108H, Carbon Dioxide Level 15L, Anion Gap 15H, Blood Urea Nitrogen 27H, Creatinine 0.89, Estimat Glomerular Filtration Rate > 60, BUN/Creatinine Ratio 30, Glucose Level 173H, Calcium Level 8.8, Phosphorus Level 4.4, Magnesium Level 1.9 05/14/19 12:05: Glucometer 208H 05/14/19 16:16: Glucometer 143H 05/14/19 20:04: Glucometer 178H 05/18/19 11:18: Glucometer 165H Microbiology 05/07/19 Blood Culture - Final, Complete No growth 05/10/19 Gram Stain - Final, Complete 05/10/19 Sputum Culture - Final, Complete Usual upper respiratory cande 05/07/19 Urine Culture - Final, Complete NO GROWTH Laboratory Tests 05/07/19 00:00 05/07/19 08:44 05/08/19 11:25 05/09/19 03:05 05/10/19 03:08 05/10/19 13:05 05/10/19 13:55 05/11/19 03:40 05/11/19 10:30 05/11/19 15:30 05/12/19 03:50 05/12/19 03:55 05/12/19 15:20 05/13/19 03:00 05/14/19 02:50 Pending Labs Microbiology Date/Time Source Procedure Growth Status 05/07/19 00:45 Peripheral Right Wrist Blood Culture - Final No growth Complete 05/07/19 00:33 Peripheral Rt Hand Blood Culture - Final No growth Complete 05/10/19 14:05 Sputum Induced Gram Stain - Final Complete 05/10/19 14:05 Sputum Culture - Final Usual upper respiratory cande Complete 05/08/19 00:00 Nasal MRSA Screen - Final MRSA not isolated Complete 05/07/19 00:09 Nasopharynx Influenza Types A,B Antigen (VITA) - Final Complete 05/07/19 01:04 Urine Type Of Collection Uncertain Urine Culture - Final NO GROWTH Complete Laboratory Tests 05/07/19 00:00: White Blood Count 15.8, Red Blood Count 5.21, Hemoglobin 14.6, Hematocrit 47, Mean Corpuscular Volume 91, Mean Corpuscular Hemoglobin 28, Mean Corpuscular Hemoglobin Concent 31, Red Cell Distribution Width 14.9, Platelet Count 300, Mean Platelet Volume 11.5, Neutrophils (%) (Auto) 74, Lymphocytes (%) (Auto) 17, Monocytes (%) (Auto) 5, Eosinophils (%) (Auto) 3, Basophils (%) (Auto) 0, Neutrophils # (Auto) 11.7, Lymphocytes # (Auto) 2.8, Monocytes # (Auto) 0.8, Eosinophils # (Auto) 0.5, Basophils # (Auto) 0.1, Neutrophils % (Manual) 74, Lymphocytes % (Manual) 12, Monocytes % (Manual) 8, Band Neutrophils 6, Blood Morphology Comment NORMAL, Prothrombin Time 13.4, INR Comment 1.0, Activated Partial Thromboplast Time 30, Sodium Level 141, Potassium Level 4.6, Chloride [place] 107, Carbon Dioxide Level 15, Anion Gap 19, Blood Urea Nitrogen 18, Creatinine 1.22, Estimat Glomerular Filtration Rate 44, BUN/Creatinine Ratio 15, Glucose Level 287, Calcium Level 9.3, Corrected Calcium 8.9, Magnesium Level 2.0, Total Bilirubin 0.5, Aspartate Amino Transf (AST/SGOT) 31, Alanine Aminotransferase (ALT/SGPT) 27, Alkaline Phosphatase 142, Total Creatine Kinase 61, Creatine Kinase MB 1.5, Myoglobin 51.3, Troponin I < 0.028, B-Type Natriuretic Peptide 416.8, Total Protein 8.8, Albumin 4.5, TSH [place] Testing 1.11 05/07/19 00:01: Blood Gas Puncture Site RIGHT RADIAL, Blood Gas Patient Temperature 37.4, Arterial Blood pH 7.27, Arterial Blood Partial Pressure CO2 41, Arterial Blood Partial Pressure O2 91, Arterial Blood HCO3 18, Arterial Blood Total CO2 19.0, Arterial Blood Oxygen Saturation 95, Arterial Blood Base Excess -7.8, Darnell Test YES-POS, Blood Gas Ventilator Setting NO, Blood Gas Inspired Oxygen 50% 05/07/19 00:33: Lactic Acid Level 4.31 05/07/19 01:04: Urine Color YELLOW, Urine Clarity SLIGHTLY CLOUDY, Urine pH 5, Urine Specific [place] 1.020, Urine Protein 4+, Urine Glucose (UA) 4+, Urine Ketones NEGATIVE, Urine Nitrite NEGATIVE, Urine Bilirubin NEGATIVE, Urine Urobilinogen NORMAL, Urine Leukocyte Esterase NEGATIVE, Urine RBC (Auto) 1+, Urine RBC 2-5, Urine WBC NONE, Urine Squamous Epithelial Cells 2-5, Urine Crystals PRESENT, Urine Amorphous Sediment LARGE ABHIJIT URATES, Urine Bacteria TRACE, Urine Casts NONE, Urine Mucus NEGATIVE, Urine Culture Indicated NO 05/07/19 01:15: Lab Scanned Report Referred Lab Report 05/07/19 02:35: Lactic Acid Level 3.30 05/07/19 05:55: Glucometer 204 05/07/19 08:44: Lactic Acid Level 4.68, Sodium Level 139, Potassium Level 4.4, Chloride Level 101, Carbon Dioxide Level 18, Anion Gap 20, Blood Urea Nitrogen 20, Creatinine 1.24, Estimat Glomerular Filtration Rate 43, BUN/Creatinine Ratio 16, Glucose Level 300, Calcium Level 9.1, Magnesium Level 1.8 05/07/19 11:06: Glucometer 199 05/07/19 11:20: Lactic Acid Level 2.57 05/07/19 15:59: Glucometer 147 05/07/19 20:55: Glucometer 177 05/08/19 06:07: Glucometer 182 05/08/19 11:09: Glucometer 243 05/08/19 11:25: White Blood Count 15.5, Red Blood Count 4.38, Hemoglobin 12.2, Hematocrit 39, Mean Corpuscular Volume 90, Mean Corpuscular Hemoglobin 28, Mean Corpuscular He moglobin Concent 31, Red Cell Distribution Width 14.9, Platelet Count 232, Mean Platelet Volume 10.8, Neutrophils (%) (Auto) 87, Lymphocytes (%) (Auto) 9, Monocytes (%) (Auto) 5, Eosinophils (%) (Auto) 0, Basophils (%) (Auto) 0, Neutrophils # (Auto) 13.4, Lymphocytes # (Auto) 1.3, Monocytes # (Auto) 0.7, Eosinophils # (Auto) 0.0, Basophils # (Auto) 0.0, Sodium Level 139, Potassium Level 3.6, Chloride Level 109, Carbon Dioxide Level 17, Anion Gap 13, Blood Urea Nitrogen 17, Creatinine 0.85, Estimat Glomerular Filtration Rate > 60, BUN/Creatinine Ratio 20, Glucose Level 242, Lactic Acid Level 2.45, Calcium Level 7.8, Corrected Calcium 8.1, Total Bilirubin 0.6, Aspartate Amino Transf (AST/SGOT) 57, Alanine Aminotransferase (ALT/SGPT) 66, Alkaline Phosphatase 109, Total Protein 6.6, Albumin 3.6 05/08/19 13:30: Lactic Acid Level 1.66 05/08/19 16:26: Glucometer 133 05/08/19 21:17: Glucometer 168 05/09/19 03:05: White Blood Count 9.7, Red Blood Count 4.47, Hemoglobin 12.8, Hematocrit 41, Mean Corpuscular Volume 91, Mean Corpuscular Hemoglobin 29, Mean Corpuscular Hemoglobin Concent 31, Red Cell Distribution Width 15.1, Platelet Count 209, Mean Platelet Volume 11.5, Neutrophils (%) (Auto) 69, Lymphocytes (%) (Auto) 24, Monocytes (%) (Auto) 7, Eosinophils (%) (Auto) 0, Basophils (%) (Auto) 0, Neutrophils # (Auto) 6.6, Lymphocytes # (Auto) 2.3, Monocytes # (Auto) 0.7, Eosinophils # (Auto) 0.0, Basophils # (Auto) 0.0, Sodium Level 137, Potassium Level 4.6, Chloride Level 111, Carbon Dioxide Level 14, Anion Gap 11, Blood Urea Nitrogen 18, Creatinine 0.85, Estimat Glomerular Filtration Rate > 60, BUN/ Creatinine Ratio 21, Glucose Level 158, Calcium Level 7.8, Phosphorus Level 3.3, Magnesium Level 2.1, B-Type Natriuretic Peptide 943.5 05/09/19 15:54: Glucometer 215 05/09/19 19:54: Glucometer 137 05/10/19 03:08: White Blood Count 9.8, Red Blood Count 4.83, Hemoglobin 13.4, Hematocrit 42, Mean Corpuscular Volume 88, Mean Corpuscular Hemoglobin 28, Mean Corpuscular Hemoglobin Concent 32, Red Cell Distribution Width 15.1, Platelet Count 254, Mean Platelet Volume 11.0, Neutrophils (%) (Auto) 65, Lymphocytes (%) (Auto) 26, Monocytes (%) (Auto) 8, Eosinophils (%) (Auto) 1, Basophils (%) (Auto) 0, Neutrophils # (Auto) 6.3, Lymphocytes # (Auto) 2.5, Monocytes # (Auto) 0.8, Eosinophils # (Auto) 0.1, Basophils # (Auto) 0.0, Sodium Level 142, Potassium Level 3.0, Chloride Level 110, Carbon Dioxide Level 17, Anion Gap 15, Blood Urea Nitrogen 17, Creatinine 0.80, Estimat Glomerular Filtration Rate > 60, BUN/Creatinine Ratio 21, Glucose Level 121, Calcium Level 8.5, Phosphorus Level 2.6, Magnesium Level 1.8, B-Type Natriuretic Peptide 1447.2 05/10/19 11:01: Glucometer 108 05/10/19 13:05: Sodium Level 143, Potassium Level 3.3, Chloride Level 107, Carbon Dioxide Level 18, Anion Gap 18, Blood Urea Nitrogen 15, Creatinine 0.76, Estimat Glomerular Filtration Rate > 60, BUN/Creatinine Ratio 20, Glucose Level 118, Calcium Level 9.0, Phosphorus Level 2.5, Magnesium Level 1.7, Troponin I < 0.028 05/10/19 13:49: Blood Gas Puncture Site LT RAD, Blood Gas Patient Temperature 36.0, Arterial Blood pH 7.37, Arterial Blood Partial Pressure CO2 35, Arterial Blood Partial Pressure O2 203, Arterial Blood HCO3 20, Arterial Blood Total CO2 21.2, Arterial Blood Oxygen Saturation 99, Arterial Blood Base Excess -4.5, Darnell Test YES-POS, Blood Gas Ventilator Setting NO, Blood Gas Inspired Oxygen 100 L 05/10/19 13:55: White Blood Count 12.7, Red Blood Count 5.34, Hemoglobin 14.9, Hematocrit 47, Mean Corpuscular Volume 88, Mean Corpuscular Hemoglobin 28, Mean Corpuscular Hemoglobin Concent 32, Red Cell Distribution Width 15.1, Platelet Count 298, Mean Platelet Volume 10.7, Neutrophils (%) (Auto) 64, Lymphocytes (%) (Auto) 27, Monocytes (%) (Auto) 7, Eosinophils (%) (Auto) 2, Basophils (%) (Auto) 0, Neutrophils # (Auto) 8.1, Lymphocytes # (Auto) 3.5, Monocytes # (Auto) 0.9, Eosinophils # (Auto) 0.2, Basophils # (Auto) 0.1, Prothrombin Time 13.9, INR Comment 1.0, Sodium Level 141, Potassium Level 3.6, Chloride Level 106, Carbon Dioxide Level 18, Anion Gap 17, Blood Urea Nitrogen 15, Creatinine 0.83, Estimat Glomerular Filtration Rate > 60, BUN/Creatinine Ratio 18, Glucose Level 140, Lactic Acid Level 2.16, Calcium Level 9.3, Corrected Calcium 9.1, Total Bilirubin 0.8, Aspartate Amino Transf (AST/SGOT) 67, Alanine Aminotransferase (ALT/SGPT) 99, Alkaline Phosphatase 138, Total Protein 8.1, Albumin 4.3, Triglycerides Level 199 05/10/19 16:00: Lactic Acid Level 1.35 05/10/19 16:55: Glucometer 166 05/10/19 23:31: Glucometer 199 05/11/19 03:40: White Blood Count 11.9, Red Blood Count 4.64, Hemoglobin 13.2, Hematocrit 41, Mean Corpuscular Volume 88, Mean Corpuscular Hemoglobin 28, Mean Corpuscular Hemoglobin Concent 32, Red Cell Distribution Width 14.9, Platelet Count 284, Mean Platelet Volume 10.5, Neutrophils (%) (Auto) 78, Lymphocytes (%) (Auto) 13, Monocytes (%) (Auto) 8, Eosinophils (%) (Auto) 1, Basophils (%) (Auto) 0, Neutrophils # (Auto) 9.3, Lymphocytes # (Auto) 1.5, Monocytes # (Auto) 1.0, Eosinophils # (Auto) 0.1, Basophils # (Auto) 0.0, Blood Gas Puncture Site RT RADIAL, Blood Gas Patient Temperature 36.1, Arterial Blood pH 7.38, Arterial Blood Partial Pressure CO2 25, Arterial Blood Partial Pressure O2 69, Arterial Blood HCO3 15, Arterial Blood Total CO2 15.5, Arterial Blood Oxygen Saturation 93, Arterial Blood Base Excess -9.5, Darnell Test YES-POS, Blood Gas Ventilator Setting YES, Blood Gas Inspired Oxygen 22%, Sodium Level 143, Potassium Level 3.0, Chloride Level 108, Carbon Dioxide Level 12, Anion Gap 23, Blood Urea Nitrogen 17, Creatinine 1.05, Estimat Glomerular Filtration Rate 52, BUN/Creatinine Ratio 16, Glucose Level 180, Calcium Level 8.4, Phosphorus Level 4.0, Magnesium Level 2.0, B-Type Natriuretic Peptide 888.9 05/11/19 10:30: Sodium Level 143, Potassium Level 3.5, Chloride Level 111, Carbon Dioxide Level 16, Anion Gap 16, Blood Urea Nitrogen 15, Creatinine 1.08, Estimat Glomerular Fi ltration Rate 51, BUN/Creatinine Ratio 14, Glucose Level 171, Calcium Level 8.4 05/11/19 11:39: Glucometer 190 05/11/19 15:30: Sodium Level 143, Potassium Level 3.2, Chloride Level 108, Carbon Dioxide Level 17, Anion Gap 18, Blood Urea Nitrogen 14, Creatinine 1.22, Estimat Glomerular Filtration Rate 44, BUN/Creatinine Ratio 11, Glucose Level 214, Calcium Level 8.6 05/11/19 18:13: Glucometer 196 05/11/19 23:16: Glucometer 134 05/12/19 03:50: Sodium Level 147, Potassium Level 3.1, Chloride Level 111, Carbon Dioxide Level 18, Anion Gap 18, Blood Urea Nitrogen 13, Creatinine 1.10, Estimat Glomerular Filtration Rate 50, BUN/Creatinine Ratio 12, Glucose Level 132, Calcium Level 9.4, Phosphorus Level 2.9, Magnesium Level 1.7 05/12/19 03:55: White Blood Count 15.7, Red Blood Count 4.70, Hemoglobin 13.1, Hematocrit 41, Mean Corpuscular Volume 88, Mean Corpuscular Hemoglobin 28, Mean Corpuscular Hemoglobin Concent 32, Red Cell Distribution Width 15.2, Platelet Count 277, Mean Platelet Volume 10.4, Neutrophils (%) (Auto) 84, Lymphocytes (%) (Auto) 8, Monocytes (%) (Auto) 8, Eosinophils (%) (Auto) 1, Basophils (%) (Auto) 0, Neutrophils # (Auto) 13.1, Lymphocytes # (Auto) 1.3, Monocytes # (Auto) 1.2, Eosinophils # (Auto) 0.1, Basophils # (Auto) 0.0, Neutrophils % (Manual) 83, Lymphocytes % (Manual) 9, Monocytes % (Manual) 8, Blood Morphology Comment NORMAL 05/12/19 10:29: Glucometer 196 05/12/19 15:20: Glucometer 151, Sodium Level 142, Potassium Level 3.5, Chloride Level 108, Carbon Dioxide Level 19, Anion Gap 15, Blood Urea Nitrogen 15, Creatinine 1.03, Estimat Glomerular Filtration Rate 53, BUN/Creatinine Ratio 15, Glucose Level 166, Calcium Level 9.3, Magnesium Level 2.1 05/12/19 18:46: Glucometer 177 05/12/19 20:20: Glucometer 207 05/13/19 03:00: White Blood Count 14.9, Red Blood Count 4.79, Hemoglobin 13.5, Hematocrit 42, Mean Corpuscular Volume 88, Mean Corpuscular Hemoglobin 28, Mean Corpuscular Hemoglobin Concent 32, Red Cell Distribution Width 15.5, Platelet Count 288, Mean Platelet Volume 10.5, Neutrophils (%) (Auto) 79, Lymphocytes (%) (Auto) 10, Monocytes (%) (Auto) 9, Eosinophils (%) (Auto) 2, Basophils (%) (Auto) 0, Neutrophils # (Auto) 11.7, Lymphocytes # (Auto) 1.6, Monocytes # (Auto) 1.4, Eosinophils # (Auto) 0.3, Basophils # (Auto) 0.0, Sodium Level 139, Potassium Level 3.7, Chloride Level 108, Carbon Dioxide Level 18, Anion Gap 13, Blood Urea Nitrogen 17, Creatinine 0.77, Estimat Glomerular Filtration Rate > 60, BU N/Creatinine Ratio 22, Glucose Level 178, Calcium Level 9.1, Corrected Calcium 9.3, Phosphorus Level 2.6, Magnesium Level 2.0, Total Bilirubin 1.3, Aspartate Amino Transf (AST/SGOT) 16, Alanine Aminotransferase (ALT/SGPT) 40, Alkaline Phosphatase 127, Total Protein 7.1, Albumin 3.7 05/13/19 10:32: Glucometer 182 05/13/19 16:09: Glucometer 232 05/13/19 20:17: Glucometer 156 05/14/19 02:50: White Blood Count 10.7, Red Blood Count 4.87, Hemoglobin 13.8, Hematocrit 43, Mean Corpuscular Volume 89, Mean Corpuscular Hemoglobin 28, Mean Corpuscular Hemoglobin Concent 32, Red Cell Distribution Width 15.8, Platelet Count 240, Mean Platelet Volume 11.2, Neutrophils (%) (Auto) 67, Lymphocytes (%) (Auto) 19, Monocytes (%) (Auto) 10, Eosinophils (%) (Auto) 4, Basophils (%) (Auto) 0, Neutrophils # (Auto) 7.2, Lymphocytes # (Auto) 2.0, Monocytes # (Auto) 1.1, Eosinophils # (Auto) 0.4, Basophils # (Auto) 0.0, Sodium Level 138, Potassium Level 4.4, Chloride Level 108, Carbon Dioxide Level 15, Anion Gap 15, Blood Urea Nitrogen 27, Creatinine 0.89, Estimat Glomerular Filtration Rate > 60, BUN/Creatinine Ratio 30, Glucose Level 173, Calcium Level 8.8, Phosphorus Level 4.4, Magnesium Level 1.9 05/14/19 12:05: Glucometer 208 05/14/19 16:16: Glucometer 143 05/14/19 20:04: Glucometer 178 05/18/19 11:18: Glucometer 165 Discussion & Recommendations Patient comfort care. Patient DO NOT RESUSCITATE. Patient to be seen in the office next week. Patient sent to [facility] [place] Discharge Home Medications: Active Scripts Active Reported Miralax (Polyethylene Glycol 3350) 17 Gm Powd.pack 17 Gm PO DAILY Metformin HCl 1,000 Mg Tablet 1,000 Mg PO BID Lactulose 10 Gm/15 Ml Solution 30 Ml PO Q12H PRN Jardiance (Empagliflozin) 25 Mg Tablet 25 Mg PO DAILY Ivermectin 3 Mg Tablet 15 Mg PO UD GIVE 5 (3MG) TABLETS ONE TIME ONLY ON 05-13-19 Duloxetine HCl 30 Mg Capsule.dr 30 Mg PO DAILY Bisacodyl 10 Mg Supp.rect 10 Mg RC DAILY PRN Quetiapine Fumarate 100 Mg Tablet 150 Mg PO HS Aspirin EC (Aspirin) 81 Mg Tablet.dr 81 Mg PO DAILY Multivitamins with Minerals (Multivitamin with Minerals) 1 Each Tablet 1 Tab PO DAILY Gabapentin 400 Mg Capsule 400 Mg PO TID Colace (Docusate Sodium) 100 Mg Capsule 100 Mg PO BID Aricept (Donepezil HCl) 10 Mg Tablet 10 Mg PO HS Acetaminophen 325 Mg Tablet 650 Mg PO TID TAKES 2 (325 MG) TABLETS Seroquel (Quetiapine Fumarate) 100 Mg Tablet 100 Mg PO 0900,1400 Senna (Sennosides) 8.6 Mg Tablet 17.2 Mg PO HS TAKES 2 (8.6MG) TABLETS Norvasc (Amlodipine Besylate) 10 Mg Tablet 10 Mg PO DAILY HOLD FOR BP <100/60 AND PULSE < 60 Namenda (Memantine HCl) 10 Mg Tablet 10 Mg PO BID Mylanta Suspension (Al Hydrox/Mg Hydrox/Simethicone) 30 Ml Oral.susp 30 Ml PO Q6H PRN Lipitor (Atorvastatin Calcium) 10 Mg Tablet 10 Mg PO HS Instructions to patient/family Please see electronic discharge instructions given to patient. Clinical Quality Measures DVT/VTE Risk/Contraindication: Risk Factor Score Per Nursin RFS Level Per Nursing on Admit: 4+=Very High LANETTE WILCOX DO May 19, 2019 07:45 POS
== END 2019-05-18 11:30 | disposition hospice, inpatient (51) | DRG 871 ==
LOC: EDUNIT# 23:51 → ER 23:52 → ICU 05-07 01:15 → 4TH 05-14 10:51
PROVIDERS: ADMIT Internal Medicine; ATTEND Internal Medicine
PROC: 0BH17EZ Insertion of Endotracheal Airway into Trachea, Via Natural or Artificial Opening (ICD-10-PCS; principal; 2019-05-10)
PROC: 5A1945Z Respiratory Ventilation, 24-96 Consecutive Hours (ICD-10-PCS; 2019-05-10)
DX: A41.9 Sepsis, unspecified organism (principal); R65.20 Severe sepsis without septic shock; J18.9 Pneumonia, unspecified organism; J96.01 Acute respiratory failure with hypoxia; I46.9 Cardiac arrest, cause unspecified; I50.21 Acute systolic (congestive) heart failure; F03.91 Unspecified dementia, unspecified severity, with behavioral disturbance; Z51.5 Encounter for palliative care; Z66 Do not resuscitate; I11.0 Hypertensive heart disease with heart failure; R57.9 Shock, unspecified; I42.9 Cardiomyopathy, unspecified; I49.01 Ventricular fibrillation; I47.2 Ventricular tachycardia; E87.2 Acidosis; E87.6 Hypokalemia; E11.65 Type 2 diabetes mellitus with hyperglycemia; I87.2 Venous insufficiency (chronic) (peripheral); B86 Scabies; E78.00 Pure hypercholesterolemia, unspecified; G47.30 Sleep apnea, unspecified; M54.9 Dorsalgia, unspecified; K59.09 Other constipation; K64.9 Unspecified hemorrhoids; F32.9 Major depressive disorder, single episode, unspecified; F22 Delusional disorders; F60.9 Personality disorder, unspecified; Z79.84 Long term (current) use of oral hypoglycemic drugs
CPT/HCPCS: 36415; 36600; 51702; 71045; 80048; 80053; 81000; 82550; 82553; 82805; 82962; 83605; 83735; 83874; 83880; 84100; 84443; 84478; 84484; 85007; 85025; 85027; 85610; 85730; 87040; 87070; 87081; 87088; 87205; 87804; 93005; 93041; 93306; 94002; 94640; 94660; 94760; 94799; 96361; 96365; 96372; 96375